=== PATIENT | female | born 1955 | race Caucasian/White ===

== ENCOUNTER 2016-04-08 14:53 | Inpatient (IN) | payer MEDICARE, BC ==
[2016-04-08] MEDS ORDERED: HYDROmorphone 1 MG/ML 1 ML SYRINGE IVP STA ×2 (15:36→17:50)
[2016-04-08] MEDS ORDERED: SODIUM CHLORIDE 0.9% 1,000 ML IV STA (15:36)
--- NOTE | 2016-04-08 15:41 | ED ---
Abdominal Pain HPI - General Chief Complaint: Abdominal Pain Stated Complaint: Left side Pain Time Seen by Provider: 04/08/16 15:13 Source: patient Mode of arrival: wheelchair Limitations: no limitations - History of Present Illness Initial Comments: 60-year-old female gradual onset of lower left abdominal pain. Had a hernia surgery 2 months ago had a colonoscopy couple months ago. Said previous diverticulitis she was seen at the walk-in clinic and was sent to ER they had obtained an x-ray. Her urine was clear the center was possible kidney stone. She has no nausea vomiting she's been having diarrhea for couple weeks her pain is been gradually increasing over the last 3 days became unbearable today. She has some frequency urine with some burning. Nausea but no vomiting. Patient has a rather extensive medical history - Related Data Home Medications Medication Instructions Recorded Confirmed Diazepam [Valium] 10 mg PO TID 05/24/15 04/08/16 Ibandronate Sodium [Boniva] 150 mg PO QMONTH 05/24/15 04/08/16 Ipratropium Nebulized [Atrovent 0.5 mg INHALATION RT-TID PRN 05/24/15 04/08/16 Nebulized] Levalbuterol Nebulized [Xopenex 1.25 mg INHALATION RT-TID PRN 05/24/15 04/08/16 Nebulized] Primidone [Mysoline] 50 mg PO BID 05/24/15 04/08/16 Promethaz-Cod 6.25-10 mg/5 ml 5 ml PO Q8H PRN 05/24/15 04/08/16 [Phenergan with Codeine] Rivaroxaban [Xarelto] 20 mg PO DAILY 05/24/15 04/08/16 Zolpidem Tartrate [Ambien] 10 mg PO HS PRN 05/24/15 04/08/16 Ipratropium/Albuterol Sulfate 1 puff INHALATION RT-QID PRN 12/02/15 04/08/16 [Combivent Respimat Inhaler] Pravastatin Sodium [Pravachol] 40 mg PO HS 12/02/15 04/08/16 Donepezil [Aricept] 10 mg PO HS 04/08/16 04/08/16 Escitalopram [Lexapro] 20 mg PO DAILY 04/08/16 04/08/16 Fluticasone/Salmeterol [Advair 1 puff INHALATION RT-BID 04/08/16 04/08/16 500-50 Diskus] Allergies Allergy/AdvReac Type Severity Reaction Status Date / Time cephalexin monohydrate Allergy Rash/Hives Verified 12/28/15 13:20 [From Keflex] clarithromycin [From Biaxin] Allergy Rash/Hives Verified 12/28/15 13:20 Quinolones Allergy Rash/Hives Verified 04/08/16 15:50 Review of Systems ROS Statement: Those systems with pertinent positive or pertinent negative responses have been documented in the HPI. ROS Other: All systems not noted in ROS Statement are negative. Constitutional: Denies: fever, chills Eyes: Denies: eye discharge Respiratory: Denies: cough Cardiovascular: Denies: chest pain Gastrointestinal: Reports: abdominal pain, diarrhea Genitourinary: Reports: dysuria, frequency. Denies: urgency Skin: Denies: rash Neurological: Denies: headache Psychiatric: Denies: anxiety, depression Hematological/Lymphatic: Denies: easy bleeding, easy bruising Past Medical History Past Medical History: Asthma, COPD, CVA/TIA, Deep Vein Thrombosis (DVT), GERD/ Reflux, Hyperlipidemia, Hypertension, Osteoarthritis (OA), Pneumonia, Pulmonary Embolus (PE) Additional Past Medical History / Comment(s): CVA LOST LT PERIPHERAL VISION AND WRITING IS A BIT DIFFICULT & FEW TIA'S, TREMORS SINCE.PE/ XUAN DVT (AFTER LAST 2 MAJOR SURG). HX BOWEL OBSTRUCTION. USED TO TAKE MEDS FOR BP , OSTEOPOROSIS. BACK PAIN. ,RADS,CHRONIC BRONCHITIS, SCOLIOSIS, BROKE RT WRIST D/T FALL 2009, SMALL HIATAL HERNIA,DIVERTICULAR DISEASE, UTI,GLAUCOMA History of Any Multi-Drug Resistant Organisms: MRSA Date of last positivie culture/infection: 2014 MDRO Source:: URINE Past Surgical History: Appendectomy, Back Surgery, Bladder Surgery, Bowel Resection, Breast Surgery, Cholecystectomy, Heart Catheterization, Hernia Repair , Hysterectomy, Orthopedic Surgery Additional Past Surgical History / Comment(s): 12-28-15 LAP INC HERNIA REPAIR, 2 PREVIOUS HERNIA SX 2004/2009,2 HOLES IN HEART REPAIRED, ATRIUM, SEPTUM - HAS "UMBRELLA" CLOSURE DEVICE. BREAST REDUCTION. CYSTOCELE, RECTOCELE REPAIR. RT FOOT. EXC CYST LT ARM,LT FOOT REPAIR CYSTOSCOPY,LT BREAST BX-NEG, BUNIONECTOMY, GANGLION CYST REMOVED BRONCOSCOPIES,EGD/COLONOSCOPY,XUAN CATARACTS Past Anesthesia/Blood Transfusion Reactions: No Reported Reaction Past Psychological History: Anxiety, Depression Additional Psychological History / Comment(s): PT STATED HAS SOME MILD DEPRESSION -SISTER HAS CANCER AND IS LIVING WITH HER. DENIES THOUGHTS OF WANTING TO HARM SELF, NO HOPELESSNESS Smoking Status: Never smoker Past Alcohol Use History: None Reported Past Drug Use History: None Reported - Past Family History Father Brother(s) Family Medical History: Cancer Additional Family Medical History / Comment(s): LUNG CANCER Sister(s) Family Medical History: Cancer Additional Family Medical History / Comment(s): # 1 SISTER-BONE CA,SISTER #2 BREAST CA, SISTER #3 LUNG,STOMACH,ESOPHAGUS Mother Family Medical History: Deep Vein Thrombosis (DVT) Additional Family Medical History / Comment(s): diverticulitis General Exam Limitations: no limitations General appearance: alert Head exam: Present: atraumatic Eye exam: Present: PERRL, EOMI ENT exam: Present: normal oropharynx, mucous membranes moist, TM's normal bilaterally Respiratory exam: Present: normal lung sounds bilaterally Cardiovascular Exam: Present: regular rate, tachycardia, normal heart sounds GI/Abdominal exam: Present: soft, tenderness (Left lower quadrant tenderness with guarding) Neurological exam: Present: alert, CN II-XII intact Psychiatric exam: Present: normal affect, normal mood Skin exam: Present: warm, dry Course Vital Signs 04/08/16 04/08/16 04/08/16 15:03 16:39 17:50 Temperature 99.3 F 98.1 F 97.7 F Pulse Rate 102 H 94 77 Respiratory 20 18 18 Rate Blood Pressure 159/112 135/89 145/84 O2 Sat by Pulse 99 98 99 Oximetry Medical Decision Making - Medical Decision Making Spoke to Dr. Montiel patient will be admitted to her surgeon Dr. Fonseca with consult to Dr. Francois appears to have an incarcerated inguinal hernia with omental no bowel obstruction - Lab Data Result diagrams: 04/08/16 16:00 04/08/16 16:00 Lab Results 04/08/16 04/08/16 04/08/16 Range/Units 16:00 16:00 16:00 WBC 7.6 (3.8-10.6) k/uL RBC 4.62 (3.80-5.40) m/uL Hgb 12.2 (11.4-16.0) gm/dL Hct 38.6 (34.0-46.0) % MCV 83.4 (80.0-100.0) fL MCH 26.4 (25.0-35.0) pg MCHC 31.6 (31.0-37.0) g/dL RDW 14.6 (11.5-15.5) % Plt Count 337 (150-450) k/uL Neutrophils % 63 % Lymphocytes % 26 % Monocytes % 6 % Eosinophils % 3 % Basophils % 0 % Neutrophils # 4.8 (1.3-7.7) k/uL Lymphocytes # 2.0 (1.0-4.8) k/uL Monocytes # 0.5 (0-1.0) k/uL Eosinophils # 0.2 (0-0.7) k/uL Basophils # 0.0 (0-0.2) k/uL Sodium 142 (137-145) mmol/L Potassium 5.1 (3.5-5.1) mmol/L Chloride 108 H (98-107) mmol/L Carbon Dioxide 21 L (22-30) mmol/L Anion Gap 13 mmol/L BUN 16 (7-17) mg/dL Creatinine 0.70 (0.52-1.04) mg/dL Est GFR (MDRD) Af Amer >60 (>60 ml/min/1.73 sqM) Est GFR (MDRD) Non-Af >60 (>60 ml/min/1.73 sqM) Glucose 97 (74-99) mg/dL Calcium 9.9 (8.4-10.2) mg/dL Total Bilirubin 0.7 (0.2-1.3) mg/dL AST 42 H (14-36) U/L ALT 32 (9-52) U/L Alkaline Phosphatase 71 (38-126) U/L Total Protein 7.8 (6.3-8.2) g/dL Albumin 4.6 (3.5-5.0) g/dL Amylase 88 (30-110) U/L Lipase 270 (23-300) U/L Urine Color Light Yellow Urine Appearance Clear (Clear) Urine pH 5.5 (5.0-8.0) Ur Specific Ayden 1.009 (1.001-1.035) Urine Protein Negative (Negative) Urine Glucose (UA) Negative (Negative) Urine Ketones Negative (Negative) Urine Blood Negative (Negative) Urine Nitrate Negative (Negative) Urine Bilirubin Negative (Negative) Urine Urobilinogen <2.0 (<2.0) mg/dL Ur Leukocyte Esterase Small H (Negative) Urine WBC 5 (0-5) /hpf Ur Squamous Epith Cells 1 (0-4) /hpf Urine Mucus Rare H (None) /hpf - Radiology Data Radiology results: report reviewed CT shows large inguinal hernia increased in size compared to old computed tomography scan no evidence of renal stone or obstruction. Mild subsegmental atelectasis at the lung base without change. Lower abdominal ventral hernia. Disposition Clinical Impression: Hernia of anterior abdominal wall, Inguinal hernia with incarceration Disposition: HOME SELF-CARE Condition: Good Time of Disposition: 19:16
[2016-04-08 16:11] LABS: Basophils % (A) 0 %; CH 26.9; CHCM 32.4; Eosinophils # (A) 0.2 k/uL (0-0.7); Eosinophils % (A) 3 %; HCT 38.6 % (34.0-46.0); HDW 2.64; HGB 12.2 gm/dL (11.4-16.0); Luc # (Auto) 0.12; Luc % (Auto) 2; Lymphocytes % (A) 26 %; MCH 26.4 pg (25.0-35.0); MCHC 31.6 g/dL (31.0-37.0); MCV 83.4 fL (80.0-100.0); Mean Platelet Volume 7.8; Monocytes # (A) 0.5 k/uL (0-1.0); Monocytes % (A) 6 %; Neutrophils # (A) 4.8 k/uL (1.3-7.7); Neutrophils % (A) 63 %; RBC 4.62 m/uL (3.80-5.40); RDW 14.6 % (11.5-15.5); WBC 7.6 k/uL (3.8-10.6); WBC (Perox) 8.14
[2016-04-08 16:16] LABS: Appearance,Urine Clear (Clear); Bilirubin,Urine Negative (Negative); Glucose,Urine (UA) Negative (Negative); Ketones,Urine Negative (Negative); Leukocyte Esterase,Urine Small (Negative); Mucus,Urine Rare /hpf; Nitrite,Urine Negative (Negative); PH, Urine 5.5 (5.0-8.0); Particle Count 1507; Protein,Urine Negative (Negative); Specific Gravity,Urine 1.009 (1.001-1.035); Squamous Epithelial Cell,Urine 1 /hpf (0-4); UA Billing (MACRO vs. MICRO) MICRO; Urobilinogen,Urine <2.0 mg/dL (<2.0); WBC,Urine 5 /hpf (0-5)
[2016-04-08 16:23] LABS: ALT 32 U/L (9-52); AST 42 U/L (14-36); Alkaline Phosphatase 71 U/L (38-126); Amylase 88 U/L (30-110); Anion Gap 13 mmol/L; Blood Urea Nitrogen 16 mg/dL (7-17); Calcium 9.9 mg/dL (8.4-10.2); Carbon Dioxide 21 mmol/L (22-30); Chloride 108 mmol/L (98-107); Glucose 97 mg/dL (74-99); Non-African American GFR(MDRD) >60 (>60 ml/min/1.73 sqM); Potassium 5.1 mmol/L (3.5-5.1); Sodium 142 mmol/L (137-145); Total Bilirubin 0.7 mg/dL (0.2-1.3); Total Protein 7.8 g/dL (6.3-8.2)
--- NOTE | 2016-04-08 17:19 | CT ---
EXAMINATION TYPE: CT abdomen pelvis wo con DATE OF EXAM: 04/08/2016 5:01 PM COMPARISON: 11/22/2015 HISTORY: Left Lower Quadrant pain CT DLP: 312.1 mGycm Automated exposure control for dose reduction was used. TECHNIQUE: Helical acquisition of images was performed from the lung bases through the pelvis. FINDINGS: There is minimal subsegmental atelectasis at the lung bases. There is no pleural effusion. There are clips from cholecystectomy. Bile ducts are not dilated. There is a small hiatal hernia. Shraddha er shows no focal defect. There is slight elevated right diaphragm. Spleen and pancreas appear normal . There is no adrenal mass. There is a 2 cm cortical cyst on the posterior right kidney. There is no re troperitoneal adenopathy. There is no hydronephrosis. Ureters are not dilated. There is a lower abdominal ventral hernia that contains small bowel. There is no evidence of a bowel obstruction. Bladder distends smoothly. There is surgical clips apparently from sigmoid colon surgery . Appendix is not seen. There is no sign of appendicitis. There is posterior fusion surgery in the lo wer lumbar spine. There is a left inguinal hernia that contains omental fat. This measures 3.5 cm. IMPRESSION: LOWER ABDOMINAL VENTRAL HERNIA. LEFT INGUINAL HERNIA IS INCREASED IN SIZE COMPARED TO OLD CT SCAN. NO EVIDENCE OF RENAL STONE OR OBST RUCTION. MILD SUBSEGMENTAL ATELECTASIS AT THE LUNG BASES WITHOUT CHANGE.
[2016-04-08] MEDS ORDERED: NALOXONE 0.4 MG/ML 1 ML VIAL IV PRN (19:16)
[2016-04-08] MEDS ORDERED: ONDANSETRON 4 MG/2 ML VIAL IVP PRN (19:20)
[2016-04-08] MEDS ORDERED: DEXTROSE 5%-0.45% NACL 1,000 ML IV ONE (19:20)
[2016-04-08] MEDS ORDERED: ZOLPIDEM 10 MG TAB PO PRN (19:22)
[2016-04-08] MEDS ORDERED: LEVALBUTEROL NEB (CONC) 1.25 MG/0.5 ML AMP INHALATION PRN (19:22)
[2016-04-08] MEDS ORDERED: IPRATROPIUM 0.5 MG/2.5 ML NEBU INHALATION PRN (19:22)
[2016-04-08] MEDS ORDERED: IPRATROPIUM-ALBUTEROL 3 ML NEB INHALATION PRN (19:30)
[2016-04-08] MEDS: SYMBICORT 160-4.5 MCG INHALER INHALATION SCH (20:13)
[2016-04-08] MEDS: HYDROmorphone 1 MG/ML 1 ML SYRINGE IV PRN (21:39)
[2016-04-08] MEDS: PRIMIDONE 50 MG TAB PO SCH (21:40)
[2016-04-08] MEDS: DONEPEZIL 10 MG TAB PO SCH (21:40)
[2016-04-08] MEDS: DIAZEPAM 5 MG TAB PO SCH (22:54)
[2016-04-08] MEDS: DEXTROSE 5%-0.45% NACL 1,000 ML IV SCH (22:55)
[2016-04-09] MEDS: HYDROmorphone 1 MG/ML 1 ML SYRINGE IV PRN ×5 (00:45→16:06)
[2016-04-09 06:54] LABS: Basophils % (A) 0 %; CH 26.1; CHCM 30.1; Eosinophils # (A) 0.2 k/uL (0-0.7); Eosinophils % (A) 4 %; HCT 34.4 % (34.0-46.0); HDW 2.53; HGB 10.4 gm/dL (11.4-16.0); Hypochromasia Marked; Luc # (Auto) 0.07; Luc % (Auto) 1; Lymphocytes # (A) 1.4 k/uL (1.0-4.8); Lymphocytes % (A) 27 %; MCH 26.4 pg (25.0-35.0); MCHC 30.3 g/dL (31.0-37.0); Mean Platelet Volume 7.6; Monocytes # (A) 0.3 k/uL (0-1.0); Monocytes % (A) 7 %; Neutrophils # (A) 3.1 k/uL (1.3-7.7); Neutrophils % (A) 62 %; RBC 3.95 m/uL (3.80-5.40); RDW 14.6 % (11.5-15.5); WBC 5.1 k/uL (3.8-10.6); WBC (Perox) 4.97
[2016-04-09 07:09] LABS: Anion Gap 7 mmol/L; Blood Urea Nitrogen 11 mg/dL (7-17); Calcium 8.3 mg/dL (8.4-10.2); Carbon Dioxide 23 mmol/L (22-30); Chloride 109 mmol/L (98-107); Glucose 100 mg/dL (74-99); Non-African American GFR(MDRD) >60 (>60 ml/min/1.73 sqM); Potassium 4.1 mmol/L (3.5-5.1); Sodium 139 mmol/L (137-145)
[2016-04-09] MEDS: SYMBICORT 160-4.5 MCG INHALER INHALATION SCH ×2 (08:20→19:41)
[2016-04-09] MEDS: ESCITALOPRAM 20 MG TAB PO SCH (08:49)
[2016-04-09] MEDS: PRIMIDONE 50 MG TAB PO SCH ×2 (08:49→20:13)
[2016-04-09] MEDS: DIAZEPAM 5 MG TAB PO SCH ×3 (08:49→21:10)
[2016-04-09 09:24] VITALS: BMI 26.3
[2016-04-09] MEDS ORDERED: FLUCONAZOLE 150 MG TAB PO STA (11:21)
[2016-04-09] MEDS: NYSTATIN 100,000UNIT/GM CREAM 30 GM TUBE TOPICAL SCH ×2 (12:00→20:13)
--- NOTE | 2016-04-09 12:12 | XR ---
EXAMINATION TYPE: XR chest 2V DATE OF EXAM: 04/09/2016 11:49 AM COMPARISON: Chest x-ray 13 March 2016, CT 08 April 2016 HISTORY: Surgical clearance, preop abdominal hernia surgery TECHNIQUE: Frontal and lateral views of the chest are obtained. FINDINGS: Some minimal strand-like densities are present at the lung bases similar to prior exam. No pneumonia, pneumothorax, or pleural effusion. Cardiac mediastinal silhouette, pulmonary vascularity and trev are stable. Surgical clips are present in the right upper quadrant. IMPRESSION: No acute cardiopulmonary process. There may be some basilar atelectasis or scarring.
--- NOTE | 2016-04-09 14:29 | P.CONS ---
History of Present Illness - Reason for Consult Consult date: 04/09/16 Medical management Requesting physician: Vincenzo Carmichael - Chief Complaint Abdominal pain - History of Present Illness This is a 60-year-old female with a known past medical history of COPD, CVA, hypertension, hyperlipidemia, pulmonary embolus and diverticulitis. Patient had hernia surgery about 2 months ago as well as a colonoscopy. Colonoscopy was poor to good. Patient reports having increasing abdominal pain yesterday mostly on the left side. She did initially go into walk-in clinic for x-rays in the center to the emergency room. Patient denies any nausea vomiting. Denies any change in her bowel movements. She was having stabbing pain in the lower abdomen mostly on the left. Computed tomography scan of the abdomen and pelvis completed showing a lower abdominal ventral hernia and a left inguinal hernia increased in size compared to old CAT scan. No evidence of renal stones or obstruction. Mild subsegmental atelectasis at the lung base without change. Patient was admitted to surgical service. We have been consulted for medical management. Patient denies any fever or sweats. Does admit to occasional chills. Denies any nausea or vomiting. Denies a bowel movement changes. Patient does admit to having some burning with urination. And also a yeast infection. Xarelto was placed on hold in the emergency room for possible surgery. She is on the Xarelto for her history of PE. Review of Systems Please refer to HPI otherwise unremarkable Past Medical History Past Medical History: Asthma, COPD, CVA/TIA, Deep Vein Thrombosis (DVT), GERD/ Reflux, Hyperlipidemia, Hypertension, Osteoarthritis (OA), Pneumonia, Pulmonary Embolus (PE) Additional Past Medical History / Comment(s): CVA LOST LT PERIPHERAL VISION AND WRITING IS A BIT DIFFICULT & FEW TIA'S, TREMORS SINCE.PE/ XUAN DVT (AFTER LAST 2 MAJOR SURG). HX BOWEL OBSTRUCTION. USED TO TAKE MEDS FOR BP , OSTEOPOROSIS. BACK PAIN. ,RADS,CHRONIC BRONCHITIS, SCOLIOSIS, BROKE RT WRIST D/T FALL 2009, SMALL HIATAL HERNIA,DIVERTICULAR DISEASE, UTI,GLAUCOMA History of Any Multi-Drug Resistant Organisms: MRSA Year Discovered:: 07/12/2008 MDRO Source:: URINE Past Surgical History: Appendectomy, Back Surgery, Bladder Surgery, Bowel Resection, Breast Surgery, Cholecystectomy, Heart Catheterization, Hernia Repair , Hysterectomy, Orthopedic Surgery Additional Past Surgical History / Comment(s): 12-28-15 LAP INC HERNIA REPAIR, 2 PREVIOUS HERNIA SX 2004/2009,2 HOLES IN HEART REPAIRED, ATRIUM, SEPTUM - HAS "UMBRELLA" CLOSURE DEVICE. BREAST REDUCTION. CYSTOCELE, RECTOCELE REPAIR. RT FOOT. EXC CYST LT ARM,LT FOOT REPAIR CYSTOSCOPY,LT BREAST BX-NEG, BUNIONECTOMY, GANGLION CYST REMOVED BRONCOSCOPIES,EGD/COLONOSCOPY,XUAN CATARACTS Past Anesthesia/Blood Transfusion Reactions: No Reported Reaction Past Psychological History: Anxiety, Depression Additional Psychological History / Comment(s): PT STATED HAS SOME MILD DEPRESSION -SISTER HAS CANCER AND IS LIVING WITH HER. DENIES THOUGHTS OF WANTING TO HARM SELF, NO HOPELESSNESS Smoking Status: Never smoker Past Alcohol Use History: None Reported Past Drug Use History: None Reported - Past Family History Father Brother(s) Family Medical History: Cancer Additional Family Medical History / Comment(s): LUNG CANCER Sister(s) Family Medical History: Cancer Additional Family Medical History / Comment(s): # 1 SISTER-BONE CA,SISTER #2 BREAST CA, SISTER #3 LUNG,STOMACH,ESOPHAGUS Mother Family Medical History: Deep Vein Thrombosis (DVT) Additional Family Medical History / Comment(s): diverticulitis Medications and Allergies Home Medications Medication Instructions Recorded Confirmed Type Diazepam [Valium] 10 mg PO TID 05/24/15 04/08/16 History Ibandronate Sodium [Boniva] 150 mg PO QMONTH 05/24/15 04/08/16 History Ipratropium Nebulized [Atrovent 0.5 mg INHALATION RT-TID PRN 05/24/15 04/08/16 History Nebulized] Levalbuterol Nebulized [Xopenex 1.25 mg INHALATION RT-TID PRN 05/24/15 04/08/16 History Nebulized] Primidone [Mysoline] 50 mg PO BID 05/24/15 04/08/16 History Promethaz-Cod 6.25-10 mg/5 ml 5 ml PO Q8H PRN 05/24/15 04/08/16 History [Phenergan with Codeine] Rivaroxaban [Xarelto] 20 mg PO DAILY 05/24/15 04/08/16 History Zolpidem Tartrate [Ambien] 10 mg PO HS PRN 05/24/15 04/08/16 History Ipratropium/Albuterol Sulfate 1 puff INHALATION RT-QID PRN 12/02/15 04/08/16 History [Combivent Respimat Inhaler] Pravastatin Sodium [Pravachol] 40 mg PO HS 12/02/15 04/08/16 History Donepezil [Aricept] 10 mg PO HS 04/08/16 04/08/16 History Escitalopram [Lexapro] 20 mg PO DAILY 04/08/16 04/08/16 History Fluticasone/Salmeterol [Advair 1 puff INHALATION RT-BID 04/08/16 04/08/16 History 500-50 Diskus] Allergies Allergy/AdvReac Type Severity Reaction Status Date / Time cephalexin monohydrate Allergy Rash/Hives Verified 12/28/15 13:20 [From Keflex] clarithromycin [From Biaxin] Allergy Rash/Hives Verified 12/28/15 13:20 Quinolones Allergy Rash/Hives Verified 04/08/16 15:50 Physical Exam Vitals: Vital Signs Temp Pulse Pulse Resp BP BP Pulse Ox 04/09/16 07:00 98.7 F 98 16 115/69 96 04/09/16 02:00 97.4 F L 78 16 108/69 95 04/08/16 21:13 97.8 F 93 16 114/87 04/08/16 20:36 98.2 F 90 18 129/78 98 04/08/16 19:50 90 18 132/64 95 Intake and Output 04/08/16 04/09/16 04/09/16 22:59 06:59 14:59 Intake Total 450 675 Balance 450 675 Intake: Intake, IV Titration 150 675 Amount Dextrose 5%-0.45% NaCl 1, 150 675 000 ml @ 75 mls/hr IV . [id number] Rx#:[id number] Oral 300 Other: Voiding Method Toilet # Voids 3 2 Weight 57.153 kg Patient Weight 04/10/16 06:59 Weight 57.153 kg Head normocephalic Neck supple Lungs clear to auscultation bilaterally no wheezing or crackles Heart regular rate and rhythm S1-S2, no rub or gallop Abdomen left lower quadrant and inguinal area tenderness. Some swelling noted in the left inguinal area and around the umbilical area Extremities no edema Neuro alert and orientated to 3 Results CBC & Chem 7: 04/09/16 06:34 04/09/16 06:34 Labs: Abnormal Lab Results - Last 24 Hours (Table) 04/09/16 04/09/16 Range/Units 06:34 06:34 Hgb 10.4 L (11.4-16.0) gm/dL MCHC 30.3 L (31.0-37.0) g/dL Chloride 109 H (98-107) mmol/L Glucose 100 H (74-99) mg/dL Calcium 8.3 L (8.4-10.2) mg/dL Assessment and Plan Plan: 1. Left inguinal hernia increase in size that contains omental fat. Also a lower abdominal ventral hernia noted on computed tomography scan. Patient admitted to surgical service. We'll await further surgical recommendations. We 'll check chest x-ray and EKG for surgical clearance. Patient has intermediate to moderate risk for surgery. She's had a known history of CVA and TIA. And does get short of breath with walking a flight of stairs which is her baseline. Continue IV Dilaudid as needed for pain control 2. Urinalysis small leukocyte esterase with negative nitrites. WBCs are only 5. We'll repeat urinalysis and check urine culture. Hold off on antibiotics at this point until we have evaluated the repeat urinalysis and urine culture. 3. History of pulmonary embolism on Xarelto at home. Xarelto was placed on hold yesterday. At this time we'll place her on Lovenox 60 mg subcu every 12 hours for anticoagulation for PE 4. History of COPD with no evidence of exacerbation. Continue nebulizer treatments 5. Recent hernia surgery about 2 months ago 6. Hyperlipidemia continue Pravachol 7. Dementia continue Aricept 8. Vaginal yeast infection we'll give Diflucan 150mg po x 1 and nystatin cream for candidiasis in the labial folds 9. Atelectasis start incentive spirometer Prophylaxis Protonix and DVT prophylaxis Lovenox Thank you for this consultation. We will continue to follow along with you. Time with Patient: Greater than 30 (Greater than 50% of the total time spent in counseling and coordination of careGreater than 50% of the total time spent in counseling and coordination of care. I performed an examination of the patient and discussed their management with the physician [facility]. I have reviewed the Physician [facility]'s notes and agree with the documented findings and plan of care)
--- NOTE | 2016-04-09 15:56 | P.GSHP ---
History of Present Illness H&P Date: 04/09/16 Chief Complaint: Left lower quadrant abdominal pain Patient is a 60-year-old female with medical history significant for bowel obstruction, diverticulosis, diverticulitis, and recent urinary tract infection. Surgical history significant for laparoscopic incisional hernia repair on 12/28/2015, 2 previous sinus surgeries in 2004 and 2009, cystocele, rectocele, appendectomy, cholecystectomy, and hernia repair 2 in 2004 and 2009. Patient states that over the last couple days she had been experiencing progressive left lower quadrant abdominal pain radiating into her back associated with chills and sweats without fevers, nausea, or vomiting. Patient states she went to urgent care who directed her to the emergency department for possible kidney stone infection. CT of the abdomen and pelvis with evidence of small hiatal hernia; lower abdominal ventral hernia containing small bowel; no evidence of bowel obstruction; no signs of appendicitis; left inguinal hernia containing omental fat measuring 3.5 cm increased in size compared to old computed tomography scan. No evidence of leukocytosis on admission. No evidence of fevers on admission. Upon examination, patient is complaining of left lower quadrant abdominal pain currently rated ER at 10 associated with intermittent chills and sweats. Patient denies nausea, vomiting, shortness of breath, chest pain, diarrhea, or constipation. Afebrile. No evidence of leukocytosis. Past Medical History Past Medical History: Asthma, COPD, CVA/TIA, Deep Vein Thrombosis (DVT), GERD/ Reflux, Hyperlipidemia, Hypertension, Osteoarthritis (OA), Pneumonia, Pulmonary Embolus (PE) Additional Past Medical History / Comment(s): CVA LOST LT PERIPHERAL VISION AND WRITING IS A BIT DIFFICULT & FEW TIA'S, TREMORS SINCE.PE/ XUAN DVT (AFTER LAST 2 MAJOR SURG). HX BOWEL OBSTRUCTION. USED TO TAKE MEDS FOR BP , OSTEOPOROSIS. BACK PAIN. ,RADS,CHRONIC BRONCHITIS, SCOLIOSIS, BROKE RT WRIST D/T FALL 2009, SMALL HIATAL HERNIA,DIVERTICULAR DISEASE, UTI,GLAUCOMA History of Any Multi-Drug Resistant Organisms: MRSA Date of last positivie culture/infection: 07/12/2008 MDRO Source:: URINE Past Surgical History: Appendectomy, Back Surgery, Bladder Surgery, Bowel Resection, Breast Surgery, Cholecystectomy, Heart Catheterization, Hernia Repair , Hysterectomy, Orthopedic Surgery Additional Past Surgical History / Comment(s): 10-5-16 LAP INC HERNIA REPAIR, 2 PREVIOUS HERNIA SX 2004/2009,2 HOLES IN HEART REPAIRED, ATRIUM, SEPTUM - HAS "UMBRELLA" CLOSURE DEVICE. BREAST REDUCTION. CYSTOCELE, RECTOCELE REPAIR. RT FOOT. EXC CYST LT ARM,LT FOOT REPAIR CYSTOSCOPY,LT BREAST BX-NEG, BUNIONECTOMY, GANGLION CYST REMOVED BRONCOSCOPIES,EGD/COLONOSCOPY,XUAN CATARACTS Past Anesthesia/Blood Transfusion Reactions: No Reported Reaction Past Psychological History: Anxiety, Depression Additional Psychological History / Comment(s): PT STATED HAS SOME MILD DEPRESSION -SISTER HAS CANCER AND IS LIVING WITH HER. DENIES THOUGHTS OF WANTING TO HARM SELF, NO HOPELESSNESS Smoking Status: Never smoker Past Alcohol Use History: None Reported Past Drug Use History: None Reported - Past Family History Father Brother(s) Family Medical History: Cancer Additional Family Medical History / Comment(s): LUNG CANCER Sister(s) Family Medical History: Cancer Additional Family Medical History / Comment(s): # 1 SISTER-BONE CA,SISTER #2 BREAST CA, SISTER #3 LUNG,STOMACH,ESOPHAGUS Mother Family Medical History: Deep Vein Thrombosis (DVT) Additional Family Medical History / Comment(s): diverticulitis Medications and Allergies Home Medications Medication Instructions Recorded Confirmed Type Diazepam [Valium] 10 mg PO TID 05/24/15 04/08/16 History Ibandronate Sodium [Boniva] 150 mg PO QMONTH 05/24/15 04/08/16 History Ipratropium Nebulized [Atrovent 0.5 mg INHALATION RT-TID PRN 05/24/15 04/08/16 History Nebulized] Levalbuterol Nebulized [Xopenex 1.25 mg INHALATION RT-TID PRN 05/24/15 04/08/16 History Nebulized] Primidone [Mysoline] 50 mg PO BID 05/24/15 04/08/16 History Promethaz-Cod 6.25-10 mg/5 ml 5 ml PO Q8H PRN 05/24/15 04/08/16 History [Phenergan with Codeine] Rivaroxaban [Xarelto] 20 mg PO DAILY 05/24/15 04/08/16 History Zolpidem Tartrate [Ambien] 10 mg PO HS PRN 05/24/15 04/08/16 History Ipratropium/Albuterol Sulfate 1 puff INHALATION RT-QID PRN 12/02/15 04/08/16 History [Combivent Respimat Inhaler] Pravastatin Sodium [Pravachol] 40 mg PO HS 12/02/15 04/08/16 History Donepezil [Aricept] 10 mg PO HS 04/08/16 04/08/16 History Escitalopram [Lexapro] 20 mg PO DAILY 04/08/16 04/08/16 History Fluticasone/Salmeterol [Advair 1 puff INHALATION RT-BID 04/08/16 04/08/16 History 500-50 Diskus] Allergies Allergy/AdvReac Type Severity Reaction Status Date / Time cephalexin monohydrate Allergy Rash/Hives Verified 12/28/15 13:20 [From Keflex] clarithromycin [From Biaxin] Allergy Rash/Hives Verified 12/28/15 13:20 Quinolones Allergy Rash/Hives Verified 04/08/16 15:50 Surgical - Exam Vital Signs Temp Pulse Resp BP Pulse Ox 99.3 F 102 H 20 159/112 99 04/08/16 15:03 04/08/16 15:03 04/08/16 15:03 04/08/16 15:03 04/08/16 15:03 GENERAL: Pt awake and alert, well-appearing, well-nourished, and in no acute distress. HEAD: Atraumatic, normocephalic. EYES: Pupils equal and round. Sclera anicteric, conjunctiva are normal. ENT: Moist mucous membranes. LUNGS: Breath sounds clear to auscultation bilaterally. No wheezes, rales, or rhonchi. HEART: Heart S1, S2, no S3 or S4. Regular rate and rhythm. No murmurs, rubs or gallops. ABDOMEN: Soft, left lower quadrant tenderness, mildly distended, hypoactive bowel sounds. Voluntary guarding. EXTREMITIES: 2+ peripheral pulses. No edema. NEUROLOGICAL: Pt oriented x 3. Results - Labs 04/09/16 06:34 04/09/16 06:34 Abnormal Lab Results - Last 24 Hours (Table) 04/09/16 04/09/16 Range/Units 06:34 06:34 Hgb 10.4 L (11.4-16.0) gm/dL MCHC 30.3 L (31.0-37.0) g/dL Chloride 109 H (98-107) mmol/L Glucose 100 H (74-99) mg/dL Calcium 8.3 L (8.4-10.2) mg/dL Diabetes panel 04/09/16 Range/Units 06:34 Sodium 139 (137-145) mmol/L Potassium 4.1 (3.5-5.1) mmol/L Chloride 109 H (98-107) mmol/L Carbon Dioxide 23 (22-30) mmol/L BUN 11 (7-17) mg/dL Creatinine 0.59 (0.52-1.04) mg/dL Glucose 100 H (74-99) mg/dL Calcium 8.3 L (8.4-10.2) mg/dL Calcium panel 04/09/16 Range/Units 06:34 Calcium 8.3 L (8.4-10.2) mg/dL Pituitary panel 04/09/16 Range/Units 06:34 Sodium 139 (137-145) mmol/L Potassium 4.1 (3.5-5.1) mmol/L Chloride 109 H (98-107) mmol/L Carbon Dioxide 23 (22-30) mmol/L BUN 11 (7-17) mg/dL Creatinine 0.59 (0.52-1.04) mg/dL Glucose 100 H (74-99) mg/dL Calcium 8.3 L (8.4-10.2) mg/dL Adrenal panel 04/09/16 Range/Units 06:34 Sodium 139 (137-145) mmol/L Potassium 4.1 (3.5-5.1) mmol/L Chloride 109 H (98-107) mmol/L Carbon Dioxide 23 (22-30) mmol/L BUN 11 (7-17) mg/dL Creatinine 0.59 (0.52-1.04) mg/dL Glucose 100 H (74-99) mg/dL Calcium 8.3 L (8.4-10.2) mg/dL - Imaging CT scan - abdomen: report reviewed CT scan - pelvis: report reviewed Assessment and Plan Plan: Impression: 1. Large inguinal hernia increased in size compared to old computed tomography scan with omental fat. 2. Lower abdominal ventral hernia. 3. History of pulmonary embolism and DVT on Xaralto. Last dose 04/08/2016. 4. History of GERD. 5. History of bowel obstruction with resection. 6. History of recent incarcerated incisional hernia repair. 7. History of appendectomy. 8. History of cholecystectomy. 9. History of hysterectomy. 10. History of diverticulosis with diverticulitis. Plan: Continue to monitor patient. Advance diet to full liquid. Continue supportive treatment and pain management. Repeat CBC and BMP in a.m. Continue to follow with primary service. The above impression and plan have been discussed and directed by Dr. Carmichael. Monie KOWALSKI acting as scribe for Dr. Carmichael.
[2016-04-09] MEDS: HYDROmorphone 1 MG/ML 1 ML SYRINGE IVP PRN ×3 (18:17→22:43)
[2016-04-09] MEDS: DEXTROSE 5%-0.45% NACL 1,000 ML IV SCH (19:36)
[2016-04-09] MEDS: DONEPEZIL 10 MG TAB PO SCH (20:13)
[2016-04-09] MEDS: ENOXAPARIN 60 MG/0.6 ML SYRINGE SQ SCH (20:13)
[2016-04-10] MEDS: HYDROmorphone 1 MG/ML 1 ML SYRINGE IVP PRN ×5 (02:23→20:08)
[2016-04-10] MEDS: DIAZEPAM 5 MG TAB PO SCH ×3 (07:08→21:34)
[2016-04-10] MEDS: ENOXAPARIN 60 MG/0.6 ML SYRINGE SQ SCH ×2 (07:08→20:08)
[2016-04-10] MEDS: PANTOPRAZOLE 40 MG TABLET PO SCH (07:08)
[2016-04-10] MEDS: ESCITALOPRAM 20 MG TAB PO SCH (07:09)
[2016-04-10] MEDS: PRIMIDONE 50 MG TAB PO SCH ×2 (07:09→20:09)
[2016-04-10 07:38] LABS: Basophils % (A) 0 %; CH 26.4; CHCM 31.2; Eosinophils # (A) 0.3 k/uL (0-0.7); Eosinophils % (A) 8 %; HCT 35.6 % (34.0-46.0); HGB 11.1 gm/dL (11.4-16.0); Hypochromasia Slight; Luc # (Auto) 0.08; Luc % (Auto) 2; Lymphocytes # (A) 1.8 k/uL (1.0-4.8); Lymphocytes % (A) 44 %; MCH 26.5 pg (25.0-35.0); MCHC 31.2 g/dL (31.0-37.0); MCV 84.9 fL (80.0-100.0); Mean Platelet Volume 6.9; Monocytes # (A) 0.3 k/uL (0-1.0); Monocytes % (A) 6 %; Neutrophils # (A) 1.6 k/uL (1.3-7.7); Neutrophils % (A) 40 %; RBC 4.19 m/uL (3.80-5.40); RDW 14.3 % (11.5-15.5); WBC 4.1 k/uL (3.8-10.6); WBC (Perox) 4.28
[2016-04-10] MEDS: SYMBICORT 160-4.5 MCG INHALER INHALATION SCH ×2 (07:38→19:32)
[2016-04-10 07:50] LABS: ALT 211 U/L (9-52); AST 190 U/L (14-36); Alkaline Phosphatase 87 U/L (38-126); Anion Gap 8 mmol/L; Blood Urea Nitrogen 4 mg/dL (7-17); Calcium 9.3 mg/dL (8.4-10.2); Carbon Dioxide 27 mmol/L (22-30); Chloride 104 mmol/L (98-107); Glucose 99 mg/dL (74-99); Non-African American GFR(MDRD) >60 (>60 ml/min/1.73 sqM); Potassium 5.1 mmol/L (3.5-5.1); Sodium 139 mmol/L (137-145); Total Bilirubin 0.5 mg/dL (0.2-1.3); Total Protein 6.2 g/dL (6.3-8.2)
[2016-04-10] MEDS: NYSTATIN 100,000UNIT/GM CREAM 30 GM TUBE TOPICAL SCH ×2 (09:47→20:08)
[2016-04-10] MEDS ORDERED: IV FLUID CONTINUATION 1,000 ML IV ONE (11:46)
--- NOTE | 2016-04-10 12:06 | P.PN ---
Progress Note - Text The patient still has complaints of pain in her left groin. Patient will undergo repair of incarcerated left inguinal hernia today.
[2016-04-10] MEDS ORDERED: MIDAZOLAM 2 MG/2 ML VIAL IVP ONE (12:20)
[2016-04-10] MEDS ORDERED: PROPOFOL 10 MG/ML 20 ML VIAL IV ONE (12:28)
[2016-04-10] MEDS ORDERED: MIDAZOLAM 2 MG/2 ML VIAL ONE (12:28)
[2016-04-10] MEDS ORDERED: fentaNYL (PF) 50 MCG/ML 2 ML AMP ONE (12:28)
[2016-04-10] MEDS ORDERED: SUCCINYLCHOLINE CHLORIDE 100 MG/5 ML SYR IV ONE (12:28)
[2016-04-10] MEDS ORDERED: LIDOCAINE 1% INJ 10MG/ML (20 ML MDV) ONE (12:28)
[2016-04-10] MEDS ORDERED: SODIUM CHLORIDE 0.9% 50 ML with CLINDAMYCIN 600 MG IV ONE ×2 (12:39)
[2016-04-10] MEDS ORDERED: LACTATED RINGERS 1,000 ML IV ONE ×2 (12:44→13:08)
[2016-04-10] MEDS ORDERED: BUPIVACAINE (PF) 0.25% 30 ML VIAL SQ ONE ×2 (12:50→13:06)
[2016-04-10] MEDS ORDERED: NALOXONE 0.4 MG/ML 1 ML VIAL IV PRN (13:08)
--- NOTE | 2016-04-10 13:08 | P.OP ---
Date of Procedure: 04/10/16 Preoperative Diagnosis: Incarcerated left inguinal hernia Postoperative Diagnosis: Incarcerated left femoral hernia Procedure(s) Performed: Repair of incarcerated inguinal hernia with mesh Anesthesia: HENRIETTA Surgeon: Vincenzo Carmichael Estimated Blood Loss (ml): 5 Pathology: none sent Condition: stable Disposition: PACU Description of Procedure: The patient's placed on the freeing table in the supine position. She received general anesthesia. Her abdomen was prepped and draped usual sterile fashion. Patient a previous inguinal hernia scar. This was incised. Using blunt and sharp dissection the hernia sac was found. The hernia sac was dissected free from some subcu tissues. Hernia sac was then inverted back into the inguinal canal. Next the fascia external oblique was opened. The hernia sac was reinserted into the inguinal canal. A piece of Prolene mesh was cut to appropriate size. And then rolled into a plug. This was then placed into the inguinal canal. The mesh was secured to the inguinal ligament and the transversalis fascia. The fascia external oblique was then sewn to the shelving edge of the inguinal ligament. The mesh was completely covered by the fascia external oblique. The subcu tissues were closed with 2-0 Vicryl area the skin was closed running 3-0 Monocryl suture. Dermabond was applied. Patient was sent to recovery in stable condition.
[2016-04-10 13:30] VITALS: RESP 16
[2016-04-10] MEDS ORDERED: HYDROmorphone 1 MG/ML 1 ML SYRINGE IVP ONE (13:59)
--- NOTE | 2016-04-10 17:23 | P.PN ---
Subjective Principal diagnosis: Incarcerated left femoral hernia Patient is a 60-year-old female admitted to [facility] due to severe abdominal pain computed tomography scan revealed evidence of left inguinal hernia she was seen by Dr. Fuentes she underwent repair of incarcerated inguinal hernia with mesh this morning. Postoperatively patient is doing well she is alert and oriented she denies any chest pain or shortness of breath she has mild pain in the abdomen no nausea or vomiting no urinary symptoms Objective - Vital Signs Vital signs: Vital Signs Temp 97.6 F 04/10/16 13:24 Pulse 76 04/10/16 14:16 Resp 16 04/10/16 14:16 BP 110/65 04/10/16 14:16 Pulse Ox 100 04/10/16 14:16 Intake & Output 04/09/16 04/10/16 04/10/16 18:59 06:59 18:59 Intake Total 960 974 Output Total 5 Balance 960 969 Weight 57.153 kg Intake: IV 854 Intake, IV Titration 600 120 Amount Dextrose 5%-0.45% NaCl 1, 600 000 ml @ 75 mls/hr IV . [id number] ONE Rx#:[id number] Lactated Ringers 1,000 ml 120 @ 100 mls/hr IV .Q10H ONE Rx#:[id number] Oral 360 Output: Estimated Blood Loss 5 Other: Voiding Method Toilet Toilet # Voids 2 1 - Exam HEENT head normocephalic and nontraumatic Neck is supple no JVD no goiter no lymphadenopathy chest is clear to auscultation no wheezing Cardiac exam reveals regular heart sounds no gallops no murmurs Abdomen is soft nontender no organomegaly Extremity exam reveals no edema no cyanosis or clubbing - Labs CBC & Chem 7: 04/10/16 07:17 04/10/16 07:17 Labs: Abnormal Lab Results - Last 24 Hours (Table) 04/10/16 04/10/16 Range/Units 07:17 07:17 Hgb 11.1 L (11.4-16.0) gm/dL BUN 4 L (7-17) mg/dL AST 190 H (14-36) U/L ALT 211 H (9-52) U/L Total Protein 6.2 L (6.3-8.2) g/dL Microbiology - Last 24 Hours (Table) 04/09/16 08:57 Urine Culture - Preliminary Urine,Clean Catch Assessment and Plan Plan: #1 left inguinal hernia with surgical repair was use of mesh this a.m. patient is stable postoperatively #2 history of pulmonary embolism patient was maintained on Xarelto at home which is on hold at this time #3 history of COPD without any evidence of exacerbation at this time #4 vaginal yeast infection maintained on Diflucan Patient is doing well Will follow in a.m. possible discharge home tomorrow
[2016-04-10] MEDS: DEXTROSE 5%-0.45% NACL 1,000 ML IV SCH (20:05)
[2016-04-10] MEDS: DONEPEZIL 10 MG TAB PO SCH (20:09)
[2016-04-10] MEDS: traMADol 50 MG TAB PO PRN (23:49)
[2016-04-11] MEDS: HYDROmorphone 1 MG/ML 1 ML SYRINGE IVP PRN (03:37)
[2016-04-11] MEDS: traMADol 50 MG TAB PO PRN ×2 (05:34→13:12)
[2016-04-11 07:27] LABS: Basophils % (A) 0 %; CH 26.3; CHCM 30.7; Eosinophils # (A) 0.2 k/uL (0-0.7); Eosinophils % (A) 3 %; HCT 36.9 % (34.0-46.0); HDW 2.49; HGB 11.4 gm/dL (11.4-16.0); Hypochromasia Slight; Luc # (Auto) 0.14; Luc % (Auto) 2; Lymphocytes # (A) 1.8 k/uL (1.0-4.8); Lymphocytes % (A) 21 %; MCH 26.5 pg (25.0-35.0); MCHC 30.8 g/dL (31.0-37.0); MCV 85.9 fL (80.0-100.0); Mean Platelet Volume 6.7; Monocytes # (A) 0.6 k/uL (0-1.0); Monocytes % (A) 7 %; Neutrophils # (A) 5.8 k/uL (1.3-7.7); Neutrophils % (A) 67 %; RDW 14.2 % (11.5-15.5); WBC 8.7 k/uL (3.8-10.6); WBC (Perox) 9.46
[2016-04-11 07:53] LABS: ALT 156 U/L (9-52); AST 85 U/L (14-36); Alkaline Phosphatase 87 U/L (38-126); Anion Gap 10 mmol/L; Blood Urea Nitrogen 7 mg/dL (7-17); Calcium 9.2 mg/dL (8.4-10.2); Carbon Dioxide 24 mmol/L (22-30); Chloride 100 mmol/L (98-107); Glucose 103 mg/dL (74-99); Non-African American GFR(MDRD) >60 (>60 ml/min/1.73 sqM); Potassium 4.5 mmol/L (3.5-5.1); Sodium 134 mmol/L (137-145); Total Bilirubin 0.6 mg/dL (0.2-1.3); Total Protein 6.2 g/dL (6.3-8.2)
[2016-04-11 08:11] VITALS: BP 124/78; PULSE 109; TEMP 97.5
[2016-04-11] MEDS: PRIMIDONE 50 MG TAB PO SCH (08:47)
[2016-04-11] MEDS: PANTOPRAZOLE 40 MG TABLET PO SCH (08:47)
[2016-04-11] MEDS: ESCITALOPRAM 20 MG TAB PO SCH (08:47)
[2016-04-11] MEDS: ENOXAPARIN 60 MG/0.6 ML SYRINGE SQ SCH (08:47)
[2016-04-11] MEDS: DIAZEPAM 5 MG TAB PO SCH (08:47)
[2016-04-11] MEDS: NYSTATIN 100,000UNIT/GM CREAM 30 GM TUBE TOPICAL SCH (08:48)
[2016-04-11] MEDS: SYMBICORT 160-4.5 MCG INHALER INHALATION SCH (11:24)
--- NOTE | 2016-04-11 13:19 | P.DS ---
Providers Date of admission: 04/08/16 19:47 Expected date of discharge: 04/11/16 Attending physician: Vincenzo Carmichael Primary care physician: Nighat Priscila [facility] Course: Patient is a 60-year-old female who presented to [facility] was a chief complaint of abdominal pain computed tomography scan of the abdomen and pelvis was positive for left inguinal hernia patient was seen by Dr. Hamilton and underwent surgery she did well postoperatively without any reported complications. Patient was unable to tolerate diet well she was discharged home on 04/11/2016 Patient has a known history of pulmonary embolism she is maintained on Xarelto this was held on admission and patient was covered with Lovenox. She was cleared by surgeon to resume Xarelto at the time of discharge She will be followed in our office in one week for further evaluation and treatment Patient Condition at Discharge: Good Plan - Discharge Summary New Discharge Prescriptions: Hydrocodone/Acetaminophen [[place] 7.5-325] 1 tab PO Q6HR PRN #100 tab PRN Reason: Pain traMADol HCl [Ultram] 50 mg PO Q6H PRN #28 tab PRN Reason: Pain Discharge Medication List Diazepam [Valium] 10 mg PO TID 05/24/15 [History] Ibandronate Sodium [Boniva] 150 mg PO QMONTH 05/24/15 [History] Ipratropium Nebulized [Atrovent Nebulized] 0.5 mg INHALATION RT-TID PRN [History] Levalbuterol Nebulized [Xopenex Nebulized] 1.25 mg INHALATION RT-TID PRN [History] Primidone [Mysoline] 50 mg PO BID 05/24/15 [History] Promethaz-Cod 6.25-10 mg/5 ml [Phenergan with Codeine] 5 ml PO Q8H PRN 05/24/15 [History] Rivaroxaban [Xarelto] 20 mg PO DAILY 05/24/15 [History] Zolpidem Tartrate [Ambien] 10 mg PO HS PRN 05/24/15 [History] Ipratropium/Albuterol Sulfate [Combivent Respimat Inhaler] 1 puff INHALATION RT- QID PRN 12/02/15 [History] Pravastatin Sodium [Pravachol] 40 mg PO HS 12/02/15 [History] Donepezil [Aricept] 10 mg PO HS 04/08/16 [History] Escitalopram [Lexapro] 20 mg PO DAILY 04/08/16 [History] Fluticasone/Salmeterol [Advair 500-50 Diskus] 1 puff INHALATION RT-BID 04/08/16 [History] Hydrocodone/Acetaminophen [[place] 7.5-325] 1 tab PO Q6HR PRN #100 tab 04/11/16 [ Rx] traMADol HCl [Ultram] 50 mg PO Q6H PRN #28 tab 04/11/16 [Rx] Follow up Appointment(s)/Referral(s): Nighat Francois MD [Primary Care Provider] - 04/18/16 1:45 pm Vincenzo Carmichael MD [STAFF PHYSICIAN] - 04/19/16 2:10 pm Patient Instructions/Handouts: Open Herniorrhaphy (DC) Activity/Diet/Wound Care/Special Instructions: No heavy lifting, pushing, or pulling items greater than 10 pounds. Regular diet Shower daily, no soaking in bath tubs, pools, or hot tubs. No driving while taking pain medication. Notify surgeon with any signs or symptoms of infection, increased pain, or not tolerating diet. Discharge Disposition: HOME SELF-CARE
== END 2016-04-11 14:42 | disposition home or self-care (01) | DRG 351 ==
LOC: EC 14:53 → 3SUR 19:47
PROVIDERS: ADMIT Surgery; ATTEND Surgery
PROC: 0YU80JZ Supplement Left Femoral Region with Synthetic Substitute, Open Approach (ICD-10-PCS; principal; 2016-04-10 07:30)
DX: K41.30 Unilateral femoral hernia, with obstruction, without gangrene, not specified as recurrent (principal); J98.11 Atelectasis; I10 Essential (primary) hypertension; M41.9 Scoliosis, unspecified; F32.9 Major depressive disorder, single episode, unspecified; B37.3 Candidiasis of vulva and vagina; J44.9 Chronic obstructive pulmonary disease, unspecified; J45.909 Unspecified asthma, uncomplicated; E78.5 Hyperlipidemia, unspecified; F41.9 Anxiety disorder, unspecified; H40.9 Unspecified glaucoma; K21.9 Gastro-esophageal reflux disease without esophagitis; K43.9 Ventral hernia without obstruction or gangrene; K44.9 Diaphragmatic hernia without obstruction or gangrene; M19.90 Unspecified osteoarthritis, unspecified site; M81.0 Age-related osteoporosis without current pathological fracture; N20.0 Calculus of kidney; K57.90 Diverticulosis of intestine, part unspecified, without perforation or abscess without bleeding; M54.9 Dorsalgia, unspecified; I69.998 Other sequelae following unspecified cerebrovascular disease; H53.8 Other visual disturbances; Z79.01 Long term (current) use of anticoagulants; Z79.899 Other long term (current) drug therapy; Z88.1 Allergy status to other antibiotic agents; Z86.14 Personal history of Methicillin resistant Staphylococcus aureus infection
CPT/HCPCS: 36415; 71020; 74176; 80048; 80053; 81001; 82150; 83690; 85025; 87077; 87086; 87186; 93005; 94640; 96361; 96374; 96376; 99285

== ENCOUNTER 2017-05-20 20:22 | Emergency (ER) | payer BC, MEDICARE ==
[2017-05-20] MEDS ORDERED: SODIUM CHLORIDE 0.9% 1,000 ML IV STA (20:58)
[2017-05-20] MEDS ORDERED: ALBUTEROL NEBULIZED 2.5 MG/3 ML INHALATION STA (20:58)
[2017-05-20] MEDS ORDERED: methylPREDNISolone SOD SUCCI 125 MG/2 ML VIAL IV STA (20:58)
[2017-05-20] MEDS ORDERED: IPRATROPIUM 0.5 MG/2.5 ML NEBU INHALATION STA (20:58)
[2017-05-20] MEDS ORDERED: LEVOFLOXACIN 500 MG TAB PO STA (21:00)
[2017-05-20] MEDS ORDERED: diphenhydrAMINE 50 MG/ML 1 ML VIAL IVP STA (21:15)
[2017-05-20 21:16] LABS: Basophils % (A) 0 %; Eosinophils # (A) 0.1 k/uL (0-0.7); Eosinophils % (A) 1 %; HCT 42.7 % (34.0-46.0); HGB 13.4 gm/dL (11.4-16.0); Lymphocytes # (A) 2.2 k/uL (1.0-4.8); Lymphocytes % (A) 21 %; MCH 26.9 pg (25.0-35.0); MCHC 31.4 g/dL (31.0-37.0); MCV 85.8 fL (80.0-100.0); Mean Platelet Volume 7.3; Monocytes # (A) 0.7 k/uL (0-1.0); Monocytes % (A) 7 %; Neutrophils # (A) 7.4 k/uL (1.3-7.7); Neutrophils % (A) 70 %; Platelet Count 294 k/uL (150-450); RBC 4.98 m/uL (3.80-5.40); RDW 13.6 % (11.5-15.5); WBC 10.6 k/uL (3.8-10.6)
[2017-05-20] MEDS ORDERED: MORPHINE SULFATE 4 MG/ML SYRINGE IVP STA (21:16)
--- NOTE | 2017-05-20 21:26 | XR ---
EXAMINATION TYPE: XR chest 2V DATE OF EXAM: 05/20/2017 COMPARISON: 04/09/2016 HISTORY: Difficulty breathing TECHNIQUE: Frontal and lateral views of the chest are obtained. FINDINGS: Heart and mediastinum are normal. Lungs are clear. There is no sign of pleural effusion. B elke thorax is intact. IMPRESSION: Normal chest. No change.
[2017-05-20 21:30] LABS: ALT 33 U/L (9-52); AST 30 U/L (14-36); Albumin 4.5 g/dL (3.5-5.0); Alkaline Phosphatase 77 U/L (38-126); Anion Gap 13 mmol/L; Blood Urea Nitrogen 17 mg/dL (7-17); Calcium 9.8 mg/dL (8.4-10.2); Carbon Dioxide 23 mmol/L (22-30); Chloride 109 mmol/L (98-107); Glucose 109 mg/dL (74-99); Potassium 3.9 mmol/L (3.5-5.1); Sodium 145 mmol/L (137-145); Total Bilirubin 0.2 mg/dL (0.2-1.3); Total Protein 7.4 g/dL (6.3-8.2)
[2017-05-20 21:32] LABS: INR 1.1 (<1.2); Partial Thromboplastin Time 25.9 sec (22.0-30.0)
[2017-05-20 21:56] LABS: Creatine Kinase 44 U/L (30-135)
[2017-05-20 22:08] LABS: Creatine Kinase MB 0.3 ng/mL (0.0-2.4); Troponin I <0.012 ng/mL (0.000-0.034)
--- NOTE | 2017-05-20 22:37 | ED ---
General Adult HPI - General Chief complaint: Upper Respiratory Infection Stated complaint: SOB Time Seen by Provider: 05/20/17 20:51 Source: patient, family Mode of arrival: ambulatory Limitations: no limitations - History of Present Illness Initial comments: 61 years old female complaining about shortness of breath she has a history of COPD and asthma she is having hard time breathing she is also complaining about the back pain and the chest pain this is ongoing for 3-4 days now she denies any fall or any trauma and a she has a history of PE and DVT in the past and she stated she has been "daily taking Xarelto Denies any headache no neck stiffness no fever no chills no signs of any meningitis has chest pain has shortness of breath no abdominal pain no frequency urgency dysuria no symptoms of TIA or CVA - Related Data Home Medications Medication Instructions Recorded Confirmed Diazepam [Valium] 10 mg PO TID 05/24/15 05/20/17 Ibandronate Sodium [Boniva] 150 mg PO QMONTH 05/24/15 05/20/17 Ipratropium Nebulized [Atrovent 0.5 mg INHALATION RT-TID PRN 05/24/15 05/20/17 Nebulized] Promethaz-Cod 6.25-10 mg/5 ml 10 ml PO Q8H PRN 05/24/15 05/20/17 [Phenergan with Codeine] Rivaroxaban [Xarelto] 20 mg PO DAILY 05/24/15 05/20/17 Zolpidem Tartrate [Ambien] 10 mg PO HS PRN 05/24/15 05/20/17 Ipratropium/Albuterol Sulfate 1 puff INHALATION RT-QID PRN 12/02/15 05/20/17 [Combivent Respimat Inhaler] Fluticasone/Salmeterol [Advair 1 puff INHALATION RT-BID 04/08/16 05/20/17 500-50 Diskus] Cholecalciferol [Vitamin D3] 5,000 unit PO Q7D 05/20/17 05/20/17 Escitalopram [Lexapro] 10 mg PO DAILY 05/20/17 05/20/17 Montelukast [Singulair] 10 mg PO HS 05/20/17 05/20/17 Pantoprazole Sodium [Protonix] 40 mg PO DAILY 05/20/17 05/20/17 Previous Rx's Medication Instructions Recorded Sulfamethox-Tmp 800-160Mg [Bactrim 1 tab PO Q12HR #20 tab 05/20/17 DS 800-160 mg] predniSONE 50 mg PO DAILY #5 tab 05/20/17 Allergies Allergy/AdvReac Type Severity Reaction Status Date / Time cephalexin monohydrate Allergy Rash/Hives Verified 05/20/17 21:37 [From Keflex] clarithromycin [From Biaxin] Allergy Rash/Hives Verified 05/20/17 21:37 Quinolones Allergy Rash/Hives Verified 05/20/17 21:37 Review of Systems ROS Statement: Those systems with pertinent positive or pertinent negative responses have been documented in the HPI. ROS Other: All systems not noted in ROS Statement are negative. Past Medical History Past Medical History: Asthma, COPD, CVA/TIA, Deep Vein Thrombosis (DVT), GERD/ Reflux, Hyperlipidemia, Hypertension, Osteoarthritis (OA), Pneumonia, Pulmonary Embolus (PE) Additional Past Medical History / Comment(s): CVA LOST LT PERIPHERAL VISION AND WRITING IS A BIT DIFFICULT & FEW TIA'S, TREMORS SINCE.PE/ XUAN DVT (AFTER LAST 2 MAJOR SURG). HX BOWEL OBSTRUCTION. USED TO TAKE MEDS FOR BP , OSTEOPOROSIS. BACK PAIN. ,RADS,CHRONIC BRONCHITIS, SCOLIOSIS, BROKE RT WRIST D/T FALL 2009, SMALL HIATAL HERNIA,DIVERTICULAR DISEASE, UTI,GLAUCOMA History of Any Multi-Drug Resistant Organisms: MRSA, Other MDRO Date of last positivie culture/infection: 07/12/08-MRSA MDRO Source:: URINE-MRSA Past Surgical History: Appendectomy, Back Surgery, Bladder Surgery, Bowel Resection, Breast Surgery, Cholecystectomy, Heart Catheterization, Hernia Repair , Hysterectomy, Orthopedic Surgery Additional Past Surgical History / Comment(s): 12-28-15 [facility] [employer] HERNIA REPAIR, 2 PREVIOUS HERNIA SX 2004/2009,2 HOLES IN HEART REPAIRED, [facility], SEPTUM - HAS "UMBRELLA" CLOSURE DEVICE. BREAST REDUCTION. CYSTOCELE, RECTOCELE REPAIR. RT FOOT. EXC CYST LT ARM,LT FOOT REPAIR CYSTOSCOPY,LT BREAST BX-NEG, BUNIONECTOMY, GANGLION CYST REMOVED BRONCOSCOPIES,EGD/COLONOSCOPY,XUAN CATARACTS Past Anesthesia/Blood Transfusion Reactions: No Reported Reaction Past Psychological History: Anxiety, Depression Smoking Status: Never smoker Past Alcohol Use History: None Reported Past Drug Use History: None Reported - Past Family History Father Brother(s) Family Medical History: Cancer Additional Family Medical History / Comment(s): LUNG CANCER Sister(s) Family Medical History: Cancer Additional Family Medical History / Comment(s): # 1 SISTER-BONE CA,SISTER #2 BREAST CA, SISTER #3 LUNG,STOMACH,ESOPHAGUS Mother Family Medical History: Deep Vein Thrombosis (DVT) Additional Family Medical History / Comment(s): diverticulitis General Exam - General Exam Comments Initial Comments: General: The patient is awake and alert, in no distress, and does not appear acutely ill. Skin: Skin is warm and dry and no rashes or lesions are noted. Eye: Pupils are equal, round and reactive to light, extra-ocular movements are intact; there is normal conjunctiva bilaterally. Ears, nose, mouth and throat: There are moist mucous membranes and no oral lesions. Neck: The neck is supple, there is no tenderness or JVD. Cardiovascular: There is a regular rate and rhythm. No murmur, rub or gallop is appreciated. Respiratory: To auscultation bilateral, no wheezing no rhonchi no distress respiratory rush noticed Gastrointestinal: Soft, non-distended, non-tender abdomen without masses or organomegaly noted. There is no rebound or guarding present. Bowel sounds are unremarkable. Back: There is no tenderness to palpation in the midline. There is no obvious deformity. Musculoskeletal: Normal ROM, no tenderness, There is no pedal edema. There is no calf tenderness or swelling. No cords were appreciated. Neurological: CN II-XII intact, Cranial nerves III through XII are intact. There are no obvious motor or sensory deficits. Coordination appears grossly intact. Speech is normal. Psychiatric: Cooperative, appropriate mood & affect, normal judgment. Limitations: no limitations Course Vital Signs 05/20/17 05/20/17 05/20/17 20:26 21:02 21:33 Temperature 98.7 F Pulse Rate 121 H 101 H 96 Respiratory 20 22 Rate Blood Pressure 141/81 130/81 O2 Sat by Pulse 97 96 Oximetry I discussed with the Dr. Francois explained them the troponin and chest x-ray and white count are unremarkable this seems like QT acute exacerbation of COPD poor poor some steroids and Bactrim, she likes Bactrim she said Bactrim has been effective for in the past and she prefers Bactrim and she will follow with the Dr. Francois for the next one or 2 days or if unfortunately symptoms get worse she 'll come back EKG Findings - EKG Comments: EKG Findings:: KG is a sinus tachycardia ventricular rate is 106 GA interval is 138 QRS duration is 74 QT/QTc is 314/417 and review of this EKG does not reveal any ST elevation or ST depression him and this EKG has required quite a bit of artifact interfering with the accurate interpretation Medical Decision Making - Lab Data Result diagrams: 05/20/17 21:00 05/20/17 21:00 Lab Results 05/20/17 05/20/17 05/20/17 Range/Units 21:00 21:00 21:00 WBC 10.6 (3.8-10.6) k/uL RBC 4.98 (3.80-5.40) m/uL Hgb 13.4 (11.4-16.0) gm/dL Hct 42.7 (34.0-46.0) % MCV 85.8 (80.0-100.0) fL MCH 26.9 (25.0-35.0) pg MCHC 31.4 (31.0-37.0) g/dL RDW 13.6 (11.5-15.5) % Plt Count 294 (150-450) k/uL Neutrophils % 70 % Lymphocytes % 21 % Monocytes % 7 % Eosinophils % 1 % Basophils % 0 % Neutrophils # 7.4 (1.3-7.7) k/uL Lymphocytes # 2.2 (1.0-4.8) k/uL Monocytes # 0.7 (0-1.0) k/uL Eosinophils # 0.1 (0-0.7) k/uL Basophils # 0.0 (0-0.2) k/uL PT (9.0-12.0) sec INR (<1.2) APTT (22.0-30.0) sec Sodium 145 (137-145) mmol/L Potassium 3.9 (3.5-5.1) mmol/L Chloride 109 H (98-107) mmol/L Carbon Dioxide 23 (22-30) mmol/L Anion Gap 13 mmol/L BUN 17 (7-17) mg/dL Creatinine 0.70 (0.52-1.04) mg/dL Est GFR (MDRD) Af Amer >60 (>60 ml/min/1.73 sqM) Est GFR (MDRD) Non-Af >60 (>60 ml/min/1.73 sqM) Glucose 109 H (74-99) mg/dL Calcium 9.8 (8.4-10.2) mg/dL Total Bilirubin 0.2 (0.2-1.3) mg/dL AST 30 (14-36) U/L ALT 33 (9-52) U/L Alkaline Phosphatase 77 (38-126) U/L Total Creatine Kinase 44 (30-135) U/L CK-MB (CK-2) 0.3 (0.0-2.4) ng/mL CK-MB (CK-2) Rel Index 0.7 Troponin I <0.012 (0.000-0.034) ng/mL Total Protein 7.4 (6.3-8.2) g/dL Albumin 4.5 (3.5-5.0) g/dL 05/20/17 Range/Units 21:00 WBC (3.8-10.6) k/uL RBC (3.80-5.40) m/uL Hgb (11.4-16.0) gm/dL Hct (34.0-46.0) % MCV (80.0-100.0) fL MCH (25.0-35.0) pg MCHC (31.0-37.0) g/dL RDW (11.5-15.5) % Plt Count (150-450) k/uL Neutrophils % % Lymphocytes % % Monocytes % % Eosinophils % % Basophils % % Neutrophils # (1.3-7.7) k/uL Lymphocytes # (1.0-4.8) k/uL Monocytes # (0-1.0) k/uL Eosinophils # (0-0.7) k/uL Basophils # (0-0.2) k/uL PT 11.0 (9.0-12.0) sec INR 1.1 (<1.2) APTT 25.9 (22.0-30.0) sec Sodium (137-145) mmol/L Potassium (3.5-5.1) mmol/L Chloride (98-107) mmol/L Carbon Dioxide (22-30) mmol/L Anion Gap mmol/L BUN (7-17) mg/dL Creatinine (0.52-1.04) mg/dL Est GFR (MDRD) Af Amer (>60 ml/min/1.73 sqM) Est GFR (MDRD) Non-Af (>60 ml/min/1.73 sqM) Glucose (74-99) mg/dL Calcium (8.4-10.2) mg/dL Total Bilirubin (0.2-1.3) mg/dL AST (14-36) U/L ALT (9-52) U/L Alkaline Phosphatase (38-126) U/L Total Creatine Kinase (30-135) U/L CK-MB (CK-2) (0.0-2.4) ng/mL CK-MB (CK-2) Rel Index Troponin I (0.000-0.034) ng/mL Total Protein (6.3-8.2) g/dL Albumin (3.5-5.0) g/dL Disposition Clinical Impression: Acute exacerbation of COPD with asthma, Chest pain Disposition: HOME SELF-CARE Condition: Good Prescriptions: predniSONE 50 mg PO DAILY #5 tab Sulfamethox-Tmp 800-160Mg [Bactrim DS 800-160 mg] 1 tab PO Q12HR #20 tab Referrals: Nighat Francois MD [Primary Care Provider] - 1-2 days
[2017-05-20 22:55] VITALS: RESP 18
[2017-05-20 23:36] VITALS: BP 109/67; PULSE 96; TEMP 100.2
== END 2017-05-20 23:47 | disposition home or self-care (01) ==
LOC: EC 20:22
DX: J44.1 Chronic obstructive pulmonary disease with (acute) exacerbation (principal); E78.5 Hyperlipidemia, unspecified; K21.9 Gastro-esophageal reflux disease without esophagitis; M19.90 Unspecified osteoarthritis, unspecified site; F32.9 Major depressive disorder, single episode, unspecified; F41.9 Anxiety disorder, unspecified; I10 Essential (primary) hypertension; Z86.14 Personal history of Methicillin resistant Staphylococcus aureus infection; Z86.73 Personal history of transient ischemic attack (TIA), and cerebral infarction without residual deficits; Z86.711 Personal history of pulmonary embolism; Z86.718 Personal history of other venous thrombosis and embolism; Z95.5 Presence of coronary angioplasty implant and graft; Z88.1 Allergy status to other antibiotic agents; Z88.8 Allergy status to other drugs, medicaments and biological substances; Z79.01 Long term (current) use of anticoagulants; Z79.51 Long term (current) use of inhaled steroids; Z79.899 Other long term (current) drug therapy
CPT/HCPCS: 99284; 96374; 96375 ×2; 96361 ×3; 36415; 94644; 93005; 80053; 82550; 82553; 84484; 85025; 85610; 85730; 87502; 71046; J2270; J1200; J2930

== ENCOUNTER 2017-11-21 14:31 | Inpatient (IN) | payer MEDICARE ==
[2017-11-21] MEDS ORDERED: ALPRAZolam 0.25 MG TAB PO PRN (15:47)
[2017-11-21] MEDS ORDERED: MELATONIN 5 MG TABLET PO PRN (15:47)
--- NOTE | 2017-11-21 16:02 | P.HPIM ---
History of Present Illness H&P Date: 11/21/17 Chief Complaint: Abdominal pain This is a 62-year-old female with a known history of PE, COPD, CVA, hypertension , hyperlipidemia, diverticulitis and inguinal hernias requiring repair. Patient is also history of bowel resection. Patient is a direct admit from Dr. Francois's office in regards to a possible ventral hernia. Patient reports right- sided abdominal pain and protrusion of the abdomen for about a week to 3 weeks. The pain has continued to worsen and therefore she presented to the office for evaluation. She's been admitted to the hospital for a surgical consult and possible repair of hernia. She denies any nausea or vomiting. Denies any bowel movement changes. Does report some urinary symptoms about a week ago now resolved. She reports that her urine was dark with a pink tinge. Denies any chest pain or shortness of breath. She does use 2 L of oxygen at home at night on a daily basis. Does not to having intermittent cough. We'll check EKG chest x-ray and urinalysis for preoperative clearance. Patient denies any fever chills or sweats. Review of Systems Please refer to HPI otherwise unremarkable Past Medical History Past Medical History: Asthma, Chest Pain / Angina, COPD, CVA/TIA, Deep Vein Thrombosis (DVT), GERD/Reflux, Hyperlipidemia, Hypertension, Osteoarthritis (OA) , Pneumonia, Pulmonary Embolus (PE) Additional Past Medical History / Comment(s): CVA LOST LT PERIPHERAL VISION AND WRITING IS A BIT DIFFICULT & FEW TIA'S, TREMORS SINCE.PE/ XUAN DVT (AFTER LAST 2 MAJOR SURG). HX BOWEL OBSTRUCTION. USED TO TAKE MEDS FOR BP , OSTEOPOROSIS. BACK PAIN. ,RADS,CHRONIC BRONCHITIS, SCOLIOSIS, BROKE RT WRIST D/T FALL 2009, SMALL HIATAL HERNIA,DIVERTICULAR DISEASE, UTI,GLAUCOMA History of Any Multi-Drug Resistant Organisms: MRSA, Other MDRO Date of last positivie culture/infection: 07/12/08-MRSA MDRO Source:: URINE-MRSA Past Surgical History: Appendectomy, Back Surgery, Bladder Surgery, Bowel Resection, Breast Surgery, Cholecystectomy, Heart Catheterization, Hernia Repair , Hysterectomy, Orthopedic Surgery, Tubal Ligation Additional Past Surgical History / Comment(s): 12-28-15 [facility] [employer] HERNIA REPAIR, 2 PREVIOUS HERNIA SX ,2 HOLES IN HEART REPAIRED, [facility], SEPTUM - HAS "UMBRELLA" CLOSURE DEVICE. BREAST REDUCTION. cystoscopy CYSTOCELE, RECTOCELE REPAIR. RT FOOT. EXC CYST LT ARM,LT FOOT REPAIR CYSTOSCOPY,LT BREAST BX-NEG, BUNIONECTOMY,GANGLION CYST REMOVED BRONCOSCOPIES,EGD/COLONOSCOPY,XUAN CATARACTS, hammer toe-pins removed. neuroma-bone removed/pins removed. lt toe , rt wrist nerve sx Past Anesthesia/Blood Transfusion Reactions: No Reported Reaction Past Psychological History: Anxiety, Depression Additional Psychological History / Comment(s): pt lives with spouse , son and his . no home care services. has home 02 2 ltiers n/c at hs. Smoking Status: Never smoker Past Alcohol Use History: None Reported Past Drug Use History: None Reported - Past Family History Father Brother(s) Family Medical History: Cancer Additional Family Medical History / Comment(s): LUNG CANCER Sister(s) Family Medical History: Cancer Additional Family Medical History / Comment(s): # 1 SISTER-BONE CA,SISTER #2 BREAST CA, SISTER #3 LUNG,STOMACH,ESOPHAGUS Mother Family Medical History: Deep Vein Thrombosis (DVT) Additional Family Medical History / Comment(s): diverticulitis Medications and Allergies Home Medications Medication Instructions Recorded Confirmed Type Diazepam [Valium] 10 mg PO TID 05/24/15 11/21/17 History Ibandronate Sodium [Boniva] 150 mg PO QMONTH 05/24/15 11/21/17 History Ipratropium Nebulized [Atrovent 0.5 mg INHALATION RT-TID PRN 05/24/15 11/21/17 History Nebulized] Promethaz-Cod 6.25-10 mg/5 ml 10 ml PO Q8H PRN 05/24/15 11/21/17 History [Phenergan with Codeine] Rivaroxaban [Xarelto] 20 mg PO DAILY 05/24/15 11/21/17 History Fluticasone/Salmeterol [Advair 1 puff INHALATION RT-BID 04/08/16 11/21/17 History 500-50 Diskus] Cholecalciferol [Vitamin D3] 5,000 unit PO MO 05/20/17 11/21/17 History Escitalopram [Lexapro] 10 mg PO DAILY 05/20/17 11/21/17 History Montelukast [Singulair] 10 mg PO HS 05/20/17 11/21/17 History Pantoprazole Sodium [Protonix] 40 mg PO DAILY 05/20/17 11/21/17 History ALPRAZolam [Xanax] 0.25 mg PO TID PRN 11/21/17 11/21/17 History Melatonin 10 mg PO HS PRN 11/21/17 11/21/17 History Pravastatin Sodium [Pravachol] 40 mg PO HS 11/21/17 11/21/17 History Allergies Allergy/AdvReac Type Severity Reaction Status Date / Time cephalexin monohydrate Allergy Rash/Hives Verified 11/21/17 15:30 [From Keflex] clarithromycin [From Biaxin] Allergy Rash/Hives Verified 11/21/17 15:30 Quinolones Allergy Rash/Hives Verified 11/21/17 15:30 Physical Exam Head normocephalic Neck supple Lungs faint wheeze right upper lobe otherwise all the lung iraheta are clear. No crackles Heart regular rate and rhythm S1-S2, no rub or gallop Abdomen is soft right sided abdominal tenderness and protrusion of the right abdomen likely a ventral hernia. positive bowel sounds no hepatosplenomegaly Extremities no edema Neuro alert and orientated to 3 Assessment and Plan Assessment: 1. Abdominal pain with possible ventral hernia: Surgical consult placed. Patient is currently nothing by mouth. Continue with IV fluids normal saline at 75 mL an hour. Order computed tomography scan of the abdomen and pelvis with oral and IV contrast. He'll be discharged and will add Dilaudid 0.5 mg 1 every 4 hours as needed for pain 2. History of PE on Xarelto at home 3. COPD. No evidence of exacerbation. resume inhalers nebulizer treatment 4. History of CVA 5. Essential hypertension 6. Hyperlipidemia 7. Prior history of abdominal surgeries for bowel resection and hernia repairs 8. History of holes in her heart at the [facility] septum underwent umbrella closure device GI prophylaxis Protonix and DVT prophylaxis will hold off on anticoagulation for possible surgical intervention. Also check chest x-ray, urinalysis will with culture and EKG for preoperative clearance. Hold Xarelto for possible surgical intervention Time with Patient: Greater than 30 (Greater than 60% of the total time spent in counseling and coordination of care.I performed an examination of the patient and discussed their management with the physician Numerical Control Router Operator. I have reviewed the Physician Numerical Control Router Operator's notes and agree with the documented findings and plan of care)
[2017-11-21 16:31] VITALS: RESP 16
[2017-11-21] MEDS: IOPAMIDOL-300 CONTRAST 30 ML VIAL (ORAL USE) PO PRN ×2 (16:35→17:36)
--- NOTE | 2017-11-21 16:54 | P.GSCN ---
History of Present Illness Consult date: 11/21/17 Reason for Consult: Incisional hernia History of present illness: Patient is very familiar with Dr. Carmichael. Recently was complaining of a bulge in the right periumbilical location. This has been there for the last 3 weeks or so. Pain is increasing. Denies nausea or vomiting. No change in bowel habits. CAT scan abdomen is pending. Patient has had multiple hernias including inguinal and incisional in the past. Review of Systems The patient denies any acute changes in vision or hearing, no dysphagia or odynophagia, no chest pain or shortness of breath, no dysuria or hematuria, no headache, no runny nose, no rectal bleeding or melena, no unexplained weight loss Past Medical History Past Medical History: Asthma, Chest Pain / Angina, COPD, CVA/TIA, Deep Vein Thrombosis (DVT), GERD/Reflux, Hyperlipidemia, Hypertension, Osteoarthritis (OA) , Pneumonia, Pulmonary Embolus (PE) Additional Past Medical History / Comment(s): CVA LOST LT PERIPHERAL VISION AND WRITING IS A BIT DIFFICULT & FEW TIA'S, TREMORS SINCE.PE/ XUAN DVT (AFTER LAST 2 MAJOR SURG). HX BOWEL OBSTRUCTION. USED TO TAKE MEDS FOR BP , OSTEOPOROSIS. BACK PAIN. ,RADS,CHRONIC BRONCHITIS, SCOLIOSIS, BROKE RT WRIST D/T FALL 2009, SMALL HIATAL HERNIA,DIVERTICULAR DISEASE, UTI,GLAUCOMA History of Any Multi-Drug Resistant Organisms: MRSA, Other MDRO Year Discovered:: 07/12/08-MRSA MDRO Source:: URINE-MRSA Past Surgical History: Appendectomy, Back Surgery, Bladder Surgery, Bowel Resection, Breast Surgery, Cholecystectomy, Heart Catheterization, Hernia Repair , Hysterectomy, Orthopedic Surgery, Tubal Ligation Additional Past Surgical History / Comment(s): 12-28-15 [employer] HERNIA REPAIR, 2 PREVIOUS HERNIA SX 2004/2009,2 HOLES IN HEART REPAIRED, [facility], SEPTUM - HAS "UMBRELLA" CLOSURE DEVICE. BREAST REDUCTION. cystoscopy CYSTOCELE, RECTOCELE REPAIR. RT FOOT. EXC CYST LT ARM,LT FOOT REPAIR CYSTOSCOPY,LT BREAST BX-NEG, BUNIONECTOMY,GANGLION CYST REMOVED BRONCOSCOPIES,EGD/COLONOSCOPY,XUAN CATARACTS, hammer toe-pins removed. neuroma-bone removed/pins removed. lt toe , rt wrist nerve sx Past Anesthesia/Blood Transfusion Reactions: No Reported Reaction Past Psychological History: Anxiety, Depression Additional Psychological History / Comment(s): pt lives with spouse , son and his . no home care services. has home 02 2 ltiers n/c at hs. Smoking Status: Never smoker Past Alcohol Use History: None Reported Past Drug Use History: None Reported - Past Family History Father Brother(s) Family Medical History: Cancer Additional Family Medical History / Comment(s): LUNG CANCER Sister(s) Family Medical History: Cancer Additional Family Medical History / Comment(s): # 1 SISTER-BONE CA,SISTER #2 BREAST CA, SISTER #3 LUNG,STOMACH,ESOPHAGUS Mother Family Medical History: Deep Vein Thrombosis (DVT) Additional Family Medical History / Comment(s): diverticulitis Medications and Allergies Home Medications Medication Instructions Recorded Confirmed Type Diazepam [Valium] 10 mg PO TID 05/24/15 11/21/17 History Ibandronate Sodium [Boniva] 150 mg PO QMONTH 05/24/15 11/21/17 History Ipratropium Nebulized [Atrovent 0.5 mg INHALATION RT-TID PRN 05/24/15 11/21/17 History Nebulized] Promethaz-Cod 6.25-10 mg/5 ml 10 ml PO Q8H PRN 05/24/15 11/21/17 History [Phenergan with Codeine] Rivaroxaban [Xarelto] 20 mg PO DAILY 05/24/15 11/21/17 History Fluticasone/Salmeterol [Advair 1 puff INHALATION RT-BID 04/08/16 11/21/17 History 500-50 Diskus] Cholecalciferol [Vitamin D3] 5,000 unit PO MO 05/20/17 11/21/17 History Escitalopram [Lexapro] 10 mg PO DAILY 05/20/17 11/21/17 History Montelukast [Singulair] 10 mg PO HS 05/20/17 11/21/17 History Pantoprazole Sodium [Protonix] 40 mg PO DAILY 05/20/17 11/21/17 History ALPRAZolam [Xanax] 0.25 mg PO TID PRN 11/21/17 11/21/17 History Melatonin 10 mg PO HS PRN 11/21/17 11/21/17 History Pravastatin Sodium [Pravachol] 40 mg PO HS 11/21/17 11/21/17 History Allergies Allergy/AdvReac Type Severity Reaction Status Date / Time cephalexin monohydrate Allergy Rash/Hives Verified 11/21/17 15:30 [From Keflex] clarithromycin [From Biaxin] Allergy Rash/Hives Verified 11/21/17 15:30 Quinolones Allergy Rash/Hives Verified 11/21/17 15:30 Surgical - Exam Vital Signs Temp Pulse Resp BP Pulse Ox 97.8 F 95 16 117/77 94 L 11/21/17 15:30 11/21/17 15:30 11/21/17 15:30 11/21/17 15:30 11/21/17 15:30 Physical exam: General: Well-developed, well-nourished HEENT: Normocephalic, sclerae nonicteric Abdomen: Reducible incisional hernia to the right of the umbilicus, mildly tender, nondistended Extremities: No edema Neuro: Alert and oriented Assessment and Plan (1) Hernia of anterior abdominal wall Narrative/Plan: Will check CAT scan and pelvis. If no bowel obstruction seen would consider outpatient repair. Patient already has an appointment to see Dr. Carmichael on Saturday. We'll follow with you. Current Visit: No Status: Acute Code(s): K43.9 - VENTRAL HERNIA WITHOUT OBSTRUCTION OR GANGRENE SNOMED Code(s): 323959710
[2017-11-21] MEDS: DIAZEPAM 5 MG TAB PO SCH ×2 (16:58→20:01)
[2017-11-21 17:17] LABS: Basophils % (A) 0 %; Eosinophils # (A) 0.1 k/uL (0-0.7); Eosinophils % (A) 1 %; HCT 41.2 % (34.0-46.0); HGB 12.6 gm/dL (11.4-16.0); Lymphocytes # (A) 1.7 k/uL (1.0-4.8); Lymphocytes % (A) 20 %; MCH 26.4 pg (25.0-35.0); MCHC 30.7 g/dL (31.0-37.0); MCV 86.1 fL (80.0-100.0); Mean Platelet Volume 6.8; Monocytes # (A) 0.5 k/uL (0-1.0); Monocytes % (A) 5 %; Neutrophils # (A) 6.1 k/uL (1.3-7.7); Neutrophils % (A) 71 %; Platelet Count 269 k/uL (150-450); RBC 4.79 m/uL (3.80-5.40); RDW 13.6 % (11.5-15.5); WBC 8.5 k/uL (3.8-10.6)
[2017-11-21 17:26] LABS: ALT 31 U/L (9-52); AST 42 U/L (14-36); Albumin 4.1 g/dL (3.5-5.0); Alkaline Phosphatase 58 U/L (38-126); Anion Gap 9 mmol/L; Blood Urea Nitrogen 22 mg/dL (7-17); Calcium 9.8 mg/dL (8.4-10.2); Carbon Dioxide 21 mmol/L (22-30); Chloride 111 mmol/L (98-107); Glucose 85 mg/dL (74-99); Sodium 141 mmol/L (137-145); Total Bilirubin 0.7 mg/dL (0.2-1.3); Total Protein 6.9 g/dL (6.3-8.2)
[2017-11-21 17:45] LABS: Potassium 5.5 mmol/L (3.5-5.1)
--- NOTE | 2017-11-21 18:32 | XR ---
EXAMINATION TYPE: XR chest 2V DATE OF EXAM: 11/21/2017 COMPARISON: 05/20/2017 HISTORY: Difficulty breathing TECHNIQUE: Frontal and lateral views of the chest are obtained. FINDINGS: There is no heart failure nor confluent pneumonic infiltrate. Costophrenic angles are alysha r. Bony thorax is intact. IMPRESSION: No active cardiopulmonary disease. Normal heart. No change.
[2017-11-21] MEDS: HYDROmorphone 1 MG/ML 1 ML SYRINGE IVP PRN ×2 (18:51→23:06)
--- NOTE | 2017-11-21 18:51 | CT ---
EXAMINATION TYPE: CT abdomen pelvis w con DATE OF EXAM: 11/21/2017 COMPARISON: 04/08/2016 HISTORY: Abdominal distention CT DLP: 570.6 mGycm Automated exposure control for dose reduction was used. TECHNIQUE: Helical acquisition of images was performed from the lung bases through the pelvis. CONTRAST: Performed with Oral Contrast and with IV Contrast, patient injected with 100 mL of Isovue 300. FINDINGS: There is mild subsegmental atelectasis at the left lung base. Liver shows no focal defect. There is n o pleural effusion. Spleen appears normal. There are clips from cholecystectomy. There is no evidence of pancreatic mass. There is no adrenal mass. There are multiple right renal cortical cysts that measure up to 2 cm. Ther e is a 4 mm calculus in the right renal pelvis. There is no hydronephrosis. Ureters are not dilated. There is ventral hernia that contains loops of small bowel. There is no evidence of bowel obstruction . There is a lower abdominal anterior wall ventral hernia that contains additional loops of small bow el. There is sigmoid diverticulosis without diverticulitis. There is no intestinal wall thickening. T here are no dilated loops. Appendix appears normal. Bladder distends smoothly. I see no pelvic mass. There is posterior fusion surgery in the lower lumbar spine. I see no bony destructive process. IMPRESSION: ANTERIOR ABDOMINAL WALL LOWER VENTRAL HERNIA IS WITHOUT EVIDENCE OF A BOWEL OBSTRUCTION. MILD SUBSEGMENTAL ATELECTASIS AT THE LEFT LUNG BASE COMPARED TO OLD EXAM. THE UPPER RIGHT SIDE VENTRA L HERNIA IS INCARCERATED AND APPEARS NEW COMPARED TO OLD CT SCAN.
[2017-11-21] MEDS: SYMBICORT 160-4.5 MCG INHALER INHALATION SCH (19:45)
[2017-11-21] MEDS: PRAVASTATIN SODIUM 40 MG TAB PO SCH (20:01)
[2017-11-21] MEDS: MONTELUKAST 10 MG TAB PO SCH (20:01)
[2017-11-21] MEDS: SODIUM CHLORIDE 0.9% 1,000 ML IV SCH (20:01)
[2017-11-21 23:21] LABS: Appearance,Urine Clear (Clear); Bilirubin,Urine Negative (Negative); Blood,Urine Moderate (Negative); Color,Urine Light Yellow; Glucose,Urine (UA) Negative (Negative); Ketones,Urine 1+ (Negative); Leukocyte Esterase,Urine Small (Negative); Nitrite,Urine Negative (Negative); Protein,Urine Negative (Negative); RBC,Urine 27 /hpf (0-5); Specific Gravity,Urine 1.037 (1.001-1.035); Squamous Epithelial Cell,Urine <1 /hpf (0-4); Urobilinogen,Urine <2.0 mg/dL (<2.0); WBC,Urine 8 /hpf (0-5)
[2017-11-22] MEDS: HYDROmorphone 1 MG/ML 1 ML SYRINGE IVP PRN ×3 (04:22→18:40)
[2017-11-22] MEDS: SODIUM CHLORIDE 0.9% 1,000 ML IV SCH ×2 (05:47→20:08)
[2017-11-22] MEDS: IPRATROPIUM 0.5 MG/2.5 ML NEBU INHALATION PRN ×2 (07:37→20:30)
[2017-11-22] MEDS: SYMBICORT 160-4.5 MCG INHALER INHALATION SCH ×2 (07:38→20:30)
[2017-11-22 07:47] LABS: Basophils % (A) 0 %; Eosinophils # (A) 0.3 k/uL (0-0.7); Eosinophils % (A) 4 %; HCT 39.5 % (34.0-46.0); HGB 12.3 gm/dL (11.4-16.0); Lymphocytes # (A) 2.3 k/uL (1.0-4.8); Lymphocytes % (A) 32 %; MCH 26.2 pg (25.0-35.0); MCHC 31.1 g/dL (31.0-37.0); MCV 84.3 fL (80.0-100.0); Mean Platelet Volume 7.3; Monocytes # (A) 0.5 k/uL (0-1.0); Monocytes % (A) 7 %; Neutrophils # (A) 3.9 k/uL (1.3-7.7); Neutrophils % (A) 55 %; Platelet Count 258 k/uL (150-450); RBC 4.68 m/uL (3.80-5.40); RDW 13.6 % (11.5-15.5); WBC 7.1 k/uL (3.8-10.6)
[2017-11-22 07:51] LABS: ALT 31 U/L (9-52); AST 27 U/L (14-36); Albumin 3.6 g/dL (3.5-5.0); Alkaline Phosphatase 60 U/L (38-126); Anion Gap 5 mmol/L; Blood Urea Nitrogen 14 mg/dL (7-17); Calcium 8.8 mg/dL (8.4-10.2); Carbon Dioxide 26 mmol/L (22-30); Chloride 110 mmol/L (98-107); Glucose 77 mg/dL (74-99); Potassium 4.7 mmol/L (3.5-5.1); Sodium 141 mmol/L (137-145); Total Bilirubin 0.5 mg/dL (0.2-1.3)
[2017-11-22] MEDS: PANTOPRAZOLE 40 MG TABLET PO SCH (10:32)
[2017-11-22] MEDS: DIAZEPAM 5 MG TAB PO SCH ×3 (10:32→21:22)
--- NOTE | 2017-11-22 10:36 | P.PN ---
<Jolie Garcia - Last Filed: 11/22/17 10:14> Subjective Progress Note Date: 11/22/17 62-year-old seen this morning on rounds patient is stating that she is having increased pain in the right periUmbilical area "concern the area is getting larger" patient states that she wants to have the surgery done this admission does not want to be discharged taking IV pain medication for pain control CT abdomen / pelvis report reviewed anterior wall lower ventral hernia is without evidence of a bowel obstruction Objective - Vital Signs Vital signs: Vital Signs Temp 98.2 F 11/22/17 07:50 Pulse 69 11/22/17 07:50 Resp 16 11/22/17 07:50 BP 129/80 11/22/17 07:50 Pulse Ox 94 L 11/22/17 07:50 Intake & Output 11/21/17 11/22/17 11/22/17 18:59 06:59 18:59 Intake Total 1200 Balance 1200 Weight 56.245 kg Intake: Intake, IV Titration 1200 Amount Sodium Chloride 0.9% 1, 1200 000 ml @ 75 mls/hr IV . [id number] [facility] Rx#:[id number] Other: # Voids 3 1 - Exam GENERAL APPEARANCE: The patient is alert, oriented x 3 in no acute distress. Sitting up in bed talkative continues to report having pain with the bulge in the right periumbilical area patient states pain is increasing VITAL SIGNS: HEENT: Head is normocephalic and atraumatic. Pupils are equal and reactive. The nares are patent. Oropharynx is clear without lesions. NECK: Supple without lymphadenopathy. Traches midline. HEART: S1, S2. Regular rate and rhythm. LUNGS: No crackles or wheezes are heard. ABDOMEN: Soft, mild tenderness right of the umbilicus not distended with good bowel sounds. No peritoneal signs. No palpable organomegaly or masses. Reports no nausea no vomiting states no stool urinating no difficulty EXTREMITIES: Normal skin color and turgor. No cyanosis, rash, ulceration, clubbing or edema. Radial pedal pulses are 2/4 bilaterally. NEUROLOGICAL: No focal deficits. Strength and sensation are grossly intact. - Labs CBC & Chem 7: 11/22/17 06:58 11/22/17 06:58 Labs: Abnormal Lab Results - Last 24 Hours (Table) 0811/21/17 11/21/17 Range/Units 16:50 17:12 23:05 MCHC 30.7 L (31.0-37.0) g/dL Potassium 5.5 H (3.5-5.1) mmol/L Chloride 111 H (98-107) mmol/L Carbon Dioxide 21 L (22-30) mmol/L BUN 22 H (7-17) mg/dL AST 42 H (14-36) U/L Total Protein (6.3-8.2) g/dL Ur Specific [place] 1.037 H (1.001-1.035) Urine Ketones 1+ H (Negative) Urine Blood Moderate H (Negative) Ur Leukocyte Esterase Small H (Negative) Urine RBC 27 H (0-5) /hpf Urine WBC 8 H (0-5) /hpf 11/22/17 Range/Units 06:58 MCHC (31.0-37.0) g/dL Potassium (3.5-5.1) mmol/L Chloride 110 H (98-107) mmol/L Carbon Dioxide (22-30) mmol/L BUN (7-17) mg/dL AST (14-36) U/L Total Protein 6.0 L (6.3-8.2) g/dL Ur Specific [place] (1.001-1.035) Urine Ketones (Negative) Urine Blood (Negative) Ur Leukocyte Esterase (Negative) Urine RBC (0-5) /hpf Urine WBC (0-5) /hpf Microbiology - Last 24 Hours (Table) 11/21/17 23:05 Urine Culture - Preliminary Urine,Clean Catch Assessment and Plan Assessment: Impression Present on admission right side abdominal pain with protrusion of the abdominal wall pain likely due to ventral hernia History of a pulmonary emboli on Xarelto on hold History of multiple hernias including incisional inguinal on the past History of diverticular disease CAT scan abdomen and pelvis report reviewed anterior abdominal wall lower ventral hernia without evidence of bowel obstruction Plan Pain control Start clear liquid diet monitor the response IV fluid for hydration DVT and GI prophylaxis Further surgical recommendations pending Will follow with you Patient could be considered for outpatient repair there is no evidence of a bowel obstruction on the CAT scan patient has an appointment with Dr. mayer this Saturday The above impression and plan of care have been discussed and directed by signing physician. Jolie Garcia nurse practitioner acting as scribe for signing physician. <Huey Chavez - Last Filed: 11/22/17 17:18> Objective - Vital Signs Vital signs: Vital Signs Temp 98.0 F 11/22/17 15:00 Pulse 70 11/22/17 15:00 Resp 16 11/22/17 15:00 BP 130/82 11/22/17 15:00 Pulse Ox 95 11/22/17 15:00 Intake & Output 11/21/17 11/22/17 11/22/17 18:59 06:59 18:59 Intake Total 1200 Balance 1200 Weight 56.245 kg Intake: Intake, IV Titration 1200 Amount Sodium Chloride 0.9% 1, 1200 000 ml @ 75 mls/hr IV . [id number] [facility] Rx#:[id number] Other: # Voids 3 2 - Labs CBC & Chem 7: 11/22/17 06:58 11/22/17 06:58 Labs: Abnormal Lab Results - Last 24 Hours (Table) 11/21/17 11/21/17 11/21/17 Range/Units 16:50 17:12 23:05 MCHC 30.7 L (31.0-37.0) g/dL Potassium 5.5 H (3.5-5.1) mmol/L Chloride 111 H (98-107) mmol/L Carbon Dioxide 21 L (22-30) mmol/L BUN 22 H (7-17) mg/dL AST 42 H (14-36) U/L Total Protein (6.3-8.2) g/dL Ur Specific [place] 1.037 H (1.001-1.035) Urine Ketones 1+ H (Negative) Urine Blood Moderate H (Negative) Ur Leukocyte Esterase Small H (Negative) Urine RBC 27 H (0-5) /hpf Urine WBC 8 H (0-5) /hpf 11/22/17 Range/Units 06:58 MCHC (31.0-37.0) g/dL Potassium (3.5-5.1) mmol/L Chloride 110 H (98-107) mmol/L Carbon Dioxide (22-30) mmol/L BUN (7-17) mg/dL AST (14-36) U/L Total Protein 6.0 L (6.3-8.2) g/dL Ur Specific [place] (1.001-1.035) Urine Ketones (Negative) Urine Blood (Negative) Ur Leukocyte Esterase (Negative) Urine RBC (0-5) /hpf Urine WBC (0-5) /hpf Microbiology - Last 24 Hours (Table) 11/21/17 23:05 Urine Culture - Preliminary Urine,Clean Catch Assessment and Plan Assessment: As above. Patient states her pain is improved. CAT scan was reviewed and shows a wide mouth recurrent incisional hernia containing bowel loops. On examination there is mild tenderness however this remains completely reducible. Will resume diet. Reevaluate tomorrow for possible discharge with outpatient repair. Would like to see the patient's pain resolved prior to discharge. (1) Hernia of anterior abdominal wall Current Visit: No Status: Acute Code(s): K43.9 - VENTRAL HERNIA WITHOUT OBSTRUCTION OR GANGRENE SNOMED Code(s): 777031188
--- NOTE | 2017-11-22 14:01 | P.PN ---
Subjective Progress Note Date: 11/22/17 This is a 62-year-old female with a known history of PE, COPD, CVA, hypertension , hyperlipidemia, diverticulitis and inguinal hernias requiring repair. Patient is also history of bowel resection. Patient is a direct admit from Dr. Francois's office in regards to a possible ventral hernia. Patient reports right- sided abdominal pain and protrusion of the abdomen for about a week to 3 weeks. The pain has continued to worsen and therefore she presented to the office for evaluation. She's been admitted to the hospital for a surgical consult and possible repair of hernia. She denies any nausea or vomiting. Denies any bowel movement changes. Does report some urinary symptoms about a week ago now resolved. She reports that her urine was dark with a pink tinge. Denies any chest pain or shortness of breath. She does use 2 L of oxygen at home at night on a daily basis. Does not to having intermittent cough. We'll check EKG chest x-ray and urinalysis for preoperative clearance. Patient denies any fever chills or sweats. 11/22/2017 patient still reporting abdominal pain on the right side of the abdomen was hernias located. Also complaining of some burning with urination. She'll be placed on antibiotic for possible UTI. Computed tomography scan of the abdomen and pelvis report shows anterior abdominal wall lower ventral hernia is without evidence of a bowel obstruction. Upper right side ventral hernia is incarcerated and appears new compared to old CT scan. Surgical service is following. Patient reports having bowel movements yesterday. Denies any chest pain or shortness of breath. Objective - Vital Signs Vital signs: Vital Signs Temp 98.2 F 11/22/17 07:50 Pulse 69 11/22/17 07:50 Resp 16 11/22/17 07:50 BP 129/80 11/22/17 07:50 Pulse Ox 94 L 11/22/17 07:50 Intake & Output 11/21/17 11/22/17 11/22/17 18:59 06:59 18:59 Intake Total 1200 Balance 1200 Weight 56.245 kg Intake: Intake, IV Titration 1200 Amount Sodium Chloride 0.9% 1, 1200 000 ml @ 75 mls/hr IV . [id number] [facility] Rx#:[id number] Other: # Voids 3 1 - Exam Head normocephalic Neck supple Lungs clear to auscultation bilaterally no wheezing or crackles Heart regular rate and rhythm S1-S2, no rub or gallop Abdomen tender on right side protrusion of ventral hernia on the right side of abdomen. Positive bowel sounds. Extremities no edema Neuro alert and orientated to 3 - Labs CBC & Chem 7: 11/22/17 06:58 11/22/17 06:58 Labs: Abnormal Lab Results - Last 24 Hours (Table) 11/21/17 11/21/17 11/21/17 Range/Units 16:50 17:12 23:05 MCHC 30.7 L (31.0-37.0) g/dL Potassium 5.5 H (3.5-5.1) mmol/L Chloride 111 H (98-107) mmol/L Carbon Dioxide 21 L (22-30) mmol/L BUN 22 H (7-17) mg/dL AST 42 H (14-36) U/L Total Protein (6.3-8.2) g/dL Ur Specific [place] 1.037 H (1.001-1.035) Urine Ketones 1+ H (Negative) Urine Blood Moderate H (Negative) Ur Leukocyte Esterase Small H (Negative) Urine RBC 27 H (0-5) /hpf Urine WBC 8 H (0-5) /hpf 11/22/17 Range/Units 06:58 MCHC (31.0-37.0) g/dL Potassium (3.5-5.1) mmol/L Chloride 110 H (98-107) mmol/L Carbon Dioxide (22-30) mmol/L BUN (7-17) mg/dL AST (14-36) U/L Total Protein 6.0 L (6.3-8.2) g/dL Ur Specific [place] (1.001-1.035) Urine Ketones (Negative) Urine Blood (Negative) Ur Leukocyte Esterase (Negative) Urine RBC (0-5) /hpf Urine WBC (0-5) /hpf Microbiology - Last 24 Hours (Table) 11/21/17 23:05 Urine Culture - Preliminary Urine,Clean Catch Assessment and Plan Assessment: 1. Abdominal pain with ventral hernia: Surgery is following. Awaiting their fragmentations about possible surgical intervention. Patient is currently nothing by mouth. Continue with IV fluids normal saline at 75 mL an hour. Order computed tomography scan of the abdomen and pelvis with oral and IV contrast. add Dilaudid 0.5 mg 1 every 4 hours as needed for pain 2. History of PE on Xarelto at home 3. COPD. No evidence of exacerbation. resume inhalers nebulizer treatment 4. History of CVA 5. Essential hypertension 6. Hyperlipidemia 7. Prior history of abdominal surgeries for bowel resection and hernia repairs 8. 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 UTI: Start clindamycin. Await urine culture. Patient has ALLERGY to Keflex and quinolones GI prophylaxis Protonix and DVT prophylaxis will hold off on anticoagulation for possible surgical intervention. Also check chest x-ray, urinalysis will with culture and EKG for preoperative clearance. Hold Xarelto for possible surgical intervention
[2017-11-22] MEDS: ESCITALOPRAM 10 MG TAB PO SCH (16:24)
[2017-11-22] MEDS: CLINDAMYCIN 300 MG in DEXTROSE 5% IN WATER 50 ML IVPB SCH ×4 (17:25→23:06)
[2017-11-22] MEDS: PRAVASTATIN SODIUM 40 MG TAB PO SCH (20:07)
[2017-11-22] MEDS: MONTELUKAST 10 MG TAB PO SCH (20:07)
[2017-11-22] MEDS: HYDROcodone/APAP 5-325MG 1 EACH TAB PO PRN (23:07)
[2017-11-23] MEDS: HYDROcodone/APAP 5-325MG 1 EACH TAB PO PRN ×2 (02:16→10:09)
[2017-11-23 07:40] LABS: Basophils % (A) 0 %; Eosinophils # (A) 0.3 k/uL (0-0.7); Eosinophils % (A) 4 %; HGB 11.2 gm/dL (11.4-16.0); Lymphocytes # (A) 2.1 k/uL (1.0-4.8); Lymphocytes % (A) 35 %; MCHC 31.1 g/dL (31.0-37.0); MCV 83.8 fL (80.0-100.0); Mean Platelet Volume 7.3; Monocytes # (A) 0.4 k/uL (0-1.0); Monocytes % (A) 6 %; Neutrophils # (A) 3.1 k/uL (1.3-7.7); Neutrophils % (A) 52 %; Platelet Count 248 k/uL (150-450); RDW 13.7 % (11.5-15.5); WBC 5.9 k/uL (3.8-10.6)
[2017-11-23 08:02] LABS: ALT 29 U/L (9-52); AST 24 U/L (14-36); Albumin 3.1 g/dL (3.5-5.0); Alkaline Phosphatase 50 U/L (38-126); Anion Gap 8 mmol/L; Blood Urea Nitrogen 18 mg/dL (7-17); Calcium 8.3 mg/dL (8.4-10.2); Carbon Dioxide 20 mmol/L (22-30); Chloride 113 mmol/L (98-107); Glucose 79 mg/dL (74-99); Potassium 4.6 mmol/L (3.5-5.1); Sodium 141 mmol/L (137-145); Total Bilirubin 0.3 mg/dL (0.2-1.3); Total Protein 5.5 g/dL (6.3-8.2)
[2017-11-23] MEDS: SYMBICORT 160-4.5 MCG INHALER INHALATION SCH (08:22)
[2017-11-23 08:54] VITALS: BP 110/72; PULSE 76; TEMP 98.8
[2017-11-23] MEDS: ESCITALOPRAM 10 MG TAB PO SCH (10:06)
[2017-11-23] MEDS: DIAZEPAM 5 MG TAB PO SCH (10:06)
[2017-11-23] MEDS: CLINDAMYCIN 300 MG in DEXTROSE 5% IN WATER 50 ML IVPB SCH ×2 (10:06)
[2017-11-23] MEDS: PANTOPRAZOLE 40 MG TABLET PO SCH (10:06)
--- NOTE | 2017-11-23 12:54 | P.PN ---
Subjective Progress Note Date: 11/23/17 Patient is a 62-year-old female admitted with history of recurrent incisional hernias including of the left lower abdomen. No reports of active abdominal pain at this time. She is tolerating diet. Objective - Vital Signs Vital signs: Vital Signs Temp 98.8 F 11/23/17 08:35 Pulse 76 11/23/17 08:35 Resp 16 11/23/17 08:35 BP 110/72 11/23/17 08:35 Pulse Ox 95 11/23/17 08:35 Intake & Output 11/22/17 11/23/17 11/23/17 18:59 06:59 18:59 Intake Total 1800 Balance 1800 Intake: Intake, IV Titration 1400 Amount Sodium Chloride 0.9% 1, 1400 000 ml @ 75 mls/hr IV . [id number] [facility] Rx#:[id number] Other 400 Other: # Voids 2 3 - Exam GENERAL: Well developed and in no acute distress. Pleasant. HEENT: No sclera icterus. Extraocular movements grossly intact. Moist buccal mucosa. Head is atraumatic, normocephalic. Hears conversational speech. No nasal drainage. NECK: Supple without lymphadenopathy. CHEST: Non-labored respirations and equal bilateral excursions. CARDIOVASCULAR: Regular rate and rhythm. Palpable 2+ radial pulses. ABDOMEN: Soft, nontender. Nondistended. Incisional hernia along the left lower quadrant over 5 cm. MUSCULOSKELETAL: No clubbing, cyanosis or edema. NEUROLOGIC: No focal or lateralizing signs. Cranial nerves II-12 grossly intact PSYCH: Appropriate affect. Alert and oriented to person, place and time. SKIN: Good skin turgor. Well perfused. - Labs CBC & Chem 7: 11/23/17 06:30 11/23/17 06:30 Labs: Abnormal Lab Results - Last 24 Hours (Table) 11/23/17 11/23/17 Range/Units 06:30 06:30 Hgb 11.2 L (11.4-16.0) gm/dL Chloride 113 H (98-107) mmol/L Carbon Dioxide 20 L (22-30) mmol/L BUN 18 H (7-17) mg/dL Calcium 8.3 L (8.4-10.2) mg/dL Total Protein 5.5 L (6.3-8.2) g/dL Albumin 3.1 L (3.5-5.0) g/dL Microbiology - Last 24 Hours (Table) 11/21/17 23:05 Urine Culture - Preliminary Urine,Clean Catch Gram Neg Bacilli - Imaging and Cardiology CT scan - abdomen: report reviewed, image reviewed CT scan - pelvis: report reviewed (Images reviewed demonstrating no signs of small bowel obstruction.), image reviewed Assessment and Plan (1) Hernia of anterior abdominal wall Current Visit: No Status: Acute Code(s): K43.9 - VENTRAL HERNIA WITHOUT OBSTRUCTION OR GANGRENE SNOMED Code(s): 801949218 Plan: 1. Recommend abdominal binder. 2. No acute surgical intervention at this time. 3. Patient is scheduled to follow up with her surgeon on Saturday, 11/26 4. Patient is cleared for discharge from a surgical standpoint
[2017-11-23] MEDS ORDERED: SULFAMETHOX-TMP 800-160MG 1 EACH TAB PO SCH (13:00)
--- NOTE | 2017-11-23 13:34 | P.DS ---
Providers Date of admission: 11/21/17 14:41 Expected date of discharge: 11/23/17 Attending physician: Nighat Francois Consults: 11/21/17 15:46 Consult Physician Routine Consulting Provider: Vincenzo Carmichael Consult Reason/Comments: ventral hernia Do you want consulting provider notified?: Yes Placement Type Exists?: Yes Primary care physician: Nighat Francois [facility] Course: Discharge Diagnosis 1. Abdominal pain with ventral hernia: Surgery is following. Awaiting their fragmentations about possible surgical intervention. Patient is currently nothing by mouth. Continue with IV fluids normal saline at 75 mL an hour. Order computed tomography scan of the abdomen and pelvis with oral and IV contrast. add Dilaudid 0.5 mg 1 every 4 hours as needed for pain. CT of abdomen completed showing anterior abdominal wall lower ventral hernia is without evidence of bowel obstruction. Mild subsegmental atelectasis at the left lung base compared to old exam. The right upper side ventral hernia is incarcerated and appears new compared to old computed tomography scan. Patient has been cleared for discharge from surgical standpoint. Patient to follow-up with surgeon on Sunday 11/26. Patient will be discharged home on [place] 7.5 for 3 days 2. History of PE on Xarelto at home 3. COPD. No evidence of exacerbation. resume inhalers nebulizer treatment 4. History of CVA 5. Essential hypertension 6. Hyperlipidemia 7. Prior history of abdominal surgeries for bowel resection and hernia repairs 8. 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 UTI: Start clindamycin. Await urine culture. Patient has ALLERGY to Keflex and quinolones. Urine culture showing gram-negative bacilli. Patient will be discharged home on Bactrim twice a day for 7 days. Hospital course This is a 62-year-old female with a known history of PE, COPD, CVA, hypertension , hyperlipidemia, diverticulitis and inguinal hernias requiring repair. Patient is also history of bowel resection. Patient is a direct admit from Dr. Francois's office in regards to a possible ventral hernia. Patient reports right- sided abdominal pain and protrusion of the abdomen for about a week to 3 weeks. The pain has continued to worsen and therefore she presented to the office for evaluation. She's been admitted to the hospital for a surgical consult and possible repair of hernia. She denies any nausea or vomiting. Denies any bowel movement changes. Does report some urinary symptoms about a week ago now resolved. She reports that her urine was dark with a pink tinge. Denies any chest pain or shortness of breath. She does use 2 L of oxygen at home at night on a daily basis. Does not to having intermittent cough. We'll check EKG chest x-ray and urinalysis for preoperative clearance. Patient denies any fever chills or sweats. 11/22/2017 patient still reporting abdominal pain on the right side of the abdomen was hernias located. Also complaining of some burning with urination. She'll be placed on antibiotic for possible UTI. Computed tomography scan of the abdomen and pelvis report shows anterior abdominal wall lower ventral hernia is without evidence of a bowel obstruction. Upper right side ventral hernia is incarcerated and appears new compared to old CT scan. Surgical service is following. Patient reports having bowel movements yesterday. Denies any chest pain or shortness of breath. On 11/23/2017 patient states she is ready to be discharged home and will follow- up with Dr. Carmichael in office on Saturday for further surgical workup. Dr. Araya per surgical surfaces has cleared patient for discharge. Patient will be discharged home on Turner for pain and Bactrim for her UTI urinary tract infection. Patient will continue her Xarelto due to history of pulmonary embolism upon discharge. Patient to follow-up closely with primary care provider and surgical services. I performed an examination of the patient and discussed their management with the Nurse Practitioner. I have reviewed the Nurse Practitioner's notes and agree with the documented findings and plan of care Patient Condition at Discharge: Stable Plan - Discharge Summary Discharge Rx Participant: Yes New Discharge Prescriptions: New HYDROcodone/APAP 7.5-325MG [[place] 7.5-325] 1 tab PO Q6HR PRN 3 Days #12 tab PRN Reason: Pain Sulfamethox-Tmp 800-160Mg [Bactrim DS 800-160 mg] 1 each PO Q12HR 7 Days #14 tab Continue Promethaz-Cod 6.25-10 mg/5 ml [Phenergan with Codeine] 10 ml PO Q8H PRN PRN Reason: Cough Rivaroxaban [Xarelto] 20 mg PO DAILY Diazepam [Valium] 10 mg PO TID Ipratropium Nebulized [Atrovent Nebulized] 0.5 mg INHALATION RT-TID PRN PRN Reason: ASTHMA SX Ibandronate Sodium [Boniva] 150 mg PO QMONTH Fluticasone/Salmeterol [Advair 500-50 Diskus] 1 puff INHALATION RT-BID Cholecalciferol [Vitamin D3] 5,000 unit PO MO Montelukast [Singulair] 10 mg PO HS Escitalopram [Lexapro] 10 mg PO DAILY Pantoprazole Sodium [Protonix] 40 mg PO DAILY ALPRAZolam [Xanax] 0.25 mg PO TID PRN PRN Reason: Anxiety Pravastatin Sodium [Pravachol] 40 mg PO HS Melatonin 10 mg PO HS PRN PRN Reason: Insomnia Discharge Medication List Diazepam [Valium] 10 mg PO TID 05/24/15 [History] Ibandronate Sodium [Boniva] 150 mg PO QMONTH 05/24/15 [History] Ipratropium Nebulized [Atrovent Nebulized] 0.5 mg INHALATION RT-TID PRN [History] Promethaz-Cod 6.25-10 mg/5 ml [Phenergan with Codeine] 10 ml PO Q8H PRN [History] Rivaroxaban [Xarelto] 20 mg PO DAILY 05/24/15 [History] Fluticasone/Salmeterol [Advair 500-50 Diskus] 1 puff INHALATION RT-BID 04/08/16 [History] Cholecalciferol [Vitamin D3] 5,000 unit PO MO 05/20/17 [History] Escitalopram [Lexapro] 10 mg PO DAILY 05/20/17 [History] Montelukast [Singulair] 10 mg PO HS 05/20/17 [History] Pantoprazole Sodium [Protonix] 40 mg PO DAILY 05/20/17 [History] ALPRAZolam [Xanax] 0.25 mg PO TID PRN 11/21/17 [History] Melatonin 10 mg PO HS PRN 11/21/17 [History] Pravastatin Sodium [Pravachol] 40 mg PO HS 11/21/17 [History] HYDROcodone/APAP 7.5-325MG [[place] 7.5-325] 1 tab PO Q6HR PRN 3 Days #12 tab 04/11 [Rx] Sulfamethox-Tmp 800-160Mg [Bactrim DS 800-160 mg] 1 each PO Q12HR 7 Days #14 tab 11/23/17 [Rx] Follow up Appointment(s)/Referral(s): Vincenzo Carmichael MD [STAFF PHYSICIAN] - 3 Days Nighat Francois MD [Primary Care Provider] - 1 Week Activity/Diet/Wound Care/Special Instructions: Diet regular Activity as tolerated Discharge Disposition: HOME SELF-CARE
[2017-11-25] MEDS ORDERED: CHOLECALCIFEROL 1,000 UNIT TAB PO SCH (09:00)
== END 2017-11-23 15:20 | disposition home or self-care (01) | DRG 394 ==
LOC: 3SUR 14:41
PROVIDERS: ADMIT Internal Medicine; ATTEND Internal Medicine
DX: K43.0 Incisional hernia with obstruction, without gangrene (principal); J98.11 Atelectasis; N39.0 Urinary tract infection, site not specified; M41.9 Scoliosis, unspecified; E78.5 Hyperlipidemia, unspecified; I69.998 Other sequelae following unspecified cerebrovascular disease; H53.9 Unspecified visual disturbance; F32.9 Major depressive disorder, single episode, unspecified; F41.9 Anxiety disorder, unspecified; H40.9 Unspecified glaucoma; I10 Essential (primary) hypertension; J44.9 Chronic obstructive pulmonary disease, unspecified; K21.9 Gastro-esophageal reflux disease without esophagitis; M81.0 Age-related osteoporosis without current pathological fracture; R25.1 Tremor, unspecified; K57.90 Diverticulosis of intestine, part unspecified, without perforation or abscess without bleeding; M19.90 Unspecified osteoarthritis, unspecified site; K44.9 Diaphragmatic hernia without obstruction or gangrene; Z79.01 Long term (current) use of anticoagulants; Z79.899 Other long term (current) drug therapy; Z86.14 Personal history of Methicillin resistant Staphylococcus aureus infection; Z90.710 Acquired absence of both cervix and uterus; Z90.49 Acquired absence of other specified parts of digestive tract; Z88.1 Allergy status to other antibiotic agents; Z86.711 Personal history of pulmonary embolism; Z86.718 Personal history of other venous thrombosis and embolism; Z87.01 Personal history of pneumonia (recurrent); Z87.440 Personal history of urinary (tract) infections; Z98.42 Cataract extraction status, left eye; Z98.41 Cataract extraction status, right eye; Z96.1 Presence of intraocular lens; Z80.1 Family history of malignant neoplasm of trachea, bronchus and lung; Z80.3 Family history of malignant neoplasm of breast; Z80.8 Family history of malignant neoplasm of other organs or systems; Z80.0 Family history of malignant neoplasm of digestive organs; Z82.49 Family history of ischemic heart disease and other diseases of the circulatory system
CPT/HCPCS: 71046; 74177; 80053; 81001; 85025; 87077; 87086; 87186; 94640

== ENCOUNTER 2017-12-11 06:40 | Inpatient (IN) | payer MEDICARE ==
[2017-12-06 09:07] VITALS: BMI 26.4
[~2017-12-11 06:40] MED LIST: HEPARIN SODIUM,PORCINE 5,000 UNIT/ML 1 ML VIAL SQ ONE; ceFAZolin IN SWFI 2 GM/20 ML SYRINGE IVP ONE
[2017-12-11] MEDS ORDERED: SCOPOLAMINE 1.5MG/72HR PATCH TRANSDERM ONE (06:45)
[2017-12-11] MEDS ORDERED: MIDAZOLAM 2 MG/2 ML VIAL IV PRN (06:45)
[2017-12-11] MEDS ORDERED: DEXAMETHASONE SOD PHOSPHATE 10 MG/ML 1 ML VIAL IV ONE (06:45)
[2017-12-11] MEDS ORDERED: LIDOCAINE 1% 20 ML VIAL (10MG/ML) FOR IV START INTRADERMA PRN (06:45)
[2017-12-11] MEDS ORDERED: ONDANSETRON 4 MG/2 ML VIAL IVP ONE (06:45)
[2017-12-11] MEDS ORDERED: LACTATED RINGERS 1,000 ML IV SCH (06:45)
[2017-12-11] MEDS ORDERED: LACTATED RINGERS 1,000 ML IV ONE ×3 (07:35→10:26)
--- NOTE | 2017-12-11 08:21 | P.HPBAR ---
Bariatric H&P - History & Physicial H&P Date: 12/11/17 History & Physicial: Visit/CC: Patient initial contact: Initial weight: Initial weight in pounds: Height: 4 ft 9.5 in Initial BMI: Last weight: Current weight: 56.245 kg Current weight in pounds: Current BMI: 26.4 [place] body weight (based on NIH guidelines): Excess body weight loss: The patient is a 62 year-old F who presents for Bariatric Assessment. Patient presents today for laparoscopic robotic system repair of incisional hernia. Patient's had 2 previous incisional hernias. She has pain in the lower abdomen. Past Medical History Past Medical History: Asthma, Chest Pain / Angina, COPD, CVA/TIA, Deep Vein Thrombosis (DVT), GERD/Reflux, Hyperlipidemia, Hypertension, Osteoarthritis (OA) , Pneumonia, Pulmonary Embolus (PE) Additional Past Medical History / Comment(s): CVA LOST LT PERIPHERAL VISION AND WRITING IS A BIT DIFFICULT & FEW TIA'S, TREMORS SINCE.PE/ XUAN DVT (AFTER LAST 2 MAJOR SURG). HX BOWEL OBSTRUCTION. USED TO TAKE MEDS FOR BP , OSTEOPOROSIS. BACK PAIN. 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 BREAST REDUCTION. cystoscopy CYSTOCELE, RECTOCELE REPAIR. RT FOOT. EXC CYST LT ARM,LT FOOT REPAIR CYSTOSCOPY,LT BREAST BX-NEG, BUNIONECTOMY,GANGLION CYST REMOVED BRONCOSCOPIES,EGD/COLONOSCOPY,XUAN CATARACTS, hammer toe-pins removed. neuroma-bone removed/pins removed. lt toe , rt wrist nerve sx Past Anesthesia/Blood Transfusion Reactions: No Reported Reaction Smoking Status: Never smoker - Past Family History Father Brother(s) Family Medical History: Cancer Additional Family Medical History / Comment(s): LUNG CANCER Sister(s) Family Medical History: Cancer Additional Family Medical History / Comment(s): # 1 SISTER-BONE CA,SISTER #2 BREAST CA, SISTER #3 LUNG,STOMACH,ESOPHAGUS Mother Family Medical History: Deep Vein Thrombosis (DVT) Additional Family Medical History / Comment(s): diverticulitis Surgical - Exam Vital Signs Temp Pulse Resp BP Pulse Ox 97.8 F 76 18 148/78 99 12/11/17 07:14 12/11/17 07:14 12/11/17 07:14 12/11/17 07:14 12/11/17 07:14 - General well developed, no distress - Eyes PERRL - ENT normal pinna - Neck no masses - Respiratory normal expansion - Cardiovascular Rhythm: regular - Abdomen Abdomen: soft, non tender, no guarding, no rigid, no rebound Hernia: incisional (5 cm recurrent incisional hernia located in the right lower quadrant) Bariatric Assessment & Plan Plan: Right lower quadrant incisional hernia. We'll perform laparoscopic robotic assistance repair. Bariatric Checklist Checklist: Plan: Checklist: EGD: 1. Hiatal hernia: 2. H. Pylori: HgbA1c: Vitamin D: Smoking: Never smoker Primary care physician referral: Psychiatry clearance: Cardiology clearance: Sleep study: Diet journal: VTE risk score: VTE risk level: Rehab needs at discharge:
[2017-12-11] MEDS ORDERED: fentaNYL (PF) 50 MCG/ML 2 ML AMP ONE (08:27)
[2017-12-11] MEDS ORDERED: LIDOCAINE 1% INJ 10MG/ML (20 ML MDV) ONE (08:27)
[2017-12-11] MEDS ORDERED: GLYCOPYRROLATE 0.2 MG/ML 2 ML VIAL ONE (08:27)
[2017-12-11] MEDS ORDERED: KETOROLAC 30 MG/ML 1 ML VIAL ONE (08:27)
[2017-12-11] MEDS ORDERED: MIDAZOLAM 2 MG/2 ML VIAL ONE (08:27)
[2017-12-11] MEDS ORDERED: SUCCINYLCHOLINE CHLORIDE 100 MG/5 ML SYR IV ONE (08:27)
[2017-12-11] MEDS ORDERED: PROPOFOL 10 MG/ML 20 ML VIAL IV ONE (08:27)
[2017-12-11] MEDS ORDERED: ROCURONIUM BROMIDE 10 MG/ML 10 ML VIAL IV ONE (08:27)
[2017-12-11] MEDS ORDERED: NEOSTIGMINE 1 MG/ML 10 ML VIAL ONE (08:27)
[2017-12-11] MEDS ORDERED: HYDROmorphone (PF) 1 MG/ML ONE (08:27)
[2017-12-11] MEDS ORDERED: BUPIVACAIN-EPI 0.25%-1:200,000 30 ML VIAL SQ ONE ×2 (09:03)
[2017-12-11] MEDS ORDERED: HYDROcodone/APAP 5-325MG 1 EACH TAB PO PRN (10:26)
[2017-12-11] MEDS ORDERED: METOCLOPRAMIDE 5 MG/ML 2 ML VIAL IVP PRN (10:26)
[2017-12-11] MEDS ORDERED: NALOXONE 0.4 MG/ML 1 ML VIAL IV PRN (10:26)
[2017-12-11] MEDS ORDERED: ONDANSETRON 4 MG/2 ML VIAL IVP PRN (10:26)
[2017-12-11] MEDS: HYDROmorphone 0.5 MG/0.5 ML SYRINGE IVP PRN ×4 (10:45→11:07)
[2017-12-11] MEDS: HYDROmorphone 1 MG/ML 1 ML SYRINGE IVP PRN ×4 (12:09→22:32)
[2017-12-11] MEDS: KETOROLAC 30 MG/ML 1 ML VIAL IVP SCH ×3 (12:52→22:31)
--- NOTE | 2017-12-11 14:38 | P.OP ---
Date of Procedure: 12/11/17 Preoperative Diagnosis: Recurrent incisional hernia incarcerated Postoperative Diagnosis: Recurrent incarcerated incisional hernia Procedure(s) Performed: Laparoscopic robotic repair of incarcerated incisional hernia. Laparoscopic Lyse adhesions Anesthesia: HENRIETTA Surgeon: Vincenzo Carmichael Estimated Blood Loss (ml): 5 Pathology: none sent Condition: stable Disposition: PACU Description of Procedure: TThe patient was placed on the operating table in the supine position. He received general anesthesia. His abdomen was prepped and draped usual fashion. Using a 5 mm optical trocar under direct visualization the peritoneal cavity was entered in the left upper quadrant. The abdomen was then insufflated. The laparoscope was placed back into the perineal cavity. Next a 8 mm robotic trocar was placed in the left lower quadrant and a 12 mm robotic trocar was placed in the left lateral position. The original 5 mm trocar was exchanged for a 8 mm robotic trocar. The patient's placed in the left side up position. And the patient was docked to the robot. The incisional hernia was visualized. Using hook cautery the peritoneum over the incisional hernia was excised. The adhesions between small bowel hernia sac were lysed using sharp dissection and hook cautery. At this point the areas examined the hernia was quite large. It extended towards the pubic area. It was decided to perform an open repair the hernia. The trochars withdrawn. The skin was incised in the low midline position. Using 0 Ethibond suture the fascia to approximate. And then a Prolene mesh was placed over top the repair and secured with a SecureStrand tacker. Subcutaneous fat was closed with 0 Vicryl suture. A SONNY drain is placed and brought through separate stab incision for closing the subcutaneous fat layer. Skin was closed saritha. Patient top she will was sent to recovery in stable condition.
[2017-12-11] MEDS ORDERED: IPRATROPIUM 0.5 MG/2.5 ML NEBU INHALATION PRN (14:47)
[2017-12-11] MEDS ORDERED: MELATONIN 5 MG TABLET PO PRN (14:47)
[2017-12-11] MEDS ORDERED: IPRATROPIUM-ALBUTEROL 3 ML NEB INHALATION PRN (14:47)
--- NOTE | 2017-12-11 14:58 | P.CONS ---
History of Present Illness - Reason for Consult Consult date: 12/11/17 Medical management Requesting physician: Vincenzo Carmichael - History of Present Illness This is a 62-year-old female who presented to the hospital for an elective endoscopic robotic repair of incarcerated incisional hernia and Laparscopic lysis of adhesions. She has known past medical history of recurrent incarcerated incisional hernias. Additional medical history includes DVT, PE when she takes xarelto. Patient states she has been off xarelto for 5 days prior to surgery per surgical recommendation. Additional medical history includes asthma, chest pain, COPD, CVA, DVT, GERD, hyperlipidemia, hypertension , osteoporosis, pneumonia and previous hernia repair. At this time patient is resting comfortably in bed. Patient currently on a clear liquid diet. She denies chest pain or shortness of breath. Patient denies any nausea vomiting or diarrhea. Patient denies any urinary burning or frequency. Review of Systems Please refer to HPI otherwise unremarkable Past Medical History Past Medical History: Asthma, Chest Pain / Angina, COPD, CVA/TIA, Deep Vein Thrombosis (DVT), GERD/Reflux, Hyperlipidemia, Hypertension, Osteoarthritis (OA) , Pneumonia, Pulmonary Embolus (PE) Additional Past Medical History / Comment(s): CVA LOST LT PERIPHERAL VISION AND WRITING IS A BIT DIFFICULT & FEW TIA'S, TREMORS SINCE.PE/ XUAN DVT (AFTER LAST 2 MAJOR SURG). HX BOWEL OBSTRUCTION. USED TO TAKE MEDS FOR BP , OSTEOPOROSIS. BACK PAIN. 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 BREAST REDUCTION. cystoscopy CYSTOCELE, RECTOCELE REPAIR. RT FOOT. EXC CYST LT ARM,LT FOOT REPAIR CYSTOSCOPY,LT BREAST BX-NEG, BUNIONECTOMY,GANGLION CYST REMOVED BRONCOSCOPIES,EGD/COLONOSCOPY,XUAN CATARACTS, hammer toe-pins removed. neuroma-bone removed/pins removed. lt toe , rt wrist nerve sx Past Anesthesia/Blood Transfusion Reactions: No Reported Reaction Past Psychological History: Anxiety, Depression Additional Psychological History / Comment(s): pt lives with spouse , son and his . no home care services. has home 02 2 ltiers n/c at hs. Smoking Status: Never smoker Past Alcohol Use History: None Reported Past Drug Use History: None Reported - Past Family History Father Brother(s) Family Medical History: Cancer Additional Family Medical History / Comment(s): LUNG CANCER Sister(s) Family Medical History: Cancer Additional Family Medical History / Comment(s): # 1 SISTER-BONE CA,SISTER #2 BREAST CA, SISTER #3 LUNG,STOMACH,ESOPHAGUS Mother Family Medical History: Deep Vein Thrombosis (DVT) Additional Family Medical History / Comment(s): diverticulitis Medications and Allergies Home Medications Medication Instructions Recorded Confirmed Type Diazepam [Valium] 10 mg PO TID 05/24/15 12/11/17 History Ibandronate Sodium [Boniva] 150 mg PO QMONTH 05/24/15 12/11/17 History Ipratropium Nebulized [Atrovent 0.5 mg INHALATION RT-TID PRN 05/24/15 12/11/17 History Nebulized] Promethaz-Cod 6.25-10 mg/5 ml 10 ml PO Q8H PRN 05/24/15 12/11/17 History [Phenergan with Codeine] Rivaroxaban [Xarelto] 20 mg PO DAILY 05/24/15 12/11/17 History Fluticasone/Salmeterol [Advair 1 puff INHALATION RT-BID 04/08/16 12/11/17 History 500-50 Diskus] Escitalopram [Lexapro] 10 mg PO DAILY 05/20/17 12/11/17 History Montelukast [Singulair] 10 mg PO HS 05/20/17 12/11/17 History Pantoprazole Sodium [Protonix] 40 mg PO DAILY 05/20/17 12/11/17 History ALPRAZolam [Xanax] 0.25 mg PO TID PRN 11/21/17 12/11/17 History Melatonin 10 mg PO HS PRN 11/21/17 12/11/17 History Pravastatin Sodium [Pravachol] 40 mg PO HS 11/21/17 12/11/17 History Ipratropium/Albuterol Sulfate 1 - 2 puff INHALATION RT-QID PRN 12/06/17 History [Combivent Respimat Inhaler] Ergocalciferol (Vitamin D2) 50,000 unit PO MO 12/11/17 12/11/17 History [Drisdol] Allergies Allergy/AdvReac Type Severity Reaction Status Date / Time cephalexin monohydrate Allergy Rash/Hives Verified 12/11/17 14:30 [From Keflex] clarithromycin [From Biaxin] Allergy Rash/Hives Verified 12/11/17 14:30 levofloxacin [From Levaquin] Allergy Rash/Hives Verified 12/11/17 14:30 Quinolones Allergy Rash/Hives Verified 12/11/17 14:30 Physical Exam Vitals: Vital Signs Temp Pulse Pulse Resp BP Pulse Ox 12/11/17 12:53 101 H 101/60 96 12/11/17 12:25 85 16 90/57 95 12/11/17 12:10 87 16 94/64 95 12/11/17 11:55 88 16 104/63 98 12/11/17 11:40 98.6 F 80 16 118/58 97 12/11/17 11:03 84 16 135/71 96 12/11/17 10:45 84 16 127/84 96 12/11/17 10:30 85 16 138/76 98 12/11/17 10:25 97.4 F L 86 16 139/78 96 12/11/17 08:06 71 18 116/76 100 12/11/17 07:14 97.8 F 76 18 148/78 99 Intake and Output 12/10/17 12/11/17 12/11/17 22:59 06:59 14:59 Intake Total 2250 Output Total 55 Balance 2195 Intake: IV 2250 Output: Drainage 30 Left Upper Abdomen 30 Estimated Blood Loss 25 Head normocephalic Neck supple Lungs clear to auscultation bilaterally no wheezing or crackles Heart regular rate and rhythm S1-S2, no rub or gallop Abdomen soft nontender. Dressings clean dry and intact Extremities no edema Neuro alert and orientated to 3 Assessment and Plan Assessment: 1. Status post laparoscopic robotic repair of incarcerated incisional hernia and laparoscopic lysis of adhesions. Patient is currently on clear liquid diet. Pain meds per surgical team. 2. History of PE patient managed on Xarelto. Xarelto has been on hold for 5 days prior to surgery 3. COPD. No evidence of exacerbation at this time home inhalers and nebulizer treatments resumed 4. History of CVA 5. Essential hypertension 6. Hyperlipidemia 7. Prior history of abdominal surgeries for bowel resection and hernia repair 8. History of UTI 9. Anxiety and depression 10. 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 GI prophylaxis Protonix Thank you for this consultation we will continue to follow patient closely throughout stay. Time with Patient: Greater than 30 (Greater than 60% of the total time spent in counseling and coordination of care. I performed an examination of the patient and discussed their management with the Nurse Practitioner. I have reviewed the Nurse Practitioner's notes and agree with the documented findings and plan of care)
[2017-12-11] MEDS ORDERED: NON-FORMULARY DRUG (Ibandronate Sodium [Boniva] 150 MG) PO SCH (15:00)
[2017-12-11] MEDS: DIAZEPAM 5 MG TAB PO SCH ×2 (15:43→21:07)
[2017-12-11] MEDS: IPRATROPIUM-ALBUTEROL 3 ML NEB INHALATION PRN (16:02)
[2017-12-11] MEDS: SYMBICORT 160-4.5 MCG INHALER INHALATION SCH (20:26)
[2017-12-11] MEDS: PRAVASTATIN SODIUM 40 MG TAB PO SCH (21:07)
[2017-12-11] MEDS: MONTELUKAST 10 MG TAB PO SCH (21:07)
[2017-12-12] MEDS: HYDROmorphone 1 MG/ML 1 ML SYRINGE IVP PRN ×3 (02:16→09:43)
[2017-12-12] MEDS: KETOROLAC 30 MG/ML 1 ML VIAL IVP SCH ×4 (05:13→23:00)
[2017-12-12] MEDS: PANTOPRAZOLE 40 MG TABLET PO SCH (06:24)
[2017-12-12 07:07] LABS: Basophils % (A) 0 %; Eosinophils # (A) 0.1 k/uL (0-0.7); Eosinophils % (A) 0 %; HCT 31.6 % (34.0-46.0); Hypochromasia Slight; Lymphocytes # (A) 1.6 k/uL (1.0-4.8); Lymphocytes % (A) 11 %; MCV 84.4 fL (80.0-100.0); Mean Platelet Volume 7.3; Monocytes % (A) 7 %; Neutrophils % (A) 81 %; Platelet Count 206 k/uL (150-450); RBC 3.75 m/uL (3.80-5.40); RDW 13.6 % (11.5-15.5); WBC 14.8 k/uL (3.8-10.6)
[2017-12-12 07:18] LABS: HGB 10.1 gm/dL (11.4-16.0)
[2017-12-12 07:44] LABS: ALT 27 U/L (9-52); AST 35 U/L (14-36); Alkaline Phosphatase 46 U/L (38-126); Anion Gap 7 mmol/L; Blood Urea Nitrogen 12 mg/dL (7-17); Calcium 8.5 mg/dL (8.4-10.2); Carbon Dioxide 27 mmol/L (22-30); Chloride 107 mmol/L (98-107); Glucose 91 mg/dL (74-99); Potassium 4.6 mmol/L (3.5-5.1); Sodium 141 mmol/L (137-145); Total Bilirubin 0.4 mg/dL (0.2-1.3); Total Protein 5.3 g/dL (6.3-8.2)
[2017-12-12] MEDS: SYMBICORT 160-4.5 MCG INHALER INHALATION SCH ×2 (07:59→20:57)
[2017-12-12] MEDS: IPRATROPIUM-ALBUTEROL 3 ML NEB INHALATION PRN (07:59)
[2017-12-12] MEDS: ENOXAPARIN 40 MG/0.4 ML SYRINGE SQ SCH (09:41)
[2017-12-12] MEDS: ESCITALOPRAM 10 MG TAB PO SCH (09:41)
[2017-12-12] MEDS: DIAZEPAM 5 MG TAB PO SCH ×2 (09:41→18:16)
--- NOTE | 2017-12-12 11:07 | P.PN ---
Subjective Progress Note Date: 12/12/17 62-year-old female up ambulatory on the unit. states that she is urinating no difficulty passing gas no stool no nausea no vomiting tolerating diet abdominal binder in place with the SONNY drain. Patient states pain medication effective for pain control Patient is postop December 11 open repair incarcerated incisional hernia Objective - Vital Signs Vital signs: Vital Signs Temp 98.3 F 12/12/17 08:40 Pulse 92 12/12/17 08:40 Resp 16 12/12/17 08:40 BP 96/61 12/12/17 08:40 Pulse Ox 93 L 12/12/17 08:40 Intake & Output 12/11/17 12/12/17 12/12/17 18:59 06:59 18:59 Intake Total 2310 400 Output Total 85 380 33 Balance 2225 20 -33 Intake: IV 2250 Oral 60 400 Output: Drainage 60 80 33 Left Upper Abdomen 60 80 33 Urine 300 Estimated Blood Loss 25 Other: # Voids 1 - Exam GENERAL APPEARANCE: 62-year-old female up ambulatory on the unit appears in no acute distress VITAL SIGNS: Reviewed HEENT: Head is normocephalic and atraumatic. Pupils are equal and reactive. The nares are patent. Oropharynx is clear without lesions. NECK: Supple without lymphadenopathy. Traches midline. HEART: S1, S2. Regular rate and rhythm. Denying chest pain LUNGS: No crackles or wheezes are heard. Adequate air movement on room air ABDOMEN: Soft, surgical tenderness appropriate abdominal binder in place SONNY drain in place bloody drainage surgical dressing dry few hypoactive bowel tones reports no nausea vomiting tolerating diet no stool EXTREMITIES: Normal skin color and turgor. No cyanosis, rash, ulceration, clubbing or edema. Radial pedal pulses are 2/4 bilaterally. NEUROLOGICAL: No focal deficits. Strength and sensation are grossly intact. - Labs CBC & Chem 7: 12/12/17 06:45 12/12/17 06:45 Labs: Abnormal Lab Results - Last 24 Hours (Table) 12/12/17 12/12/17 Range/Units 06:45 06:45 WBC 14.8 H (3.8-10.6) k/uL RBC 3.75 L (3.80-5.40) m/uL Hgb 10.1 L D (11.4-16.0) gm/dL Hct 31.6 L (34.0-46.0) % Neutrophils # 12.0 H (1.3-7.7) k/uL Total Protein 5.3 L (6.3-8.2) g/dL Albumin 3.0 L (3.5-5.0) g/dL Assessment and Plan Assessment: Impression History of a pulmonary emboli on Xarelto currently on hold 5 days prior to surgery Prior history of abdominal surgeries for bowel resection and hernia repair Postop December 11 open repair of incarcerated incisional hernia History of prior CVA COPD was no evidence of an exacerbation Essential hypertension Anxiety depressive disorder Plan Continue postop surgical care Advance diet to full liquid if tolerated Increase activity Pain control DVT and GI prophylaxis Home meds as appropriate The above impression and plan of care have been discussed and directed by signing physician. Jolie Garcia nurse practitioner acting as scribe for signing physician.
--- NOTE | 2017-12-12 11:30 | P.PN ---
Subjective Progress Note Date: 12/12/17 This is a 62-year-old female who presented to the hospital for an elective endoscopic robotic repair of incarcerated incisional hernia and Laparscopic lysis of adhesions. She has known past medical history of recurrent incarcerated incisional hernias. Additional medical history includes DVT, PE when she takes xarelto. Patient states she has been off xarelto for 5 days prior to surgery per surgical recommendation. Additional medical history includes asthma, chest pain, COPD, CVA, DVT, GERD, hyperlipidemia, hypertension , osteoporosis, pneumonia and previous hernia repair. At this time patient is resting comfortably in bed. Patient currently on a clear liquid diet. She denies chest pain or shortness of breath. Patient denies any nausea vomiting or diarrhea. Patient denies any urinary burning or frequency. On 12/12/2017 patient is alert and oriented 3. Patient is still experiencing some abdominal pain. Patient has been tolerating clear liquid diet. Diet will be advanced today per surgical team. Patient denies chest pain or shortness of breath. Patient denies any urinary burning or frequency. White blood cell elevated at 14.8 Objective - Vital Signs Vital signs: Vital Signs Temp 98.3 F 12/12/17 08:40 Pulse 92 12/12/17 08:40 Resp 16 12/12/17 08:40 BP 96/61 12/12/17 08:40 Pulse Ox 93 L 12/12/17 08:40 Intake & Output 12/11/17 12/12/17 12/12/17 18:59 06:59 18:59 Intake Total 2310 400 Output Total 85 380 33 Balance 2225 20 -33 Intake: IV 2250 Oral 60 400 Output: Drainage 60 80 33 Left Upper Abdomen 60 80 33 Urine 300 Estimated Blood Loss 25 Other: # Voids 1 - Exam Head normocephalic Neck supple Lungs clear to auscultation bilaterally no wheezing or crackles Heart regular rate and rhythm S1-S2, no rub or gallop Abdomen soft nontender. Dressings clean dry and intact Extremities no edema Neuro alert and orientated to 3 - Labs CBC & Chem 7: 12/12/17 06:45 12/12/17 06:45 Labs: Abnormal Lab Results - Last 24 Hours (Table) 12/12/17 12/12/17 Range/Units 06:45 06:45 WBC 14.8 H (3.8-10.6) k/uL RBC 3.75 L (3.80-5.40) m/uL Hgb 10.1 L D (11.4-16.0) gm/dL Hct 31.6 L (34.0-46.0) % Neutrophils # 12.0 H (1.3-7.7) k/uL Total Protein 5.3 L (6.3-8.2) g/dL Albumin 3.0 L (3.5-5.0) g/dL Assessment and Plan Assessment: 1. Status post laparoscopic robotic repair of incarcerated incisional hernia and laparoscopic lysis of adhesions. Patient is currently on clear liquid diet. Pain meds per surgical team. 2. History of PE patient managed on Xarelto. Xarelto has been on hold for 5 days prior to surgery. Discussed with Jolie Garcia [employer] SUPERVISOR per surgical services would like to hold xarleto one more day. Resume tomorrow 12/13 3. COPD. No evidence of exacerbation at this time home inhalers and nebulizer treatments resumed 4. History of CVA 5. Essential hypertension 6. Hyperlipidemia 7. Prior history of abdominal surgeries for bowel resection and hernia repair 8. History of UTI 9. Anxiety and depression 10. 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 Leukocytosis. WBC 14.8. Urinary analysis has been ordered 12. Expected acute Blood loss anemia secondary to surgery. Ferrous sulfate has been ordered. Hemoglobin 10.1 DVT prophylaxis SCDs, patient's home Xarelto currently on hold due to surgery. GI prophylaxis Protonix Thank you for this consultation we will continue to follow patient closely throughout stay. Anticipate discharge in the next 24-48 hours
[2017-12-12] MEDS: HYDROcodone/APAP 5-325MG 1 EACH TAB PO PRN ×2 (12:03→23:01)
[2017-12-12 12:29] LABS: Appearance,Urine Clear (Clear); Bilirubin,Urine Negative (Negative); Blood,Urine Negative (Negative); Color,Urine Light Yellow; Glucose,Urine (UA) Negative (Negative); Ketones,Urine Negative (Negative); Leukocyte Esterase,Urine Negative (Negative); Nitrite,Urine Negative (Negative); PH, Urine 5.5 (5.0-8.0); Protein,Urine Negative (Negative); Specific Gravity,Urine 1.003 (1.001-1.035); Urobilinogen,Urine <2.0 mg/dL (<2.0)
[2017-12-12] MEDS: FERROUS SULFATE 325 MG TAB PO SCH (21:08)
[2017-12-12] MEDS: PRAVASTATIN SODIUM 40 MG TAB PO SCH (21:08)
[2017-12-12] MEDS: MONTELUKAST 10 MG TAB PO SCH (21:08)
[2017-12-13] MEDS: KETOROLAC 30 MG/ML 1 ML VIAL IVP SCH (05:06)
[2017-12-13] MEDS: PANTOPRAZOLE 40 MG TABLET PO SCH (07:12)
[2017-12-13] MEDS: DIAZEPAM 5 MG TAB PO SCH ×2 (07:12→07:44)
[2017-12-13 07:25] LABS: Basophils % (A) 0 %; Eosinophils # (A) 0.4 k/uL (0-0.7); Eosinophils % (A) 3 %; Hypochromasia Slight; Lymphocytes # (A) 2.2 k/uL (1.0-4.8); Lymphocytes % (A) 18 %; MCH 27.5 pg (25.0-35.0); MCHC 32.2 g/dL (31.0-37.0); MCV 85.3 fL (80.0-100.0); Mean Platelet Volume 7.3; Monocytes # (A) 0.7 k/uL (0-1.0); Monocytes % (A) 5 %; Neutrophils # (A) 8.7 k/uL (1.3-7.7); Neutrophils % (A) 72 %; Platelet Count 197 k/uL (150-450); RBC 3.64 m/uL (3.80-5.40); RDW 13.9 % (11.5-15.5)
[2017-12-13 07:29] LABS: Albumin 2.7 g/dL (3.5-5.0); Calcium 8.4 mg/dL (8.4-10.2); Potassium 4.2 mmol/L (3.5-5.1); Total Bilirubin 0.3 mg/dL (0.2-1.3); Total Protein 4.9 g/dL (6.3-8.2)
[2017-12-13] MEDS: ENOXAPARIN 40 MG/0.4 ML SYRINGE SQ SCH (07:44)
[2017-12-13] MEDS: FERROUS SULFATE 325 MG TAB PO SCH (07:44)
[2017-12-13] MEDS: ESCITALOPRAM 10 MG TAB PO SCH (07:44)
[2017-12-13] MEDS: SYMBICORT 160-4.5 MCG INHALER INHALATION SCH (08:03)
[2017-12-13 08:49] VITALS: BP 97/62; PULSE 97; RESP 20; TEMP 98.7
[2017-12-13] MEDS: HYDROcodone/APAP 5-325MG 1 EACH TAB PO PRN (09:33)
--- NOTE | 2017-12-13 11:28 | P.DS ---
Providers Date of admission: 12/11/17 13:38 Expected date of discharge: 12/13/17 Attending physician: Vincenzo Carmichael Consults: 12/11/17 10:26 Consult Physician Routine Consulting Provider: Nighat Francois Consult Reason/Comments: med manage Do you want consulting provider notified?: Yes Primary care physician: Nighat Priscila [facility] Course: 62-year-old female who has had 2 prior incisional hernias developed lower abdominal pain presented electively undergo laparoscopic robotic repair of incisional hernia. On December 11 did undergo an open repair of incarcerated incisional hernia. A decision by the surgeon was to do an open hernia was quite large On the day of discharge patient was up ambulatory on the unit SONNY drain in place serous drainage. Surgical incision dressings dry afebrile patient was felt to be appropriate to be discharged home afebrile white count 12 hemoglobin 10 electrolytes within normal limits Impression History of a pulmonary emboli on Xarelto currently on hold 5 days prior to surgery Prior history of abdominal surgeries for bowel resection and hernia repair Postop December 11 open repair of incarcerated incisional hernia History of prior CVA COPD was no evidence of an exacerbation Essential hypertension Anxiety depressive disorder The above impression and plan of care have been discussed and directed by signing physician. Jolie Garcia nurse practitioner acting as scribe for signing physician. Plan - Discharge Summary New Discharge Prescriptions: New HYDROcodone/APAP 5-325MG [Sanford 5-325] 1 each PO Q4H PRN #18 tab PRN Reason: Moderate To Severe Pain Continue Promethaz-Cod 6.25-10 mg/5 ml [Phenergan with Codeine] 10 ml PO Q8H PRN PRN Reason: Cough Rivaroxaban [Xarelto] 20 mg PO DAILY Diazepam [Valium] 10 mg PO TID Ipratropium Nebulized [Atrovent Nebulized] 0.5 mg INHALATION RT-TID PRN PRN Reason: ASTHMA SX Ibandronate Sodium [Boniva] 150 mg PO QMONTH Fluticasone/Salmeterol [Advair 500-50 Diskus] 1 puff INHALATION RT-BID Montelukast [Singulair] 10 mg PO HS Escitalopram [Lexapro] 10 mg PO DAILY Pantoprazole Sodium [Protonix] 40 mg PO DAILY ALPRAZolam [Xanax] 0.25 mg PO TID PRN PRN Reason: Anxiety Pravastatin Sodium [Pravachol] 40 mg PO HS Melatonin 10 mg PO HS PRN PRN Reason: Insomnia Ipratropium/Albuterol Sulfate [Combivent Respimat Inhaler] 1 - 2 puff INHALATION RT-QID PRN PRN Reason: Dyspnea Ergocalciferol (Vitamin D2) [Drisdol] 50,000 unit PO MO Discharge Medication List Diazepam [Valium] 10 mg PO TID 05/24/15 [History] Ibandronate Sodium [Boniva] 150 mg PO QMONTH 05/24/15 [History] Ipratropium Nebulized [Atrovent Nebulized] 0.5 mg INHALATION RT-TID PRN [History] Promethaz-Cod 6.25-10 mg/5 ml [Phenergan with Codeine] 10 ml PO Q8H PRN [History] Rivaroxaban [Xarelto] 20 mg PO DAILY 05/24/15 [History] Fluticasone/Salmeterol [Advair 500-50 Diskus] 1 puff INHALATION RT-BID 04/08/16 [History] Escitalopram [Lexapro] 10 mg PO DAILY 05/20/17 [History] Montelukast [Singulair] 10 mg PO HS 05/20/17 [History] Pantoprazole Sodium [Protonix] 40 mg PO DAILY 05/20/17 [History] ALPRAZolam [Xanax] 0.25 mg PO TID PRN 11/21/17 [History] Melatonin 10 mg PO HS PRN 11/21/17 [History] Pravastatin Sodium [Pravachol] 40 mg PO HS 11/21/17 [History] Ipratropium/Albuterol Sulfate [Combivent Respimat Inhaler] 1 - 2 puff INHALATION RT-QID PRN 12/06/17 [History] Ergocalciferol (Vitamin D2) [Drisdol] 50,000 unit PO MO 12/11/17 [History] HYDROcodone/APAP 5-325MG [Sanford 5-325] 1 each PO Q4H PRN #18 tab 12/13/17 [Rx] Follow up Appointment(s)/Referral(s): Nighat Francois MD [Primary Care Provider] - 12/20/17 10:45 am Vincenzo Carmichael MD [STAFF PHYSICIAN] - 12/19/17 3:10 pm Patient Instructions/Handouts: Pain Management (DC), Eran-Smart Drain Care ( GEN), Safe Use of Opioids (GEN), Ventral Hernia Repair (GEN) Activity/Diet/Wound Care/Special Instructions: Soft diet as tolerated. Drink plenty of fluids. No lifting or stooping over. No driving, no swimming, no pools or hot tubs, no tub baths. Call Dr Carmichael if you develop a fever or chills, increase in pain, vomiting, increase output from your SONNY drain. Call Dr Carmichael if you have any questions or concerns. Empty your SONNY drain three times a day and record on the sheet provided and bring with you to your return visit with Dr Carmichael. Discharge Disposition: HOME SELF-CARE
--- NOTE | 2017-12-13 12:18 | P.PN ---
Subjective Progress Note Date: 12/13/17 This is a 62-year-old female who presented to the hospital for an elective endoscopic robotic repair of incarcerated incisional hernia and Laparscopic lysis of adhesions. She has known past medical history of recurrent incarcerated incisional hernias. Additional medical history includes DVT, PE when she takes xarelto. Patient states she has been off xarelto for 5 days prior to surgery per surgical recommendation. Additional medical history includes asthma, chest pain, COPD, CVA, DVT, GERD, hyperlipidemia, hypertension , osteoporosis, pneumonia and previous hernia repair. At this time patient is resting comfortably in bed. Patient currently on a clear liquid diet. She denies chest pain or shortness of breath. Patient denies any nausea vomiting or diarrhea. Patient denies any urinary burning or frequency. On 12/12/2017 patient is alert and oriented 3. Patient is still experiencing some abdominal pain. Patient has been tolerating clear liquid diet. Diet will be advanced today per surgical team. Patient denies chest pain or shortness of breath. Patient denies any urinary burning or frequency. White blood cell elevated at 14.8 On 12/13/2017 patient is alert and oriented 3. Patient is eager to go home. Patient has been tolerating diet. Patient has been cleared for discharge from surgical standpoint. Patient denies abdominal pain nausea or vomiting at this point. Patient denies diarrhea. Denies any urinary burning or frequency white blood cell improving. UA negative. Patient to resume Xarelto Objective - Vital Signs Vital signs: Vital Signs Temp 98.7 F 12/13/17 08:30 Pulse 97 12/13/17 08:30 Resp 20 12/13/17 08:30 BP 97/62 12/13/17 08:30 Pulse Ox 92 L 12/13/17 08:30 Intake & Output 12/12/17 12/13/17 12/13/17 18:59 06:59 18:59 Output Total 123 60 50 Balance -123 -60 -50 Output: Drainage 123 60 50 Left Upper Abdomen 123 60 50 Other: Voiding Method Toilet # Voids 2 1 - Exam Head normocephalic Neck supple Lungs clear to auscultation bilaterally no wheezing or crackles Heart regular rate and rhythm S1-S2, no rub or gallop Abdomen soft nontender. Dressings clean dry and intact Extremities no edema Neuro alert and orientated to 3 - Labs CBC & Chem 7: 12/13/17 06:44 12/13/17 06:44 Labs: Abnormal Lab Results - Last 24 Hours (Table) 12/13/17 12/13/17 Range/Units 06:44 06:44 WBC 12.0 H (3.8-10.6) k/uL RBC 3.64 L (3.80-5.40) m/uL Hgb 10.0 L (11.4-16.0) gm/dL Hct 31.0 L (34.0-46.0) % Neutrophils # 8.7 H (1.3-7.7) k/uL Chloride 110 H (98-107) mmol/L BUN 19 H (7-17) mg/dL Total Protein 4.9 L (6.3-8.2) g/dL Albumin 2.7 L (3.5-5.0) g/dL Assessment and Plan Assessment: 1. Status post laparoscopic robotic repair of incarcerated incisional hernia and laparoscopic lysis of adhesions. Pain meds per surgical team. Patient tolerating regular diet. 2. History of PE patient managed on Xarelto. Xarelto has been on hold for 5 days prior to surgery. Discussed with Jolie Garcia [employer] DI[employer] COOK per surgical services would like to hold xarleto one more day. Resume tomorrow 12/13 3. COPD. No evidence of exacerbation at this time home inhalers and nebulizer treatments resumed 4. History of CVA 5. Essential hypertension 6. Hyperlipidemia 7. Prior history of abdominal surgeries for bowel resection and hernia repair 8. History of UTI 9. Anxiety and depression 10. 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 Leukocytosis. WBC 14.8. Urinary analysis has been ordered. UA negative. White blood cell improving to 12.0 12. Expected acute Blood loss anemia secondary to surgery. Ferrous sulfate has been ordered. Hemoglobin 10.1. Patient remains afebrile Thank you for this consultation we will continue to follow patient closely throughout stay. patient to follow-up closely with PCP. Patient will be discharged home today I performed an examination of the patient and discussed their management with the Nurse Practitioner. I have reviewed the Nurse Practitioner's notes and agree with the documented findings and plan of care
[2017-12-16] MEDS ORDERED: ERGOCALCIFEROL 50,000 UNIT CAP PO SCH (09:00)
== END 2017-12-13 13:34 | disposition home or self-care (01) | DRG 354 ==
LOC: OR 06:40 → 6PED 10:48 → OR 13:37 → 6PED 13:38
PROVIDERS: ADMIT Surgery; ATTEND Surgery
PROC: 8E0W0CZ Robotic Assisted Procedure of Trunk Region, Open Approach (ICD-10-PCS; principal; 2017-12-11 08:30)
PROC: 0WQF0ZZ Repair Abdominal Wall, Open Approach (ICD-10-PCS; principal; 2017-12-11 08:30)
DX: K43.0 Incisional hernia with obstruction, without gangrene (principal); D62 Acute posthemorrhagic anemia; D72.829 Elevated white blood cell count, unspecified; E78.5 Hyperlipidemia, unspecified; F32.9 Major depressive disorder, single episode, unspecified; F41.9 Anxiety disorder, unspecified; H40.9 Unspecified glaucoma; I10 Essential (primary) hypertension; J44.9 Chronic obstructive pulmonary disease, unspecified; K21.9 Gastro-esophageal reflux disease without esophagitis; M41.9 Scoliosis, unspecified; M81.0 Age-related osteoporosis without current pathological fracture; Z79.01 Long term (current) use of anticoagulants; Z79.899 Other long term (current) drug therapy; Z80.1 Family history of malignant neoplasm of trachea, bronchus and lung; Z80.3 Family history of malignant neoplasm of breast; Z80.8 Family history of malignant neoplasm of other organs or systems; Z86.711 Personal history of pulmonary embolism; Z86.73 Personal history of transient ischemic attack (TIA), and cerebral infarction without residual deficits; Z87.440 Personal history of urinary (tract) infections; Z90.710 Acquired absence of both cervix and uterus; Z86.14 Personal history of Methicillin resistant Staphylococcus aureus infection; Z90.49 Acquired absence of other specified parts of digestive tract; Z98.51 Tubal ligation status
CPT/HCPCS: 80053; 81003; 85025; 86850; 86900; 86901; 94640

== ENCOUNTER 2019-01-09 14:24 | Inpatient (IN) | payer MEDICARE ==
[2019-01-09] MEDS ORDERED: HYDROcodone/APAP 5-325MG 1 EACH TAB PO STA (15:12)
--- NOTE | 2019-01-09 15:24 | ED ---
General Adult HPI - General Chief complaint: Upper Respiratory Infection Stated complaint: Diff Breathing Time Seen by Provider: 01/09/19 14:41 Source: patient Mode of arrival: ambulatory Limitations: no limitations - History of Present Illness Initial comments: Patient is a 63-year-old female with history of asthma is presenting to the emergency department with a chief complaint of a cough. Patient reports the cough started about 3-4 days ago and is increasing severity. Patient reports cough is nonproductive she also has chest discomfort whenever she is coughing otherwise he disappears at rest. Patient denies any chest pain with exertion. Patient does report dyspnea states that her baseline and her normal oxygen saturation is 93 at home. Patient does use 2L oxygen at home. Patient does use a nebulizer daily and Singulair at night. Patient does have an albuterol inhaler when necessary. Patient also reports that she developed bilateral inguinal pain. Patient reports she had internal hernia surgery about a year ago and states that she had a small hernia on the left side has not been repaired. Patient also reports her urine has been a different color. Patient does report. Bilateral rhinorrhea and a sore throat ever since the cough started. Patient denies any nausea or vomiting or diarrhea. She denies any fevers or chills. Patient denies any abdominal pain. Patient does report back pain but states that her chronic condition for her. Patient is not a smoker. - Related Data Home Medications Medication Instructions Recorded Confirmed Diazepam [Valium] 10 mg PO TID 05/24/15 01/09/19 Ibandronate Sodium [Boniva] 150 mg PO QMONTH 05/24/15 01/09/19 Ipratropium Nebulized [Atrovent 0.5 mg INHALATION RT-TID PRN 05/24/15 01/09/19 Nebulized 0.2 MG/ML] Promethaz-Cod 6.25-10 mg/5 ml 10 ml PO Q8H PRN 05/24/15 01/09/19 [Phenergan with Codeine] Rivaroxaban [Xarelto] 20 mg PO DAILY 05/24/15 01/09/19 Fluticasone/Salmeterol [Advair 1 puff INHALATION RT-DAILY 04/08/16 01/09/19 500-50 Diskus] Escitalopram [Lexapro] 10 mg PO DAILY 05/20/17 01/09/19 Montelukast [Singulair] 10 mg PO HS 05/20/17 01/09/19 Pantoprazole Sodium [Protonix] 40 mg PO DAILY 05/20/17 01/09/19 ALPRAZolam [Xanax] 0.25 mg PO TID PRN 11/21/17 01/09/19 Melatonin 10 mg PO HS PRN 11/21/17 01/09/19 Pravastatin Sodium [Pravachol] 40 mg PO HS 11/21/17 01/09/19 Ergocalciferol (Vitamin D2) 50,000 unit PO MO 12/11/17 01/09/19 [Drisdol] Allergies Allergy/AdvReac Type Severity Reaction Status Date / Time cephalexin monohydrate Allergy Rash/Hives Verified 01/09/19 18:41 [From Keflex] clarithromycin [From Biaxin] Allergy Rash/Hives Verified 01/09/19 18:41 levofloxacin [From Levaquin] Allergy Rash/Hives Verified 01/09/19 18:41 Quinolones Allergy Rash/Hives Verified 01/09/19 18:41 Review of Systems ROS Statement: Those systems with pertinent positive or pertinent negative responses have been documented in the HPI. ROS Other: All systems not noted in ROS Statement are negative. Past Medical History Past Medical History: Asthma, Chest Pain / Angina, COPD, CVA/TIA, Deep Vein Thrombosis (DVT), GERD/Reflux, Hyperlipidemia, Hypertension, Osteoarthritis (OA), Pneumonia, Pulmonary Embolus (PE) Additional Past Medical History / Comment(s): CVA LOST LT PERIPHERAL VISION AND WRITING IS A BIT DIFFICULT & FEW TIA'S, TREMORS SINCE.PE/ XUAN DVT (AFTER LAST 2 MAJOR SURG). HX BOWEL OBSTRUCTION. USED TO TAKE MEDS FOR BP , OSTEOPOROSIS. BACK PAIN. ,RADS,CHRONIC BRONCHITIS, SCOLIOSIS, BROKE RT WRIST D/T FALL 2009, SMALL HIATAL HERNIA,DIVERTICULAR DISEASE, UTI,GLAUCOMA History of Any Multi-Drug Resistant Organisms: MRSA, Other MDRO Date of last positivie culture/infection: 07/12/08-MRSA MDRO Source:: URINE-MRSA Past Surgical History: Appendectomy, Back Surgery, Bladder Surgery, Bowel Resection, Breast Surgery, Cholecystectomy, Heart Catheterization, Hernia Repair, Hysterectomy, Orthopedic Surgery, Tubal Ligation Additional Past Surgical History / Comment(s): 12-28-15 LAP INC HERNIA REPAIR, 2 PREVIOUS HERNIA SX 2004/2009,2 HOLES IN HEART REPAIRED, ATRIUM, SEPTUM - HAS "UM BRELLA" CLOSURE DEVICE. BREAST REDUCTION. cystoscopy CYSTOCELE, RECTOCELE REPAIR. RT FOOT. EXC CYST LT ARM,LT FOOT REPAIR CYSTOSCOPY,LT BREAST BX-NEG, BUNIONECTOMY,GANGLION CYST REMOVED BRONCOSCOPIES,EGD/COLONOSCOPY,XUAN CATARACTS,hammer toe-pins removed. neuroma-bone removed/pins removed. lt toe , rt wrist nerve sx Past Anesthesia/Blood Transfusion Reactions: No Reported Reaction Past Psychological History: Anxiety, Depression Smoking Status: Never smoker Past Alcohol Use History: None Reported Past Drug Use History: None Reported - Past Family History Father Brother(s) Family Medical History: Cancer Additional Family Medical History / Comment(s): LUNG CANCER Sister(s) Family Medical History: Cancer Additional Family Medical History / Comment(s): # 1 SISTER-BONE CA,SISTER #2 BREAST CA, SISTER #3 LUNG,STOMACH,ESOPHAGUS Mother Family Medical History: Deep Vein Thrombosis (DVT) Additional Family Medical History / Comment(s): diverticulitis General Exam Limitations: no limitations General appearance: alert, in no apparent distress Head exam: Present: atraumatic, normocephalic, normal inspection Eye exam: Present: normal appearance, PERRL, EOMI Pupils: Present: normal accommodation ENT exam: Present: normal exam, normal oropharynx, mucous membranes moist, TM's normal bilaterally, normal external ear exam Neck exam: Present: normal inspection, full ROM. Absent: tenderness, lymphadenopathy Respiratory exam: Present: normal lung sounds bilaterally Cardiovascular Exam: Present: regular rate, normal rhythm, normal heart sounds GI/Abdominal exam: Present: soft, tenderness (Left lower quadrant and right lower quadrant tenderness.), normal bowel sounds. Absent: mass Extremities exam: Present: normal inspection, full ROM Back exam: Present: normal inspection, full ROM, CVA tenderness (L) Neurological exam: Present: alert, oriented X3 Psychiatric exam: Present: normal affect, normal mood Skin exam: Present: warm, intact, normal color Course Vital Signs 01/09/19 01/09/19 01/09/19 14:31 16:33 16:41 Temperature 99.2 F Pulse Rate 107 H 82 89 Respiratory 18 Rate Blood Pressure 113/65 O2 Sat by Pulse 95 Oximetry 01/09/19 01/09/19 17:19 17:20 Temperature 98.0 F Pulse Rate 94 Respiratory 18 Rate Blood Pressure 105/67 O2 Sat by Pulse 95 Oximetry EKG Findings - EKG Comments: EKG Findings:: No ST elevations, normal sinus rhythm. Ventricular rate 92, WV interval 144, QRS duration 72, QT/QTC 350/432 Medical Decision Making - Medical Decision Making Patient is a 63-year-old female with history of heart attacks presenting to the emergency department with a chief complaint of cough. Patient reports she developed a cough about 4 days ago and is gradually increasing severity. Patient reports the cough is nonproductive and causes chest discomfort after coughing fits. Patient appears to have chest pain that is reproducible palpation. Patient reports the chest pain is substernal and does not radiate anywhere. Patient also reports shortness of breath and dyspnea on exertion. Patient also developed bilateral suprapubic pain with UTI type symptoms. CBC, CMP are unremarkable. UA is indicative of possible pyelonephritis considering p atient has left CVA tenderness. UA does show elevated white blood cells and red blood cells, nitrates and leukocyte esterase. CT of the abdomen was obtained to rule out a possible septic kidney stone. Chest x-ray is unremarkable. EKG shows ST changes however this compares very similar most recent EKG. Initial troponins are negative. Patient given fluids and analgesia. Patient given a breathing treatment and reports mild improvement in symptoms. Patient normally has an oxygen saturation of 93 and uses oxygen at home. Patient will be admitted for further medical management. Serial troponins were also be obtained. Case discussed with Dr. Mike. Admitting physician is Dr. Francois. Cardiology consulted. - Lab Data Result diagrams: 01/09/19 15:30 01/09/19 15:30 Lab Results 01/09/19 01/09/19 01/09/19 Range/Units 15:30 15:30 15:30 WBC 7.8 (3.8-10.6) k/uL RBC 5.00 (3.80-5.40) m/uL Hgb 13.4 (11.4-16.0) gm/dL Hct 43.1 (34.0-46.0) % MCV 86.1 (80.0-100.0) fL MCH 26.7 (25.0-35.0) pg MCHC 31.0 (31.0-37.0) g/dL RDW 13.9 (11.5-15.5) % Plt Count 284 (150-450) k/uL Neutrophils % 57 % Lymphocytes % 30 % Monocytes % 6 % Eosinophils % 4 % Basophils % 1 % Neutrophils # 4.5 (1.3-7.7) k/uL Lymphocytes # 2.4 (1.0-4.8) k/uL Monocytes # 0.4 (0-1.0) k/uL Eosinophils # 0.3 (0-0.7) k/uL Basophils # 0.1 (0-0.2) k/uL PT (9.0-12.0) sec INR (<1.2) APTT (22.0-30.0) sec D-Dimer (<0.60) mg/L FEU Sodium 142 (137-145) mmol/L Potassium 4.2 (3.5-5.1) mmol/L Chloride 107 (98-107) mmol/L Carbon Dioxide 27 (22-30) mmol/L Anion Gap 8 mmol/L BUN 16 (7-17) mg/dL Creatinine 1.00 (0.52-1.04) mg/dL Est GFR (CKD-EPI)AfAm 70 (>60 ml/min/1.73 sqM) Est GFR (CKD-EPI)NonAf 61 (>60 ml/min/1.73 sqM) Glucose 93 (74-99) mg/dL Calcium 9.7 (8.4-10.2) mg/dL Magnesium (1.6-2.3) mg/dL Total Bilirubin 0.3 (0.2-1.3) mg/dL AST 34 (14-36) U/L ALT 30 (9-52) U/L Alkaline Phosphatase 73 (38-126) U/L Troponin I (0.000-0.034) ng/mL Total Protein 7.8 (6.3-8.2) g/dL Albumin 4.6 (3.5-5.0) g/dL Urine Color Yellow Urine Appearance Cloudy H (Clear) Urine pH 5.5 (5.0-8.0) Ur Specific Reading 1.015 (1.001-1.035) Urine Protein 1+ H (Negative) Urine Glucose (UA) Negative (Negative) Urine Ketones Negative (Negative) Urine Blood Large H (Negative) Urine Nitrite Positive H (Negative) Urine Bilirubin Negative (Negative) Urine Urobilinogen <2.0 (<2.0) mg/dL Ur Leukocyte Esterase Large H (Negative) Urine RBC >182 H (0-5) /hpf Urine WBC 180 H (0-5) /hpf Urine WBC Clumps Moderate H (None) /hpf Ur Squamous Epith Cells 7 H (0-4) /hpf Amorphous Sediment Moderate H (None) /hpf Urine Bacteria Many H (None) /hpf Hyaline Casts 38 H (0-2) /lpf Urine Mucus Moderate H (None) /hpf 01/09/19 01/09/19 01/09/19 Range/Units 15:30 15:30 15:30 WBC (3.8-10.6) k/uL RBC (3.80-5.40) m/uL Hgb (11.4-16.0) gm/dL Hct (34.0-46.0) % MCV (80.0-100.0) fL MCH (25.0-35.0) pg MCHC (31.0-37.0) g/dL RDW (11.5-15.5) % Plt Count (150-450) k/uL Neutrophils % % Lymphocytes % % Monocytes % % Eosinophils % % Basophils % % Neutrophils # (1.3-7.7) k/uL Lymphocytes # (1.0-4.8) k/uL Monocytes # (0-1.0) k/uL Eosinophils # (0-0.7) k/uL Basophils # (0-0.2) k/uL PT 11.7 (9.0-12.0) sec INR 1.1 (<1.2) APTT 28.6 (22.0-30.0) sec D-Dimer 0.26 (<0.60) mg/L FEU Sodium (137-145) mmol/L Potassium (3.5-5.1) mmol/L Chloride (98-107) mmol/L Carbon Dioxide (22-30) mmol/L Anion Gap mmol/L BUN (7-17) mg/dL Creatinine (0.52-1.04) mg/dL Est GFR (CKD-EPI)AfAm (>60 ml/min/1.73 sqM) Est GFR (CKD-EPI)NonAf (>60 ml/min/1.73 sqM) Glucose (74-99) mg/dL Calcium (8.4-10.2) mg/dL Magnesium 1.9 (1.6-2.3) mg/dL Total Bilirubin (0.2-1.3) mg/dL AST (14-36) U/L ALT (9-52) U/L Alkaline Phosphatase (38-126) U/L Troponin I (0.000-0.034) ng/mL Total Protein (6.3-8.2) g/dL Albumin (3.5-5.0) g/dL Urine Color Urine Appearance (Clear) Urine pH (5.0-8.0) Ur Specific Reading (1.001-1.035) Urine Protein (Negative) Urine Glucose (UA) (Negative) Urine Ketones (Negative) Urine Blood (Negative) Urine Nitrite (Negative) Urine Bilirubin (Negative) Urine Urobilinogen (<2.0) mg/dL Ur Leukocyte Esterase (Negative) Urine RBC (0-5) /hpf Urine WBC (0-5) /hpf Urine WBC Clumps (None) /hpf Ur Squamous Epith Cells (0-4) /hpf Amorphous Sediment (None) /hpf Urine Bacteria (None) /hpf Hyaline Casts (0-2) /lpf Urine Mucus (None) /hpf 01/09/19 Range/Units 15:30 WBC (3.8-10.6) k/uL RBC (3.80-5.40) m/uL Hgb (11.4-16.0) gm/dL Hct (34.0-46.0) % MCV (80.0-100.0) fL MCH (25.0-35.0) pg MCHC (31.0-37.0) g/dL RDW (11.5-15.5) % Plt Count (150-450) k/uL Neutrophils % % Lymphocytes % % Monocytes % % Eosinophils % % Basophils % % Neutrophils # (1.3-7.7) k/uL Lymphocytes # (1.0-4.8) k/uL Monocytes # (0-1.0) k/uL Eosinophils # (0-0.7) k/uL Basophils # (0-0.2) k/uL PT (9.0-12.0) sec INR (<1.2) APTT (22.0-30.0) sec D-Dimer (<0.60) mg/L FEU Sodium (137-145) mmol/L Potassium (3.5-5.1) mmol/L Chloride (98-107) mmol/L Carbon Dioxide (22-30) mmol/L Anion Gap mmol/L BUN (7-17) mg/dL Creatinine (0.52-1.04) mg/dL Est GFR (CKD-EPI)AfAm (>60 ml/min/1.73 sqM) Est GFR (CKD-EPI)NonAf (>60 ml/min/1.73 sqM) Glucose (74-99) mg/dL Calcium (8.4-10.2) mg/dL Magnesium (1.6-2.3) mg/dL Total Bilirubin (0.2-1.3) mg/dL AST (14-36) U/L ALT (9-52) U/L Alkaline Phosphatase (38-126) U/L Troponin I <0.012 (0.000-0.034) ng/mL Total Protein (6.3-8.2) g/dL Albumin (3.5-5.0) g/dL Urine Color Urine Appearance (Clear) Urine pH (5.0-8.0) Ur Specific Reading (1.001-1.035) Urine Protein (Negative) Urine Glucose (UA) (Negative) Urine Ketones (Negative) Urine Blood (Negative) Urine Nitrite (Negative) Urine Bilirubin (Negative) Urine Urobilinogen (<2.0) mg/dL Ur Leukocyte Esterase (Negative) Urine RBC (0-5) /hpf Urine WBC (0-5) /hpf Urine WBC Clumps (None) /hpf Ur Squamous Epith Cells (0-4) /hpf Amorphous Sediment (None) /hpf Urine Bacteria (None) /hpf Hyaline Casts (0-2) /lpf Urine Mucus (None) /hpf Disposition Clinical Impression: Pyelonephritis, Cough Disposition: ADMITTED IP TO THIS HOSP Condition: Stable Instructions (If sedation given, give patient instructions): Upper Respiratory Infection (ED) Additional Instructions: Patient admitted Is patient prescribed a controlled substance at d/c from ED?: No Referrals: Nighat Francois MD [Primary Care Provider] - 1-2 days Time of Disposition: 20:40
--- NOTE | 2019-01-09 15:30 | XR ---
EXAMINATION TYPE: XR chest 2V DATE OF EXAM: 01/09/2019 COMPARISON: Chest x-ray November 21, 2017. HISTORY: Chest discomfort and dry cough. TECHNIQUE: Frontal and lateral views of the chest are obtained. FINDINGS: There is chronic parenchymal changes without suspicious focal air space opacity, pleural e ffusion, or pneumothorax seen. The cardiac silhouette size is upper limits of normal. Distal convex scoliosis centered in lower thoracic spine is seen. Cardiac metallic closure device thought present. Cholecystectomy clips are noted. IMPRESSION: No suspicious acute pulmonary process.
[2019-01-09 15:50] LABS: Basophils # (A) 0.1 k/uL (0-0.2); Basophils % (A) 1 %; Eosinophils # (A) 0.3 k/uL (0-0.7); Eosinophils % (A) 4 %; HCT 43.1 % (34.0-46.0); HGB 13.4 gm/dL (11.4-16.0); Lymphocytes # (A) 2.4 k/uL (1.0-4.8); Lymphocytes % (A) 30 %; MCH 26.7 pg (25.0-35.0); MCV 86.1 fL (80.0-100.0); Mean Platelet Volume 6.8; Monocytes # (A) 0.4 k/uL (0-1.0); Monocytes % (A) 6 %; Neutrophils # (A) 4.5 k/uL (1.3-7.7); Neutrophils % (A) 57 %; Platelet Count 284 k/uL (150-450); RDW 13.9 % (11.5-15.5); WBC 7.8 k/uL (3.8-10.6)
[2019-01-09 15:53] LABS: Albumin 4.6 g/dL (3.5-5.0); Calcium 9.7 mg/dL (8.4-10.2); Potassium 4.2 mmol/L (3.5-5.1); Total Bilirubin 0.3 mg/dL (0.2-1.3); Total Protein 7.8 g/dL (6.3-8.2)
[2019-01-09 16:06] LABS: Amorphous Sediment,Urine Moderate /hpf; Appearance,Urine Cloudy (Clear); Bacteria,Urine Many /hpf; Bilirubin,Urine Negative (Negative); Blood,Urine Large (Negative); Color,Urine Yellow; Glucose,Urine (UA) Negative (Negative); Hyaline Casts,Urine 38 /lpf (0-2); Ketones,Urine Negative (Negative); Leukocyte Esterase,Urine Large (Negative); Mucus,Urine Moderate /hpf; Nitrite,Urine Positive (Negative); PH, Urine 5.5 (5.0-8.0); Protein,Urine 1+ (Negative); RBC,Urine >182 /hpf (0-5); Specific Gravity,Urine 1.015 (1.001-1.035); Squamous Epithelial Cell,Urine 7 /hpf (0-4); Urobilinogen,Urine <2.0 mg/dL (<2.0)
[2019-01-09] MEDS ORDERED: IPRATROPIUM-ALBUTEROL 3 ML NEB INHALATION STA (16:28)
[2019-01-09] MEDS ORDERED: MORPHINE SULFATE 2 MG/ML SYRINGE IVP STA (16:51)
[2019-01-09 17:07] LABS: INR 1.1 (<1.2); Partial Thromboplastin Time 28.6 sec (22.0-30.0); Prothrombin Time 11.7 sec (9.0-12.0)
[2019-01-09] MEDS ORDERED: ASPIRIN 325 MG TAB PO STA (17:31)
--- NOTE | 2019-01-09 19:22 | CT ---
EXAMINATION TYPE: CT abdomen pelvis wo con DATE OF EXAM: 01/09/2019 COMPARISON: 11/21/2017 HISTORY: Flank pain CT DLP: mGycm Automated exposure control for dose reduction was used. TECHNIQUE: Helical acquisition of images was performed from the lung bases through the pelvis. FINDINGS: There is some patchy atelectasis at the lung bases. Heart size is normal. There is no pericardial eff usion. There is small hiatal hernia. Liver spleen appear intact. There is no evidence of pancreatic mass. There are clips from cholecystec abby. Bile ducts are not dilated. There is small hiatal hernia. There is no adrenal mass. There are right-sided renal calculi that measure up to 1 cm. There are righ t renal cortical cysts that measure up to 2.5 cm. There is some fullness of the right renal pelvis. T he right ureter is not dilated. There are numerous phleboliths in the pelvis. Bladder distends smooth ly. I see no definite ureteral calculus. There is no retroperitoneal adenopathy. There is no evidence of a pelvic mass. There is no inguinal hernia. There is no free fluid in the pel vis. There is no sign of a bowel obstruction. Appendix is not seen. There is no sign of thickened keven endix. There is extensive metal artifact from posterior fusion surgery in the lumbar spine from L4 to S1. There is multilevel laminectomy. There is no lumbar compression fracture. I see no bony destruct gwen process. There are numerous sigmoid diverticula. There is no evidence of diverticulitis. There is no sign of c olitis. IMPRESSION: THERE IS COLONIC DIVERTICULOSIS WITHOUT DIVERTICULITIS. APPENDIX NOT SEEN. NO SIGN OF APPENDICITIS. THERE IS RIGHT-SIDED HYDRONEPHROSIS SLIGHTLY INCREASED COMPARED TO OLD CT SCAN. NO DEFINITE URETERAL CALCULUS SEEN. THIS COULD RELATE TO RECENTLY PASSED STONE OR NONOPAQUE STONE. THERE ARE 2 RIGHT SIDE RENAL CALCULI INCREASED COMPARED TO OLD CT SCAN. THERE IS INCREASED ATELECTASIS AT THE LUNG BASES COMPARED TO OLD EXAM.
[2019-01-09] MEDS ORDERED: NALOXONE 0.4 MG/ML 1 ML VIAL IV PRN (20:00)
[2019-01-09] MEDS ORDERED: ONDANSETRON 4 MG/2 ML VIAL IVP PRN (20:00)
[2019-01-09] MEDS ORDERED: MORPHINE SULFATE 4 MG/ML SYRINGE IV PRN (20:00)
[2019-01-09 21:36] VITALS: BMI 25.2
[2019-01-09] MEDS: SODIUM CHLORIDE 0.9% 1,000 ML IV SCH (22:03)
[2019-01-09] MEDS: PIPERACILLIN-TAZOBACTAM 3.375 GM in SODIUM CHLORIDE 0.9% 100 ML IVPB SCH (22:07)
[2019-01-09] MEDS: HYDROmorphone 0.5 MG/0.5 ML SYRINGE IVP PRN (22:16)
[2019-01-09] MEDS: ALPRAZolam 0.25 MG TAB PO PRN (22:16)
[2019-01-10] MEDS: PIPERACILLIN-TAZOBACTAM 3.375 GM in SODIUM CHLORIDE 0.9% 100 ML IVPB SCH ×3 (05:08→19:55)
[2019-01-10] MEDS: HYDROmorphone 0.5 MG/0.5 ML SYRINGE IVP PRN ×2 (10:36→20:01)
[2019-01-10] MEDS ORDERED: MELATONIN 5 MG TABLET PO PRN (11:55)
--- NOTE | 2019-01-10 12:10 | P.HPIM ---
History of Present Illness H&P Date: 01/10/19 Rhianna Chilel is a 63-year-old female well known to my practice who presented to [facility] emergency room with multiple complaints, she was complaining of cough and shortness of breath for several days, subsequently she developed pain in the lower part of her chest that she thought was related to coughing, patient also was complaining of low back pain and started having episodes of hematuria, she was evaluated in the emergency room, she had an abnormal EKG that revealed ST and T-wave changes in the anterior and inferior leads, she also had evidence of urinary tract infection and evidence of hematuria was large blood in the urine. Computed tomography scan of the abdomen and pelvis revealed evidence of right sided hydronephrosis and to right-sided renal calculi. She was admitted to medical floor, she was started on IV antibiotics, serial EKG and cardiac enzymes were ordered, cardiology and urology consultations were initiated. Past Medical History Past Medical History: Asthma, Chest Pain / Angina, COPD, CVA/TIA, Deep Vein Thrombosis (DVT), GERD/Reflux, Hyperlipidemia, Hypertension, Osteoarthritis (OA), Pneumonia, Pulmonary Embolus (PE) Additional Past Medical History / Comment(s): CVA LOST LT PERIPHERAL VISION AND WRITING IS A BIT DIFFICULT & FEW TIA'S, TREMORS SINCE.PE/ XUAN DVT (AFTER LAST 2 MAJOR SURG). HX BOWEL OBSTRUCTION. USED TO TAKE MEDS FOR BP , OSTEOPOROSIS. BACK PAIN. ,RADS,CHRONIC BRONCHITIS, SCOLIOSIS, BROKE RT WRIST D/T FALL 2009, SMALL HIATAL HERNIA,DIVERTICULAR DISEASE, UTI,GLAUCOMA History of Any Multi-Drug Resistant Organisms: MRSA, Other MDRO Date of last positivie culture/infection: 07/12/08-MRSA MDRO Source:: URINE-MRSA Past Surgical History: Appendectomy, Back Surgery, Bladder Surgery, Bowel Resection, Breast Surgery, Cholecystectomy, Heart Catheterization, Hernia Repair, Hysterectomy, Orthopedic Surgery, Tubal Ligation Additional Past Surgical History / Comment(s): 12-28-15 LAP INC HERNIA REPAIR, 2 PREVIOUS HERNIA SX 2004/2009,2 HOLES IN HEART REPAIRED, ATRIUM, SEPTUM - HAS "UMBRELLA" CLOSURE DEVICE. BREAST REDUCTION. cystoscopy CYSTOCELE, RECTOCELE REPAIR. RT FOOT. EXC CYST LT ARM,LT FOOT REPAIR CYSTOSCOPY,LT BREAST BX-NEG, BUNIONECTOMY,GANGLION CYST REMOVED BRONCOSCOPIES,EGD/COLONOSCOPY,XUAN CATARACTS,hammer toe-pins removed. neuroma-bone removed/pins removed. lt toe , rt wrist nerve sx Past Anesthesia/Blood Transfusion Reactions: No Reported Reaction Past Psychological History: Anxiety, Depression Additional Psychological History / Comment(s): pt lives with spouse , son and his . no home care services. has home 02 2 ltiers n/c at hs. Smoking Status: Never smoker Past Alcohol Use History: None Reported Past Drug Use History: None Reported - Past Family History Father Brother(s) Family Medical History: Cancer Additional Family Medical History / Comment(s): LUNG CANCER Sister(s) Family Medical History: Cancer Additional Family Medical History / Comment(s): # 1 SISTER-BONE CA,SISTER #2 BREAST CA, SISTER #3 LUNG,STOMACH,ESOPHAGUS Mother Family Medical History: Deep Vein Thrombosis (DVT) Additional Family Medical History / Comment(s): diverticulitis Medications and Allergies Home Medications Medication Instructions Recorded Confirmed Type Diazepam [Valium] 10 mg PO TID 05/24/15 01/09/19 History Ibandronate Sodium [Boniva] 150 mg PO QMONTH 05/24/15 01/09/19 History Ipratropium Nebulized [Atrovent 0.5 mg INHALATION RT-TID PRN 05/24/15 01/09/19 History Nebulized 0.2 MG/ML] Promethaz-Cod 6.25-10 mg/5 ml 10 ml PO Q8H PRN 05/24/15 01/09/19 History [Phenergan with Codeine] Rivaroxaban [Xarelto] 20 mg PO DAILY 05/24/15 01/09/19 History Fluticasone/Salmeterol [Advair 1 puff INHALATION RT-DAILY 04/08/16 01/09/19 History 500-50 Diskus] Escitalopram [Lexapro] 10 mg PO DAILY 05/20/17 01/09/19 History Montelukast [Singulair] 10 mg PO HS 05/20/17 01/09/19 History Pantoprazole Sodium [Protonix] 40 mg PO DAILY 05/20/17 01/09/19 History ALPRAZolam [Xanax] 0.25 mg PO TID PRN 11/21/17 01/09/19 History Melatonin 10 mg PO HS PRN 11/21/17 01/09/19 History Pravastatin Sodium [Pravachol] 40 mg PO HS 11/21/17 01/09/19 History Ergocalciferol (Vitamin D2) 50,000 unit PO MO 12/11/17 01/09/19 History [Drisdol] Allergies Allergy/AdvReac Type Severity Reaction Status Date / Time cephalexin monohydrate Allergy Rash/Hives Verified 01/09/19 18:41 [From Keflex] clarithromycin [From Biaxin] Allergy Rash/Hives Verified 01/09/19 18:41 levofloxacin [From Levaquin] Allergy Rash/Hives Verified 01/09/19 18:41 Quinolones Allergy Rash/Hives Verified 01/09/19 18:41 Physical Exam Vitals: Vital Signs Temp Pulse Pulse Pulse Resp BP BP 01/10/19 08:00 97.8 F 63 18 99/66 01/10/19 04:00 70 15 01/10/19 03:39 97.9 F 70 15 91/58 01/10/19 00:00 69 15 01/09/19 23:21 97.9 F 69 15 113/60 01/09/19 21:30 69 01/09/19 21:09 98.0 F 89 18 117/72 01/09/19 17:20 98.0 F 01/09/19 17:19 94 18 105/67 01/09/19 16:41 89 01/09/19 16:33 82 01/09/19 14:31 99.2 F 107 H 18 113/65 Pulse Ox 01/10/19 08:00 92 L 01/10/19 04:00 01/10/19 03:39 97 01/10/19 00:00 01/09/19 23:21 98 01/09/19 21:30 01/09/19 21:09 95 01/09/19 17:20 01/09/19 17:19 95 01/09/19 16:41 01/09/19 16:33 01/09/19 14:31 95 Intake and Output 01/09/19 01/10/19 01/10/19 22:59 06:59 14:59 Intake Total 0 Balance 0 Intake: Oral 0 Other: # Voids 1 In general patient is alert and oriented 3 in no apparent distress HEENT head normocephalic and atraumatic Neck is supple no JVD no goiter no lymphadenopathy Chest exam reveals a scattered crackles bilaterally no wheezing Cardiac exam reveals regular heart sounds no gallops no murmurs Abdomen is soft nontender no organomegaly with normal bowel sounds Extremity exam reveals no edema no cyanosis or clubbing Neurological examination reveals no gross focal deficits Results CBC & Chem 7: 01/09/19 15:30 01/09/19 15:30 Labs: Abnormal Lab Results - Last 24 Hours (Table) 01/09/19 Range/Units 15:30 Urine Appearance Cloudy H (Clear) Urine Protein 1+ H (Negative) Urine Blood Large H (Negative) Urine Nitrite Positive H (Negative) Ur Leukocyte Esterase Large H (Negative) Urine RBC >182 H (0-5) /hpf Urine WBC 180 H (0-5) /hpf Urine WBC Clumps Moderate H (None) /hpf Ur Squamous Epith Cells 7 H (0-4) /hpf Amorphous Sediment Moderate H (None) /hpf Urine Bacteria Many H (None) /hpf Hyaline Casts 38 H (0-2) /lpf Urine Mucus Moderate H (None) /hpf Microbiology - Last 24 Hours (Table) 01/09/19 15:30 Urine Culture - Preliminary Urine,Voided Thrombosis Risk Factor Assmnt - Choose All That Apply Any of the Below Risk Factors Present?: No Other Risk Factors: Yes Each Risk Factor Represents 2 Points: Age 61-74 years Thrombosis Risk Factor Assessment Total Risk Factor Score: 2 Thrombosis Risk Factor Assessment Level: Low Risk Assessment and Plan Plan: #1 episodes of chest pain with abnormal EKG #2 urinary tract infection #3 hematuria #4 right sided hydronephrosis with evidence of 2 right sided renal calculi #5 history of pulmonary embolism maintained on Xarelto #6 underlying history of COPD, with mild exacerbation #7 acute bronchitis was severe cough #8 underlying history of hypertension #9 underlying history of hyperlipidemia #10 previous history of CVA #11 previous history of atrial septal defect underwent placement of umbrella closure device. #12 underlying history of depression maintained on Lexapro #13 underlying history of anxiety disorder maintained on Xanax #14 underlying history of chronic back pain maintained on [place] when necessary At this time plan to continue with IV antibiotic, patient currently on Zosyn Awaiting cardiology and urology input Will add DuoNeb updraft and consult pulmonary For GI prophylaxis patient is on Protonix For DVT prophylaxis patient is on Xarelto Will follow closely
[2019-01-10] MEDS ORDERED: IPRATROPIUM-ALBUTEROL 3 ML NEB INHALATION PRN (12:13)
--- NOTE | 2019-01-10 13:11 | P.CRDCN ---
History of Present Illness Consult date: 01/10/19 Consult reason: chest pain History of present illness: the patient is a 63-year-old female with past medical history of asthma on home oxygen, hyperlipidemia, hypertension, CVA, and pulmonary emboli, who follows with Dr. Govea in the office. She presented to the emergency room with progressive shortness of breath and chest discomfort. She states she's been sick for the last week, however over the last 40 she developed a midsternal dis comfort in her chest when she coughs. She also reports low back pain and discolored urine. EKG on arrival showed sinus mechanism with ST depression and inverted T waves in V3 through V6, which was not notable on previous EKGs. Cardiac enzymes were negative 3. her UA was positivein computed tomography scan of the abdomen and pelvis revealed right-sided hydronephrosis and right-sided renal calculi. PAST MEDICAL HISTORY: asthma, hyperlipidemia, hypertension, CVA, pulmonary embolism, DVT, GERD, osteoarthritis REVIEW OF SYSTEMS: No fever or chills. Positive for cough or expectoration. No diaphoresis. Patient denies headache, dizziness, blurred vision, double vision. Patient denies any stomach discomfort. No nausea, vomiting. No hematochezia. No hematemesis. Denies any black stools or blood in his stools. Positive for dysuria or hematuria. No muscle weakness or numbness. positive for low back pain. Positive for shortness of breath and chest discomfort with coughing. No exertional chest pressure. No palpitations. PHYSICAL EXAMINATION: This is a 63-year-old female in no apparent distress at the time of my examination. HEENT: Head is atraumatic, normocephalic. Pupils are equal, round. Sclerae anicteric. Conjunctivae are clear. Mucous membranes of the mouth are moist. Neck is supple. There is no jugular venous distention. No carotid bruit is heard. CHEST EXAMINATION: bilateral inspiratory wheezes. No chest wall tenderness is noted on palpation. sternal discomfort with deep breathing. HEART EXAMINATION: Heart regular rate and rhythm. S1, S2 heard. No murmurs, gallops or rub. ABDOMEN: Soft, nontender. Bowel sounds are heard. No organomegaly noted. EXTREMITIES: 2+ peripheral pulses with no evidence of peripheral edema and no calf tenderness noted. NEUROLOGIC EXAMINATION: Patient is awake, alert and oriented x3. LABORATORY DATA: WBC 7.8 hemoglobin 13.4, hematocrit 43.1, platelet 284, sodium 142, potassium 4.2, BUN 16, creatinine 1.0, troponins negative 3, magnesium 1.9, urine positive for blood, nitrites, RBCs, and WVCs FINAL ASSESSMENT AND PLAN: #1 upper respiratory infection, likely tracheobronchitis #2 respiratory chest discomfort, likely costochondritis or pleurisy #3 polynephritis #4 hypertension, well controlled #5 dyslipidemia #6 shortness of breath, history of asthma, current upper respiratory infection PLAN: We will order a 2-D echocardiogram and Dopplerto assess heart structure and function. Consider outpatient stress testing. No changes to current medication regimen at this time. Past Medical History Past Medical History: Asthma, Chest Pain / Angina, COPD, CVA/TIA, Deep Vein Thrombosis (DVT), GERD/Reflux, Hyperlipidemia, Hypertension, Osteoarthritis (OA), Pneumonia, Pulmonary Embolus (PE) Additional Past Medical History / Comment(s): CVA LOST LT PERIPHERAL VISION AND WRITING IS A BIT DIFFICULT & FEW TIA'S, TREMORS SINCE.PE/ XUAN DVT (AFTER LAST 2 MAJOR SURG). HX BOWEL OBSTRUCTION. USED TO TAKE MEDS FOR BP , OSTEOPOROSIS. BACK PAIN. ,RADS,CHRONIC BRONCHITIS, SCOLIOSIS, BROKE RT WRIST D/T FALL 2009, SMALL HIATAL HERNIA,DIVERTICULAR DISEASE, UTI,GLAUCOMA History of Any Multi-Drug Resistant Organisms: MRSA, Other MDRO Date of last positivie culture/infection: 07/12/08-MRSA MDRO Source:: URINE-MRSA Past Surgical History: Appendectomy, Back Surgery, Bladder Surgery, Bowel Resection, Breast Surgery, Cholecystectomy, Heart Catheterization, Hernia Repair, Hysterectomy, Orthopedic Surgery, Tubal Ligation Additional Past Surgical History / Comment(s): 12-28-15 LAP INC HERNIA REPAIR, 2 PREVIOUS HERNIA SX 2004/2009,2 HOLES IN HEART REPAIRED, ATRIUM, SEPTUM - HAS "UMBRELLA" CLOSURE DEVICE. BREAST REDUCTION. cystoscopy CYSTOCELE, RECTOCELE REPAIR. RT FOOT. EXC CYST LT ARM,LT FOOT REPAIR CYSTOSCOPY,LT BREAST BX-NEG, BUNIONECTOMY,GANGLION CYST REMOVED BRONCOSCOPIES,EGD/COLONOSCOPY,XUAN CATARACTS,h ammer toe-pins removed. neuroma-bone removed/pins removed. lt toe , rt wrist nerve sx Past Anesthesia/Blood Transfusion Reactions: No Reported Reaction Past Psychological History: Anxiety, Depression Additional Psychological History / Comment(s): pt lives with spouse , son and his . no home care services. has home 02 2 ltiers n/c at hs. Smoking Status: Never smoker Past Alcohol Use History: None Reported Past Drug Use History: None Reported - Past Family History Father Brother(s) Family Medical History: Cancer Additional Family Medical History / Comment(s): LUNG CANCER Sister(s) Family Medical History: Cancer Additional Family Medical History / Comment(s): # 1 SISTER-BONE CA,SISTER #2 BREAST CA, SISTER #3 LUNG,STOMACH,ESOPHAGUS Mother Family Medical History: Deep Vein Thrombosis (DVT) Additional Family Medical History / Comment(s): diverticulitis Medications and Allergies Home Medications Medication Instructions Recorded Confirmed Type Diazepam [Valium] 10 mg PO TID 05/24/15 01/09/19 History Ibandronate Sodium [Boniva] 150 mg PO QMONTH 05/24/15 01/09/19 History Ipratropium Nebulized [Atrovent 0.5 mg INHALATION RT-TID PRN 05/24/15 01/09/19 History Nebulized 0.2 MG/ML] Promethaz-Cod 6.25-10 mg/5 ml 10 ml PO Q8H PRN 05/24/15 01/09/19 History [Phenergan with Codeine] Rivaroxaban [Xarelto] 20 mg PO DAILY 05/24/15 01/09/19 History Fluticasone/Salmeterol [Advair 1 puff INHALATION RT-DAILY 04/08/16 01/09/19 History 500-50 Diskus] Escitalopram [Lexapro] 10 mg PO DAILY 05/20/17 01/09/19 History Montelukast [Singulair] 10 mg PO HS 05/20/17 01/09/19 History Pantoprazole Sodium [Protonix] 40 mg PO DAILY 05/20/17 01/09/19 History ALPRAZolam [Xanax] 0.25 mg PO TID PRN 11/21/17 01/09/19 History Melatonin 10 mg PO HS PRN 11/21/17 01/09/19 History Pravastatin Sodium [Pravachol] 40 mg PO HS 11/21/17 01/09/19 History Ergocalciferol (Vitamin D2) 50,000 unit PO MO 12/11/17 01/09/19 History [Drisdol] Allergies Allergy/AdvReac Type Severity Reaction Status Date / Time cephalexin monohydrate Allergy Rash/Hives Verified 01/09/19 18:41 [From Keflex] clarithromycin [From Biaxin] Allergy Rash/Hives Verified 01/09/19 18:41 levofloxacin [From Levaquin] Allergy Rash/Hives Verified 01/09/19 18:41 Quinolones Allergy Rash/Hives Verified 01/09/19 18:41 Physical Exam Vitals: Vital Signs Temp Pulse Pulse Pulse Resp BP BP 01/10/19 12:00 98.2 F 73 18 99/64 01/10/19 08:00 97.8 F 63 18 99/66 01/10/19 04:00 70 15 01/10/19 03:39 97.9 F 70 15 91/58 01/10/19 00:00 69 15 01/09/19 23:21 97.9 F 69 15 113/60 01/09/19 21:30 69 01/09/19 21:09 98.0 F 89 18 117/72 01/09/19 17:20 98.0 F 01/09/19 17:19 94 18 105/67 01/09/19 16:41 89 01/09/19 16:33 82 01/09/19 14:31 99.2 F 107 H 18 113/65 Pulse Ox 01/10/19 12:00 94 L 01/10/19 08:00 92 L 01/10/19 04:00 01/10/19 03:39 97 01/10/19 00:00 01/09/19 23:21 98 01/09/19 21:30 01/09/19 21:09 95 01/09/19 17:20 01/09/19 17:19 95 01/09/19 16:41 01/09/19 16:33 01/09/19 14:31 95 Intake and Output 01/09/19 01/10/19 01/10/19 22:59 06:59 14:59 Intake Total 0 Balance 0 Intake: Oral 0 Other: # Voids 1 Results 01/09/19 15:30 01/09/19 15:30 Cardiac Enzymes 01/09/19 01/09/19 01/09/19 Range/Units 15:30 15:30 22:01 AST 34 (14-36) U/L Troponin I <0.012 <0.012 (0.000-0.034) ng/mL 01/10/19 Range/Units 03:00 AST (14-36) U/L Troponin I <0.012 (0.000-0.034) ng/mL Coagulation 01/09/19 Range/Units 15:30 PT 11.7 (9.0-12.0) sec APTT 28.6 (22.0-30.0) sec CBC 01/09/19 Range/Units 15:30 WBC 7.8 (3.8-10.6) k/uL RBC 5.00 (3.80-5.40) m/uL Hgb 13.4 (11.4-16.0) gm/dL Hct 43.1 (34.0-46.0) % Plt Count 284 (150-450) k/uL Comprehensive Metabolic Panel 01/09/19 Range/Units 15:30 Sodium 142 (137-145) mmol/L Potassium 4.2 (3.5-5.1) mmol/L Chloride 107 (98-107) mmol/L Carbon Dioxide 27 (22-30) mmol/L BUN 16 (7-17) mg/dL Creatinine 1.00 (0.52-1.04) mg/dL Glucose 93 (74-99) mg/dL Calcium 9.7 (8.4-10.2) mg/dL AST 34 (14-36) U/L ALT 30 (9-52) U/L Alkaline Phosphatase 73 (38-126) U/L Total Protein 7.8 (6.3-8.2) g/dL Albumin 4.6 (3.5-5.0) g/dL Current Medications Generic Name Dose Route Start Last Admin Trade Name Freq PRN Reason Stop Dose Admin Hydrocodone Bitart/Acetaminophen 1 each 01/09/19 20:00 Olga 5-325 PO Q4HR PRN Moderate Pain Albuterol/Ipratropium 3 ml 01/10/19 12:13 Duoneb 0.5 Mg-3 Mg/3 Ml Soln INHALATION RT-QID PRN Shortness Of Breath Or Wheezing Alprazolam 0.25 mg 01/09/19 20:00 01/09/19 22:16 Xanax PO 0.25 mg Q6HR PRN Administration Anxiety Ergocalciferol 50,000 unit 01/12/19 09:00 Vitamin D2 PO MO [facility] Escitalopram Oxalate 10 mg 01/11/19 09:00 Lexapro PO DAILY JAGRUTI Hydromorphone HCl 0.5 mg 01/09/19 20:00 01/10/19 10:36 Dilaudid IVP 0.5 mg Q3HR PRN Administration Moderate Pain Sodium Chloride 1,000 mls @ 75 mls/hr 01/09/19 20:00 01/09/19 22:03 Saline 0.9% IV 75 mls/hr .[id number] JAGRUTI Administration Piperacillin Sod/Tazobactam 100 mls @ 25 mls/hr 01/09/19 21:00 01/10/19 05:08 Sod 3.375 gm/ Sodium Chloride IVPB 25 mls/hr Q8H JAGRUTI Administration Melatonin 10 mg 01/10/19 11:55 Melatonin PO HS PRN Insomnia Montelukast Sodium 10 mg 01/10/19 21:00 Singulair PO HS [facility] Morphine Sulfate 4 mg 01/09/19 20:00 Morphine Sulfate (Inj) IV Q4HR PRN Severe Pain Naloxone HCl 0.2 mg 01/09/19 20:00 Narcan IV Q2M PRN Opioid Reversal Ondansetron HCl 4 mg 01/09/19 20:00 Zofran IVP Q8HR PRN Nausea And Vomiting Pantoprazole Sodium 40 mg 01/11/19 07:30 Protonix PO AC-BRKFST [facility] Pravastatin Sodium 40 mg 01/10/19 21:00 Pravachol PO HS [facility] Rivaroxaban 20 mg 01/10/19 12:00 Xarelto PO DAILY [facility] Intake and Output 01/09/19 01/10/19 01/10/19 22:59 06:59 14:59 Intake Total 0 Balance 0 Intake: Oral 0 Other: # Voids 1 01/09/19 15:30 01/09/19 15:30
[2019-01-10] MEDS: RIVAROXABAN 20 MG TAB PO SCH (13:23)
[2019-01-10] MEDS: SODIUM CHLORIDE 0.9% 1,000 ML IV SCH ×2 (17:36→20:08)
[2019-01-10] MEDS: MONTELUKAST 10 MG TAB PO SCH (19:56)
[2019-01-10] MEDS: PRAVASTATIN SODIUM 40 MG TAB PO SCH (19:56)
[2019-01-10] MEDS: ALPRAZolam 0.25 MG TAB PO PRN (20:01)
[2019-01-11] MEDS: HYDROmorphone 0.5 MG/0.5 ML SYRINGE IVP PRN ×5 (01:03→21:57)
[2019-01-11] MEDS: PIPERACILLIN-TAZOBACTAM 3.375 GM in SODIUM CHLORIDE 0.9% 100 ML IVPB SCH ×3 (05:28→21:55)
[2019-01-11] MEDS: PANTOPRAZOLE 40 MG TABLET PO SCH (07:53)
[2019-01-11] MEDS: RIVAROXABAN 20 MG TAB PO SCH (07:53)
[2019-01-11] MEDS: ESCITALOPRAM 10 MG TAB PO SCH (07:53)
--- NOTE | 2019-01-11 07:55 | P.GSCN ---
History of Present Illness Consult date: 01/11/19 History of present illness: This is a pleasant 63-year-old female who came into the hospital because of cough and shortness of breath. She was admitted for further evaluation by cardiology. She was found to have hematuria. A computed tomography scan of the abdomen was obtained identifying 2 right renal stones. One that was 1 cm in diameter. There is some very mild hydronephrosis on the right side. She does admit to some right-sided flank pain over the last week a. She has chronic left-sided back pain. She had a stone many years ago. She was not aware of t his present stone. She is feeling reasonably well at this point in time. Review of Systems - Constitutional Reports chronic pain - Cardiovascular Reports as per HPI - Respiratory Reports as per HPI - Genitourinary Genitourinary: Reports as per HPI Past Medical History Past Medical History: Asthma, Chest Pain / Angina, COPD, CVA/TIA, Deep Vein Thrombosis (DVT), GERD/Reflux, Hyperlipidemia, Hypertension, Osteoarthritis (OA), Pneumonia, Pulmonary Embolus (PE) Additional Past Medical History / Comment(s): CVA LOST LT PERIPHERAL VISION AND WRITING IS A BIT DIFFICULT & FEW TIA'S, TREMORS SINCE.PE/ XUAN DVT (AFTER LAST 2 MAJOR SURG). HX BOWEL OBSTRUCTION. USED TO TAKE MEDS FOR BP , OSTEOPOROSIS. BACK PAIN. ,RADS,CHRONIC BRONCHITIS, SCOLIOSIS, BROKE RT WRIST D/T FALL 2009, SMALL HIATAL HERNIA,DIVERTICULAR DISEASE, UTI,GLAUCOMA History of Any Multi-Drug Resistant Organisms: MRSA, Other MDRO Year Discovered:: 07/12/08-MRSA MDRO Source:: URINE-MRSA Past Surgical History: Appendectomy, Back Surgery, Bladder Surgery, Bowel Resection, Breast Surgery, Cholecystectomy, Heart Catheterization, Hernia Repair, Hysterectomy, Orthopedic Surgery, Tubal Ligation Additional Past Surgical History / Comment(s): 12-28-15 [employer] HERNIA REPAIR, 2 PREVIOUS HERNIA SX ,2 HOLES IN HEART REPAIRED, ATRIUM, SEPTUM - HAS "UMBRELLA" CLOSURE DEVICE. BREAST REDUCTION. cystoscopy CYSTOCELE, RECTOCELE REPAIR. RT FOOT. EXC CYST LT ARM,LT FOOT REPAIR CYSTOSCOPY,LT BREAST BX-NEG, BUNIONECTOMY,GANGLION CYST REMOVED BRONCOSCOPIES,EGD/COLONOSCOPY,XUAN CATARACTS,hammer toe-pins removed. neuroma-bone removed/pins removed. lt toe , rt wrist nerve sx Past Anesthesia/Blood Transfusion Reactions: No Reported Reaction Past Psychological History: Anxiety, Depression Additional Psychological History / Comment(s): pt lives with spouse , son and his . no home care services. has home 02 2 ltiers n/c at hs. Smoking Status: Never smoker Past Alcohol Use History: None Reported Past Drug Use History: None Reported - Past Family History Father Brother(s) Family Medical History: Cancer Additional Family Medical History / Comment(s): LUNG CANCER Sister(s) Family Medical History: Cancer Additional Family Medical History / Comment(s): # 1 SISTER-BONE CA,SISTER #2 BREAST CA, SISTER #3 LUNG,STOMACH,ESOPHAGUS Mother Family Medical History: Deep Vein Thrombosis (DVT) Additional Family Medical History / Comment(s): diverticulitis Medications and Allergies Home Medications Medication Instructions Recorded Confirmed Type Diazepam [Valium] 10 mg PO TID 05/24/15 01/09/19 History Ibandronate Sodium [Boniva] 150 mg PO QMONTH 05/24/15 01/09/19 History Ipratropium Nebulized [Atrovent 0.5 mg INHALATION RT-TID PRN 05/24/15 01/09/19 History Nebulized 0.2 MG/ML] Promethaz-Cod 6.25-10 mg/5 ml 10 ml PO Q8H PRN 05/24/15 01/09/19 History [Phenergan with Codeine] Rivaroxaban [Xarelto] 20 mg PO DAILY 05/24/15 01/09/19 History Fluticasone/Salmeterol [Advair 1 puff INHALATION RT-DAILY 04/08/16 01/09/19 History 500-50 Diskus] Escitalopram [Lexapro] 10 mg PO DAILY 05/20/17 01/09/19 History Montelukast [Singulair] 10 mg PO HS 05/20/17 01/09/19 History Pantoprazole Sodium [Protonix] 40 mg PO DAILY 05/20/17 01/09/19 History ALPRAZolam [Xanax] 0.25 mg PO TID PRN 11/21/17 01/09/19 History Melatonin 10 mg PO HS PRN 11/21/17 01/09/19 History Pravastatin Sodium [Pravachol] 40 mg PO HS 11/21/17 01/09/19 History Ergocalciferol (Vitamin D2) 50,000 unit PO MO 12/11/17 01/09/19 History [Drisdol] Allergies Allergy/AdvReac Type Severity Reaction Status Date / Time cephalexin monohydrate Allergy Rash/Hives Verified 01/09/19 18:41 [From Keflex] clarithromycin [From Biaxin] Allergy Rash/Hives Verified 01/09/19 18:41 levofloxacin [From Levaquin] Allergy Rash/Hives Verified 01/09/19 18:41 Quinolones Allergy Rash/Hives Verified 01/09/19 18:41 Surgical - Exam Vital Signs Temp Pulse Resp BP Pulse Ox 99.2 F 107 H 18 113/65 95 01/09/19 14:31 01/09/19 14:31 01/09/19 14:31 01/09/19 14:31 01/09/19 14:31 - General well developed, well nourished, no distress - Eyes PERRL - ENT no hearing loss - Neck no masses - Respiratory normal expansion, normal respiratory effort - Cardiovascular Rhythm: regular - Abdomen Abdomen: soft, tender - Integumentary no rash, no growths - Neurologic normal coordination, normal sensation - Musculoskeletal normal posture - Psychiatric oriented to time, oriented to person, oriented to place, speech is normal, memory intact Results - Labs 01/09/19 15:30 01/09/19 15:30 Microbiology - Last 24 Hours (Table) 01/09/19 15:30 Urine Culture - Preliminary Urine,Voided Gram Neg Bacilli 01/09/19 21:10 Blood Culture - Preliminary Blood No Growth after 24 hours - Imaging CT scan - abdomen: report reviewed, image reviewed CT scan - pelvis: report reviewed, image reviewed Assessment and Plan Assessment: Impression: Symptomatic right renal calculi. Right renal cyst, benign multiple cardiac and pulmonary issues. History of pulmonary emboli. Recommendations: The 1 cm renal pelvic stone should probably be taken care of. Best treatment would be shockwave lithotripsy. When she is on xarelto she would not be able to have this shockwave tomorrow. She should be set up to see me as an outpatient and we'll make arrangements for the shockwave lithotripsy at a later time. Hydronephrosis seen is minimal and probably distant normal appearance of her kidney and ureter. She also has a gram-negative dannie growing in the urine and that should be treated before we do the shockwave.
--- NOTE | 2019-01-11 09:00 | ECHOF ---
Referral Reason:abn ecg, cp MEASUREMENTS -------- HEIGHT: 147.3 cm WEIGHT: 54.4 kg BP: 91/58 IVSd: 1.1 cm (0.6 - 1.1) LVIDd: 3.2 cm (3.9 - 5.3) LVPWd: 1.1 cm (0.6 - 1.1) IVSs: 1.3 cm LVIDs: 2.2 cm LVPWs: 1.4 cm LA Diam: 2.8 cm (2.7 - 3.8) RVIDd: 3.0 cm (< 3.3) LAESV Index (A-L): 18.22 ml/m Ao Diam: 2.8 cm (2.0 - 3.7) AV Cusp: 1.7 cm (1.5 - 2.6) EPSS: 0.6 cm MV E Jose: 0.46 m/s MV DecT: 375 ms MV A Jose: 0.63 m/s MV E/A Ratio: 0.74 RAP: 5.00 mmHg RVSP: 21.84 mmHg MV EF SLOPE: 42.08 mm/s (70 - 150) MV EXCURSION: 13.54 mm (> 18.000) TAPSE: 13.02 mm FINDINGS -------- Sinus rhythm. This was a technically good study. The left ventricular size is normal. There is borderline concentric left ventricular hypertrophy. Overall left ventricular systolic function is normal with, an EF between 60 - 65 %. The diastolic filling pattern is normal for the age of the patient 6.64. The right ventricle is normal in size. Normal LA size by volume 22+/-6 ml/m2. The right atrium is normal in size. There is an interatrial closure device in place without evidence of shunt. The aortic valve is trileaflet and appears structurally normal. The mitral valve is normal. Mild tricuspid regurgitation present. Right ventricular systolic pressure is normal at < 35 mmHg. There is no pulmonic regurgitation present. The aortic root size is normal. Normal inferior vena cava with normal inspiratory collapse consistent with estimated right atrial pre ssure of 5 mmHg. There is no pericardial effusion. CONCLUSIONS -------- 1. Sinus rhythm. 2. This was a technically good study. 3. The left ventricular size is normal. 4. There is borderline concentric left ventricular hypertrophy. 5. Overall left ventricular systolic function is normal with, an EF between 60 - 65 %. 6. The diastolic filling pattern is normal for the age of the patient 6.64 7. The right ventricle is normal in size. 8. Normal LA size by volume 22+/-6 ml/m2. 9. The right atrium is normal in size. 10. There is an interatrial closure device in place without evidence of shunt. 11. The aortic valve is trileaflet and appears structurally normal. 12. The mitral valve is normal. 13. Mild tricuspid regurgitation present. 14. Right ventricular systolic pressure is normal at < 35 mmHg. 15. There is no pulmonic regurgitation present. 16. The aortic root size is normal. 17. Normal inferior vena cava with normal inspiratory collapse consistent with estimated right atrial pressure of 5 mmHg. 18. There is no pericardial effusion. CLINICAL DATA MANAGEMENT DIRECTOR: Fatoumata Anders RDCS
[2019-01-11 09:32] LABS: Basophils % (A) 1 %; Eosinophils # (A) 0.3 k/uL (0-0.7); Eosinophils % (A) 7 %; HCT 36.9 % (34.0-46.0); HGB 11.8 gm/dL (11.4-16.0); Lymphocytes # (A) 1.8 k/uL (1.0-4.8); Lymphocytes % (A) 38 %; MCV 87.5 fL (80.0-100.0); Mean Platelet Volume 6.3; Monocytes # (A) 0.3 k/uL (0-1.0); Monocytes % (A) 6 %; Neutrophils # (A) 2.2 k/uL (1.3-7.7); Neutrophils % (A) 47 %; Platelet Count 221 k/uL (150-450); RBC 4.22 m/uL (3.80-5.40); RDW 13.3 % (11.5-15.5); WBC 4.8 k/uL (3.8-10.6)
[2019-01-11 09:36] LABS: Albumin 3.6 g/dL (3.5-5.0); Calcium 8.8 mg/dL (8.4-10.2); Total Bilirubin 0.6 mg/dL (0.2-1.3); Total Protein 6.3 g/dL (6.3-8.2)
[2019-01-11 09:45] LABS: Potassium 4.8 mmol/L (3.5-5.1)
--- NOTE | 2019-01-11 11:59 | P.PN ---
Subjective Progress Note Date: 01/11/19 Rhianna Chilel is a 63-year-old female well known to my practice who presented to [facility] emergency room with multiple complaints, she was complaining of cough and shortness of breath for several days, subsequently she developed pain in the lower part of her chest that she thought was related to coughing, patient also was complaining of low back pain and started having episodes of hematuria, she was evaluated in the emergency room, she had an abnormal EKG that revealed ST and T-wave changes in the anterior and inferior leads, she also had evidence of urinary tract infection and evidence of hematuria was large blood in the urine. Computed tomography scan of the abdomen and pelvis revealed evidence of right sided hydronephrosis and to right-sided renal calculi. She was admitted to medical floor, she was started on IV antibiotics, serial EKG and cardiac enzymes were ordered, cardiology and urology consultations were initiated. On 01/11/2018 patient subarachnoid 3. Patient is still having cough shortness of breath. Pulmonary services have been consulted. Patient denies chest pain. Patient denies nausea vomiting or diarrhea. Patient denies any urinary burning or frequency. Patient was eval by urology services no plans for inpatient intervention at this time. Objective - Vital Signs Vital signs: Vital Signs Temp 97.9 F 01/11/19 04:30 Pulse 81 01/11/19 04:30 Resp 20 01/11/19 04:30 BP 93/63 01/11/19 04:30 Pulse Ox 94 L 01/11/19 04:30 Intake & Output 01/10/19 01/11/19 01/11/19 18:59 06:59 18:59 Intake Total 440 Balance 440 Intake: Oral 440 Other: # Voids 1 2 1 # Bowel Movements 1 - Exam In general patient is alert and oriented 3 in no apparent distress HEENT head normocephalic and atraumatic Neck is supple no JVD no goiter no lymphadenopathy Chest exam reveals a scattered crackles bilaterally no wheezing Cardiac exam reveals regular heart sounds no gallops no murmurs Abdomen is soft nontender no organomegaly with normal bowel sounds Extremity exam reveals no edema no cyanosis or clubbing Neurological examination reveals no gross focal deficits - Labs CBC & Chem 7: 01/11/19 08:48 01/11/19 08:48 Labs: Abnormal Lab Results - Last 24 Hours (Table) 01/11/19 Range/Units 08:48 Glucose 135 H (74-99) mg/dL AST 74 H (14-36) U/L ALT 69 H (9-52) U/L Microbiology - Last 24 Hours (Table) 01/09/19 15:30 Urine Culture - Preliminary Urine,Voided Gram Neg Bacilli 01/09/19 21:10 Blood Culture - Preliminary Blood No Growth after 24 hours Assessment and Plan Assessment: #1 episodes of chest pain with abnormal EKG. per cardiology chest discomfort likely pleuritic in nature 2-D echo has been ordered consider outpatient stress test #2 urinary tract infection. Patient remains on Zosyn. Urine culture pending #3 hematuria #4 right sided hydronephrosis with evidence of 2 right sided renal calculi. Per urology services no plans for surgical intervention. Patient will need outpatient intervention once infection is cleared and Xarelto hed. #5 history of pulmonary embolism maintained on Xarelto #6 underlying history of COPD, with mild exacerbation. Pulmonary service is consulted #7 acute bronchitis was severe cough #8 underlying history of hypertension #9 underlying history of hyperlipidemia #10 previous history of CVA #11 previous history of atrial septal defect underwent placement of umbrella closure device. #12 underlying history of depression maintained on Lexapro #13 underlying history of anxiety disorder maintained on Xanax #14 underlying history of chronic back pain maintained on [place] when necessary For DVT prophylaxis patient is on Xarelto I performed an examination of the patient and discussed their management with the Nurse Practitioner. I have reviewed the Nurse Practitioner's notes and agree with the documented findings and plan of care
[2019-01-11] MEDS: SODIUM CHLORIDE 0.9% 1,000 ML IV SCH (13:50)
--- NOTE | 2019-01-11 14:18 | P.CNPUL ---
History of Present Illness Consult date: 01/11/19 Reason for consult: dyspnea History of present illness: 63-year-old female patient with known history of severe persistent bronchial asthma will contact my office on Saturday stating that she was having some increased cough and congestion and wheezing and shortness of breath. Subsequently, she developed pain across her chest wall because of her recurrent cough and. Following that she started complaining of low back pain and she started having episodes of hematuria and she end up coming into the emergency department. Her UA was abnormal and there was blood/microscopic and further investigation with a CAT scan of the abdomen and pelvis showed a right-sided hydronephrosis with a right-sided renal calculus. She was admitted to the floor and a pulmonary consultation was requested in addition to a urology consultation. The CAT scan of the abdomen identified to her renal stones on the right. One of them was 1 cm in size. She had a very mild hydronephrosis on the right. She has chronic left-sided back pain. In terms of the stone, the patient will have a shock wave lithotripsy on outpatient basis by Dr. Jez Faust. In terms of her breathing, the chest x-ray is not showing any acute abnormalities. Blood work and electrodes are all within normal limits. Patient has been maintained on Advair 500/50 Diskus in addition to Singulair an outpatient basis and she has albuterol/ipratropium nebulized treatments around the clock and promethazine with codeine for cough suppression. She has had previous hospitalization for asthma exacerbation. She is also on long-term and coagulation for Xarelto Review of Systems Constitutional: Denies chills, Denies fever Eyes: denies as per HPI, denies blurred vision, denies bulging eye, denies decreased vision, denies diplopia, denies discharge, denies dry eye, denies irritation, denies itching, denies pain, denies photophobia, denies loss of peripheral vision, denies loss of vision, denies tunnel vision/blind spots Ears: deny: decreased hearing, ear discharge, earache, tinnitus Ears, nose, mouth and throat: Denies headache, Denies sore throat Breasts: absent: as per HPI, change in shape, gynecomastia, masses, nipple discharge, pain, skin changes, swelling Cardiovascular: Reports decreased exercise tolerance, Reports dyspnea on exertion, Reports shortness of breath Respiratory: Reports cough, Reports cough with sputum, Reports dyspnea, Reports wheezing Gastrointestinal: Denies abdominal pain, Denies diarrhea, Denies nausea, Denies vomiting Genitourinary: Reports flank pain, Reports hematuria, Reports kidney stones Menstruation: Reports as per HPI Musculoskeletal: Reports as per HPI, Reports low back pain Musculoskeletal: absent: ankle pain, ankle stiffness, ankle swelling Integumentary: Denies pruritus, Denies rash Neurological: Reports as per HPI Psychiatric: Reports as per HPI Endocrine: Reports as per HPI Hematologic/Lymphatic: Reports as per HPI Past Medical History Past Medical History: Asthma, Chest Pain / Angina, CVA/TIA, Deep Vein Thrombosis (DVT), GERD/Reflux, Hyperlipidemia, Hypertension, Osteoarthritis (OA), Pneumonia, Pulmonary Embolus (PE) Additional Past Medical History / Comment(s): CVA LOST LT PERIPHERAL VISION AND WRITING IS A BIT DIFFICULT & FEW TIA'S, TREMORS SINCE.PE/ XUAN DVT (AFTER LAST 2 MAJOR SURG). HX BOWEL OBSTRUCTION. USED TO TAKE MEDS FOR BP , OSTEOPOROSIS. BACK PAIN. ,RADS,CHRONIC BRONCHITIS, SCOLIOSIS, BROKE RT WRIST D/T FALL 2009, SMALL HIATAL HERNIA,DIVERTICULAR DISEASE, UTI,GLAUCOMA History of Any Multi-Drug Resistant Organisms: MRSA, Other MDRO Date of last positivie culture/infection: 07/12/08-MRSA MDRO Source:: URINE-MRSA Past Surgical History: Appendectomy, Back Surgery, Bladder Surgery, Bowel Resection, Breast Surgery, Cholecystectomy, Heart Catheterization, Hernia Repair, Hysterectomy, Orthopedic Surgery, Tubal Ligation Additional Past Surgical History / Comment(s): 10-- LAP INC HERNIA REPAIR, 2 PREVIOUS HERNIA SX ,2 HOLES IN HEART REPAIRED, ATRIUM, SEPTUM - HAS "UMBRELLA" CLOSURE DEVICE. BREAST REDUCTION. cystoscopy CYSTOCELE, RECTOCELE REPAIR. RT FOOT. EXC CYST LT ARM,LT FOOT REPAIR CYSTOSCOPY,LT BREAST BX-NEG, BUNIONECTOMY,GANGLION CYST REMOVED BRONCOSCOPIES,EGD/COLONOSCOPY,XUAN CATARACTS,hammer toe-pins removed. neuroma-bone removed/pins removed. lt toe , rt wrist nerve sx Past Anesthesia/Blood Transfusion Reactions: No Reported Reaction Past Psychological History: Anxiety, Depression Additional Psychological History / Comment(s): pt lives with spouse , son and his . no home care services. has home 02 2 ltiers n/c at hs. Smoking Status: Never smoker Past Alcohol Use History: None Reported Past Drug Use History: None Reported - Past Family History Father Brother(s) Family Medical History: Cancer Additional Family Medical History / Comment(s): LUNG CANCER Sister(s) Family Medical History: Cancer Additional Family Medical History / Comment(s): # 1 SISTER-BONE CA,SISTER #2 BREAST CA, SISTER #3 LUNG,STOMACH,ESOPHAGUS Mother Family Medical History: Deep Vein Thrombosis (DVT) Additional Family Medical History / Comment(s): diverticulitis Medications and Allergies Home Medications Medication Instructions Recorded Confirmed Type Diazepam [Valium] 10 mg PO TID 05/24/15 01/09/19 History Ibandronate Sodium [Boniva] 150 mg PO QMONTH 05/24/15 01/09/19 History Ipratropium Nebulized [Atrovent 0.5 mg INHALATION RT-TID PRN 05/24/15 01/09/19 History Nebulized 0.2 MG/ML] Promethaz-Cod 6.25-10 mg/5 ml 10 ml PO Q8H PRN 05/24/15 01/09/19 History [Phenergan with Codeine] Rivaroxaban [Xarelto] 20 mg PO DAILY 05/24/15 01/09/19 History Fluticasone/Salmeterol [Advair 1 puff INHALATION RT-DAILY 04/08/16 01/09/19 History 500-50 Diskus] Escitalopram [Lexapro] 10 mg PO DAILY 05/20/17 01/09/19 History Montelukast [Singulair] 10 mg PO HS 05/20/17 01/09/19 History Pantoprazole Sodium [Protonix] 40 mg PO DAILY 05/20/17 01/09/19 History ALPRAZolam [Xanax] 0.25 mg PO TID PRN 11/21/17 01/09/19 History Melatonin 10 mg PO HS PRN 11/21/17 01/09/19 History Pravastatin Sodium [Pravachol] 40 mg PO HS 11/21/17 01/09/19 History Ergocalciferol (Vitamin D2) 50,000 unit PO MO 12/11/17 01/09/19 History [Drisdol] Allergies Allergy/AdvReac Type Severity Reaction Status Date / Time cephalexin monohydrate Allergy Rash/Hives Verified 01/09/19 18:41 [From Keflex] clarithromycin [From Biaxin] Allergy Rash/Hives Verified 01/09/19 18:41 levofloxacin [From Levaquin] Allergy Rash/Hives Verified 01/09/19 18:41 Quinolones Allergy Rash/Hives Verified 01/09/19 18:41 Physical Exam Vitals: Vital Signs Temp Pulse Resp BP Pulse Ox 01/11/19 12:24 98.6 F 78 16 97/63 94 L 01/11/19 04:30 97.9 F 81 20 93/63 94 L 01/11/19 00:00 20 01/10/19 21:30 98.3 F 71 20 100/63 92 L 01/10/19 20:00 16 01/10/19 17:40 98.1 F 82 16 102/68 91 L 01/10/19 16:00 98.0 F 68 16 97/64 95 Intake and Output 01/10/19 01/11/19 01/11/19 22:59 06:59 14:59 Intake Total 200 240 Balance 200 240 Intake: Oral 200 240 Other: # Voids 1 2 2 # Bowel Movements 1 The patient appeared well nourished and normally developed. Vital signs as documented. Head exam is unremarkable. No scleral icterus or corneal arcus noted. Neck is without jugular venous distension, thyromegaly, or carotid bruits. Carotid upstrokes are brisk bilaterally. Lungs diminished breath sounds along with scattered expiratory wheezes and prolonged phase bilaterally. She is also having coughing spells patient when she takes deep breaths and she talks. Cardiac exam reveals the PMI to be normally sized and situated. Rhythm is regular. First and second heart sounds normal. No murmurs, rubs or gallops. Abdominal exam reveals normal bowel sounds, no masses, no organomegaly and no aortic enlargement. Extremities are nonedematous and both femoral and pedal pulses are normal.Examination of the skin revealed no evidence of significant rashes, suspicious appearing nevi or other concerning lesions. Neurologically the patient is awake and alert and there is no focal neurological deficits. Results - Laboratory Findings CBC and BMP: 01/11/19 08:48 01/11/19 08:48 PT/INR, D-dimer PT 11.7 sec (9.0-12.0) 01/09/19 15:30 INR 1.1 (<1.2) 01/09/19 15:30 D-Dimer 0.26 mg/L FEU (<0.60) 01/09/19 15:30 Abnormal lab findings: Abnormal Labs 01/09/19 01/11/19 15:30 08:48 Glucose 135 H AST 74 H ALT 69 H Urine Appearance Cloudy H Urine Protein 1+ H Urine Blood Large H Urine Nitrite Positive H Ur Leukocyte Esterase Large H Urine RBC >182 H Urine WBC 180 H Urine WBC Clumps Moderate H Ur Squamous Epith Cells 7 H Amorphous Sediment Moderate H Urine Bacteria Many H Hyaline Casts 38 H Urine Mucus Moderate H - Diagnostic Findings Chest x-ray: image reviewed Assessment and Plan Plan: 1 acute exacerbation of chronic bronchial asthma with acute bronchitis with second and shortness of breath and cough and chest tightness and wheeze. Chest x-ray free of any acute pneumonia 2 nephrolithiasis with hematuria and right mild hydronephrosis 3 history of CVA with loss and peripheral vision 4 history of DVT on long-term anticoagulation with Xarelto. The patient bilateral after surgeries 5 History of bowel obstruction 6 hypertension 7 chronic back pain 8 also process 9 scoliosis 10 diverticular disease 11 glucoma 12 hiatal hernia Plan I agree on the current treatment plan. Will add Medrol 40 mg every 6 hours to improve the patient's acute asthmatic exacerbation. Continue bronchodilators. Continue antibiotics. Monitor blood work. Urology consultation is appreciated. We'll continue to follow.
--- NOTE | 2019-01-11 14:37 | P.PN ---
Subjective Progress Note Date: 01/11/19 the patient is a 63-year-old female with past medical history of asthma on home oxygen, hyperlipidemia, hypertension, CVA, and pulmonary emboli, who follows with Dr. Govea in the office. She presented to the emergency room with progressive shortness of breath and chest discomfort. She states she's been sick for the last week, however over the last 40 she developed a midsternal discomfort in her chest when she coughs. She also reports low back pain and discolored urine. EKG on arrival showed sinus mechanism with ST depression and inverted T waves in V3 through V6, which was not notable on previous EKGs. Cardiac enzymes were negative 3. her UA was positivein computed tomography scan of the abdomen and pelvis revealed right-sided hydronephrosis and right-sided renal calculi. 01/10/19 Patient states she has chest discomfort with coughing. She denies any exertional chest discomfort, dyspnea, palpitations, dizziness, vertigo. She does have lower extremity back pain. WBC 7.8 hemoglobin 13.4, hematocrit 43.1, platelet 284, sodium 142, potassium 4.2, BUN 16, creatinine 1.0, troponins negative 3, magnesium 1.9, urine positive for blood, nitrites, RBCs, and WBCs. Vital signs stable. Echocardiogram and Doppler to be performed. 01/11/19 Patient continues to have back and chest discomfort with coughing. She does state she is starting to improve. Echocardiogram revealed LV function at 60-65% with PFO closure device and without significant valvular abnormalities. Laboratory data this morning shows WBC of 4.8, hemoglobin 11.8, hematocrit 36.9, platelet 221, sodium 139, potassium 4.8, BUN 16, creatinine 0.98, AST 74, ALT 69. Blood pressures stable in the high 90s to low 100s systolic. 94% SpO2 on room air heart rates in the 70s to 80s. Objective - Vital Signs Vital signs: Vital Signs Temp 98.6 F 01/11/19 12:24 Pulse 78 01/11/19 12:24 Resp 16 01/11/19 12:24 BP 97/63 01/11/19 12:24 Pulse Ox 94 L 01/11/19 12:24 Intake & Output 01/10/19 01/11/19 01/11/19 18:59 06:59 18:59 Intake Total 440 Balance 440 Intake: Oral 440 Other: # Voids 1 2 2 # Bowel Movements 1 - Exam GENERAL: Well-appearing, well-nourished and in no acute distress. NECK: Supple without JVD or thyromegaly. LUNGS: Breath sounds clear to auscultation bilaterally. Respiration equal and unlabored. No wheezes, rales or rhonchi. HEART: Regular rate and rhythm without murmurs, rubs or gallops. S1 and S2 heard. EXTREMITIES: Normal range of motion, no edema. No clubbing or cyanosis. Peripheral pulses intact and strong. - Labs CBC & Chem 7: 01/11/19 08:48 01/11/19 08:48 Labs: Abnormal Lab Results - Last 24 Hours (Table) 01/11/19 Range/Units 08:48 Glucose 135 H (74-99) mg/dL AST 74 H (14-36) U/L ALT 69 H (9-52) U/L Microbiology - Last 24 Hours (Table) 01/09/19 15:30 Urine Culture - Preliminary Urine,Voided Gram Neg Bacilli 01/09/19 21:10 Blood Culture - Preliminary Blood No Growth after 24 hours Assessment and Plan Assessment: #1 upper respiratory infection, likely tracheobronchitis #2 respiratory chest discomfort, likely costochondritis or pleurisy #3 polynephritis #4 hypertension, well controlled #5 dyslipidemia #6 shortness of breath, history of asthma, current upper respiratory infection Plan: No further cardiac workup recommended. Recommend outpatient stress testing in the future.
[2019-01-11] MEDS: methylPREDNISolone SOD SUCCI 125 MG/2 ML VIAL IV SCH ×2 (14:47→18:14)
[2019-01-11] MEDS: guaiFENesin SYRUP 100MG/5ML 200 MG/10 ML CUP PO PRN ×2 (16:10→21:56)
[2019-01-11] MEDS: IPRATROPIUM-ALBUTEROL 3 ML NEB INHALATION SCH ×2 (16:20→20:16)
[2019-01-11] MEDS: BUDESONIDE 0.5 MG/2 ML NEBU INHALATION SCH (20:16)
[2019-01-11] MEDS: MONTELUKAST 10 MG TAB PO SCH (21:56)
[2019-01-11] MEDS: PRAVASTATIN SODIUM 40 MG TAB PO SCH (21:56)
[2019-01-11] MEDS: ALPRAZolam 0.25 MG TAB PO PRN (22:02)
[2019-01-12] MEDS: methylPREDNISolone SOD SUCCI 125 MG/2 ML VIAL IV SCH ×4 (00:03→17:54)
[2019-01-12] MEDS: SODIUM CHLORIDE 0.9% 1,000 ML IV SCH (00:05)
[2019-01-12] MEDS: HYDROmorphone 0.5 MG/0.5 ML SYRINGE IVP PRN ×2 (02:05→10:12)
[2019-01-12] MEDS: guaiFENesin SYRUP 100MG/5ML 200 MG/10 ML CUP PO PRN ×3 (05:31→20:38)
[2019-01-12] MEDS: HYDROcodone/APAP 5-325MG 1 EACH TAB PO PRN ×2 (05:32→08:52)
[2019-01-12] MEDS: PIPERACILLIN-TAZOBACTAM 3.375 GM in SODIUM CHLORIDE 0.9% 100 ML IVPB SCH ×3 (05:32→20:34)
[2019-01-12] MEDS: BUDESONIDE 0.5 MG/2 ML NEBU INHALATION SCH ×2 (08:14→20:21)
[2019-01-12] MEDS: IPRATROPIUM-ALBUTEROL 3 ML NEB INHALATION SCH ×4 (08:14→20:22)
[2019-01-12] MEDS: PANTOPRAZOLE 40 MG TABLET PO SCH (08:43)
[2019-01-12] MEDS: RIVAROXABAN 20 MG TAB PO SCH (08:44)
[2019-01-12] MEDS: ESCITALOPRAM 10 MG TAB PO SCH (08:44)
[2019-01-12] MEDS ORDERED: ERGOCALCIFEROL 50,000 UNIT CAP PO SCH (09:00)
[2019-01-12] MEDS: ALPRAZolam 0.25 MG TAB PO PRN (10:06)
--- NOTE | 2019-01-12 10:30 | P.PN ---
Subjective Progress Note Date: 01/12/19 Rhianna Chilel is a 63-year-old female well known to my practice who presented to [facility] emergency room with multiple complaints, she was complaining of cough and shortness of breath for several days, subsequently she developed pain in the lower part of her chest that she thought was related to coughing, patient also was complaining of low back pain and started having episodes of hematuria, she was evaluated in the emergency room, she had an abnormal EKG that revealed ST and T-wave changes in the anterior and inferior leads, she also had evidence of urinary tract infection and evidence of hematuria was large blood in the urine. Computed tomography scan of the abdomen and pelvis revealed evidence of right sided hydronephrosis and to right-sided renal calculi. She was admitted to medical floor, she was started on IV antibiotics, serial EKG and cardiac enzymes were ordered, cardiology and urology consultations were initiated. On 01/11/2018 patient alert and oriented 3. Patient is still having cough shortness of breath. Pulmonary services have been consulted. Patient denies chest pain. Patient denies nausea vomiting or diarrhea. Patient denies any urinary burning or frequency. Patient was eval by urology services no plans for inpatient intervention at this time. On 01/11/2019 patient is alert and oriented 3. Patient started on Solu-Medrol per pulmonary services. No further workup and patient per urology or cardiology services. Patient is still having some shortness of breath with cough. Patient denies chest pain. Patient denies nausea vomiting or diarrhea. Patient denies any urinary burning or frequency. Objective - Vital Signs Vital signs: Vital Signs Temp 98.1 F 01/12/19 05:07 Pulse 78 01/12/19 08:31 Resp 18 01/12/19 05:07 BP 92/56 01/12/19 05:07 Pulse Ox 91 L 01/12/19 05:07 Intake & Output 01/11/19 01/12/19 01/12/19 18:59 06:59 18:59 Other: # Voids 2 2 # Bowel Movements 1 - Exam In general patient is alert and oriented 3 in no apparent distress HEENT head normocephalic and atraumatic Neck is supple no JVD no goiter no lymphadenopathy Chest exam reveals a scattered crackles bilaterally no wheezing Cardiac exam reveals regular heart sounds no gallops no murmurs Abdomen is soft nontender no organomegaly with normal bowel sounds Extremity exam reveals no edema no cyanosis or clubbing Neurological examination reveals no gross focal deficits - Labs CBC & Chem 7: 01/11/19 08:48 01/11/19 08:48 Labs: Microbiology - Last 24 Hours (Table) 01/09/19 15:30 Urine Culture - Final Urine,Voided Escherichia coli 01/09/19 21:10 Blood Culture - Preliminary Blood No Growth after 48 hours Assessment and Plan Assessment: #1 episodes of chest pain with abnormal EKG. per cardiology chest discomfort likely pleuritic in nature 2-D echo has been ordered consider outpatient stress test. 2-D echo showing EF 60-65% #2 urinary tract infection. Patient remains on Zosyn. Urine culture showing E. coli. Patient is on Zosyn #3 hematuria #4 right sided hydronephrosis with evidence of 2 right sided renal calculi. Per urology services no plans for surgical intervention. Patient will need outpatient intervention once infection is cleared and Xarelto hed. #5 history of pulmonary embolism maintained on Xarelto #6 underlying history of COPD, with mild exacerbation. Pulmonary service is consulted. She was started on IV Solu-Medrol per pulmonary #7 acute bronchitis was severe cough #8 underlying history of hypertension #9 underlying history of hyperlipidemia #10 previous history of CVA #11 previous history of atrial septal defect underwent placement of umbrella closure device. #12 underlying history of depression maintained on Lexapro #13 underlying history of anxiety disorder maintained on Xanax #14 underlying history of chronic back pain maintained on Capulin when necessary For DVT prophylaxis patient is on Xarelto. GI prophylaxis Protonix I performed an examination of the patient and discussed their management with the Nurse Practitioner. I have reviewed the Nurse Practitioner's notes and agree with the documented findings and plan of care
[2019-01-12 11:28] LABS: Glucose,Whole Blood 206 mg/dL (75-99)
[2019-01-12 11:39] LABS: Albumin 3.7 g/dL (3.5-5.0); Calcium 9.2 mg/dL (8.4-10.2); Potassium 3.7 mmol/L (3.5-5.1); Total Bilirubin 0.2 mg/dL (0.2-1.3); Total Protein 6.4 g/dL (6.3-8.2)
[2019-01-12 12:03] LABS: Basophils % (A) 0 %; Eosinophils # (A) 0.1 k/uL (0-0.7); Eosinophils % (A) 0 %; HCT 35.3 % (34.0-46.0); HGB 11.3 gm/dL (11.4-16.0); Hypochromasia Slight; Lymphocytes % (A) 7 %; MCH 28.3 pg (25.0-35.0); MCHC 32.1 g/dL (31.0-37.0); MCV 88.1 fL (80.0-100.0); Mean Platelet Volume 6.5; Monocytes # (A) 0.3 k/uL (0-1.0); Monocytes % (A) 2 %; Neutrophils # (A) 13.1 k/uL (1.3-7.7); Neutrophils % (A) 91 %; Platelet Count 248 k/uL (150-450); RBC 4.01 m/uL (3.80-5.40); RDW 13.4 % (11.5-15.5); WBC 14.4 k/uL (3.8-10.6)
[2019-01-12] MEDS: INSULIN ASPART (NovoLOG) 100 UNIT/ML VIAL SQ SCH ×3 (12:59→20:35)
[2019-01-12 17:09] LABS: Glucose,Whole Blood 183 mg/dL (75-99)
--- NOTE | 2019-01-12 17:17 | P.PN ---
Subjective Progress Note Date: 01/12/19 Principal diagnosis: acute exacerbation of mild intermittent bronchial asthma 63-year-old female patient with known history of severe persistent bronchial asthma will contact my office on Saturday stating that she was having some increased cough and congestion and wheezing and shortness of breath. Subsequently, she developed pain across her chest wall because of her recurrent cough and. Following that she started complaining of low back pain and she started having episodes of hematuria and she end up coming into the emergency department. Her UA was abnormal and there was blood/microscopic and further investigation with a CAT scan of the abdomen and pelvis showed a right-sided hydronephrosis with a right-sided renal calculus. She was admitted to the floor and a pulmonary consultation was requested in addition to a urology consultation. The CAT scan of the abdomen identified to her renal stones on the right. One of them was 1 cm in size. She had a very mild hydronephrosis on the right. She has chronic left-sided back pain. In terms of the stone, the patient will have a shock wave lithotripsy on outpatient basis by Dr. Jez Faust. In terms of her breathing, the chest x-ray is not showing any acute abnormalities. Blood work and electrodes are all within normal limits. Patient has been maintained on Advair 500/50 Diskus in addition to Singulair an out patient basis and she has albuterol/ipratropium nebulized treatments around the clock and promethazine with codeine for cough suppression. She has had previous hospitalization for asthma exacerbation. She is also on long-term and coagulation for Xarelto Patient was reevaluated today on 01/12/2019, feeling a bit better, however she continues to have intermittent episodes of cough wheezing and shortness of breath. But overall she tells me that she is much improved compared to how she felt on admission.remains on multiple bronchodilators and steroids. She count is 14.4 hemoglobin is 11.3 and was are normal renal profile is normal. Troponin is less than 0.012.chest x-ray on admission showed no evidence of infiltrate.patient remains on bronchodilators including DuoNeb, methylprednisolone,and Pulmicort. Objective - Vital Signs Vital signs: Vital Signs Temp 98.1 F 01/12/19 14:16 Pulse 80 01/12/19 16:58 Resp 16 01/12/19 14:16 BP 96/57 01/12/19 14:16 Pulse Ox 92 L 01/12/19 14:16 Intake & Output 01/11/19 01/12/19 01/12/19 18:59 06:59 18:59 Intake Total 540 Balance 540 Intake: Oral 540 Other: # Voids 2 2 2 # Bowel Movements 1 - Exam Physical Exam: Revealed a 63-year-old female in no distress. Head: Atraumatic normocephalic. HEENT:[Neck is supple.] [No neck masses.] [No thyromegaly.] [No JVD.] Chest: symmetrical chest expansion, scattered rhonchi and wheezes bilaterally more so on forced expiratory maneuver. Cardiac Exam: [Normal S1 and S2, no S3 gallop, no murmur.] Abdomen: [Soft, nontender, no megaly, no rebound, no guarding, normal bowel sounds.] Extremities: [No clubbing, no edema, no cyanosis.] Neurological Exam: [No focal neurologic deficit.]alert oriented 3. Psychiatric: Normal mood affect and normal mental status examination. Skin: No rashes. Lymphatics: No lymphadenopathy. - Labs CBC & Chem 7: 01/12/19 10:56 01/12/19 10:56 Labs: Abnormal Lab Results - Last 24 Hours (Table) 01/12/19 01/12/19 01/12/19 Range/Units 10:56 10:56 11:26 WBC 14.4 H (3.8-10.6) k/uL Hgb 11.3 L (11.4-16.0) gm/dL Neutrophils # 13.1 H (1.3-7.7) k/uL Chloride 112 H (98-107) mmol/L Carbon Dioxide 18 L (22-30) mmol/L Glucose 192 H (74-99) mg/dL POC Glucose (mg/dL) 206 H (75-99) mg/dL AST 53 H (14-36) U/L ALT 62 H (9-52) U/L 01/12/19 Range/Units 17:08 WBC (3.8-10.6) k/uL Hgb (11.4-16.0) gm/dL Neutrophils # (1.3-7.7) k/uL Chloride (98-107) mmol/L Carbon Dioxide (22-30) mmol/L Glucose (74-99) mg/dL POC Glucose (mg/dL) 183 H (75-99) mg/dL AST (14-36) U/L ALT (9-52) U/L Microbiology - Last 24 Hours (Table) 01/09/19 15:30 Urine Culture - Final Urine,Voided Escherichia coli 01/09/19 21:10 Blood Culture - Preliminary Blood No Growth after 48 hours Assessment and Plan Assessment: impression: 1 acute exacerbation of mild intermittent asthma 2 acute periventricular tracheobronchitis 3 nephrolithiasis with hematuria and the right mild hydronephrosis 4 history of deep vein thrombosis, chronically on anticoagulation therapy/Xarelt o 5 multiple comorbidities including hypertension, chronic low back pain, scoliosis, diverticular disease, hiatal hernia, and history of bowel obstruction. Recommendation: Continue present course of treatment including bronchodilators/DuoNeb, antibiotics, Solu-Medrol which I plan to switch tomorrow to oral prednisone, patient was already seen by urology, plan to consider possibly discharge planning in the next 24-48 hours at the most. We'll continue to follow. All meds and labs were reviewed Time with Patient: Less than 30
[2019-01-12 20:24] LABS: Glucose,Whole Blood 227 mg/dL (75-99)
[2019-01-12] MEDS: MONTELUKAST 10 MG TAB PO SCH (20:34)
[2019-01-12] MEDS: PRAVASTATIN SODIUM 40 MG TAB PO SCH (20:34)
[2019-01-13] MEDS: methylPREDNISolone SOD SUCCI 125 MG/2 ML VIAL IV SCH ×3 (00:04→12:42)
[2019-01-13] MEDS: PIPERACILLIN-TAZOBACTAM 3.375 GM in SODIUM CHLORIDE 0.9% 100 ML IVPB SCH ×3 (05:45→21:55)
[2019-01-13] MEDS: guaiFENesin SYRUP 100MG/5ML 200 MG/10 ML CUP PO PRN (06:06)
[2019-01-13] MEDS: HYDROcodone/APAP 5-325MG 1 EACH TAB PO PRN ×2 (06:06→12:40)
[2019-01-13 07:19] LABS: Glucose,Whole Blood 151 mg/dL (75-99)
[2019-01-13] MEDS: INSULIN ASPART (NovoLOG) 100 UNIT/ML VIAL SQ SCH ×4 (07:53→21:55)
[2019-01-13] MEDS: PANTOPRAZOLE 40 MG TABLET PO SCH (07:53)
[2019-01-13] MEDS: ESCITALOPRAM 10 MG TAB PO SCH (07:53)
[2019-01-13] MEDS: RIVAROXABAN 20 MG TAB PO SCH (07:53)
[2019-01-13] MEDS: IPRATROPIUM-ALBUTEROL 3 ML NEB INHALATION SCH ×4 (08:26→21:31)
[2019-01-13] MEDS: BUDESONIDE 0.5 MG/2 ML NEBU INHALATION SCH ×2 (08:26→21:31)
[2019-01-13] MEDS ORDERED: guaiFENesin 600 MG TABLET.ER PO PRN (10:04)
--- NOTE | 2019-01-13 10:08 | P.PN ---
Subjective Progress Note Date: 01/13/19 Rhianna Chilel is a 63-year-old female well known to my practice who presented to [facility] emergency room with multiple complaints, she was complaining of cough and shortness of breath for several days, subsequently she developed pain in the lower part of her chest that she thought was related to coughing, patient also was complaining of low back pain and started having episodes of hematuria, she was evaluated in the emergency room, she had an abnormal EKG that revealed ST and T-wave changes in the anterior and inferior leads, she also had evidence of urinary tract infection and evidence of hematuria was large blood in the urine. Computed tomography scan of the abdomen and pelvis revealed evidence of right sided hydronephrosis and to right-sided renal calculi. She was admitted to medical floor, she was started on IV antibiotics, serial EKG and cardiac enzymes were ordered, cardiology and urology consultations were initiated. On 01/11/2018 patient alert and oriented 3. Patient is still having cough shortness of breath. Pulmonary services have been consulted. Patient denies chest pain. Patient denies nausea vomiting or diarrhea. Patient denies any urinary burning or frequency. Patient was eval by urology services no plans for inpatient intervention at this time. On 01/12/2019 patient is alert and oriented 3. Patient started on Solu-Medrol per pulmonary services. No further workup and patient per urology or cardiology services. Patient is still having some shortness of breath with cough. Patient denies chest pain. Patient denies nausea vomiting or diarrhea. Patient denies any urinary burning or frequency. On 01/13/2019 patient remains short of breath with cough. Patient delivered 903. Patient remains on IV Solu-Medrol and pulmonary services following. Mucinex added. Chest discomfort occurring with coughing. Patient was evaluated and cleared by cardiology services. Patient denies nausea vomiting or diarrhea. Patient denies any urinary burning or frequency. Objective - Vital Signs Vital signs: Vital Signs Temp 98.1 F 01/13/19 04:50 Pulse 80 01/13/19 08:41 Resp 16 01/13/19 08:00 BP 110/71 01/13/19 04:50 Pulse Ox 96 01/13/19 08:26 Intake & Output 01/12/19 01/13/19 01/13/19 18:59 06:59 18:59 Intake Total 540 Balance 540 Intake: Oral 540 Other: # Voids 2 1 - Exam In general patient is alert and oriented 3 in no apparent distress HEENT head normocephalic and atraumatic Neck is supple no JVD no goiter no lymphadenopathy Chest exam reveals a scattered crackles bilaterally no wheezing Cardiac exam reveals regular heart sounds no gallops no murmurs Abdomen is soft nontender no organomegaly with normal bowel sounds Extremity exam reveals no edema no cyanosis or clubbing Neurological examination reveals no gross focal deficits - Labs CBC & Chem 7: 01/12/19 10:56 01/12/19 10:56 Labs: Abnormal Lab Results - Last 24 Hours (Table) 01/12/19 01/12/19 01/12/19 Range/Units 10:56 10:56 11:26 WBC 14.4 H (3.8-10.6) k/uL Hgb 11.3 L (11.4-16.0) gm/dL Neutrophils # 13.1 H (1.3-7.7) k/uL Chloride 112 H (98-107) mmol/L Carbon Dioxide 18 L (22-30) mmol/L Glucose 192 H (74-99) mg/dL POC Glucose (mg/dL) 206 H (75-99) mg/dL AST 53 H (14-36) U/L ALT 62 H (9-52) U/L 01/12/19 01/12/19 01/13/19 Range/Units 17:08 20:19 07:17 WBC (3.8-10.6) k/uL Hgb (11.4-16.0) gm/dL Neutrophils # (1.3-7.7) k/uL Chloride (98-107) mmol/L Carbon Dioxide (22-30) mmol/L Glucose (74-99) mg/dL POC Glucose (mg/dL) 183 H 227 H 151 H (75-99) mg/dL AST (14-36) U/L ALT (9-52) U/L Microbiology - Last 24 Hours (Table) 01/09/19 21:10 Blood Culture - Preliminary Blood No Growth after 72 hours Assessment and Plan Assessment: #1 episodes of chest pain with abnormal EKG. per cardiology chest discomfort l ikely pleuritic in nature 2-D echo has been ordered consider outpatient stress test. 2-D echo showing EF 60-65%. Per cardiology no further inpatient workup recommend outpatient stress testing in the future #2 urinary tract infection. Patient remains on Zosyn. Urine culture showing E. coli. Patient is on Zosyn #3 hematuria #4 right sided hydronephrosis with evidence of 2 right sided renal calculi. Per urology services no plans for surgical intervention. Patient will need outpatient intervention once infection is cleared and Xarelto hed. #5 history of pulmonary embolism maintained on Xarelto #6 underlying history of COPD, with mild exacerbation. Pulmonary service is consulted. She was started on IV Solu-Medrol per pulmonary. #7 acute bronchitis was severe cough #8 underlying history of hypertension #9 underlying history of hyperlipidemia #10 previous history of CVA #11 previous history of atrial septal defect underwent placement of umbrella closure device. #12 underlying history of depression maintained on Lexapro #13 underlying history of anxiety disorder maintained on Xanax #14 underlying history of chronic back pain maintained on [place] when necessary For DVT prophylaxis patient is on Xarelto. GI prophylaxis Protonix I performed an examination of the patient and discussed their management with the Nurse Practitioner. I have reviewed the Nurse Practitioner's notes and agree with the documented findings and plan of care
[2019-01-13 10:24] LABS: Basophils % (A) 0 %; Eosinophils # (A) 0.1 k/uL (0-0.7); Eosinophils % (A) 0 %; HCT 34.4 % (34.0-46.0); Lymphocytes # (A) 1.1 k/uL (1.0-4.8); Lymphocytes % (A) 5 %; MCH 27.8 pg (25.0-35.0); MCHC 31.9 g/dL (31.0-37.0); Mean Platelet Volume 6.3; Monocytes # (A) 0.4 k/uL (0-1.0); Monocytes % (A) 2 %; Neutrophils # (A) 20.6 k/uL (1.3-7.7); Neutrophils % (A) 93 %; Platelet Count 265 k/uL (150-450); RBC 3.95 m/uL (3.80-5.40); RDW 13.8 % (11.5-15.5); WBC 22.2 k/uL (3.8-10.6)
[2019-01-13 10:31] LABS: Albumin 3.6 g/dL (3.5-5.0); Calcium 9.6 mg/dL (8.4-10.2); Total Bilirubin 0.3 mg/dL (0.2-1.3); Total Protein 6.2 g/dL (6.3-8.2)
--- NOTE | 2019-01-13 12:30 | P.PN ---
Subjective Progress Note Date: 01/13/19 Principal diagnosis: Acute exacerbation of mild intermittent bronchial asthma. 63-year-old female patient with known history of severe persistent bronchial asthma will contact my office on Saturday stating that she was having some increased cough and congestion and wheezing and shortness of breath. Subsequently, she developed pain across her chest wall because of her recurrent cough and. Following that she started complaining of low back pain and she started having episodes of hematuria and she end up coming into the emergency department. Her UA was abnormal and there was blood/microscopic and further investigation with a CAT scan of the abdomen and pelvis showed a right-sided hydronephrosis with a right-sided renal calculus. She was admitted to the floor and a pulmonary consultation was requested in addition to a urology consultation. The CAT scan of the abdomen identified to her renal stones on the right. One of them was 1 cm in size. She had a very mild hydronephrosis on the right. She has chronic left-sided back pain. In terms of the stone, the patient will have a shock wave lithotripsy on outpatient basis by Dr. Jez Faust. In terms of her breathing, the chest x-ray is not showing any acute abnormalities. Blood work and electrodes are all within normal limits. Patient has been maintained on Advair 500/50 Diskus in addition to Singulair an o utpatient basis and she has albuterol/ipratropium nebulized treatments around the clock and promethazine with codeine for cough suppression. She has had previous hospitalization for asthma exacerbation. She is also on long-term and coagulation for Xarelto Patient was reevaluated today on 01/12/2019, feeling a bit better, however she continues to have intermittent episodes of cough wheezing and shortness of breath. But overall she tells me that she is much improved compared to how she felt on admission.remains on multiple bronchodilators and steroids. She count is 14.4 hemoglobin is 11.3 and was are normal renal profile is normal. Troponin is less than 0.012.chest x-ray on admission showed no evidence of infiltrate.patient remains on bronchodilators including DuoNeb, methylprednisolone,and Pulmicort. The patient is seen today in follow-up on the regular medical floor. She is awake and alert in no acute distress. She continues with a dry nonproductive cough. No fever or chills. Maintain O2 saturations in the mid 90s on room air. Urine culture was positive for E. coli. Blood culture reveals no growth. White count 22. Hemoglobin 11.0. Creatinine 0.99. Bicarb 18. She is continued on DuoNeb inhalations, Pulmicort inhalations, IV Cymetra. Antibiotics in the form of Zosyn. Anticoagulated with Xarelto. Objective - Vital Signs Vital signs: Vital Signs Temp 98.1 F 01/13/19 04:50 Pulse 80 01/13/19 12:06 Resp 16 01/13/19 08:00 BP 110/71 01/13/19 04:50 Pulse Ox 96 01/13/19 08:26 Intake & Output 01/12/19 01/13/19 01/13/19 18:59 06:59 18:59 Intake Total 540 Balance 540 Intake: Oral 540 Other: # Voids 2 1 - Exam GENERAL EXAM: Alert, active, 63-year-old female patient, on room air, comfortable in no apparent distress. HEAD: Normocephalic. EYES: Normal reaction of pupils, equal size. NOSE: Clear with pink turbinates. THROAT: No erythema or exudates. NECK: No masses, no JVD. CHEST: No chest wall deformity. LUNGS: Equal air entry with no crackles, wheeze, rhonchi or dullness. CVS: S1 and S2 normal with no audible murmur, regular rhythm. ABDOMEN: No hepatosplenomegaly, normal bowel sounds, no guarding or rigidity. SPINE: No scoliosis or deformity SKIN: No rashes CENTRAL NERVOUS SYSTEM: No focal deficits, tone is normal in all 4 extremities. EXTREMITIES: There is no peripheral edema. No clubbing, no cyanosis. Peripheral pulses are intact. - Labs CBC & Chem 7: 01/13/19 09:51 01/13/19 09:51 Labs: Abnormal Lab Results - Last 24 Hours (Table) 01/12/19 01/12/19 01/13/19 Range/Units 17:08 20:19 07:17 WBC (3.8-10.6) k/uL Hgb (11.4-16.0) gm/dL Neutrophils # (1.3-7.7) k/uL Chloride (98-107) mmol/L Carbon Dioxide (22-30) mmol/L BUN (7-17) mg/dL Glucose (74-99) mg/dL POC Glucose (mg/dL) 183 H 227 H 151 H (75-99) mg/dL Total Protein (6.3-8.2) g/dL 01/13/19 01/13/19 Range/Units 09:51 09:51 WBC 22.2 H (3.8-10.6) k/uL Hgb 11.0 L (11.4-16.0) gm/dL Neutrophils # 20.6 H (1.3-7.7) k/uL Chloride 115 H (98-107) mmol/L Carbon Dioxide 18 L (22-30) mmol/L BUN 23 H (7-17) mg/dL Glucose 181 H (74-99) mg/dL POC Glucose (mg/dL) (75-99) mg/dL Total Protein 6.2 L (6.3-8.2) g/dL Microbiology - Last 24 Hours (Table) 01/09/19 21:10 Blood Culture - Preliminary Blood No Growth after 72 hours Assessment and Plan Assessment: Impression: 1 acute exacerbation of mild intermittent asthma 2 acute periventricular tracheobronchitis 3 nephrolithiasis with hematuria and the right mild hydronephrosis 4 history of deep vein thrombosis, chronically on anticoagulation therapy/Xarelto 5 multiple comorbidities including hypertension, chronic low back pain, scoliosis, diverticular disease, hiatal hernia, and history of bowel obstr uction. Plan: The patient was seen and evaluated by Dr. Graham. She is stable from the pulmonary standpoint. Transitioned to oral prednisone taper. Cleared for discharge once cleared medically. Follow up with Dr. Drummond in our office in 1-2 weeks' time. I, the cosigning physician, performed a history & physical examination of the patient. Lungs sounds are clear. Maintaining good O2 saturations in the 90s on room air. I discussed the assessment and plan of care with my nurse practitioner, Jamee De Souza. I attest to the above note as dictated by her.
[2019-01-13 13:04] LABS: Glucose,Whole Blood 146 mg/dL (75-99)
[2019-01-13 17:06] LABS: Glucose,Whole Blood 198 mg/dL (75-99)
[2019-01-13] MEDS: guaiFENesin-Coden 100-10MG/5ML 10 ML CUP PO PRN (17:48)
[2019-01-13 20:03] LABS: Glucose,Whole Blood 162 mg/dL (75-99)
[2019-01-13] MEDS: MONTELUKAST 10 MG TAB PO SCH (21:55)
[2019-01-13] MEDS: PRAVASTATIN SODIUM 40 MG TAB PO SCH (21:55)
[2019-01-14] MEDS: guaiFENesin-Coden 100-10MG/5ML 10 ML CUP PO PRN (02:15)
[2019-01-14] MEDS: PIPERACILLIN-TAZOBACTAM 3.375 GM in SODIUM CHLORIDE 0.9% 100 ML IVPB SCH (05:30)
[2019-01-14 06:28] VITALS: BP 127/78; RESP 20; TEMP 98
[2019-01-14 07:18] LABS: Glucose,Whole Blood 97 mg/dL (75-99)
[2019-01-14] MEDS: INSULIN ASPART (NovoLOG) 100 UNIT/ML VIAL SQ SCH ×2 (07:30→12:50)
[2019-01-14] MEDS: BUDESONIDE 0.5 MG/2 ML NEBU INHALATION SCH (07:41)
[2019-01-14] MEDS: IPRATROPIUM-ALBUTEROL 3 ML NEB INHALATION SCH ×2 (07:41→11:41)
[2019-01-14] MEDS: RIVAROXABAN 20 MG TAB PO SCH (08:09)
[2019-01-14] MEDS: ESCITALOPRAM 10 MG TAB PO SCH (08:09)
[2019-01-14] MEDS: PANTOPRAZOLE 40 MG TABLET PO SCH (08:09)
[2019-01-14] MEDS ORDERED: predniSONE 20 MG TAB PO SCH (09:00)
[2019-01-14 09:43] LABS: Basophils % (A) 0 %; Eosinophils % (A) 0 %; HGB 11.4 gm/dL (11.4-16.0); Lymphocytes # (A) 2.7 k/uL (1.0-4.8); Lymphocytes % (A) 18 %; MCH 28.1 pg (25.0-35.0); MCHC 32.5 g/dL (31.0-37.0); MCV 86.7 fL (80.0-100.0); Mean Platelet Volume 6.4; Monocytes # (A) 0.4 k/uL (0-1.0); Monocytes % (A) 3 %; Neutrophils # (A) 11.6 k/uL (1.3-7.7); Neutrophils % (A) 78 %; Platelet Count 259 k/uL (150-450); RBC 4.03 m/uL (3.80-5.40); RDW 14.2 % (11.5-15.5); WBC 14.9 k/uL (3.8-10.6)
[2019-01-14 10:01] LABS: Albumin 3.4 g/dL (3.5-5.0); Potassium 3.8 mmol/L (3.5-5.1); Total Bilirubin 0.4 mg/dL (0.2-1.3); Total Protein 5.9 g/dL (6.3-8.2)
--- NOTE | 2019-01-14 10:44 | P.PN ---
Subjective Progress Note Date: 01/14/19 Principal diagnosis: Acute exacerbation of mild intermittent bronchial asthma. 63-year-old female patient with known history of severe persistent bronchial asthma will contact my office on Saturday stating that she was having some increased cough and congestion and wheezing and shortness of breath. Subsequently, she developed pain across her chest wall because of her recurrent cough and. Following that she started complaining of low back pain and she started having episodes of hematuria and she end up coming into the emergency department. Her UA was abnormal and there was blood/microscopic and further investigation with a CAT scan of the abdomen and pelvis showed a right-sided hydronephrosis with a right-sided renal calculus. She was admitted to the floor and a pulmonary consultation was requested in addition to a urology consultation. The CAT scan of the abdomen identified to her renal stones on the right. One of them was 1 cm in size. She had a very mild hydronephrosis on the right. She has chronic left-sided back pain. In terms of the stone, the patient will have a shock wave lithotripsy on outpatient basis by Dr. Jez Faust. In terms of her breathing, the chest x-ray is not showing any acute abnormalities. Blood work and electrodes are all within normal limits. Patient has been maintained on Advair 500/50 Diskus in addition to Singulair an o utpatient basis and she has albuterol/ipratropium nebulized treatments around the clock and promethazine with codeine for cough suppression. She has had previous hospitalization for asthma exacerbation. She is also on long-term and coagulation for Xarelto Patient was reevaluated today on 01/12/2019, feeling a bit better, however she continues to have intermittent episodes of cough wheezing and shortness of breath. But overall she tells me that she is much improved compared to how she felt on admission.remains on multiple bronchodilators and steroids. She count is 14.4 hemoglobin is 11.3 and was are normal renal profile is normal. Troponin is less than 0.012.chest x-ray on admission showed no evidence of infiltrate.patient remains on bronchodilators including DuoNeb, methylprednisolone,and Pulmicort. The patient is seen today in follow-up on the regular medical floor. She is awake and alert in no acute distress. She continues with a dry nonproductive cough. No fever or chills. Maintain O2 saturations in the mid 90s on room air. Urine culture was positive for E. coli. Blood culture reveals no growth. White count 22. Hemoglobin 11.0. Creatinine 0.99. Bicarb 18. She is continued on DuoNeb inhalations, Pulmicort inhalations, IV Cymetra. Antibiotics in the form of Zosyn. Anticoagulated with Xarelto. The patient is seen today 01/14/2019 in follow-up on the regular medical floor. Currently resting comfortably in bed. Awake and alert in no acute distress. She is back to her baseline as far as her breathing is concerned. Maintaining O2 saturations in the mid 90s on room air. She's been afebrile. Hemodynamically stable. Blood culture shows no growth. Urine positive for E. coli. White count 14.5. Hemoglobin 11.4. Creatinine 0.98. She is currently on Zosyn. Remains on DuoNeb inhalations, Pulmicort inhalations, oral prednisone. Objective - Vital Signs Vital signs: Vital Signs Temp 98.0 F 01/14/19 05:25 Pulse 68 01/14/19 07:51 Resp 20 01/14/19 08:00 BP 127/78 01/14/19 05:25 Pulse Ox 94 L 01/14/19 07:41 Intake & Output 01/13/19 01/14/19 01/14/19 18:59 06:59 18:59 Intake Total 200 Output Total 1 Balance 199 Intake: Oral 200 Output: Urine 1 Other: # Voids 3 1 - Exam GENERAL EXAM: Alert, active, 63-year-old female patient, on room air, comfortable in no apparent distress. HEAD: Normocephalic. EYES: Normal reaction of pupils, equal size. NOSE: Clear with pink turbinates. THROAT: No erythema or exudates. NECK: No masses, no JVD. CHEST: No chest wall deformity. LUNGS: Equal air entry with no crackles, wheeze, rhonchi or dullness. CVS: S1 and S2 normal with no audible murmur, regular rhythm. ABDOMEN: No hepatosplenomegaly, normal bowel sounds, no guarding or rigidity. SPINE: No scoliosis or deformity SKIN: No rashes CENTRAL NERVOUS SYSTEM: No focal deficits, tone is normal in all 4 extremities. EXTREMITIES: There is no peripheral edema. No clubbing, no cyanosis. Peripheral pulses are intact. - Labs CBC & Chem 7: 01/14/19 08:55 01/14/19 08:55 Labs: Abnormal Lab Results - Last 24 Hours (Table) 01/13/19 01/13/19 01/13/19 Range/Units 13:01 16:58 20:00 WBC (3.8-10.6) k/uL Neutrophils # (1.3-7.7) k/uL Chloride (98-107) mmol/L Carbon Dioxide (22-30) mmol/L BUN (7-17) mg/dL Glucose (74-99) mg/dL POC Glucose (mg/dL) 146 H 198 H 162 H (75-99) mg/dL Total Protein (6.3-8.2) g/dL Albumin (3.5-5.0) g/dL 01/14/19 01/14/19 Range/Units 08:55 08:55 WBC 14.9 H (3.8-10.6) k/uL Neutrophils # 11.6 H (1.3-7.7) k/uL Chloride 114 H (98-107) mmol/L Carbon Dioxide 21 L (22-30) mmol/L BUN 23 H (7-17) mg/dL Glucose 130 H (74-99) mg/dL POC Glucose (mg/dL) (75-99) mg/dL Total Protein 5.9 L (6.3-8.2) g/dL Albumin 3.4 L (3.5-5.0) g/dL Microbiology - Last 24 Hours (Table) 01/09/19 21:10 Blood Culture - Preliminary Blood No Growth after 96 hours Assessment and Plan Assessment: Impression: 1 acute exacerbation of mild intermittent asthma 2 acute purulent tracheobronchitis 3 urinary tract infection secondary to E. coli 4 nephrolithiasis with hematuria and the right mild hydronephrosis 5 history of deep vein thrombosis, chronically on anticoagulation therapy/Xarelto 6 multiple comorbidities including hypertension, chronic low back pain, scoliosis, diverticular disease, hiatal hernia, and history of bowel obstruction. Plan: The patient was seen and evaluated by Dr. Graham. She is stable from the pulmonary standpoint. Cleared for discharge. Follow up with Dr. Drummond in our office in 1-2 weeks' time. I, the cosigning physician, performed a history & physical examination of the patient. Lungs sounds are clear. Maintaining good O2 saturations in the 90s on room air. I discussed the assessment and plan of care with my nurse practitioner, Jamee De Souza. I attest to the above note as dictated by her.
--- NOTE | 2019-01-14 12:06 | P.DS ---
Providers Date of admission: 01/10/19 12:26 Expected date of discharge: 01/14/19 Attending physician: Nighat Francois Consults: 01/09/19 20:00 Consult Physician Stat Consulting Provider: Cheryl Lae Consult Reason/Comments: Chest pain Do you want consulting provider notified?: Yes 01/10/19 11:58 Consult Physician Routine Consulting Provider: Jerson Vargas Consult Reason/Comments: hydronephrosis Do you want consulting provider notified?: Yes 01/10/19 12:11 Consult Physician Routine Consulting Provider: Clementine Drummond Consult Reason/Comments: copd Do you want consulting provider notified?: Yes Primary care physician: Nighat Francois [facility] Course: Discharge diagnosis #1 episodes of chest pain with abnormal EKG. per cardiology chest discomfort likely pleuritic in nature 2-D echo has been ordered consider outpatient stress test. 2-D echo showing EF 60-65%. Per cardiology no further inpatient workup recommend outpatient stress testing in the future #2 urinary tract infection. Patient remains on Zosyn. Urine culture showing E. coli. Patient is on Zosyn. Patient will be discharged on Augmentin for 1 week #3 hematuria #4 right sided hydronephrosis with evidence of 2 right sided renal calculi. Per urology services no plans for surgical intervention. Patient will need outpatient intervention once infection is cleared and Xarelto held. #5 history of pulmonary embolism maintained on Xarelto #6 underlying history of COPD, with mild exacerbation. Pulmonary service is consulted. She was started on IV Solu-Medrol per pulmonary. Patient has been cleared by pulmonary services for discharge. Patient will be discharged on prednisone taper and follow up with pulmonary services in 1 week #7 acute bronchitis was severe cough #8 underlying history of hypertension #9 underlying history of hyperlipidemia #10 previous history of CVA #11 previous history of atrial septal defect underwent placement of umbrella closure device. #12 underlying history of depression maintained on Lexapro #13 underlying history of anxiety disorder maintained on Xanax #14 underlying history of chronic back pain maintained on [place] when necessary Hospital course Rhianna Chilel is a 63-year-old female well known to my practice who presented to [facility] emergency room with multiple complaints, she was complaining of cough and shortness of breath for several days, subsequently she developed pain in the lower part of her chest that she thought was related to coughing, patient also was complaining of low back pain and started having episodes of hematuria, she was evaluated in the emergency room, she had an abnormal EKG that revealed ST and T-wave changes in the anterior and inferior le ads, she also had evidence of urinary tract infection and evidence of hematuria was large blood in the urine. Computed tomography scan of the abdomen and pelvis revealed evidence of right sided hydronephrosis and to right-sided renal calculi. She was admitted to medical floor, she was started on IV antibiotics, serial EKG and cardiac enzymes were ordered, cardiology and urology consultations were initiated. On 01/11/2018 patient alert and oriented 3. Patient is still having cough shortness of breath. Pulmonary services have been consulted. Patient denies chest pain. Patient denies nausea vomiting or diarrhea. Patient denies any urinary burning or frequency. Patient was eval by urology services no plans for inpatient intervention at this time. On 01/12/2019 patient is alert and oriented 3. Patient started on Solu-Medrol per pulmonary services. No further workup and patient per urology or cardiology services. Patient is still having some shortness of breath with cough. Patient denies chest pain. Patient denies nausea vomiting or diarrhea. Patient denies any urinary burning or frequency. On 01/13/2019 patient remains short of breath with cough. Patient delivered 903. Patient remains on IV Solu-Medrol and pulmonary services following. Mucinex added. Chest discomfort occurring with coughing. Patient was evaluated and cleared by cardiology services. Patient denies nausea vomiting or diarrhea. Patient denies any urinary burning or frequency. On 01/14/2019 patient is alert and oriented 3. Patient reports that she feels much improved. Patient has been cleared by pulmonary services for discharge. Patient denies chest pain or shortness of breath. Patient denies nausea vomiting or diarrhea. Patient denies any urinary burning or frequency. Patient to follow-up with nephrology services outpatient for further workup. Patient will be discharged on Augmentin for urinary tract infection with E. coli. Patient also be discharged on prednisone taper for acute asthma exacerbation. Patient follow-up PCP in consulting providers for further management I performed an examination of the patient and discussed their management with the Nurse Practitioner. I have reviewed the Nurse Practitioner's notes and agree with the documented findings and plan of care Patient Condition at Discharge: Stable Plan - Discharge Summary Discharge Rx Participant: No New Discharge Prescriptions: New predniSONE 10 mg PO DIRECTED 12 Days #30 tab Amoxicillin/Potassium Clav [Augmentin 500-125 Tablet] 1 tab PO Q12HR 7 Days #14 tab Continue Promethaz-Cod 6.25-10 mg/5 ml [Phenergan with Codeine] 10 ml PO Q8H PRN PRN Reason: Cough Rivaroxaban [Xarelto] 20 mg PO DAILY Diazepam [Valium] 10 mg PO TID Ipratropium Nebulized [Atrovent Nebulized 0.2 MG/ML] 0.5 mg INHALATION RT-TID PRN PRN Reason: ASTHMA SX Ibandronate Sodium [Boniva] 150 mg PO QMONTH Fluticasone/Salmeterol [Advair 500-50 Diskus] 1 puff INHALATION RT-DAILY Montelukast [Singulair] 10 mg PO HS Escitalopram [Lexapro] 10 mg PO DAILY Pantoprazole Sodium [Protonix] 40 mg PO DAILY ALPRAZolam [Xanax] 0.25 mg PO TID PRN PRN Reason: Anxiety Pravastatin Sodium [Pravachol] 40 mg PO HS Melatonin 10 mg PO HS PRN PRN Reason: Insomnia Ergocalciferol (Vitamin D2) [Drisdol] 50,000 unit PO MO Discharge Medication List Diazepam [Valium] 10 mg PO TID 05/24/15 [History] Ibandronate Sodium [Boniva] 150 mg PO QMONTH 05/24/15 [History] Ipratropium Nebulized [Atrovent Nebulized 0.2 MG/ML] 0.5 mg INHALATION RT-TID PRN 05/24/15 [History] Promethaz-Cod 6.25-10 mg/5 ml [Phenergan with Codeine] 10 ml PO Q8H PRN 05/24/15 [History] Rivaroxaban [Xarelto] 20 mg PO DAILY 05/24/15 [History] Fluticasone/Salmeterol [Advair 500-50 Diskus] 1 puff INHALATION RT-DAILY 04/08/16 [History] Escitalopram [Lexapro] 10 mg PO DAILY 05/20/17 [History] Montelukast [Singulair] 10 mg PO HS 05/20/17 [History] Pantoprazole Sodium [Protonix] 40 mg PO DAILY 05/20/17 [History] ALPRAZolam [Xanax] 0.25 mg PO TID PRN 11/21/17 [History] Melatonin 10 mg PO HS PRN 11/21/17 [History] Pravastatin Sodium [Pravachol] 40 mg PO HS 11/21/17 [History] Ergocalciferol (Vitamin D2) [Drisdol] 50,000 unit PO MO 12/11/17 [History] Amoxicillin/Potassium Clav [Augmentin 500-125 Tablet] 1 tab PO Q12HR 7 Days #14 tab 01/14/19 [Rx] predniSONE 10 mg PO DIRECTED 12 Days #30 tab 01/14/19 [Rx] Follow up Appointment(s)/Referral(s): Cristhian Bradford MD [STAFF PHYSICIAN] - 01/23/19 2:00 pm Nighat Francois MD [Primary Care Provider] - 01/23/19 11:30 am Jez Riojas MD [STAFF PHYSICIAN] - 01/26/19 8:20 am Clementine Drummond MD [STAFF PHYSICIAN] - 01/21/19 10:30 am (Patients previous appointment for this SaturdayJanuary 16 has been cancelled by the office) Patient Instructions/Handouts: Kidney Infection (DC) Activity/Diet/Wound Care/Special Instructions: Activity as tolerated Cardiac diet Discharge Disposition: HOME SELF-CARE
[2019-01-14 12:10] VITALS: PULSE 76
[2019-01-14 12:37] LABS: Glucose,Whole Blood 117 mg/dL (75-99)
== END 2019-01-14 13:50 | disposition home or self-care (01) | DRG 191 ==
LOC: EC 14:24 → 1SOBS 19:45 → OBSVTOIN 01-10 12:26 → INTOOBSV 01-10 12:31 → 4MS4W 01-10 18:26
PROVIDERS: ADMIT Internal Medicine; ATTEND Internal Medicine
DX: J44.0 Chronic obstructive pulmonary disease with (acute) lower respiratory infection (principal); N13.6 Pyonephrosis; Z16.24 Resistance to multiple antibiotics; J20.9 Acute bronchitis, unspecified; J44.1 Chronic obstructive pulmonary disease with (acute) exacerbation; B96.20 Unspecified Escherichia coli [E. coli] as the cause of diseases classified elsewhere; E78.5 Hyperlipidemia, unspecified; F32.9 Major depressive disorder, single episode, unspecified; F41.9 Anxiety disorder, unspecified; G89.29 Other chronic pain; H40.9 Unspecified glaucoma; I10 Essential (primary) hypertension; I25.2 Old myocardial infarction; K21.9 Gastro-esophageal reflux disease without esophagitis; K44.9 Diaphragmatic hernia without obstruction or gangrene; K57.90 Diverticulosis of intestine, part unspecified, without perforation or abscess without bleeding; M41.9 Scoliosis, unspecified; N28.1 Cyst of kidney, acquired; Z79.01 Long term (current) use of anticoagulants; Z79.899 Other long term (current) drug therapy; Z80.1 Family history of malignant neoplasm of trachea, bronchus and lung; Z80.3 Family history of malignant neoplasm of breast; Z86.711 Personal history of pulmonary embolism; Z86.718 Personal history of other venous thrombosis and embolism; Z86.73 Personal history of transient ischemic attack (TIA), and cerebral infarction without residual deficits; Z87.74 Personal history of (corrected) congenital malformations of heart and circulatory system; Z90.710 Acquired absence of both cervix and uterus; Z99.81 Dependence on supplemental oxygen; M81.0 Age-related osteoporosis without current pathological fracture; Z79.83 Long term (current) use of bisphosphonates; Z88.1 Allergy status to other antibiotic agents
CPT/HCPCS: 36415; 71046; 74176; 80053; 81001; 83735; 84484; 85025; 85379; 85610; 85730; 87040; 87077; 87086; 87186; 93005; 93306; 94640; 94760; 96374; 99285

== ENCOUNTER → 2019-02-02 | Outpatient (CLI) | payer MEDICARE ==
[2019-02-02 11:28] LABS: Basophils # (A) 0.1 k/uL (0-0.2); Basophils % (A) 1 %; Eosinophils # (A) 0.3 k/uL (0-0.7); Eosinophils % (A) 5 %; HCT 42.6 % (34.0-46.0); HGB 13.6 gm/dL (11.4-16.0); Lymphocytes # (A) 1.9 k/uL (1.0-4.8); Lymphocytes % (A) 30 %; MCHC 32.1 g/dL (31.0-37.0); MCV 87.5 fL (80.0-100.0); Mean Platelet Volume 6.8; Monocytes # (A) 0.4 k/uL (0-1.0); Monocytes % (A) 6 %; Neutrophils # (A) 3.6 k/uL (1.3-7.7); Neutrophils % (A) 57 %; Platelet Count 286 k/uL (150-450); RBC 4.87 m/uL (3.80-5.40); RDW 13.8 % (11.5-15.5); WBC 6.4 k/uL (3.8-10.6)
[2019-02-02 11:43] LABS: Appearance,Urine Clear (Clear); Bacteria,Urine Rare /hpf; Bilirubin,Urine Negative (Negative); Blood,Urine Negative (Negative); Color,Urine Yellow; Glucose,Urine (UA) Negative (Negative); Ketones,Urine Negative (Negative); Leukocyte Esterase,Urine Trace (Negative); Mucus,Urine Moderate /hpf; Nitrite,Urine Negative (Negative); PH, Urine 5.5 (5.0-8.0); Protein,Urine Trace (Negative); RBC,Urine 2 /hpf (0-5); Specific Gravity,Urine 1.021 (1.001-1.035); Squamous Epithelial Cell,Urine 1 /hpf (0-4); Urobilinogen,Urine <2.0 mg/dL (<2.0); WBC,Urine 3 /hpf (0-5)
== END | disposition home or self-care (01) ==
LOC: LABPAT 10:42
PROVIDERS: ATTEND Urology
DX: Z01.812 Encounter for preprocedural laboratory examination (principal); N20.0 Calculus of kidney; R35.0 Frequency of micturition
CPT/HCPCS: 80051; 81001; 82565; 84520; 85025; 87086

== ENCOUNTER 2019-02-09 06:16 | Day surgery (SDC) | payer MEDICARE ==
[2019-02-05 12:40] VITALS: BMI 25.7
--- NOTE | 2019-02-06 14:46 | P.GSHP ---
History of Present Illness H&P Date: 02/06/19 63 yo female with a 10 mm stone in the right renal pelvis with pain who comes for eswl Alternatives, risks and complications have been discussed. Past Medical History Past Medical History: Asthma, Chest Pain / Angina, CVA/TIA, Deep Vein Thrombosis (DVT), GERD/Reflux, Hyperlipidemia, Hypertension, Osteoarthritis (OA), Pneumonia, Pulmonary Embolus (PE) Additional Past Medical History / Comment(s): CVA LOST LT PERIPHERAL VISION AND WRITING IS A BIT DIFFICULT & FEW TIA'S, TREMORS SINCE.PE/ XUAN DVT (AFTER LAST 2 MAJOR SURG). HX BOWEL OBSTRUCTION. USED TO TAKE MEDS FOR BP , OSTEOPOROSIS. BACK PAIN. ,RADS,CHRONIC BRONCHITIS, SCOLIOSIS, BROKE RT WRIST D/T FALL 2009, SMALL HIATAL HERNIA,DIVERTICULAR DISEASE, UTI,GLAUCOMA, kidney stones History of Any Multi-Drug Resistant Organisms: MRSA, Other MDRO Date of last positivie culture/infection: 07/12/08-MRSA MDRO Source:: URINE-MRSA Past Surgical History: Appendectomy, Back Surgery, Bladder Surgery, Bowel Resection, Breast Surgery, Cholecystectomy, Heart Catheterization, Hernia Repair, Hysterectomy, Orthopedic Surgery, Tubal Ligation Additional Past Surgical History / Comment(s): 12-28-15 LAP INC HERNIA REPAIR, 2 PREVIOUS HERNIA SX ,2 HOLES IN HEART REPAIRED, ATRIUM, SEPTUM - HAS "UMBRELLA" CLOSURE DEVICE. BREAST REDUCTION. cystoscopy CYSTOCELE, RECTOCELE REPAIR. RT FOOT. EXC CYST LT ARM,LT FOOT REPAIR CYSTOSCOPY,LT BREAST BX-NEG, BUNIONECTOMY,GANGLION CYST REMOVED BRONCOSCOPIES,EGD/COLONOSCOPY,XUAN CATARACTS,hammer toe-pins removed. neuroma-bone removed/pins removed. lt toe , rt wrist nerve sx, Past Anesthesia/Blood Transfusion Reactions: No Reported Reaction Smoking Status: Never smoker - Past Family History Father Brother(s) Family Medical History: Cancer Additional Family Medical History / Comment(s): LUNG CANCER Sister(s) Family Medical History: Cancer Additional Family Medical History / Comment(s): # 1 SISTER-BONE CA,SISTER #2 BREAST CA, SISTER #3 LUNG,STOMACH,ESOPHAGUS Mother Family Medical History: Deep Vein Thrombosis (DVT) Additional Family Medical History / Comment(s): diverticulitis Medications and Allergies Home Medications Medication Instructions Recorded Confirmed Type Diazepam [Valium] 10 mg PO TID 05/24/15 02/05/19 History Ibandronate Sodium [Boniva] 150 mg PO QMONTH 05/24/15 02/05/19 History Ipratropium Nebulized [Atrovent 0.5 mg INHALATION RT-TID PRN 05/24/15 02/05/19 History Nebulized 0.2 MG/ML] Promethaz-Cod 6.25-10 mg/5 ml 10 ml PO Q8H PRN 05/24/15 02/05/19 History [Phenergan with Codeine] Rivaroxaban [Xarelto] 20 mg PO DAILY 05/24/15 02/05/19 History Fluticasone/Salmeterol [Advair 1 puff INHALATION RT-DAILY 04/08/16 02/05/19 History 500-50 Diskus] Escitalopram [Lexapro] 10 mg PO DAILY 05/20/17 02/05/19 History Montelukast [Singulair] 10 mg PO HS 05/20/17 02/05/19 History Pantoprazole Sodium [Protonix] 40 mg PO DAILY 05/20/17 02/05/19 History ALPRAZolam [Xanax] 0.25 mg PO TID PRN 11/21/17 02/05/19 History Melatonin 10 mg PO HS PRN 11/21/17 02/05/19 History Pravastatin Sodium [Pravachol] 40 mg PO HS 11/21/17 02/05/19 History Ergocalciferol (Vitamin D2) 50,000 unit PO MO 12/11/17 02/05/19 History [Drisdol] HYDROcodone/APAP 7.5-325MG [[place] 0.5 - 1 tab PO Q6HR PRN 02/05/19 02/05/19 History 7.5-325] Allergies Allergy/AdvReac Type Severity Reaction Status Date / Time cephalexin monohydrate Allergy Rash/Hives Verified 02/05/19 12:28 [From Keflex] clarithromycin [From Biaxin] Allergy Rash/Hives Verified 02/05/19 12:28 levofloxacin [From Levaquin] Allergy Rash/Hives Verified 02/05/19 12:28 Quinolones Allergy Rash/Hives Verified 02/05/19 12:28 Surgical - Exam - General well developed, well nourished, no distress - Eyes PERRL - ENT no hearing loss - Neck no masses, trachea midline - Respiratory normal expansion, normal respiratory effort - Cardiovascular Rhythm: regular - Abdomen Abdomen: soft, non tender - Integumentary no rash, no growths - Neurologic normal coordination, normal sensation - Musculoskeletal normal gait, normal posture - Psychiatric oriented to time, oriented to person, oriented to place, speech is normal, memory intact Assessment and Plan Assessment: Impression: Right renal calculous Plan: Eswl right
[~2019-02-09 06:16] MED LIST changes: +DEXAMETHASONE SOD PHOSPHATE 10 MG/ML 1 ML VIAL IV ONE; -HEPARIN SODIUM,PORCINE 5,000 UNIT/ML 1 ML VIAL SQ ONE; +LACTATED RINGERS 1,000 ML IV SCH; +LIDOCAINE 1% 20 ML VIAL (10MG/ML) FOR IV START INTRADERMA PRN; +MIDAZOLAM 2 MG/2 ML VIAL IV PRN; +ONDANSETRON 4 MG/2 ML VIAL IVP ONE; -ceFAZolin IN SWFI 2 GM/20 ML SYRINGE IVP ONE; +fentaNYL (PF) 50 MCG/ML 2 ML AMP IV PRN
--- NOTE | 2019-02-09 06:49 | XR ---
EXAMINATION TYPE: XR KUB DATE OF EXAM: 02/09/2019 COMPARISON: 12/09/2010 HISTORY: Kidney stones TECHNIQUE: 2 views FINDINGS: There is posterior fusion surgery in the lower lumbar spine. There are clips from cholecyst ectomy. There is no sign of intestinal obstruction or pneumoperitoneum. Fecal pattern is normal. Ther e is a 8 mm calcification in the right paraspinal region at the L2-3 level. There are phleboliths in the pelvis. Lung bases are clear of consolidation. IMPRESSION: Calcification in the right upper quadrant could BE a proximal ureteral calculus. Nonacute abdomen.
[2019-02-09 07:10] VITALS: TEMP 98.7
[2019-02-09] MEDS ORDERED: fentaNYL (PF) 50 MCG/ML 2 ML AMP ONE (07:40)
[2019-02-09] MEDS ORDERED: PROPOFOL 10 MG/ML 20 ML VIAL IV ONE (07:40)
[2019-02-09] MEDS ORDERED: MIDAZOLAM 2 MG/2 ML VIAL ONE (07:40)
--- NOTE | 2019-02-09 08:25 | P.OP ---
Date of Procedure: 02/09/19 Preoperative Diagnosis: Right renal calculus Postoperative Diagnosis: Right renal calculus Procedure(s) Performed: Extracorporal shock wave lithotripsy of right renal calculus Anesthesia: MAC Surgeon: Jerson Vargas Estimated Blood Loss (ml): 0 Pathology: none sent Condition: stable Disposition: PACU Indications for Procedure: The patient is a 63 year old with intermittent right flank pain from a 6x8 mm calculus located at the right UPJ. Treatment options and risks were reviewed with Dr Riojas and ESWL has been chosen. Description of Procedure: The patient was taken to the operating suite and placed in the supine position on the fluoroscopy table. Adequate intravenous sedation was given. The right renal calculus was localized using biplanar fluoroscopy. Lithotripsy was performed using the Dornier compact delta unit. The patient received 2000 shocks at level 4 and 500 at level 5. A 2 minute pause was taken after 200 shocks. There appeared to be fragmentation of the calculus. Anesthesia was reversed and the patient was taken to the recovery room awake and in satisfactory condition. She'll be seen back in 1 week at which time a KUB will be obtained. She has been given a prescription of Flomax to help facilitate passage of the fragments.
[2019-02-09 08:32] VITALS: RESP 16
[2019-02-09] MEDS ORDERED: HYDROcodone/APAP 7.5-325MG 1 EACH TAB PO ONE (08:50)
[2019-02-09 09:36] VITALS: BP 117/68; PULSE 85
== END 2019-02-09 09:44 | disposition home or self-care (01) ==
LOC: ORWHC2ENDO 06:16
PROVIDERS: ATTEND Urology
DX: N20.0 Calculus of kidney (principal); J45.909 Unspecified asthma, uncomplicated; I20.9 Angina pectoris, unspecified; I10 Essential (primary) hypertension; I69.398 Other sequelae of cerebral infarction; H53.8 Other visual disturbances; R25.1 Tremor, unspecified; K21.9 Gastro-esophageal reflux disease without esophagitis; E78.5 Hyperlipidemia, unspecified; M19.90 Unspecified osteoarthritis, unspecified site; Z87.01 Personal history of pneumonia (recurrent); Z86.711 Personal history of pulmonary embolism; Z86.718 Personal history of other venous thrombosis and embolism; M81.0 Age-related osteoporosis without current pathological fracture; J42 Unspecified chronic bronchitis; M41.9 Scoliosis, unspecified; Z87.442 Personal history of urinary calculi; H40.9 Unspecified glaucoma; Z86.14 Personal history of Methicillin resistant Staphylococcus aureus infection; Z87.440 Personal history of urinary (tract) infections; Z90.49 Acquired absence of other specified parts of digestive tract; Z90.710 Acquired absence of both cervix and uterus; Z98.51 Tubal ligation status; Z98.42 Cataract extraction status, left eye; Z98.41 Cataract extraction status, right eye; Z95.818 Presence of other cardiac implants and grafts; Z98.890 Other specified postprocedural states; Z80.1 Family history of malignant neoplasm of trachea, bronchus and lung; Z80.3 Family history of malignant neoplasm of breast; Z80.0 Family history of malignant neoplasm of digestive organs; Z80.8 Family history of malignant neoplasm of other organs or systems; Z84.89 Family history of other specified conditions; Z79.01 Long term (current) use of anticoagulants; Z79.891 Long term (current) use of opiate analgesic; Z79.51 Long term (current) use of inhaled steroids; Z79.899 Other long term (current) drug therapy; Z88.1 Allergy status to other antibiotic agents
CPT/HCPCS: 74018; 50590; J2250; J1100; J2405; J3010; J2704

== ENCOUNTER → 2019-02-16 | Outpatient (CLI) | payer MEDICARE ==
--- NOTE | 2019-02-16 14:33 | XR ---
KUB HISTORY: Kidney stone, post surgery Frontal KUB and 2 images correlated to prior KUB 02/09/2019, CT 01/09/2019 Postop changes are again noted in the lumbar spine and pelvis. The proximal right ureteral calculus s een on prior plain film is no longer seen. Surgical clips are present right upper quadrant. Multiple calcifications are again seen within the pelvis. No other significant interval change. IMPRESSION: Proximal right ureteral calculus no longer evident.
== END | disposition home or self-care (01) ==
LOC: RADXRMAIN 10:22
PROVIDERS: ATTEND Urology
DX: N20.0 Calculus of kidney (principal); Z98.890 Other specified postprocedural states
CPT/HCPCS: 74018

== ENCOUNTER 2019-05-28 12:03 | Inpatient (IN) | payer MEDICARE ==
[2019-05-28] MEDS ORDERED: IPRATROPIUM-ALBUTEROL 3 ML NEB INHALATION PRN (14:21)
--- NOTE | 2019-05-28 14:50 | P.HPIM ---
History of Present Illness H&P Date: 05/28/19 Chief Complaint: Acute exacerbation of asthma This is a 63-year-old female patient who presented as a direct admit from her PCP. Patient presented with complaints of shortness of breath and coughing over the past month with minimum improvement. Patient does have known past medical history of asthma, chest pain, CVA, DVT, GERD, hyperlipidemia, hypertension, osteoarthritis, pneumonia pulmonary embolism and anxiety and depression. At this time patient will be started on IV steroids and DuoNeb breathing treatments. Robitussin with codeine added. Pulmonary service. Chest x-ray will be ordered. Patient has multiple drug ALLERGIES await pulmonary and chest x-ray results for antibiotics. Medicine patient has diminished breath sounds with some expiratory wheezing. Patient reports mild pleuritic discomfort with coughing. Patient denies other chest pain. Patient denies nausea vomiting or diarrhea. Patient denies any urinary burning or frequency. Per patient patient was tested for influenza at PCP was negative. Review of Systems Please refer to HPI otherwise unremarkable Past Medical History Past Medical History: Asthma, Chest Pain / Angina, CVA/TIA, Deep Vein Thrombosis (DVT), GERD/Reflux, Hyperlipidemia, Hypertension, Osteoarthritis (OA), Pneumonia, Pulmonary Embolus (PE) Additional Past Medical History / Comment(s): CVA LOST LT PERIPHERAL VISION AND WRITING IS A BIT DIFFICULT & FEW TIA'S, TREMORS SINCE.PE/ XUAN DVT (AFTER LAST 2 MAJOR SURG). HX BOWEL OBSTRUCTION. USED TO TAKE MEDS FOR BP , OSTEOPOROSIS. BACK PAIN. ,RADS,CHRONIC BRONCHITIS, SCOLIOSIS, BROKE RT WRIST D/T FALL 2009, SMALL HIATAL HERNIA,DIVERTICULAR DISEASE, UTI,GLAUCOMA History of Any Multi-Drug Resistant Organisms: MRSA, Other MDRO Date of last positivie culture/infection: 07/12/08-MRSA MDRO Source:: URINE-MRSA Past Surgical History: Appendectomy, Back Surgery, Bladder Surgery, Bowel Resection, Breast Surgery, Cholecystectomy, Heart Catheterization, Hernia Repair, Hysterectomy, Orthopedic Surgery, Tubal Ligation Additional Past Surgical History / Comment(s): 12-27- LAP INC HERNIA REPAIR, 2 PREVIOUS HERNIA SX ,2 HOLES IN HEART REPAIRED, ATRIUM, SEPTUM - HAS "UMBRELLA" CLOSURE DEVICE. BREAST REDUCTION. cystoscopy CYSTOCELE, RECTOCELE REPAIR. RT FOOT. EXC CYST LT ARM,LT FOOT REPAIR CYSTOSCOPY,LT BREAST BX-NEG, BUNIONECTOMY,GANGLION CYST REMOVED BRONCOSCOPIES,EGD/COLONOSCOPY,XUAN CATARACTS,hammer toe-pins removed. neuroma-bone removed/pins removed. lt toe , rt wrist nerve sx Past Anesthesia/Blood Transfusion Reactions: No Reported Reaction Smoking Status: Never smoker - Past Family History Father Brother(s) Family Medical History: Cancer Additional Family Medical History / Comment(s): LUNG CANCER Sister(s) Family Medical History: Cancer Additional Family Medical History / Comment(s): # 1 SISTER-BONE CA,SISTER #2 BREAST CA, SISTER #3 LUNG,STOMACH,ESOPHAGUS Mother Family Medical History: Deep Vein Thrombosis (DVT) Additional Family Medical History / Comment(s): diverticulitis Medications and Allergies Home Medications Medication Instructions Recorded Confirmed Type Diazepam [Valium] 10 mg PO TID 05/24/15 02/05/19 History Ibandronate Sodium [Boniva] 150 mg PO QMONTH 05/24/15 02/05/19 History Ipratropium Nebulized [Atrovent 0.5 mg INHALATION RT-TID PRN 05/24/15 02/05/19 History Nebulized 0.2 MG/ML] Promethaz-Cod 6.25-10 mg/5 ml 10 ml PO Q8H PRN 05/24/15 02/09/19 History [Phenergan with Codeine] Rivaroxaban [Xarelto] 20 mg PO DAILY 05/24/15 02/05/19 History Fluticasone/Salmeterol [Advair 1 puff INHALATION RT-DAILY 04/08/16 02/05/19 History 500-50 Diskus] Escitalopram [Lexapro] 10 mg PO DAILY 05/20/17 02/09/19 History Montelukast [Singulair] 10 mg PO HS 05/20/17 02/09/19 History Pantoprazole Sodium [Protonix] 40 mg PO DAILY 05/20/17 02/09/19 History ALPRAZolam [Xanax] 0.25 mg PO TID PRN 11/21/17 02/05/19 History Melatonin 10 mg PO HS PRN 11/21/17 02/05/19 History Pravastatin Sodium [Pravachol] 40 mg PO HS 08/30/18 11/14/19 History Ergocalciferol (Vitamin D2) 50,000 unit PO MO 12/11/17 02/09/19 History [Drisdol] HYDROcodone/APAP 7.5-325MG [[place] 0.5 - 1 tab PO Q6HR PRN 02/05/19 02/09/19 History 7.5-325] Tamsulosin [Flomax] 0.4 mg PO DAILY #10 cap 02/09/19 Rx Allergies Allergy/AdvReac Type Severity Reaction Status Date / Time cephalexin monohydrate Allergy Rash/Hives Verified 02/09/19 07:10 [From Keflex] clarithromycin [From Biaxin] Allergy Rash/Hives Verified 02/09/19 07:10 levofloxacin [From Levaquin] Allergy Rash/Hives Verified 02/09/19 07:10 Quinolones Allergy Rash/Hives Verified 02/09/19 07:10 Physical Exam Vitals: Vital Signs Temp Pulse Resp BP Pulse Ox 05/28/19 14:23 98 F 101 H 17 111/76 94 L Head normocephalic Neck supple Lungs diminished bilaterally with expiratory wheezing Heart regular rate and rhythm S1-S2, no rub or gallop Abdomen is soft nontender nondistended positive bowel sounds no hepatosplenomegaly Extremities no edema Neuro alert and orientated to 3 Assessment and Plan Assessment: 1. Dyspnea with cough secondary to acute exacerbation of asthma and bronchitis. Patient will be started Solu-Medrol and DuoNeb breathing treatments pulmonary services will be consulted Nani with codeine negative. Sputum culture ordered chest x-ray ordered 2. History of asthma 3. History of CVA 4. History of PE and DVT 5. History of hyperlipidemia 6. History of essential hypertension 7. History of CVA 8. History of chronic back pain. Patient maintained on [place] 9. History of atrial septal defect and replacement of breath with closure procedure Time with Patient: Greater than 30 (Greater than 60% of the total time spent in counseling and coordination of care. I performed an examination of the patient and discussed their management with the Nurse Practitioner. I have reviewed the Nurse Practitioner's notes and agree with the documented findings and plan of care)
[2019-05-28] MEDS: guaiFENesin-Coden 100-10MG/5ML 10 ML CUP PO PRN ×2 (14:57→21:33)
[2019-05-28 15:15] LABS: Basophils % (A) 0 %; Eosinophils # (A) 0.3 k/uL (0-0.7); Eosinophils % (A) 4 %; HCT 46.7 % (34.0-46.0); HGB 14.7 gm/dL (11.4-16.0); Lymphocytes % (A) 22 %; MCH 26.7 pg (25.0-35.0); MCHC 31.5 g/dL (31.0-37.0); MCV 84.6 fL (80.0-100.0); Mean Platelet Volume 7.6; Monocytes # (A) 0.6 k/uL (0-1.0); Monocytes % (A) 6 %; Neutrophils # (A) 6.1 k/uL (1.3-7.7); Neutrophils % (A) 66 %; Platelet Count 310 k/uL (150-450); RBC 5.52 m/uL (3.80-5.40); RDW 13.5 % (11.5-15.5); WBC 9.3 k/uL (3.8-10.6)
[2019-05-28] MEDS: methylPREDNISolone SOD SUCCI 125 MG/2 ML VIAL IV SCH (15:24)
[2019-05-28] MEDS: MORPHINE SULFATE 2 MG/ML SYRINGE IVP PRN ×2 (15:25→21:37)
[2019-05-28 15:32] LABS: Calcium 10.3 mg/dL (8.4-10.2); Potassium 4.4 mmol/L (3.5-5.1); Total Bilirubin 0.4 mg/dL (0.2-1.3); Total Protein 8.1 g/dL (6.3-8.2)
[2019-05-28] MEDS ORDERED: ZOLPIDEM 10 MG TAB PO PRN (15:52)
[2019-05-28] MEDS ORDERED: PROMETHAZ COD PO PRN (15:52)
[2019-05-28] MEDS ORDERED: ALPRAZolam 0.5 MG TAB PO PRN (15:52)
--- NOTE | 2019-05-28 15:57 | P.CNPUL ---
History of Present Illness Consult date: 05/28/19 Reason for consult: dyspnea, asthma History of present illness: 63-year-old female patient was seen today at Dr. Francois office for shortness of breath and cough. She had a influenza screen came back negative. The patient is very well-known to me. She has asthma. She has had also previous history of CVA, DVT, hypertension and hyperlipidemia and previous history of pulmonary embolism that she also suffers from chronic anxiety/depression. She was sent over from doctor's office in a direct admit. Her white cell count is at 9.3 with a hemoglobin 14.7. Chest x-ray still pending for now. Start IV Solu- Medrol 60 mg every 8 hours in addition to DuoNeb updrafts [id number] Note that the patient has a component of moderate persistent bronchial asthma and she has been maintained on an Advair discus. She also uses albuterol updrafts on an as-needed basis. She is a nonsmoker. Review of Systems Constitutional: Denies chills, Denies fever Eyes: denies as per HPI, denies blurred vision, denies bulging eye, denies decreased vision, denies diplopia, denies discharge, denies dry eye, denies irritation, denies itching, denies pain, denies photophobia, denies loss of peripheral vision, denies loss of vision, denies tunnel vision/blind spots Ears: deny: decreased hearing, ear discharge, earache, tinnitus Ears, nose, mouth and throat: Denies headache, Denies sore throat Breasts: absent: as per HPI, change in shape, gynecomastia, masses, nipple discharge, pain, skin changes, swelling Cardiovascular: Reports decreased exercise tolerance, Reports dyspnea on exertion, Reports shortness of breath Respiratory: Reports cough, Reports cough with sputum, Reports dyspnea, Reports wheezing, reports chest wall pain especially with coughing. Gastrointestinal: Denies abdominal pain, Denies diarrhea, Denies nausea, Denies vomiting Genitourinary: Reports flank pain, Reports hematuria, Reports kidney stones Menstruation: Reports as per HPI Musculoskeletal: Reports as per HPI, Reports low back pain Musculoskeletal: absent: ankle pain, ankle stiffness, ankle swelling Integumentary: Denies pruritus, Denies rash Neurological: Reports as per HPI Psychiatric: Reports as per HPI Endocrine: Reports as per HPI Hematologic/Lymphatic: Reports as per HPI Past Medical History Past Medical History: Asthma, Chest Pain / Angina, CVA/TIA, Deep Vein Thrombosis (DVT), GERD/Reflux, Hyperlipidemia, Hypertension, Osteoarthritis (OA), Pneumo cici, Pulmonary Embolus (PE) Additional Past Medical History / Comment(s): CVA LOST LT PERIPHERAL VISION AND WRITING IS A BIT DIFFICULT & FEW TIA'S, TREMORS SINCE.PE/ XUAN DVT (AFTER LAST 2 MAJOR SURG). HX BOWEL OBSTRUCTION. USED TO TAKE MEDS FOR BP , OSTEOPOROSIS. BACK PAIN. ,RADS,CHRONIC BRONCHITIS, SCOLIOSIS, BROKE RT WRIST D/T FALL 2009, SMALL HIATAL HERNIA,DIVERTICULAR DISEASE, UTI,GLAUCOMA History of Any Multi-Drug Resistant Organisms: MRSA, Other MDRO Date of last positivie culture/infection: 07/12/08-MRSA MDRO Source:: URINE-MRSA Past Surgical History: Appendectomy, Back Surgery, Bladder Surgery, Bowel Resection, Breast Surgery, Cholecystectomy, Heart Catheterization, Hernia Repair, Hysterectomy, Orthopedic Surgery, Tubal Ligation Additional Past Surgical History / Comment(s): 12-28-15 [employer] HERNIA REPAIR, 2 PREVIOUS HERNIA SX 2004/2009,2 HOLES IN HEART REPAIRED, ATRIUM, SEPTUM - HAS "UMBRELLA" CLOSURE DEVICE. BREAST REDUCTION. cystoscopy CYSTOCELE, RECTOCELE REPAIR. RT FOOT. EXC CYST LT ARM,LT FOOT REPAIR CYSTOSCOPY,LT BREAST BX-NEG, BUNIONECTOMY,GANGLION CYST REMOVED BRONCOSCOPIES,EGD/COLONOSCOPY,XUAN CATARACTS,hammer toe-pins removed. neuroma-bone removed/pins removed. lt toe , rt wrist nerve sx Past Anesthesia/Blood Transfusion Reactions: No Reported Reaction Smoking Status: Never smoker - Past Family History Father Brother(s) Family Medical History: Cancer Additional Family Medical History / Comment(s): LUNG CANCER Sister(s) Family Medical History: Cancer Additional Family Medical History / Comment(s): # 1 SISTER-BONE CA,SISTER #2 BREAST CA, SISTER #3 LUNG,STOMACH,ESOPHAGUS Mother Family Medical History: Deep Vein Thrombosis (DVT) Additional Family Medical History / Comment(s): diverticulitis Father Family Medical History: Cancer Additional Family Medical History / Comment(s): Father of lung cancer. Medications and Allergies Home Medications Medication Instructions Recorded Confirmed Type Diazepam [Valium] 10 mg PO TID 05/24/15 05/28/19 History Ibandronate Sodium [Boniva] 150 mg PO QMONTH 05/24/15 05/28/19 History Promethaz-Cod 6.25-10 mg/5 ml 10 ml PO Q8H PRN 05/24/15 05/28/19 History [Phenergan with Codeine] Rivaroxaban [Xarelto] 20 mg PO DAILY 05/24/15 05/28/19 History Fluticasone/Salmeterol [Advair 1 puff INHALATION RT-BID 04/08/16 05/28/19 History 500-50 Diskus] Escitalopram [Lexapro] 10 mg PO DAILY 05/20/17 05/28/19 History Montelukast [Singulair] 10 mg PO HS 05/20/17 05/28/19 History Pantoprazole Sodium [Protonix] 40 mg PO DAILY 05/20/17 05/28/19 History Pravastatin Sodium [Pravachol] 40 mg PO HS 11/21/17 05/28/19 History Ergocalciferol (Vitamin D2) 50,000 unit PO MO 12/11/17 05/28/19 History [Drisdol] HYDROcodone/APAP 7.5-325MG [[place] 0.5 - 1 tab PO TID PRN 02/05/19 05/28/19 History 7.5-325] ALPRAZolam [Xanax] 0.5 mg PO TID PRN 05/28/19 05/28/19 History Albuterol Nebulized [Ventolin 2.5 mg INHALATION RT-QID PRN 05/28/19 05/28/19 History Nebulized] Cyclobenzaprine [Flexeril] 10 mg PO HS 05/28/19 05/28/19 History EPINEPHrine (Auto Inject) [Epipen] 0.3 mg IM ONCE PRN 05/28/19 05/28/19 History Ipratropium-Albuterol Nebulize 3 ml INHALATION RT-QID PRN 05/28/19 05/28/19 History [Duoneb 0.5 mg-3 mg/3 ml Soln] Levalbuterol Nebulized [Xopenex 1.25 mg INHALATION RT-QID PRN 05/28/19 05/28/19 History Nebulized] Zolpidem [Ambien] 10 mg PO HS PRN 05/28/19 05/28/19 History Allergies Allergy/AdvReac Type Severity Reaction Status Date / Time cephalexin monohydrate Allergy Rash/Hives Verified 05/28/19 14:58 [From Keflex] clarithromycin [From Biaxin] Allergy Rash/Hives Verified 05/28/19 14:58 levofloxacin [From Levaquin] Allergy Rash/Hives Verified 05/28/19 14:58 Quinolones Allergy Rash/Hives Verified 05/28/19 14:58 Physical Exam Vitals: Vital Signs Temp Pulse Resp BP Pulse Ox 05/28/19 14:23 98 F 101 H 17 111/76 94 L Intake and Output 05/28/19 05/28/19 05/28/19 06:59 14:59 22:59 Other: Weight 58.967 kg The patient appeared well nourished and normally developed. Vital signs as documented. Head exam is unremarkable. No scleral icterus or corneal arcus noted. Neck is without jugular venous distension, thyromegaly, or carotid bruits. Carotid upstrokes are brisk bilaterally. Lungs diminished breath sounds along with scattered expiratory wheezes and prolonged phase bilaterally. She is also having coughing spells patient when she takes deep breaths and she talks. Cardiac exam reveals the PMI to be normally sized and situated. Rhythm is regular. First and second heart sounds normal. No murmurs, rubs or gallops. Abdominal exam reveals normal bowel sounds, no masses, no organomegaly and no aortic enlargement. Extremities are nonedematous and both femoral and pedal pulses are normal.Examination of the skin revealed no evidence of significant rashes, suspicious appearing nevi or other concerning lesions. Neurologically the patient is awake and alert and there is no focal neurological deficits. Results - Laboratory Findings CBC and BMP: 05/28/19 14:54 05/28/19 14:54 Abnormal lab findings: Abnormal Labs 05/28/19 05/28/19 14:54 14:54 RBC 5.52 H Hct 46.7 H Glucose 107 H Calcium 10.3 H AST 57 H ALT 43 H Assessment and Plan Plan: 1 acute exacerbation of chronic bronchial asthma with acute bronchitis with second and shortness of breath and cough and chest tightness and wheeze. Influenza screen is been done on outpatient basis and was negative. Chest x-ray still pending for now. No fever. No chills. Chest wall pain secondary to cough and. 2 history of nephrolithiasis with secondary hydronephrosis on the right, recovered 3 history of CVA with loss and peripheral vision 4 history of DVT on long-term anticoagulation with Xarelto. 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 Continue IV Solu-Medrol. Chest x-ray to be obtained today. Resume outpatient medications. May need empiric antibiotic coverage, and I'm going to start this patient on Bactrim DS one tablet twice a day. We'll continue to follow.
[2019-05-28] MEDS: DIAZEPAM 5 MG TAB PO SCH ×2 (17:34→23:06)
[2019-05-28] MEDS: SULFAMETHOX-TMP 800-160MG 1 EACH TAB PO SCH (17:34)
[2019-05-28] MEDS: CYCLOBENZAPRINE 10 MG TAB PO SCH (20:00)
[2019-05-28] MEDS: MONTELUKAST 10 MG TAB PO SCH (20:00)
[2019-05-28] MEDS: IPRATROPIUM-ALBUTEROL 3 ML NEB INHALATION SCH ×2 (20:52→20:53)
--- NOTE | 2019-05-28 22:20 | XR ---
EXAMINATION: XR chest 2V DATE AND TIME: 05/28/2019 6:40 PM CLINICAL INDICATION: PHH; Acute bronchitis asthma exacerbation TECHNIQUE: Departmental protocol COMPARISON: 01/09/2019 FINDINGS: Elevated right hemidiaphragm redemonstrated. The lungs are clear. The pleural spaces are negative. The cardiac silhouette is mildly enlarged. The remainder of the mediastinal silhouette is unremarkabl e. The skeletal structures and soft tissues are negative for acute findings. IMPRESSION: No definite acute radiographic process.
[2019-05-29] MEDS: methylPREDNISolone SOD SUCCI 125 MG/2 ML VIAL IV SCH ×4 (00:21→23:01)
[2019-05-29] MEDS: DIAZEPAM 5 MG TAB PO SCH ×3 (08:20→21:13)
[2019-05-29] MEDS: SULFAMETHOX-TMP 800-160MG 1 EACH TAB PO SCH (08:20)
[2019-05-29] MEDS: PANTOPRAZOLE 40 MG TABLET PO SCH (08:20)
[2019-05-29] MEDS: RIVAROXABAN 20 MG TAB PO SCH (08:20)
[2019-05-29] MEDS: ESCITALOPRAM 10 MG TAB PO SCH (08:20)
[2019-05-29] MEDS: guaiFENesin-Coden 100-10MG/5ML 10 ML CUP PO PRN ×3 (08:20→22:57)
[2019-05-29] MEDS: MORPHINE SULFATE 2 MG/ML SYRINGE IVP PRN ×3 (08:25→22:57)
[2019-05-29] MEDS: IPRATROPIUM-ALBUTEROL 3 ML NEB INHALATION SCH ×4 (08:42→20:07)
[2019-05-29 09:10] LABS: Basophils % (A) 0 %; Eosinophils # (A) 0.1 k/uL (0-0.7); Eosinophils % (A) 0 %; HCT 40.3 % (34.0-46.0); HGB 12.9 gm/dL (11.4-16.0); Lymphocytes # (A) 1.6 k/uL (1.0-4.8); Lymphocytes % (A) 12 %; MCH 26.8 pg (25.0-35.0); MCV 83.9 fL (80.0-100.0); Monocytes # (A) 0.4 k/uL (0-1.0); Monocytes % (A) 3 %; Neutrophils # (A) 11.3 k/uL (1.3-7.7); Neutrophils % (A) 85 %; Platelet Count 277 k/uL (150-450); RBC 4.81 m/uL (3.80-5.40); RDW 13.5 % (11.5-15.5); WBC 13.3 k/uL (3.8-10.6)
[2019-05-29 09:26] LABS: Albumin 4.5 g/dL (3.5-5.0); Calcium 10.2 mg/dL (8.4-10.2); Potassium 4.5 mmol/L (3.5-5.1); Total Bilirubin 0.2 mg/dL (0.2-1.3); Total Protein 7.4 g/dL (6.3-8.2)
--- NOTE | 2019-05-29 10:45 | P.PN ---
Subjective Progress Note Date: 05/29/19 This is a 63-year-old female patient who presented as a direct admit from her PCP. Patient presented with complaints of shortness of breath and coughing over the past month with minimum improvement. Patient does have known past medical history of asthma, chest pain, CVA, DVT, GERD, hyperlipidemia, hypertension, osteoarthritis, pneumonia pulmonary embolism and anxiety and depression. At this time patient will be started on IV steroids and DuoNeb breathing treatments. Robitussin with codeine added. Pulmonary service. Chest x-ray will be ordered. Patient has multiple drug ALLERGIES await pulmonary and chest x-ray results for antibiotics. Medicine patient has diminished breath sounds with some expiratory wheezing. Patient reports mild pleuritic discomfort with coughing. Patient denies other chest pain. Patient denies nausea vomiting or diarrhea. Patient denies any urinary burning or frequency. Per patient patient was tested for influenza at PCP was negative. On 05/29/2019 patient is alert and oriented 3. Patient reports some improvement with cough and shortness of breath. Patient was evaluated by pulmonary services she was started on Bactrim and maintained on IV steroids. Chest x-ray was reviewed. Patient still having increased cough. Patient denies chest pain. Patient denies nausea vomiting or diarrhea. Patient denies any urinary burning or frequency Objective - Vital Signs Vital signs: Vital Signs Temp 98.0 F 05/29/19 04:50 Pulse 92 05/29/19 08:50 Resp 17 05/29/19 04:50 BP 104/65 05/29/19 04:50 Pulse Ox 94 L 05/29/19 04:50 Intake & Output 05/28/19 05/29/19 05/29/19 18:59 06:59 18:59 Weight 58.967 kg Other: Voiding Method Toilet # Voids 1 1 - Exam Head normocephalic Neck supple Lungs diminished bilaterally with expiratory wheezing Heart regular rate and rhythm S1-S2, no rub or gallop Abdomen is soft nontender nondistended positive bowel sounds no hepatosplenomegaly Extremities no edema Neuro alert and orientated to 3 - Labs CBC & Chem 7: 05/29/19 08:29 05/29/19 08:29 Labs: Abnormal Lab Results - Last 24 Hours (Table) 05/28/19 05/28/19 05/29/19 Range/Units 14:54 14:54 08:29 WBC 13.3 H (3.8-10.6) k/uL RBC 5.52 H (3.80-5.40) m/uL Hct 46.7 H (34.0-46.0) % Neutrophils # 11.3 H (1.3-7.7) k/uL Carbon Dioxide (22-30) mmol/L BUN (7-17) mg/dL Glucose 107 H (74-99) mg/dL Calcium 10.3 H (8.4-10.2) mg/dL AST 57 H (14-36) U/L ALT 43 H (4-34) U/L /09/11 Range/Units 08:29 WBC (3.8-10.6) k/uL RBC (3.80-5.40) m/uL Hct (34.0-46.0) % Neutrophils # (1.3-7.7) k/uL Carbon Dioxide 20 L (22-30) mmol/L BUN 18 H (7-17) mg/dL Glucose 150 H (74-99) mg/dL Calcium (8.4-10.2) mg/dL AST 40 H (14-36) U/L ALT (4-34) U/L Assessment and Plan Assessment: 1. Dyspnea and cough secondary to Acute exacerbation of chronic bronchial asthma with acute bronchitis. Patient will be started Solu-Medrol and DuoNeb breathing treatments pulmonary services will be consulted [place] with codeine negative. Sputum culture ordered. Pulmonary services are following. Patient started on Bactrim. Chest x-ray completed showing no definitive acute radiographic process 2. History of asthma 3. History of CVA 4. History of PE and DVT. Patient maintained on Xarelto 5. History of hyperlipidemia 6. History of essential hypertension 7. History of CVA 8. History of chronic back pain. Patient maintained on [place] 9. History of atrial septal defect and replacement of breath with closure procedure 10. Elevated liver enzymes statin currently on hold. DVT prophylaxis Xarelto. GI prophylaxis Protonix I performed an examination of the patient and discussed their management with the Nurse Practitioner. I have reviewed the Nurse Practitioner's notes and agree with the documented findings and plan of care
--- NOTE | 2019-05-29 12:33 | P.PN ---
Subjective Progress Note Date: 05/29/19 On today's evaluation of 05/29/2019 and seeing Rhianna for a follow-up. I'm still impressed that the patient is having persistent coughing spells. This is by talking and this is also triggered by taking a deep breath and movement. Chest x-ray was free of any acute pulmonary infiltration or pneumonia. No fever or chills. Influenza screen came back negative. She remains on bronchodilators. She remains on IV Solu-Medrol. He is also receiving empiric antibiotic coverage for now. Blood work is all within normal limits. Objective - Vital Signs Vital signs: Vital Signs Temp 98.0 F 05/29/19 04:50 Pulse 92 05/29/19 08:50 Resp 17 05/29/19 04:50 BP 104/65 05/29/19 04:50 Pulse Ox 94 L 05/29/19 04:50 Intake & Output 05/28/19 05/29/19 05/29/19 18:59 06:59 18:59 Weight 58.967 kg Other: Voiding Method Toilet # Voids 1 1 1 - Exam The patient appeared well nourished and normally developed. Vital signs as documented. Head exam is unremarkable. No scleral icterus or corneal arcus noted. Neck is without jugular venous distension, thyromegaly, or carotid bruits. Carotid upstrokes are brisk bilaterally. Lungs diminished breath sounds along with scattered expiratory wheezes and prolonged phase bilaterally. She is also having coughing spells patient when she takes deep breaths and she talks. Cardiac exam reveals the PMI to be normally sized and situated. Rhythm is regular. First and second heart sounds normal. No murmurs, rubs or gallops. Abdominal exam reveals normal bowel sounds, no masses, no organomegaly and no aortic enlargement. Extremities are nonedematous and both femoral and pedal pulses are normal.Examination of the skin revealed no evidence of significant rashes, suspicious appearing nevi or other concerning lesions. Neurologically the patient is awake and alert and there is no focal neurological deficits. - Labs CBC & Chem 7: 05/29/19 08:29 05/29/19 08:29 Labs: Abnormal Lab Results - Last 24 Hours (Table) 05/28/19 05/28/19 05/29/19 Range/Units 14:54 14:54 08:29 WBC 13.3 H (3.8-10.6) k/uL RBC 5.52 H (3.80-5.40) m/uL Hct 46.7 H (34.0-46.0) % Neutrophils # 11.3 H (1.3-7.7) k/uL Carbon Dioxide (22-30) mmol/L BUN (7-17) mg/dL Glucose 107 H (74-99) mg/dL Calcium 10.3 H (8.4-10.2) mg/dL AST 57 H (14-36) U/L ALT 43 H (4-34) U/L /09/11 Range/Units 08:29 WBC (3.8-10.6) k/uL RBC (3.80-5.40) m/uL Hct (34.0-46.0) % Neutrophils # (1.3-7.7) k/uL Carbon Dioxide 20 L (22-30) mmol/L BUN 18 H (7-17) mg/dL Glucose 150 H (74-99) mg/dL Calcium (8.4-10.2) mg/dL AST 40 H (14-36) U/L ALT (4-34) U/L Assessment and Plan Plan: 1 acute exacerbation of chronic bronchial asthma with acute bronchitis with second and shortness of breath and cough and chest tightness and wheeze. I nfluenza screen is been done on outpatient basis and was negative. Chest x-ray still pending for now. No fever. No chills. Chest wall pain secondary to cough and. 2 history of nephrolithiasis with secondary hydronephrosis on the right, recovered 3 history of CVA with loss and peripheral vision 4 history of DVT on long-term anticoagulation with Xarelto. 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 Continue IV Solu-Medrol. Chest x-ray to be obtained today. Resume outpatient medications. May need empiric antibiotic coverage, and I'm going to start this patient on Bactrim DS one tablet twice a day. X-ray showed no evidence of any pneumonias. Limited improvement since yesterday. Influenza screen wasn't and came back negative.
[2019-05-29] MEDS: CYCLOBENZAPRINE 10 MG TAB PO SCH (21:13)
[2019-05-29] MEDS: MONTELUKAST 10 MG TAB PO SCH (21:14)
[2019-05-30 07:24] LABS: Basophils % (A) 0 %; Eosinophils # (A) 0.1 k/uL (0-0.7); Eosinophils % (A) 1 %; HCT 38.3 % (34.0-46.0); HGB 12.2 gm/dL (11.4-16.0); Lymphocytes # (A) 1.6 k/uL (1.0-4.8); Lymphocytes % (A) 6 %; MCH 27.1 pg (25.0-35.0); MCV 84.7 fL (80.0-100.0); Mean Platelet Volume 8.3; Monocytes # (A) 0.7 k/uL (0-1.0); Monocytes % (A) 3 %; Neutrophils % (A) 90 %; Platelet Count 284 k/uL (150-450); RBC 4.52 m/uL (3.80-5.40); RDW 13.6 % (11.5-15.5); WBC 24.5 k/uL (3.8-10.6)
[2019-05-30] MEDS: PANTOPRAZOLE 40 MG TABLET PO SCH (07:26)
[2019-05-30] MEDS: methylPREDNISolone SOD SUCCI 125 MG/2 ML VIAL IV SCH ×3 (07:26→23:36)
[2019-05-30] MEDS: DIAZEPAM 5 MG TAB PO SCH ×3 (07:27→21:39)
[2019-05-30] MEDS: ESCITALOPRAM 10 MG TAB PO SCH (07:28)
[2019-05-30] MEDS: SULFAMETHOX-TMP 800-160MG 1 EACH TAB PO SCH (07:28)
[2019-05-30] MEDS: RIVAROXABAN 20 MG TAB PO SCH (07:28)
[2019-05-30] MEDS: guaiFENesin-Coden 100-10MG/5ML 10 ML CUP PO PRN ×2 (07:40→23:36)
[2019-05-30] MEDS: MORPHINE SULFATE 2 MG/ML SYRINGE IVP PRN ×2 (07:40→18:08)
[2019-05-30 07:50] LABS: Albumin 4.3 g/dL (3.5-5.0); Potassium 5.3 mmol/L (3.5-5.1); Total Bilirubin 0.1 mg/dL (0.2-1.3)
[2019-05-30] MEDS: IPRATROPIUM-ALBUTEROL 3 ML NEB INHALATION SCH ×4 (07:57→21:00)
--- NOTE | 2019-05-30 11:21 | P.PN ---
Subjective Progress Note Date: 05/30/19 Principal diagnosis: Acute exacerbation of chronic obstructive pulmonary disease The patient is seen today 05/30/2019 in follow-up on the regular medical floor. She is awake and alert in no acute distress. Maintaining good O2 saturations in the 90s on 2 L/m per nasal cannula. She continues with a dry nonproductive cough. Some chest wall discomfort from coughing. Chest x-ray revealed no acute process. Afebrile. Remains on DuoNeb inhalations, IV Solu-Medrol, Singulair, Bactrim. Still somewhat bronchospastic and wheezy. Dyspneic with exertion. Objective - Vital Signs Vital signs: Vital Signs Temp 97.9 F 05/30/19 05:00 Pulse 82 05/30/19 11:12 Resp 17 05/30/19 05:00 BP 121/65 05/30/19 05:00 Pulse Ox 94 L 05/30/19 07:57 Intake & Output 05/29/19 05/30/19 05/30/19 18:59 06:59 18:59 Intake Total 690 Balance 690 Intake: Oral 690 Other: Voiding Method Toilet Toilet # Voids 1 1 - Exam GENERAL EXAM: Alert, pleasant 63-year-old female patient, on 2 L nasal cannula, comfortable in no apparent distress. HEAD: Normocephalic. EYES: Normal reaction of pupils, equal size. NOSE: Clear with pink turbinates. THROAT: No erythema or exudates. NECK: No masses, no JVD. CHEST: No chest wall deformity. LUNGS: Equal air entry with bilateral end expiratory wheeze. CVS: S1 and S2 normal with no audible murmur, regular rhythm. ABDOMEN: No hepatosplenomegaly, normal bowel sounds, no guarding or rigidity. SPINE: No scoliosis or deformity SKIN: No rashes CENTRAL NERVOUS SYSTEM: No focal deficits, tone is normal in all 4 extremities. EXTREMITIES: There is no peripheral edema. No clubbing, no cyanosis. Peripheral pulses are intact. - Labs CBC & Chem 7: 05/30/19 06:40 05/30/19 06:40 Labs: Abnormal Lab Results - Last 24 Hours (Table) 05/30/19 05/30/19 Range/Units 06:40 06:40 WBC 24.5 H (3.8-10.6) k/uL Neutrophils # 22.0 H (1.3-7.7) k/uL Potassium 5.3 H (3.5-5.1) mmol/L BUN 22 H (7-17) mg/dL Glucose 144 H (74-99) mg/dL Total Bilirubin 0.1 L (0.2-1.3) mg/dL Assessment and Plan Assessment: 1 acute exacerbation of chronic bronchial asthma with acute bronchitis with second and shortness of breath and cough and chest tightness and wheeze. Influenza screen is been done on outpatient basis and was negative. Chest x-ray reveals no acute pulmonary process. No fever. No chills. Chest wall pain secondary to cough. 2 history of nephrolithiasis with secondary hydronephrosis on the right, recovered 3 history of CVA with loss and peripheral vision 4 history of DVT on long-term anticoagulation with Xarelto. 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 Drummond. She has been slow to progress. Still somewhat bronchospastic and wheezy. Not quite back to her baseline. We'll continue with current treatment plan. Add Pulmicort and Pe rforomist. Increase her activity as tolerated. We'll continue to follow. I, the cosigning physician, performed a history & physical examination of the patient. Lungs sounds with bilateral end expiratory wheeze. Maintaining good O2 saturations in the 90s on 2 L/m per nasal cannula. I discussed the assessment and plan of care with my nurse practitioner, Jamee De Souza. I attest to the above note as dictated by her.
--- NOTE | 2019-05-30 15:10 | P.PN ---
Subjective Progress Note Date: 05/30/19 This is a 63-year-old female patient who presented as a direct admit from her PCP. Patient presented with complaints of shortness of breath and coughing over the past month with minimum improvement. Patient does have known past medical history of asthma, chest pain, CVA, DVT, GERD, hyperlipidemia, hypertension, osteoarthritis, pneumonia pulmonary embolism and anxiety and depression. At this time patient will be started on IV steroids and DuoNeb breathing treatments. Robitussin with codeine added. Pulmonary service. Chest x-ray will be ordered. Patient has multiple drug ALLERGIES await pulmonary and chest x-ray results for antibiotics. Medicine patient has diminished breath sounds with some expiratory wheezing. Patient reports mild pleuritic discomfort with coughing. Patient denies other chest pain. Patient denies nausea vomiting or diarrhea. Patient denies any urinary burning or frequency. Per patient patient was tested for influenza at PCP was negative. On 05/29/2019 patient is alert and oriented 3. Patient reports some improvement with cough and shortness of breath. Patient was evaluated by pulmonary services she was started on Bactrim and maintained on IV steroids. Chest x-ray was reviewed. Patient still having increased cough. Patient denies chest pain. Patient denies nausea vomiting or diarrhea. Patient denies any urinary burning or frequency On 05/30/2019 patient was seen and examined on the medical floor she is alert and oriented 3 in no apparent distress she is still complaining of severe Cough and shortness of breath with activity she is also complaining of rib pain while coughing otherwise she denies any complaints there is no fever or chills no headache or dizziness no chest pain no nausea or vomiting no abdominal pain no diarrhea no burning with urination no frequency or urgency and no hematuria Objective - Vital Signs Vital signs: Vital Signs Temp 98.7 F 05/30/19 11:55 Pulse 96 05/30/19 11:55 Resp 16 05/30/19 11:55 BP 112/68 05/30/19 11:55 Pulse Ox 92 L 05/30/19 11:55 Intake & Output 05/29/19 05/30/19 05/30/19 18:59 06:59 18:59 Intake Total 690 Balance 690 Intake: Oral 690 Other: Voiding Method Toilet Toilet # Voids 1 1 - Exam In general patient is alert and oriented 3 in no apparent distress Head normocephalic and atraumatic Neck supple no JVD no goiter no lymphadenopathy Lungs diminished bilaterally with expiratory wheezing Heart regular rate and rhythm S1-S2, no rub or gallop Abdomen is soft nontender nondistended positive bowel sounds no hepatosplenomeg fariba Extremities no edema no cyanosis or clubbing Neuro no gross focal neurological deficit - Labs CBC & Chem 7: 05/30/19 06:40 05/30/19 06:40 Labs: Abnormal Lab Results - Last 24 Hours (Table) 05/30/19 05/30/19 Range/Units 06:40 06:40 WBC 24.5 H (3.8-10.6) k/uL Neutrophils # 22.0 H (1.3-7.7) k/uL Potassium 5.3 H (3.5-5.1) mmol/L BUN 22 H (7-17) mg/dL Glucose 144 H (74-99) mg/dL Total Bilirubin 0.1 L (0.2-1.3) mg/dL Assessment and Plan Plan: 1. Dyspnea and cough secondary to Acute exacerbation of chronic bronchial asthma with acute bronchitis. Patient will be started Solu-Medrol and DuoNeb breathing treatments pulmonary services will be consulted Nani with codeine negative. Sputum culture ordered. Pulmonary services are following. Patient started on Bactrim. Chest x-ray completed showing no definitive acute radiographic process 2. History of asthma 3. History of CVA 4. History of PE and DVT. Patient maintained on Xarelto 5. History of hyperlipidemia 6. History of essential hypertension 7. History of CVA 8. History of chronic back pain. Patient maintained on [place] 9. History of atrial septal defect and replacement of breath with closure procedure 10. Elevated liver enzymes statin currently on hold. DVT prophylaxis Xarelto. GI prophylaxis Protonix Medication and labs were reviewed Add cough medicine with codeine continue same medication otherwise will follow in a.m.
[2019-05-30] MEDS: BUDESONIDE 1 MG/2 ML NEBU INHALATION SCH (21:00)
[2019-05-30] MEDS: FORMOTEROL FUMARATE 20 MCG/2 ML NEBU INHALATION SCH (21:00)
[2019-05-30] MEDS: MONTELUKAST 10 MG TAB PO SCH (21:39)
[2019-05-30] MEDS: CYCLOBENZAPRINE 10 MG TAB PO SCH (21:39)
[2019-05-31] MEDS: HYDROcodone/APAP 7.5-325MG 1 EACH TAB PO PRN (03:48)
[2019-05-31] MEDS: MORPHINE SULFATE 2 MG/ML SYRINGE IVP PRN ×2 (07:33→20:06)
[2019-05-31] MEDS: guaiFENesin-Coden 100-10MG/5ML 10 ML CUP PO PRN (07:34)
[2019-05-31] MEDS: SULFAMETHOX-TMP 800-160MG 1 EACH TAB PO SCH (07:36)
[2019-05-31] MEDS: PANTOPRAZOLE 40 MG TABLET PO SCH (07:36)
[2019-05-31] MEDS: methylPREDNISolone SOD SUCCI 125 MG/2 ML VIAL IV SCH ×3 (07:37→23:09)
[2019-05-31] MEDS: RIVAROXABAN 20 MG TAB PO SCH (07:37)
[2019-05-31] MEDS: ESCITALOPRAM 10 MG TAB PO SCH (07:37)
[2019-05-31] MEDS: DIAZEPAM 5 MG TAB PO SCH ×3 (07:40→23:08)
[2019-05-31] MEDS: BUDESONIDE 1 MG/2 ML NEBU INHALATION SCH ×2 (07:47→19:13)
[2019-05-31] MEDS: FORMOTEROL FUMARATE 20 MCG/2 ML NEBU INHALATION SCH ×2 (07:47→19:13)
[2019-05-31] MEDS: IPRATROPIUM-ALBUTEROL 3 ML NEB INHALATION SCH ×4 (07:47→19:13)
[2019-05-31 08:05] LABS: Basophils % (A) 0 %; Eosinophils # (A) 0.1 k/uL (0-0.7); Eosinophils % (A) 1 %; HGB 12.4 gm/dL (11.4-16.0); Lymphocytes # (A) 1.4 k/uL (1.0-4.8); Lymphocytes % (A) 7 %; MCH 27.3 pg (25.0-35.0); MCHC 31.7 g/dL (31.0-37.0); Monocytes # (A) 0.6 k/uL (0-1.0); Monocytes % (A) 3 %; Neutrophils # (A) 18.9 k/uL (1.3-7.7); Neutrophils % (A) 89 %; Platelet Count 265 k/uL (150-450); RBC 4.54 m/uL (3.80-5.40); WBC 21.2 k/uL (3.8-10.6)
[2019-05-31 08:16] LABS: Calcium 9.5 mg/dL (8.4-10.2); Total Bilirubin 0.1 mg/dL (0.2-1.3); Total Protein 6.7 g/dL (6.3-8.2)
--- NOTE | 2019-05-31 09:49 | P.PN ---
Subjective Progress Note Date: 05/31/19 This is a 63-year-old female patient who presented as a direct admit from her PCP. Patient presented with complaints of shortness of breath and coughing over the past month with minimum improvement. Patient does have known past medical history of asthma, chest pain, CVA, DVT, GERD, hyperlipidemia, hypertension, osteoarthritis, pneumonia pulmonary embolism and anxiety and depression. At this time patient will be started on IV steroids and DuoNeb breathing treatments. Robitussin with codeine added. Pulmonary service. Chest x-ray will be ordered. Patient has multiple drug ALLERGIES await pulmonary and chest x-ray results for antibiotics. Medicine patient has diminished breath sounds with some expiratory wheezing. Patient reports mild pleuritic discomfort with coughing. Patient denies other chest pain. Patient denies nausea vomiting or diarrhea. Patient denies any urinary burning or frequency. Per patient patient was tested for influenza at PCP was negative. On 05/29/2019 patient is alert and oriented 3. Patient reports some improvement with cough and shortness of breath. Patient was evaluated by pulmonary services she was started on Bactrim and maintained on IV steroids. Chest x-ray was reviewed. Patient still having increased cough. Patient denies chest pain. Patient denies nausea vomiting or diarrhea. Patient denies any urinary burning or frequency On 05/30/2019 patient was seen and examined on the medical floor she is alert and oriented 3 in no apparent distress she is still complaining of severe Cough and shortness of breath with activity she is also complaining of rib pain while coughing otherwise she denies any complaints there is no fever or chills no headache or dizziness no chest pain no nausea or vomiting no abdominal pain no diarrhea no burning with urination no frequency or urgency and no hematuria On 05/31/2019 patient was seen and examined on the medical floor she is alert and oriented in no apparent distress she is still complaining of cough and shortness of breath with any activity otherwise she denies any complaints there is no fever or chills no headache or dizziness no chest pain no nausea or vomiting no abdominal pain no diarrhea and no urinary symptoms Objective - Vital Signs Vital signs: Vital Signs Temp 98.2 F 05/31/19 05:00 Pulse 88 05/31/19 08:15 Resp 17 05/31/19 05:00 BP 104/63 05/31/19 05:00 Pulse Ox 96 05/31/19 07:50 Intake & Output 05/30/19 05/31/19 05/31/19 17:59 06:59 18:59 Intake Total Balance Intake: Oral Other: Voiding Method # Voids - Exam In general patient is alert and oriented 3 in no apparent distress Head normocephalic and atraumatic Neck supple no JVD no goiter no lymphadenopathy Lungs diminished bilaterally with expiratory wheezing Heart regular rate and rhythm S1-S2, no rub or gallop Abdomen is soft nontender nondistended positive bowel sounds no hepatosplenomegaly Extremities no edema no cyanosis or clubbing Neuro no gross focal neurological deficit - Labs CBC & Chem 7: 05/31/19 07:30 05/31/19 07:30 Labs: Abnormal Lab Results - Last 24 Hours (Table) 05/30/19 05/31/19 05/31/19 Range/Units 06:40 07:30 07:30 WBC 21.2 H (3.8-10.6) k/uL Neutrophils # 18.9 H (1.3-7.7) k/uL Potassium 5.3 H (3.5-5.1) mmol/L Chloride 110 H (98-107) mmol/L Carbon Dioxide 18 L (22-30) mmol/L BUN 22 H 23 H (7-17) mg/dL Glucose 144 H 149 H (74-99) mg/dL Total Bilirubin 0.1 L 0.1 L (0.2-1.3) mg/dL Assessment and Plan Plan: 1. Dyspnea and cough secondary to Acute exacerbation of chronic bronchial asthma with acute bronchitis. Patient will be started Solu-Medrol and DuoNeb breathing treatments pulmonary services will be consulted Nani with tia restrepo negative. Sputum culture ordered. Pulmonary services are following. Patient started on Bactrim. Chest x-ray completed showing no definitive acute radiographic process 2. History of asthma 3. History of CVA 4. History of PE and DVT. Patient maintained on Xarelto 5. History of hyperlipidemia 6. History of essential hypertension 7. History of CVA 8. History of chronic back pain. Patient maintained on [place] 9. History of atrial septal defect and replacement of breath with closure procedure 10. Elevated liver enzymes statin currently on hold. DVT prophylaxis Xarelto. GI prophylaxis Protonix Medication and labs were reviewed Add cough medicine with codeine continue same medication otherwise will follow in a.m.
--- NOTE | 2019-05-31 14:06 | P.PN ---
Subjective Progress Note Date: 05/31/19 On today's evaluation of 05/31/2019 the patient is feeling better and her breathing is slowly improving. The cough has subsided significantly. She still having coughing spells however these are less frequent compared to yesterday and today before. No chills no fever. No significant sputum production. No significant chest soreness or pain. No altered mentation. No hemoptysis. No pleurisy. She remains on the same combination of bronchodilators and steroids for now. Objective - Vital Signs Vital signs: Vital Signs Temp 98.6 F 05/31/19 11:52 Pulse 87 05/31/19 11:52 Resp 20 05/31/19 11:52 BP 143/89 05/31/19 11:52 Pulse Ox 97 05/31/19 11:52 Intake & Output 05/30/19 05/31/19 05/31/19 17:59 06:59 18:59 Intake Total Balance Intake: Oral Other: Voiding Method Toilet # Voids - Exam The patient appeared well nourished and normally developed. Vital signs as documented. Head exam is unremarkable. No scleral icterus or corneal arcus noted. Neck is without jugular venous distension, thyromegaly, or carotid bruits. Carotid upstrokes are brisk bilaterally. Lungs diminished breath sounds along with scattered expiratory wheezes and prolonged phase bilaterally. She is also having coughing spells patient when she takes deep breaths and she talks. Cardiac exam reveals the PMI to be normally sized and situated. Rhythm is r egular. First and second heart sounds normal. No murmurs, rubs or gallops. Abdominal exam reveals normal bowel sounds, no masses, no organomegaly and no aortic enlargement. Extremities are nonedematous and both femoral and pedal pulses are normal.Examination of the skin revealed no evidence of significant rashes, suspicious appearing nevi or other concerning lesions. Neurologically the patient is awake and alert and there is no focal neurological deficits. - Labs CBC & Chem 7: 05/31/19 07:30 05/31/19 07:30 Labs: Abnormal Lab Results - Last 24 Hours (Table) 05/31/19 05/31/19 Range/Units 07:30 07:30 WBC 21.2 H (3.8-10.6) k/uL Neutrophils # 18.9 H (1.3-7.7) k/uL Chloride 110 H (98-107) mmol/L Carbon Dioxide 18 L (22-30) mmol/L BUN 23 H (7-17) mg/dL Glucose 149 H (74-99) mg/dL Total Bilirubin 0.1 L (0.2-1.3) mg/dL Assessment and Plan Plan: 1 acute exacerbation of chronic bronchial asthma with acute bronchitis with second and shortness of breath and cough and chest tightness and wheeze. Influenza screen is been done on outpatient basis and was negative. Chest x-ray still pending for now. No fever. No chills. Chest wall pain secondary to cough and the patient is slowly improving. Cough has subsided. She is less bronchospastic and wheezy compared to yesterday. Chest x-ray was free of any acute pulmonary infiltrates. 2 history of nephrolithiasis with secondary hydronephrosis on the right, recovered 3 history of CVA with loss and peripheral vision 4 history of DVT on long-term anticoagulation with Xarelto. 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 Continue IV Solu-Medrol. Clinically improving. I'm hoping that we will see further improvement over the next 24-48 hours. We'll continue to follow.
[2019-05-31 16:40] LABS: Appearance,Urine Clear (Clear); Bilirubin,Urine Negative (Negative); Blood,Urine Negative (Negative); Color,Urine Light Yellow; Glucose,Urine (UA) Trace (Negative); Ketones,Urine Negative (Negative); Leukocyte Esterase,Urine Negative (Negative); Nitrite,Urine Negative (Negative); Protein,Urine Negative (Negative); Specific Gravity,Urine 1.008 (1.001-1.035); Urobilinogen,Urine <2.0 mg/dL (<2.0)
[2019-05-31] MEDS: MONTELUKAST 10 MG TAB PO SCH (20:06)
[2019-05-31] MEDS: CYCLOBENZAPRINE 10 MG TAB PO SCH (20:06)
[2019-06-01] MEDS: guaiFENesin-Coden 100-10MG/5ML 10 ML CUP PO PRN ×3 (04:49→23:51)
[2019-06-01] MEDS: MORPHINE SULFATE 2 MG/ML SYRINGE IVP PRN ×2 (05:37→21:22)
[2019-06-01] MEDS: FORMOTEROL FUMARATE 20 MCG/2 ML NEBU INHALATION SCH ×2 (07:41→19:02)
[2019-06-01] MEDS: BUDESONIDE 1 MG/2 ML NEBU INHALATION SCH ×2 (07:41→19:01)
[2019-06-01] MEDS: IPRATROPIUM-ALBUTEROL 3 ML NEB INHALATION SCH ×4 (07:41→19:02)
[2019-06-01] MEDS: DIAZEPAM 5 MG TAB PO SCH ×3 (08:23→21:19)
[2019-06-01] MEDS: RIVAROXABAN 20 MG TAB PO SCH (08:23)
[2019-06-01] MEDS: PANTOPRAZOLE 40 MG TABLET PO SCH (08:23)
[2019-06-01] MEDS: SULFAMETHOX-TMP 800-160MG 1 EACH TAB PO SCH (08:24)
[2019-06-01] MEDS: methylPREDNISolone SOD SUCCI 125 MG/2 ML VIAL IV SCH ×3 (08:24→23:50)
[2019-06-01] MEDS: ESCITALOPRAM 10 MG TAB PO SCH (08:24)
[2019-06-01] MEDS ORDERED: ERGOCALCIFEROL 50,000 UNIT CAP PO SCH (09:00)
[2019-06-01 09:58] LABS: Albumin 3.8 g/dL (3.5-5.0); Calcium 9.5 mg/dL (8.4-10.2); Potassium 4.5 mmol/L (3.5-5.1); Total Bilirubin 0.2 mg/dL (0.2-1.3); Total Protein 6.4 g/dL (6.3-8.2)
[2019-06-01 10:09] LABS: Basophils % (A) 0 %; Eosinophils % (A) 0 %; HCT 38.8 % (34.0-46.0); HGB 12.2 gm/dL (11.4-16.0); Lymphocytes # (A) 1.4 k/uL (1.0-4.8); Lymphocytes % (A) 10 %; MCH 26.8 pg (25.0-35.0); MCHC 31.3 g/dL (31.0-37.0); MCV 85.6 fL (80.0-100.0); Mean Platelet Volume 8.5; Monocytes # (A) 0.5 k/uL (0-1.0); Monocytes % (A) 4 %; Neutrophils # (A) 11.9 k/uL (1.3-7.7); Neutrophils % (A) 86 %; Platelet Count 247 k/uL (150-450); RBC 4.54 m/uL (3.80-5.40); WBC 13.8 k/uL (3.8-10.6)
--- NOTE | 2019-06-01 11:13 | P.PN ---
Subjective Progress Note Date: 06/01/19 This is a 63-year-old female patient who presented as a direct admit from her PCP. Patient presented with complaints of shortness of breath and coughing over the past month with minimum improvement. Patient does have known past medical history of asthma, chest pain, CVA, DVT, GERD, hyperlipidemia, hypertension, osteoarthritis, pneumonia pulmonary embolism and anxiety and depression. At this time patient will be started on IV steroids and DuoNeb breathing treatments. Robitussin with codeine added. Pulmonary service. Chest x-ray will be ordered. Patient has multiple drug ALLERGIES await pulmonary and chest x-ray results for antibiotics. Medicine patient has diminished breath sounds with some expiratory wheezing. Patient reports mild pleuritic discomfort with coughing. Patient denies other chest pain. Patient denies nausea vomiting or diarrhea. Patient denies any urinary burning or frequency. Per patient patient was tested for influenza at PCP was negative. On 05/29/2019 patient is alert and oriented 3. Patient reports some improvement with cough and shortness of breath. Patient was evaluated by pulmonary services she was started on Bactrim and maintained on IV steroids. C hest x-ray was reviewed. Patient still having increased cough. Patient denies chest pain. Patient denies nausea vomiting or diarrhea. Patient denies any urinary burning or frequency On 05/30/2019 patient was seen and examined on the medical floor she is alert and oriented 3 in no apparent distress she is still complaining of severe Cough and shortness of breath with activity she is also complaining of rib pain while coughing otherwise she denies any complaints there is no fever or chills no headache or dizziness no chest pain no nausea or vomiting no abdominal pain no diarrhea no burning with urination no frequency or urgency and no hematuria On 05/31/2019 patient was seen and examined on the medical floor she is alert and oriented in no apparent distress she is still complaining of cough and shortness of breath with any activity otherwise she denies any complaints there is no fever or chills no headache or dizziness no chest pain no nausea or vomiting no abdominal pain no diarrhea and no urinary symptoms On 06/01/2019 patient's alert and oriented 3. Patient is still coughing but does have some improvement with shortness of breath and wheeziness. Patient denies chest pain. Patient denies nausea vomiting or diarrhea. Patient denies any urinary burning or frequency Objective - Vital Signs Vital signs: Vital Signs Temp 96.1 F L 06/01/19 05:00 Pulse 92 06/01/19 11:02 Resp 16 06/01/19 05:00 BP 133/70 06/01/19 05:00 Pulse Ox 93 L 06/01/19 05:00 Intake & Output 05/31/19 06/01/19 06/01/19 18:59 06:59 18:59 Intake Total 450 590 Balance 450 590 Intake: Oral 450 590 Other: Voiding Method Toilet Toilet Toilet # Voids 4 2 - Exam Head normocephalic Neck supple Lungs diminished bilaterally with expiratory wheezing Heart regular rate and rhythm S1-S2, no rub or gallop Abdomen is soft nontender nondistended positive bowel sounds no hepatosplenomegaly Extremities no edema Neuro alert and orientated to 3 - Labs CBC & Chem 7: 06/01/19 09:00 06/01/19 09:00 Labs: Abnormal Lab Results - Last 24 Hours (Table) 05/31/19 06/01/19 06/01/19 Range/Units Unknown 09:00 09:00 WBC 13.8 H (3.8-10.6) k/uL Neutrophils # 11.9 H (1.3-7.7) k/uL Chloride 108 H (98-107) mmol/L Carbon Dioxide 21 L (22-30) mmol/L BUN 21 H (7-17) mg/dL Glucose 211 H (74-99) mg/dL Urine Glucose (UA) Trace H (Negative) Microbiology - Last 24 Hours (Table) 05/31/19 Unknown Urine Culture - Preliminary Urine,Clean Catch Assessment and Plan Assessment: 1. Dyspnea and cough secondary to Acute exacerbation of chronic bronchial asthma with acute bronchitis. Patient will be started Solu-Medrol and DuoNeb breathing treatments pulmonary services will be consulted Nani with codeine negative. Sputum culture ordered. Pulmonary services are following. Patient started on Bactrim. Chest x-ray completed showing no definitive acute radiographic process. Pulmonary services are following patient remains on IV steroids. 2. History of asthma 3. History of CVA 4. History of PE and DVT. Patient maintained on Xarelto 5. History of hyperlipidemia 6. History of essential hypertension 7. History of CVA 8. History of chronic back pain. Patient maintained on [place] 9. History of atrial septal defect and replacement of breath with closure procedure 10. Elevated liver enzymes statin currently on hold. DVT prophylaxis Xarelto. GI prophylaxis Protonix I performed an examination of the patient and discussed their management with the Nurse Practitioner. I have reviewed the Nurse Practitioner's notes and agree with the documented findings and plan of care
[2019-06-01] MEDS: HYDROcodone/APAP 7.5-325MG 1 EACH TAB PO PRN ×2 (15:21→23:51)
--- NOTE | 2019-06-01 15:29 | P.PN ---
Subjective Progress Note Date: 06/01/19 Principal diagnosis: Acute exacerbation of chronic obstructive pulmonary disease The patient is seen today 06/01/2019 in follow-up on the regular medical floor. She is awake and alert in no acute distress. Sitting up in a chair at the bedside. Maintaining good O2 saturations in the 90s on 2 L/m per nasal cannula. She continues with a dry nonproductive cough. Some chest wall discomfort from coughing. Chest x-ray revealed no acute process. Afebrile. Remains on DuoNeb inhalations, IV Solu-Medrol, Singulair, Bactrim. Still somewhat bronchospastic and wheezy. Dyspneic with exertion. White count 13.8. Hemoglobin 12.2. Creatinine 0.84. She is continued on Solu-Medrol, bronchodilats, Singulair, Bactrim. Anticoagulated with Xarelto. Objective - Vital Signs Vital signs: Vital Signs Temp 96.7 F L 06/01/19 11:25 Pulse 82 06/01/19 11:25 Resp 16 06/01/19 11:25 BP 128/64 06/01/19 11:25 Pulse Ox 91 L 06/01/19 11:25 Intake & Output 05/31/19 06/01/19 06/01/19 18:59 06:59 18:59 Intake Total 450 590 Balance 450 590 Intake: Oral 450 590 Other: Voiding Method Toilet Toilet Toilet # Voids 4 2 3 - Exam GENERAL EXAM: Alert, pleasant 63-year-old female patient, on 2 L nasal cannula, comfortable in no apparent distress. HEAD: Normocephalic. EYES: Normal reaction of pupils, equal size. NOSE: Clear with pink turbinates. THROAT: No erythema or exudates. NECK: No masses, no JVD. CHEST: No chest wall deformity. LUNGS: Equal air entry with bilateral end expiratory wheeze. CVS: S1 and S2 normal with no audible murmur, regular rhythm. ABDOMEN: No hepatosplenomegaly, normal bowel sounds, no guarding or rigidity. SPINE: No scoliosis or deformity SKIN: No rashes CENTRAL NERVOUS SYSTEM: No focal deficits, tone is normal in all 4 extremities. EXTREMITIES: There is no peripheral edema. No clubbing, no cyanosis. Pe ripheral pulses are intact. - Labs CBC & Chem 7: 06/01/19 09:00 06/01/19 09:00 Labs: Abnormal Lab Results - Last 24 Hours (Table) 05/31/19 06/01/19 06/01/19 Range/Units Unknown 09:00 09:00 WBC 13.8 H (3.8-10.6) k/uL Neutrophils # 11.9 H (1.3-7.7) k/uL Chloride 108 H (98-107) mmol/L Carbon Dioxide 21 L (22-30) mmol/L BUN 21 H (7-17) mg/dL Glucose 211 H (74-99) mg/dL Urine Glucose (UA) Trace H (Negative) Microbiology - Last 24 Hours (Table) 05/31/19 Unknown Urine Culture - Preliminary Urine,Clean Catch Assessment and Plan Assessment: 1 acute exacerbation of chronic bronchial asthma with acute bronchitis with second and shortness of breath and cough and chest tightness and wheeze. Inf luenza screen is been done on outpatient basis and was negative. Chest x-ray reveals no acute pulmonary process. No fever. No chills. Chest wall pain secondary to cough. 2 history of nephrolithiasis with secondary hydronephrosis on the right, recovered 3 history of CVA with loss and peripheral vision 4 history of DVT on long-term anticoagulation with Xarelto. 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 Drummond. She has been slow to progress. Still somewhat bronchospastic and wheezy. Continues with a loose nonproductive cough. Not quite back to her baseline. May consider bronchoscopy with BAL. We'll continue with current treatment plan. Increase her activity as tolerated. We'll continue to follow. I, the cosigning physician, performed a history & physical examination of the patient. Lungs sounds with bilateral end expiratory wheeze. Maintaining good O2 saturations in the 90s on 2 L/m per nasal cannula. I discussed the assessment and plan of care with my nurse practitioner, Jamee De Souza. I attest to the above note as dictated by her.
[2019-06-01] MEDS: MONTELUKAST 10 MG TAB PO SCH (20:48)
[2019-06-01] MEDS: CYCLOBENZAPRINE 10 MG TAB PO SCH (20:48)
[2019-06-02] MEDS: IPRATROPIUM-ALBUTEROL 3 ML NEB INHALATION SCH ×4 (07:26→20:07)
[2019-06-02] MEDS: FORMOTEROL FUMARATE 20 MCG/2 ML NEBU INHALATION SCH ×2 (07:26→20:07)
[2019-06-02] MEDS: BUDESONIDE 1 MG/2 ML NEBU INHALATION SCH ×2 (07:26→20:07)
[2019-06-02] MEDS: DIAZEPAM 5 MG TAB PO SCH ×3 (07:54→21:17)
[2019-06-02] MEDS: methylPREDNISolone SOD SUCCI 125 MG/2 ML VIAL IV SCH ×3 (07:55→23:57)
[2019-06-02] MEDS: RIVAROXABAN 20 MG TAB PO SCH (07:55)
[2019-06-02] MEDS: ESCITALOPRAM 10 MG TAB PO SCH (07:55)
[2019-06-02] MEDS: SULFAMETHOX-TMP 800-160MG 1 EACH TAB PO SCH (07:55)
[2019-06-02] MEDS: PANTOPRAZOLE 40 MG TABLET PO SCH (07:55)
[2019-06-02 08:27] LABS: Basophils % (A) 0 %; Eosinophils # (A) 0.1 k/uL (0-0.7); Eosinophils % (A) 1 %; HCT 38.6 % (34.0-46.0); HGB 12.2 gm/dL (11.4-16.0); Lymphocytes # (A) 1.9 k/uL (1.0-4.8); Lymphocytes % (A) 14 %; MCH 26.8 pg (25.0-35.0); MCHC 31.7 g/dL (31.0-37.0); MCV 84.5 fL (80.0-100.0); Mean Platelet Volume 8.1; Monocytes # (A) 0.8 k/uL (0-1.0); Monocytes % (A) 6 %; Neutrophils # (A) 10.8 k/uL (1.3-7.7); Neutrophils % (A) 79 %; Platelet Count 266 k/uL (150-450); RBC 4.57 m/uL (3.80-5.40); RDW 13.7 % (11.5-15.5); WBC 13.7 k/uL (3.8-10.6)
[2019-06-02 08:51] LABS: Albumin 3.7 g/dL (3.5-5.0); Calcium 9.4 mg/dL (8.4-10.2); Potassium 4.9 mmol/L (3.5-5.1); Total Bilirubin 0.2 mg/dL (0.2-1.3); Total Protein 6.2 g/dL (6.3-8.2)
[2019-06-02] MEDS: guaiFENesin-Coden 100-10MG/5ML 10 ML CUP PO PRN ×2 (09:57→21:18)
--- NOTE | 2019-06-02 10:49 | P.PN ---
Subjective Progress Note Date: 06/02/19 This is a 63-year-old female patient who presented as a direct admit from her PCP. Patient presented with complaints of shortness of breath and coughing over the past month with minimum improvement. Patient does have known past medical history of asthma, chest pain, CVA, DVT, GERD, hyperlipidemia, hypertension, osteoarthritis, pneumonia pulmonary embolism and anxiety and depression. At this time patient will be started on IV steroids and DuoNeb breathing treatments. Robitussin with codeine added. Pulmonary service. Chest x-ray will be ordered. Patient has multiple drug ALLERGIES await pulmonary and chest x-ray results for antibiotics. Medicine patient has diminished breath sounds with some expiratory wheezing. Patient reports mild pleuritic discomfort with coughing. Patient denies other chest pain. Patient denies nausea vomiting or diarrhea. Patient denies any urinary burning or frequency. Per patient patient was tested for influenza at PCP was negative. On 05/29/2019 patient is alert and oriented 3. Patient reports some improvement with cough and shortness of breath. Patient was evaluated by pulmonary services she was started on Bactrim and maintained on IV steroids. C hest x-ray was reviewed. Patient still having increased cough. Patient denies chest pain. Patient denies nausea vomiting or diarrhea. Patient denies any urinary burning or frequency On 05/30/2019 patient was seen and examined on the medical floor she is alert and oriented 3 in no apparent distress she is still complaining of severe Cough and shortness of breath with activity she is also complaining of rib pain while coughing otherwise she denies any complaints there is no fever or chills no headache or dizziness no chest pain no nausea or vomiting no abdominal pain no diarrhea no burning with urination no frequency or urgency and no hematuria On 05/31/2019 patient was seen and examined on the medical floor she is alert and oriented in no apparent distress she is still complaining of cough and shortness of breath with any activity otherwise she denies any complaints there is no fever or chills no headache or dizziness no chest pain no nausea or vomiting no abdominal pain no diarrhea and no urinary symptoms On 06/01/2019 patient's alert and oriented 3. Patient is still coughing but does have some improvement with shortness of breath and wheeziness. Patient denies chest pain. Patient denies nausea vomiting or diarrhea. Patient denies any urinary burning or frequency On 06/02/2019 patient's alert and oriented 3. Patient still having significant coughing possible plans for bronchoscopy per pulmonary. Patient denies chest pain. Patient denies nausea vomiting or diarrhea. Patient denies any urinary burning or frequency Objective - Vital Signs Vital signs: Vital Signs Temp 96.0 F L 06/02/19 05:00 Pulse 92 06/02/19 07:53 Resp 20 06/02/19 05:00 BP 116/63 06/02/19 05:00 Pulse Ox 93 L 06/02/19 07:26 Intake & Output 06/01/19 06/02/19 06/02/19 18:59 06:59 18:59 Intake Total 840 Balance 840 Intake: Oral 840 Other: Voiding Method Toilet Toilet Toilet # Voids 3 1 - Exam Head normocephalic Neck supple Lungs diminished bilaterally with expiratory wheezing Heart regular rate and rhythm S1-S2, no rub or gallop Abdomen is soft nontender nondistended positive bowel sounds no hepatosplenomegaly Extremities no edema Neuro alert and orientated to 3 - Labs CBC & Chem 7: 06/02/19 07:42 06/02/19 07:42 Labs: Abnormal Lab Results - Last 24 Hours (Table) 06/02/19 06/02/19 Range/Units 07:42 07:42 WBC 13.7 H (3.8-10.6) k/uL Neutrophils # 10.8 H (1.3-7.7) k/uL Chloride 111 H (98-107) mmol/L Carbon Dioxide 19 L (22-30) mmol/L BUN 23 H (7-17) mg/dL Glucose 125 H (74-99) mg/dL ALT 36 H (4-34) U/L Total Protein 6.2 L (6.3-8.2) g/dL Microbiology - Last 24 Hours (Table) 05/31/19 Unknown Urine Culture - Preliminary Urine,Clean Catch Gram Neg Bacilli Assessment and Plan Assessment: 1. Dyspnea and cough secondary to Acute exacerbation of chronic bronchial asthma with acute bronchitis. Patient will be started Solu-Medrol and DuoNeb breathing treatments pulmonary services will be consulted Nani with codeine negative. Sputum culture ordered. Pulmonary services are following. Patient started on Bactrim. Chest x-ray completed showing no definitive acute radiographic process. Pulmonary services are following patient remains on IV steroids. Possible plans for bronchoscopy per pulmonary patient continues to show little improvement. 2. History of asthma 3. History of CVA 4. History of PE and DVT. Patient maintained on Xarelto 5. History of hyperlipidemia 6. History of essential hypertension 7. History of CVA 8. History of chronic back pain. Patient maintained on [place] 9. History of atrial septal defect and replacement of breath with closure procedure 10. Elevated liver enzymes statin currently on hold. DVT prophylaxis Xarelto. GI prophylaxis Protonix I performed an examination of the patient and discussed their management with the Nurse Practitioner. I have reviewed the Nurse Practitioner's notes and agree with the documented findings and plan of care
--- NOTE | 2019-06-02 12:23 | P.PN ---
Subjective Progress Note Date: 06/02/19 Today's evaluation of 06/02/2019 the patient is still struggling with cough and bronchospasm wheezing. No fever. No chills. No significant sputum production. Mobility and ambulation and uses cough and she reports only modest improvement in her overall pulmonary symptoms over the past few days. She remains on bronchodilators per she remains on steroids. She is also on cough medication. No swelling lower extremities. No angina. She has gram-negative bacillus in her urine. She is on Bactrim. Objective - Vital Signs Vital signs: Vital Signs Temp 96.0 F L 06/02/19 05:00 Pulse 92 06/02/19 11:34 Resp 20 06/02/19 05:00 BP 116/63 06/02/19 05:00 Pulse Ox 93 L 06/02/19 07:26 Intake & Output 06/01/19 06/02/19 06/02/19 18:59 06:59 18:59 Intake Total 840 Balance 840 Intake: Oral 840 Other: Voiding Method Toilet Toilet Toilet # Voids 3 1 - Exam The patient appeared well nourished and normally developed. Vital signs as documented. Head exam is unremarkable. No scleral icterus or corneal arcus noted. Neck is without jugular venous distension, thyromegaly, or carotid bruits. Carotid upstrokes are brisk bilaterally. Lungs diminished breath sounds along with scattered expiratory wheezes and prolonged phase bilaterally. She is also having coughing spells patient when she takes deep breaths and she talks. Cardiac exam reveals the PMI to be normally sized and situated. Rhythm is regular. First and second heart sounds normal. No murmurs, rubs or gallops. Abdominal exam reveals normal bowel sounds, no masses, no organomegaly and no aortic enlargement. Extremities are nonedematous and both femoral and pedal pulses are normal.Examination of the skin revealed no evidence of significant rashes, suspicious appearing nevi or other concerning lesions. Neurologically the patient is awake and alert and there is no focal neurological deficits. - Labs CBC & Chem 7: 06/02/19 07:42 06/02/19 07:42 Labs: Abnormal Lab Results - Last 24 Hours (Table) 06/02/19 06/02/19 Range/Units 07:42 07:42 WBC 13.7 H (3.8-10.6) k/uL Neutrophils # 10.8 H (1.3-7.7) k/uL Chloride 111 H (98-107) mmol/L Carbon Dioxide 19 L (22-30) mmol/L BUN 23 H (7-17) mg/dL Glucose 125 H (74-99) mg/dL ALT 36 H (4-34) U/L Total Protein 6.2 L (6.3-8.2) g/dL Microbiology - Last 24 Hours (Table) 05/31/19 Unknown Urine Culture - Preliminary Urine,Clean Catch Gram Neg Bacilli Assessment and Plan Plan: 1 acute exacerbation of chronic bronchial asthma with acute bronchitis with second and shortness of breath and cough and chest tightness and wheeze. Inf luenza screen is been done on outpatient basis and was negative. Chest x-ray still pending for now. No fever. No chills. Chest wall pain secondary to cough and the patient is slowly improving. On today's evaluation she still having persistent cough 2 history of nephrolithiasis with secondary hydronephrosis on the right, recovered 3 history of CVA with loss and peripheral vision 4 history of DVT on long-term anticoagulation with Xarelto. 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 I'm a bit concerned of unable to the bronchoscopy as the patient has significant cough and the bronchoscopy remain irritated even further and I may not be able to get enough samples on examination done while she is coughing vigorously. It final decision will be done tomorrow.
--- NOTE | 2019-06-02 13:32 | XR ---
EXAMINATION TYPE: XR chest 1V DATE OF EXAM: 06/02/2019 COMPARISON: Prior chest x-ray 05/28/2019 HISTORY: Persistent cough TECHNIQUE: Single frontal view of the chest is obtained. FINDINGS: Right hemidiaphragm remains elevated. Patient is rotated. There is no focal air space opac ity, pleural effusion, or pneumothorax seen. The cardiac silhouette size is within normal limits. The osseous structures are intact. IMPRESSION: No acute process.
[2019-06-02] MEDS: MORPHINE SULFATE 2 MG/ML SYRINGE IVP PRN (13:51)
[2019-06-02] MEDS: CYCLOBENZAPRINE 10 MG TAB PO SCH (21:18)
[2019-06-02] MEDS: HYDROcodone/APAP 7.5-325MG 1 EACH TAB PO PRN (21:18)
[2019-06-02] MEDS: MONTELUKAST 10 MG TAB PO SCH (21:18)
[2019-06-03] MEDS: MORPHINE SULFATE 2 MG/ML SYRINGE IVP PRN ×3 (00:01→21:18)
[2019-06-03] MEDS: IPRATROPIUM-ALBUTEROL 3 ML NEB INHALATION SCH ×4 (07:44→19:57)
[2019-06-03] MEDS: FORMOTEROL FUMARATE 20 MCG/2 ML NEBU INHALATION SCH ×2 (07:44→19:57)
[2019-06-03] MEDS: BUDESONIDE 1 MG/2 ML NEBU INHALATION SCH ×2 (07:44→19:57)
[2019-06-03] MEDS: RIVAROXABAN 20 MG TAB PO SCH (08:30)
[2019-06-03] MEDS: SULFAMETHOX-TMP 800-160MG 1 EACH TAB PO SCH (09:15)
[2019-06-03] MEDS: DIAZEPAM 5 MG TAB PO SCH ×3 (09:15→21:18)
[2019-06-03] MEDS: ESCITALOPRAM 10 MG TAB PO SCH (09:15)
[2019-06-03] MEDS: PANTOPRAZOLE 40 MG TABLET PO SCH (09:15)
[2019-06-03] MEDS: methylPREDNISolone SOD SUCCI 125 MG/2 ML VIAL IV SCH ×2 (09:16→16:37)
[2019-06-03 09:50] LABS: Albumin 3.7 g/dL (3.5-5.0); Calcium 9.2 mg/dL (8.4-10.2); Potassium 5.1 mmol/L (3.5-5.1); Total Bilirubin 0.2 mg/dL (0.2-1.3); Total Protein 6.4 g/dL (6.3-8.2)
[2019-06-03 10:02] LABS: HCT 40.5 % (34.0-46.0); HGB 12.9 gm/dL (11.4-16.0); MCH 26.8 pg (25.0-35.0); MCHC 31.8 g/dL (31.0-37.0); MCV 84.3 fL (80.0-100.0); Mean Platelet Volume 8.5; Platelet Count 302 k/uL (150-450); RBC 4.81 m/uL (3.80-5.40); RDW 13.8 % (11.5-15.5)
--- NOTE | 2019-06-03 10:54 | P.PN ---
Subjective Progress Note Date: 06/03/19 This is a 63-year-old female patient who presented as a direct admit from her PCP. Patient presented with complaints of shortness of breath and coughing over the past month with minimum improvement. Patient does have known past medical history of asthma, chest pain, CVA, DVT, GERD, hyperlipidemia, hypertension, osteoarthritis, pneumonia pulmonary embolism and anxiety and depression. At this time patient will be started on IV steroids and DuoNeb breathing treatments. Robitussin with codeine added. Pulmonary service. Chest x-ray will be ordered. Patient has multiple drug ALLERGIES await pulmonary and chest x-ray results for antibiotics. Medicine patient has diminished breath sounds with some expiratory wheezing. Patient reports mild pleuritic discomfort with coughing. Patient denies other chest pain. Patient denies nausea vomiting or diarrhea. Patient denies any urinary burning or frequency. Per patient patient was tested for influenza at PCP was negative. On 05/29/2019 patient is alert and oriented 3. Patient reports some improvement with cough and shortness of breath. Patient was evaluated by pulmonary services she was started on Bactrim and maintained on IV steroids. C hest x-ray was reviewed. Patient still having increased cough. Patient denies chest pain. Patient denies nausea vomiting or diarrhea. Patient denies any urinary burning or frequency On 05/30/2019 patient was seen and examined on the medical floor she is alert and oriented 3 in no apparent distress she is still complaining of severe Cough and shortness of breath with activity she is also complaining of rib pain while coughing otherwise she denies any complaints there is no fever or chills no headache or dizziness no chest pain no nausea or vomiting no abdominal pain no diarrhea no burning with urination no frequency or urgency and no hematuria On 05/31/2019 patient was seen and examined on the medical floor she is alert and oriented in no apparent distress she is still complaining of cough and shortness of breath with any activity otherwise she denies any complaints there is no fever or chills no headache or dizziness no chest pain no nausea or vomiting no abdominal pain no diarrhea and no urinary symptoms On 06/01/2019 patient's alert and oriented 3. Patient is still coughing but does have some improvement with shortness of breath and wheeziness. Patient denies chest pain. Patient denies nausea vomiting or diarrhea. Patient denies any urinary burning or frequency On 06/02/2019 patient's alert and oriented 3. Patient still having significant coughing possible plans for bronchoscopy per pulmonary. Patient denies chest pain. Patient denies nausea vomiting or diarrhea. Patient denies any urinary burning or frequency On 06/03/2019 patient's alert and oriented 3. Plans today for bronchoscopy at 2 PM. Patient does report some improvement with cough and shortness of breath. Patient denies nausea vomiting or diarrhea. Patient denies any urinary burning or frequency. Objective - Vital Signs Vital signs: Vital Signs Temp 98.0 F 06/03/19 05:00 Pulse 94 06/03/19 08:14 Resp 16 06/03/19 05:00 BP 131/77 06/03/19 05:00 Pulse Ox 90 L 06/03/19 07:46 Intake & Output 06/02/19 06/03/19 06/03/19 18:59 06:59 18:59 Intake Total 1180 Balance 1180 Intake: Oral 1180 Other: Voiding Method Toilet Toilet Toilet # Voids 3 2 - Exam Head normocephalic Neck supple Lungs diminished bilaterally with expiratory wheezing Heart regular rate and rhythm S1-S2, no rub or gallop Abdomen is soft nontender nondistended positive bowel sounds no hepatosplenomegaly Extremities no edema Neuro alert and orientated to 3 - Labs CBC & Chem 7: 06/03/19 09:02 06/03/19 09:02 Labs: Abnormal Lab Results - Last 24 Hours (Table) 06/03/19 06/03/19 Range/Units 09:02 09:02 WBC 14.5 H (3.8-10.6) k/uL Chloride 108 H (98-107) mmol/L BUN 27 H (7-17) mg/dL Glucose 130 H (74-99) mg/dL ALT 36 H (4-34) U/L Microbiology - Last 24 Hours (Table) 05/31/19 Unknown Urine Culture - Final Urine,Clean Catch Escherichia coli Assessment and Plan Assessment: 1. Dyspnea and cough secondary to Acute exacerbation of chronic bronchial asthma with acute bronchitis. Patient will be started Solu-Medrol and DuoNeb breathing treatments pulmonary services will be consulted Nani with codeine negative. Sputum culture ordered. Pulmonary services are following. Patient started on Bactrim. Chest x-ray completed showing no definitive acute radiographic process. Pulmonary services are following patient remains on IV steroids. Plans for bronchoscopy today per pulmonary 2. History of asthma 3. History of CVA 4. History of PE and DVT. Patient maintained on Xarelto 5. History of hyperlipidemia 6. History of essential hypertension 7. History of CVA 8. History of chronic back pain. Patient maintained on [place] 9. History of atrial septal defect and replacement of breath with closure procedure 10. Elevated liver enzymes statin currently on hold. 11. Positive urine culture. Urine growing E. coli. DVT prophylaxis Xarelto. GI prophylaxis Protonix I performed an examination of the patient and discussed their management with the Nurse Practitioner. I have reviewed the Nurse Practitioner's notes and agree with the documented findings and plan of care
[2019-06-03 12:25] LABS: Band Neutrophils % 4 %; Metamyelocytes % 1 %; Myelocytes # (M) 0.58 k/uL (0); Myelocytes % 4 %; Neutrophils % (M) 71 %; Nucleated Red Blood Cells 1 /100 WBC (0-0); Total Cells Counted 200
[2019-06-03 12:26] LABS: Lymphocytes # (M) 2.02 k/uL (1.0-4.8); Metamyelocytes # (M) 0.14 k/uL (0); Monocytes # (M) 1.01 k/uL (0-1.0); WBC 14.4 k/uL (3.8-10.6)
[2019-06-03] MEDS ORDERED: PROPOFOL 10 MG/ML 20 ML VIAL IV ONE (14:26)
[2019-06-03] MEDS ORDERED: LIDOCAINE 1% INJ 10MG/ML (20 ML MDV) ONE (14:26)
[2019-06-03] MEDS ORDERED: LACTATED RINGERS 1,000 ML IV ONE (14:29)
[2019-06-03] MEDS ORDERED: LIDOCAINE 2% INJ 20 MG/ML INTRATRACH ONE (14:40)
--- NOTE | 2019-06-03 14:55 | P.PCN ---
Date of Procedure: 06/03/19 Preoperative Diagnosis: Persistent cough, severe persistent bronchial asthma Postoperative Diagnosis: Same Procedure(s) Performed: Flexible bronchoscopy, BAL of the lingula Anesthesia: MAC Surgeon: Clementine Drummond Estimated Blood Loss (ml): 0 Pathology: none sent Condition: stable Disposition: floor Operative Findings: This procedure was done in the endoscopy suite. A consent was obtained. A timeout was done After achieving adequate sedation, the flexible bronchoscope was introduced through the right nostril. Examination of the posterior oropharynx, larynx, epiglottis and vocal cords and arytenoids was done and all of the upper airway structures were within normal limits. Total of 2 mL of 1% lidocaine was applied to the vocal cords. Following that the bronchoscope was advanced into the upper airway. Examination of the tracheal bronchial tree was done. There was some thick yellowish respiratory secretions occupying the left main stem bronchus. Trachea was patent and within normal limits. Scarlet was sharp and within normal. Examination of the right mainstem bronchus showed some limited amount of rest or secretions. No endobronchial tumor or abnormalities noted at the level of the mainstem bronchi. Bronchoscope was then moved to the right upper lobe bronchus, later on to the bronchus intermedius and the right middle lobe bronchus and right lower lobe bronchus and the various segments were inspected. Bronchoscope was moved to the left side and after inspecting left mainstem bronchus and aspirating of the rest or secretions, upper lobe bronchus, lingular segment of the left lower lobe bronchus were all inspected and there were all within normal limits. Some looseness for secretions were again encountered in the left side and therapeutic airway suctioning was done. At the completion of the procedure, the bronchoscope was wedged into the superior segment of the lingula. A BAL was done. 80 mL of fluid was infused. 40 mL was suctioned back. The patient did encounter some limited amount of cough during the procedure. The procedure was completed without any complications. The pulse oximetry above 90%. We'll continue same bronchodilators and the vaginal. We'll continue to follow. The patient will be transferred back to her room.
--- NOTE | 2019-06-03 14:56 | P.PN ---
Subjective Progress Note Date: 06/03/19 On 06/03/2019 patient seen in follow-up on general medical floor, the feeling dyspneic, congested, and unable to bring up any phlegm. Remains pulse ox is 94%, hemodynamically stable, patient is afebrile. Patient is on Bactrim, IV steroids, 60 mg every 8 hours, and breathing treatments, yesterday showed no acute process, still congested and dyspneic, has been slow to improve, patient has been scheduled for bronchoscopy with BAL Objective - Vital Signs Vital signs: Vital Signs Temp 98.3 F 06/03/19 11:34 Pulse 71 06/03/19 11:34 Resp 18 06/03/19 11:34 BP 138/75 06/03/19 11:34 Pulse Ox 94 L 06/03/19 11:34 Intake & Output 06/02/19 06/03/19 06/03/19 18:59 06:59 18:59 Intake Total 1180 Balance 1180 Intake: Oral 1180 Other: Voiding Method Toilet Toilet Toilet # Voids 3 2 - Exam GENERAL EXAM: Alert, very pleasant, 63-year-old white female, on room air frequent congested cough, which is nonproductive comfortable in no apparent distress. HEAD: Normocephalic/atraumatic. EYES: Normal reaction of pupils, equal size. Conjunctiva pink, sclera white. NOSE: Clear with pink turbinates. THROAT: No erythema or exudates. NECK: No masses, no JVD, no thyroid enlargement, no adenopathy. CHEST: No chest wall deformity. Symmetrical expansion. LUNGS: Equal air entry with diffuse wheezes, and rhonchi CVS: Regular rate and rhythm, normal S1 and S2, no gallops, no murmurs, no rubs ABDOMEN: Soft, nontender. No hepatosplenomegaly, normal bowel sounds, no guarding or rigidity. EXTREMITIES: No clubbing, no edema, no cyanosis, 2+ pulses and upper and lower extremities. MUSCULOSKELETAL: Muscle strength and tone normal. SPINE: No scoliosis or deformity SKIN: No rashes CENTRAL NERVOUS SYSTEM: Alert and oriented -3. No focal deficits, tone is normal in all 4 extremities. PSYCHIATRIC: Alert and oriented -3. Appropriate affect. Intact judgment and insight. - Labs CBC & Chem 7: 06/03/19 09:02 06/03/19 09:02 Labs: Abnormal Lab Results - Last 24 Hours (Table) 06/03/19 06/03/19 Range/Units 09:02 09:02 WBC 14.4 H (3.8-10.6) k/uL Neutrophils # (Manual) 10.80 H (1.3-7.7) k/uL Monocytes # (Manual) 1.01 H (0-1.0) k/uL Metamyelocytes # (Man) 0.14 H (0) k/uL Myelocytes # (Manual) 0.58 H (0) k/uL Nucleated RBCs 1 H (0-0) /100 WBC Chloride 108 H (98-107) mmol/L BUN 27 H (7-17) mg/dL Glucose 130 H (74-99) mg/dL ALT 36 H (4-34) U/L Microbiology - Last 24 Hours (Table) 05/31/19 Unknown Urine Culture - Final Urine,Clean Catch Escherichia coli Assessment and Plan Plan: Assessment: 1 acute exacerbation of chronic bronchial asthma with acute bronchitis with second and shortness of breath and cough and chest tightness and wheeze. Influenza screen is been done on outpatient basis and was negative. Chest x-ray showed no acute process. No fever. No chills. Chest wall pain secondary to cough and the patient is slowly improving. On today's evaluation she still having persistent cough 2 history of nephrolithiasis with secondary hydronephrosis on the right, recovered 3 history of CVA with loss and peripheral vision 4 history of DVT on long-term anticoagulation with Xarelto. 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 Patient's a matter coverage may have to be switched to a different antibiotic in view of the acute urinary tract infection, with urine cultures positive for E. coli. I performed a history & physical examination of the patient and discussed their management with my nurse practitioner, Reanna Pederson. I reviewed the nurse practitioner's note and agree with the documented findings and plan of care. Lung sounds are positive for diffuse wheezes throughout the lung iraheta. The findings and the impression was discussed with the patient. I attest to the documentation by the nurse practitioner. Time with Patient: Less than 30
[2019-06-03] MEDS: CYCLOBENZAPRINE 10 MG TAB PO SCH (20:00)
[2019-06-03] MEDS: NITROFURANTOIN MONOHYD/M-CRYST 100 MG CAP PO SCH (20:00)
[2019-06-03] MEDS: MONTELUKAST 10 MG TAB PO SCH (20:00)
[2019-06-04] MEDS: methylPREDNISolone SOD SUCCI 125 MG/2 ML VIAL IV SCH ×4 (00:26→23:20)
[2019-06-04] MEDS: MORPHINE SULFATE 2 MG/ML SYRINGE IVP PRN ×2 (05:11→15:35)
[2019-06-04] MEDS: guaiFENesin-Coden 100-10MG/5ML 10 ML CUP PO PRN ×2 (05:15→19:21)
[2019-06-04] MEDS: BUDESONIDE 1 MG/2 ML NEBU INHALATION SCH ×2 (07:53→19:42)
[2019-06-04] MEDS: FORMOTEROL FUMARATE 20 MCG/2 ML NEBU INHALATION SCH ×2 (07:53→19:42)
[2019-06-04] MEDS: IPRATROPIUM-ALBUTEROL 3 ML NEB INHALATION SCH ×4 (07:54→19:42)
[2019-06-04] MEDS: NITROFURANTOIN MONOHYD/M-CRYST 100 MG CAP PO SCH ×2 (08:20→21:18)
[2019-06-04] MEDS: DIAZEPAM 5 MG TAB PO SCH ×3 (08:20→21:18)
[2019-06-04] MEDS: ESCITALOPRAM 10 MG TAB PO SCH (08:20)
[2019-06-04] MEDS: PANTOPRAZOLE 40 MG TABLET PO SCH (08:20)
[2019-06-04] MEDS: SULFAMETHOX-TMP 800-160MG 1 EACH TAB PO SCH (08:21)
[2019-06-04] MEDS: RIVAROXABAN 20 MG TAB PO SCH (08:21)
[2019-06-04 09:10] LABS: Basophils # (A) 0.1 k/uL (0-0.2); Basophils % (A) 0 %; Eosinophils # (A) 0.2 k/uL (0-0.7); Eosinophils % (A) 1 %; HCT 42.5 % (34.0-46.0); HGB 13.7 gm/dL (11.4-16.0); Lymphocytes # (A) 1.8 k/uL (1.0-4.8); Lymphocytes % (A) 7 %; MCHC 32.2 g/dL (31.0-37.0); MCV 83.9 fL (80.0-100.0); Mean Platelet Volume 8.3; Monocytes % (A) 4 %; Neutrophils # (A) 20.5 k/uL (1.3-7.7); Neutrophils % (A) 87 %; Platelet Count 309 k/uL (150-450); RBC 5.07 m/uL (3.80-5.40); RDW 13.8 % (11.5-15.5); WBC 23.6 k/uL (3.8-10.6)
[2019-06-04 09:20] LABS: Albumin 3.8 g/dL (3.5-5.0); Calcium 9.2 mg/dL (8.4-10.2); Potassium 4.6 mmol/L (3.5-5.1); Total Bilirubin 0.4 mg/dL (0.2-1.3); Total Protein 6.5 g/dL (6.3-8.2)
--- NOTE | 2019-06-04 13:39 | P.PN ---
Subjective Progress Note Date: 06/04/19 This is a 63-year-old female patient who presented as a direct admit from her PCP. Patient presented with complaints of shortness of breath and coughing over the past month with minimum improvement. Patient does have known past medical history of asthma, chest pain, CVA, DVT, GERD, hyperlipidemia, hypertension, osteoarthritis, pneumonia pulmonary embolism and anxiety and depression. At this time patient will be started on IV steroids and DuoNeb breathing treatments. Robitussin with codeine added. Pulmonary service. Chest x-ray will be ordered. Patient has multiple drug ALLERGIES await pulmonary and chest x-ray results for antibiotics. Medicine patient has diminished breath sounds with some expiratory wheezing. Patient reports mild pleuritic discomfort with coughing. Patient denies other chest pain. Patient denies nausea vomiting or diarrhea. Patient denies any urinary burning or frequency. Per patient patient was tested for influenza at PCP was negative. On 05/29/2019 patient is alert and oriented 3. Patient reports some improvement with cough and shortness of breath. Patient was evaluated by pulmonary services she was started on Bactrim and maintained on IV steroids. C hest x-ray was reviewed. Patient still having increased cough. Patient denies chest pain. Patient denies nausea vomiting or diarrhea. Patient denies any urinary burning or frequency On 05/30/2019 patient was seen and examined on the medical floor she is alert and oriented 3 in no apparent distress she is still complaining of severe Cough and shortness of breath with activity she is also complaining of rib pain while coughing otherwise she denies any complaints there is no fever or chills no headache or dizziness no chest pain no nausea or vomiting no abdominal pain no diarrhea no burning with urination no frequency or urgency and no hematuria On 05/31/2019 patient was seen and examined on the medical floor she is alert and oriented in no apparent distress she is still complaining of cough and shortness of breath with any activity otherwise she denies any complaints there is no fever or chills no headache or dizziness no chest pain no nausea or vomiting no abdominal pain no diarrhea and no urinary symptoms On 06/01/2019 patient's alert and oriented 3. Patient is still coughing but does have some improvement with shortness of breath and wheeziness. Patient denies chest pain. Patient denies nausea vomiting or diarrhea. Patient denies any urinary burning or frequency On 06/02/2019 patient's alert and oriented 3. Patient still having significant coughing possible plans for bronchoscopy per pulmonary. Patient denies chest pain. Patient denies nausea vomiting or diarrhea. Patient denies any urinary burning or frequency On 06/03/2019 patient's alert and oriented 3. Plans today for bronchoscopy at 2 PM. Patient does report some improvement with cough and shortness of breath. Patient denies nausea vomiting or diarrhea. Patient denies any urinary burning or frequency. On 06/04/2019. Patient is alert and oriented 3 status post bronchoscopy on 06/03/2019. Discussed with pulmonary team. Patient does feel improved. Patient remains on IV Solu-Medrol. Discharge planning for the next 24-48 hours. Patient denies chest pain. Patient denies nausea vomiting or diarrhea. Patient denies any urinary burning or frequency Objective - Vital Signs Vital signs: Vital Signs Temp 98.2 F 06/04/19 11:55 Pulse 77 06/04/19 12:13 Resp 16 06/04/19 12:13 BP 132/74 06/04/19 11:55 Pulse Ox 91 L 06/04/19 11:55 Intake & Output 06/03/19 06/04/19 06/04/19 18:59 06:59 18:59 Intake Total 100 590 Balance 100 590 Intake: IV 100 Oral 590 Other: Voiding Method Toilet Toilet Toilet # Voids 3 1 - Exam Head normocephalic Neck supple Lungs diminished bilaterally with expiratory wheezing Heart regular rate and rhythm S1-S2, no rub or gallop Abdomen is soft nontender nondistended positive bowel sounds no hepatosplenomegaly Extremities no edema Neuro alert and orientated to 3 - Labs CBC & Chem 7: 06/04/19 08:19 06/04/19 08:19 Labs: Abnormal Lab Results - Last 24 Hours (Table) 06/04/19 06/04/19 Range/Units 08:19 08:19 WBC 23.6 H (3.8-10.6) k/uL Neutrophils # 20.5 H (1.3-7.7) k/uL BUN 26 H (7-17) mg/dL Glucose 125 H (74-99) mg/dL ALT 36 H (4-34) U/L Microbiology - Last 24 Hours (Table) 06/03/19 14:30 Anaerobic Culture - Final Bronchial Washings - Random 06/03/19 14:30 Acid Fast Bacilli Smear - Final Bronchial Washings - Random Acid Fast Bacilli Culture - Preliminary 06/03/19 14:30 Gram Stain - Preliminary Bronchial Washings - Random Bronchial Washings Culture - Preliminary 06/03/19 14:30 Fungal Culture - Preliminary Bronchial Washings - Random Assessment and Plan Assessment: 1. Dyspnea and cough secondary to Acute exacerbation of chronic bronchial asthma with acute bronchitis. Patient will be started Solu-Medrol and DuoNeb breathing treatments pulmonary services will be consulted Nani with codeine negative. Sputum culture ordered. Pulmonary services are following. Patient started on Bactrim. Chest x-ray completed showing no definitive acute radiographic process. Status post bronchoscopy on 06/03/2019. 2. History of asthma 3. History of CVA 4. History of PE and DVT. Patient maintained on Xarelto 5. History of hyperlipidemia 6. History of essential hypertension 7. History of CVA 8. History of chronic back pain. Patient maintained on [place] 9. History of atrial septal defect and replacement of breath with closure procedure 10. Elevated liver enzymes statin currently on hold. 11. Positive urine culture. Urine growing E. coli. Due to patient's multiple ALLERGIES and resistance to Bactrim will start patient on Macrobid DVT prophylaxis Xarelto. GI prophylaxis Protonix Anticipate discharge in the next 24-48 hours I performed an examination of the patient and discussed their management with the Nurse Practitioner. I have reviewed the Nurse Practitioner's notes and agree with the documented findings and plan of care
[2019-06-04 13:54] VITALS: BMI 28.1
--- NOTE | 2019-06-04 15:50 | P.PN ---
Subjective Progress Note Date: 06/04/19 On 06/03/2019 patient seen in follow-up on general medical floor, the feeling dyspneic, congested, and unable to bring up any phlegm. Remains pulse ox is 94%, hemodynamically stable, patient is afebrile. Patient is on Bactrim, IV steroids, 60 mg every 8 hours, and breathing treatments, yesterday showed no acute process, still congested and dyspneic, has been slow to improve, patient has been scheduled for bronchoscopy with BAL On 06/04/2019 patient seen in follow-up. Breathing is improving, still has some mild coughing spells, that are dry, not bringing up any phlegm, patient is status post bronchoscopy with BAL, and lavage cultures are pending, negative thus far, no fever or chills, today's lab work has been reviewed, blood blood cell count is 23.6, hemoglobin 13.7, patient remains on Bactrim, and nitrofurantoin has been added for UTI. Patient remains on IV steroids, and breathing treatments, she is improving, discharge planning is in progress for possible discharge tomorrow Objective - Vital Signs Vital signs: Vital Signs Temp 98.2 F 06/04/19 11:55 Pulse 93 06/04/19 15:42 Resp 16 06/04/19 15:42 BP 132/74 06/04/19 11:55 Pulse Ox 91 L 06/04/19 11:55 Intake & Output 06/03/19 06/04/19 06/04/19 18:59 06:59 18:59 Intake Total 100 590 Balance 100 590 Weight 58.967 kg Intake: IV 100 Oral 590 Other: Voiding Method Toilet Toilet Toilet # Voids 3 1 2 - Exam GENERAL EXAM: Alert, very pleasant, 63-year-old white female, on room air frequent dry cough, which is nonproductive comfortable in no apparent distress. HEAD: Normocephalic/atraumatic. EYES: Normal reaction of pupils, equal size. Conjunctiva pink, sclera white. NOSE: Clear with pink turbinates. THROAT: No erythema or exudates. NECK: No masses, no JVD, no thyroid enlargement, no adenopathy. CHEST: No chest wall deformity. Symmetrical expansion. LUNGS: Equal air entry with minimal basilar crackles CVS: Regular rate and rhythm, normal S1 and S2, no gallops, no murmurs, no rubs ABDOMEN: Soft, nontender. No hepatosplenomegaly, normal bowel sounds, no guarding or rigidity. EXTREMITIES: No clubbing, no edema, no cyanosis, 2+ pulses and upper and lower extremities. MUSCULOSKELETAL: Muscle strength and tone normal. SPINE: No scoliosis or deformity SKIN: No rashes CENTRAL NERVOUS SYSTEM: Alert and oriented -3. No focal deficits, tone is normal in all 4 extremities. PSYCHIATRIC: Alert and oriented -3. Appropriate affect. Intact judgment and insight. - Labs CBC & Chem 7: 06/04/19 08:19 06/04/19 08:19 Labs: Abnormal Lab Results - Last 24 Hours (Table) 06/04/19 06/04/19 Range/Units 08:19 08:19 WBC 23.6 H (3.8-10.6) k/uL Neutrophils # 20.5 H (1.3-7.7) k/uL BUN 26 H (7-17) mg/dL Glucose 125 H (74-99) mg/dL ALT 36 H (4-34) U/L Microbiology - Last 24 Hours (Table) 06/03/19 14:30 Anaerobic Culture - Final Bronchial Washings - Random 06/03/19 14:30 Acid Fast Bacilli Smear - Final Bronchial Washings - Random Acid Fast Bacilli Culture - Preliminary 06/03/19 14:30 Gram Stain - Preliminary Bronchial Washings - Random Bronchial Washings Culture - Preliminary 06/03/19 14:30 Fungal Culture - Preliminary Bronchial Washings - Random Assessment and Plan Plan: Assessment: 1 acute exacerbation of chronic bronchial asthma with acute bronchitis with second and shortness of breath and cough and chest tightness and wheeze. Influenza screen is been done on outpatient basis and was negative. Chest x-ray showed no acute process. No fever. No chills. Chest wall pain secondary to cough and the patient is slowly improving. On today's evaluation she still having persistent cough 2 history of nephrolithiasis with secondary hydronephrosis on the right, recovered 3 history of CVA with loss and peripheral vision 4 history of DVT on long-term anticoagulation with Xarelto. 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 I reviewed the nurse practitioner's note and agree with the documented findings and plan of care. Lung sounds are positive for diffuse wheezes throughout the lung iraheta. The findings and the impression was discussed with the patient. I attest to the documentation by the nurse practitioner. Time with Patient: Less than 30
[2019-06-04] MEDS: MONTELUKAST 10 MG TAB PO SCH (21:18)
[2019-06-04] MEDS: CYCLOBENZAPRINE 10 MG TAB PO SCH (21:18)
[2019-06-05 00:17] VITALS: RESP 18
[2019-06-05] MEDS: guaiFENesin-Coden 100-10MG/5ML 10 ML CUP PO PRN ×2 (01:41→12:47)
[2019-06-05] MEDS: HYDROcodone/APAP 7.5-325MG 1 EACH TAB PO PRN ×2 (01:45→11:41)
[2019-06-05 05:32] VITALS: BP 130/74; TEMP 98.1
[2019-06-05] MEDS: IPRATROPIUM-ALBUTEROL 3 ML NEB INHALATION SCH ×2 (08:54→11:49)
[2019-06-05] MEDS: BUDESONIDE 1 MG/2 ML NEBU INHALATION SCH (08:54)
[2019-06-05] MEDS: FORMOTEROL FUMARATE 20 MCG/2 ML NEBU INHALATION SCH (08:54)
[2019-06-05] MEDS: methylPREDNISolone SOD SUCCI 125 MG/2 ML VIAL IV SCH (09:01)
[2019-06-05] MEDS: NITROFURANTOIN MONOHYD/M-CRYST 100 MG CAP PO SCH (09:02)
[2019-06-05] MEDS: DIAZEPAM 5 MG TAB PO SCH (09:02)
[2019-06-05] MEDS: ESCITALOPRAM 10 MG TAB PO SCH (09:02)
[2019-06-05] MEDS: SULFAMETHOX-TMP 800-160MG 1 EACH TAB PO SCH (09:02)
[2019-06-05] MEDS: RIVAROXABAN 20 MG TAB PO SCH (09:02)
[2019-06-05] MEDS: PANTOPRAZOLE 40 MG TABLET PO SCH (09:03)
[2019-06-05 09:44] LABS: Basophils # (A) 0.1 k/uL (0-0.2); Basophils % (A) 0 %; Eosinophils # (A) 0.1 k/uL (0-0.7); Eosinophils % (A) 1 %; HCT 41.4 % (34.0-46.0); Lymphocytes # (A) 1.6 k/uL (1.0-4.8); Lymphocytes % (A) 7 %; MCH 26.9 pg (25.0-35.0); MCHC 31.3 g/dL (31.0-37.0); MCV 85.8 fL (80.0-100.0); Mean Platelet Volume 8.3; Monocytes % (A) 5 %; Neutrophils # (A) 18.7 k/uL (1.3-7.7); Neutrophils % (A) 87 %; Platelet Count 290 k/uL (150-450); RBC 4.83 m/uL (3.80-5.40); WBC 21.5 k/uL (3.8-10.6)
[2019-06-05 09:56] LABS: Albumin 3.5 g/dL (3.5-5.0); Potassium 4.9 mmol/L (3.5-5.1); Total Bilirubin 0.2 mg/dL (0.2-1.3); Total Protein 6.1 g/dL (6.3-8.2)
[2019-06-05 11:53] VITALS: PULSE 88
--- NOTE | 2019-06-05 13:24 | P.PN ---
Subjective Progress Note Date: 06/05/19 On 06/03/2019 patient seen in follow-up on general medical floor, the feeling dyspneic, congested, and unable to bring up any phlegm. Remains pulse ox is 94%, hemodynamically stable, patient is afebrile. Patient is on Bactrim, IV steroids, 60 mg every 8 hours, and breathing treatments, yesterday showed no acute process, still congested and dyspneic, has been slow to improve, patient has been scheduled for bronchoscopy with BAL On 06/04/2019 patient seen in follow-up. Breathing is improving, still has some mild coughing spells, that are dry, not bringing up any phlegm, patient is status post bronchoscopy with BAL, and lavage cultures are pending, negative thus far, no fever or chills, today's lab work has been reviewed, blood blood cell count is 23.6, hemoglobin 13.7, patient remains on Bactrim, and nitrofurantoin has been added for UTI. Patient remains on IV steroids, and breathing treatments, she is improving, discharge planning is in progress for possible discharge tomorrow On 06/05/2019 patient seen in follow-up on medical surgical floor. Doing better, although she had episode of shortness of breath last night, and coughing, her anterior chest and ribs are sore from coughing, the pain is reproducible, lung sounds do not reveal any significant wheezing, some mild crackles at the bases, no rhonchi, she is on 2 L of oxygen and her pulse ox is 94%, and this is home dose oxygen, afebrile, hemodynamically stable. Lavage cultures showed Dolly albicans, Gram stain shows few polymorphonuclear leukocytes, moderate gram-positive bacilli, final cultures pending. Hemodynamically stable, patient has been ambulating within the room, tolerating activity well Objective - Vital Signs Vital signs: Vital Signs Temp 98.1 F 06/05/19 05:00 Pulse 88 06/05/19 12:05 Resp 18 06/05/19 08:00 BP 130/74 06/05/19 05:00 Pulse Ox 94 L 06/05/19 05:00 Intake & Output 06/04/19 06/05/19 06/05/19 18:59 06:59 18:59 Intake Total 590 240 Balance 590 240 Weight 58.967 kg Intake: Oral 590 240 Other: Voiding Method Toilet Toilet Toilet # Voids 2 1 2 - Exam GENERAL EXAM: Alert, very pleasant, 63-year-old white female, on room air frequent dry cough, which is nonproductive comfortable in no apparent distress. HEAD: Normocephalic/atraumatic. EYES: Normal reaction of pupils, equal size. Conjunctiva pink, sclera white. NOSE: Clear with pink turbinates. THROAT: No erythema or exudates. NECK: No masses, no JVD, no thyroid enlargement, no adenopathy. CHEST: No chest wall deformity. Symmetrical expansion. LUNGS: Equal air entry with minimal basilar crackles CVS: Regular rate and rhythm, normal S1 and S2, no gallops, no murmurs, no rubs ABDOMEN: Soft, nontender. No hepatosplenomegaly, normal bowel sounds, no guarding or rigidity. EXTREMITIES: No clubbing, no edema, no cyanosis, 2+ pulses and upper and lower extremities. MUSCULOSKELETAL: Muscle strength and tone normal. SPINE: No scoliosis or deformity SKIN: No rashes CENTRAL NERVOUS SYSTEM: Alert and oriented -3. No focal deficits, tone is norm al in all 4 extremities. PSYCHIATRIC: Alert and oriented -3. Appropriate affect. Intact judgment and insight. - Labs CBC & Chem 7: 06/05/19 08:51 06/05/19 08:51 Labs: Abnormal Lab Results - Last 24 Hours (Table) 06/05/19 06/05/19 Range/Units 08:51 08:51 WBC 21.5 H (3.8-10.6) k/uL Neutrophils # 18.7 H (1.3-7.7) k/uL Chloride 109 H (98-107) mmol/L BUN 29 H (7-17) mg/dL Glucose 108 H (74-99) mg/dL ALT 35 H (4-34) U/L Total Protein 6.1 L (6.3-8.2) g/dL Microbiology - Last 24 Hours (Table) 06/03/19 14:30 Fungal Culture - Preliminary Bronchial Washings - Random Dolly albicans Assessment and Plan Plan: Assessment: 1 acute exacerbation of chronic bronchial asthma with acute bronchitis with second and shortness of breath and cough and chest tightness and wheeze. Influenza screen is been done on outpatient basis and was negative. Chest x-ray showed no acute process. No fever. No chills. Chest wall pain secondary to cough and the patient is slowly improving. On today's evaluation she still having persistent cough 2 history of nephrolithiasis with secondary hydronephrosis on the right, recovered 3 history of CVA with loss and peripheral vision 4 history of DVT on long-term anticoagulation with Xarelto. 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 From pulmonary perspective patient came to consider for discharge home today with outpatient follow-up in the office with Dr. Drummond in 1 week I performed a history & physical examination of the patient and discussed their management with my nurse practitioner, Reanna Pederson. I reviewed the nurse practitioner's note and agree with the documented findings and plan of care. Lung sounds are positive for diffuse wheezes throughout the lung iraheta. The findings and the impression was discussed with the patient. I attest to the documentation by the nurse practitioner. Time with Patient: Less than 30
--- NOTE | 2019-06-05 14:54 | P.DS ---
Providers Date of admission: 05/28/19 13:52 Expected date of discharge: 06/05/19 Attending physician: Nighat Francois Consults: 05/28/19 14:20 Consult Physician Routine Consulting Provider: Clementine Drummond Consult Reason/Comments: Asthma exacerbation Do you want consulting provider notified?: Yes Primary care physician: Nighat Francois [facility] Course: Discharge diagnosis 1. Dyspnea and cough secondary to Acute exacerbation of chronic bronchial asthma with acute bronchitis. Patient will be started Solu-Medrol and DuoNeb breathing treatments pulmonary services will be consulted Robitussin with codeine negative. Sputum culture ordered. Pulmonary services are following. Patient started on Bactrim. Chest x-ray completed showing no definitive acute radiographic process. Status post bronchoscopy on 06/03/2019. Discussed case with pulmonology team patient has been cleared for discharge. Recommending DC on prednisone taper no need for Bactrim or other antibiotics per pulmonary 2. History of asthma 3. History of CVA 4. History of PE and DVT. Patient maintained on Xarelto 5. History of hyperlipidemia 6. History of essential hypertension 7. History of CVA 8. History of chronic back pain. Patient maintained on Savery 9. History of atrial septal defect and replacement of breath with closure procedure 10. Elevated liver enzymes statin currently on hold. 11. Positive urine culture. Urine growing E. coli. Due to patient's multiple ALLERGIES and resistance to Bactrim will start patient on Macrobid. She'll be DC'd on Macrobid for 7 days Hospital course This is a 63-year-old female patient who presented as a direct admit from her PCP. Patient presented with complaints of shortness of breath and coughing over the past month with minimum improvement. Patient does have known past medical history of asthma, chest pain, CVA, DVT, GERD, hyperlipidemia, hypertension, osteoarthritis, pneumonia pulmonary embolism and anxiety and depression. At this time patient will be started on IV steroids and DuoNeb breathing treatments. Robitussin with codeine added. Pulmonary service. Chest x-ray will be ordered. Patient has multiple drug ALLERGIES await pulmonary and chest x-ray results for antibiotics. Medicine patient has diminished breath sounds with some expiratory wheezing. Patient reports mild pleuritic discomfort with coughing. Patient denies other chest pain. Patient denies nausea vomiting or diarrhea. Patient denies any urinary burning or frequency. Per patient patient was tested for influenza at PCP was negative. On 05/29/2019 patient is alert and oriented 3. Patient reports some improvement with cough and shortness of breath. Patient was evaluated by pulmonary services she was started on Bactrim and maintained on IV steroids. Chest x-ray was reviewed. Patient still having increased cough. Patient denies chest pain. Patient denies nausea vomiting or diarrhea. Patient denies any urinary burning or frequency On 05/30/2019 patient was seen and examined on the medical floor she is alert and oriented 3 in no apparent distress she is still complaining of severe Cough and shortness of breath with activity she is also complaining of rib pain while coughing otherwise she denies any complaints there is no fever or chills no headache or dizziness no chest pain no nausea or vomiting no abdominal pain no diarrhea no burning with urination no frequency or urgency and no hematuria On 05/31/2019 patient was seen and examined on the medical floor she is alert and oriented in no apparent distress she is still complaining of cough and shortness of breath with any activity otherwise she denies any complaints there is no fever or chills no headache or dizziness no chest pain no nausea or vomiting no abdominal pain no diarrhea and no urinary symptoms On 06/01/2019 patient's alert and oriented 3. Patient is still coughing but does have some improvement with shortness of breath and wheeziness. Patient denies chest pain. Patient denies nausea vomiting or diarrhea. Patient denies any urinary burning or frequency On 06/02/2019 patient's alert and oriented 3. Patient still having significant coughing possible plans for bronchoscopy per pulmonary. Patient denies chest pain. Patient denies nausea vomiting or diarrhea. Patient denies any urinary burning or frequency On 06/03/2019 patient's alert and oriented 3. Plans today for bronchoscopy at 2 PM. Patient does report some improvement with cough and shortness of breath. Patient denies nausea vomiting or diarrhea. Patient denies any urinary burning or frequency. On 06/04/2019. Patient is alert and oriented 3 status post bronchoscopy on 06/03/2019. Discussed with pulmonary team. Patient does feel improved. Patient remains on IV Solu-Medrol. Discharge planning for the next 24-48 hours. Patient denies chest pain. Patient denies nausea vomiting or diarrhea. Patient denies any urinary burning or frequency On 06/05/2019 patient's alert and oriented 3. Patient is feeling improved. Patient has been cleared for discharge from pulmonary standpoint. Patient will be DC'd on prednisone taper and Macrobid 3. GI. Patient also be DC'd on cough syrup and Savery per Dr. Francois. At this time patient denies chest pain. Patient denies nausea vomiting or diarrhea. Patient denies any urinary burning or frequency. Patient is back to her baseline on 2 L nasal cannula I performed an examination of the patient and discussed their management with the Nurse Practitioner. I have reviewed the Nurse Practitioner's notes and agree with the documented findings and plan of care Patient Condition at Discharge: Stable Plan - Discharge Summary Discharge Rx Participant: No New Discharge Prescriptions: New Nitrofurantoin Monohyd/M-Cryst [Macrobid] 100 mg PO BID 7 Days #14 cap predniSONE 10 mg PO DIRECTED 12 Days #30 tab Continue Promethaz-Cod 6.25-10 mg/5 ml [Phenergan with Codeine] 10 ml PO Q8H PRN PRN Reason: Cough Rivaroxaban [Xarelto] 20 mg PO DAILY Diazepam [Valium] 10 mg PO TID Ibandronate Sodium [Boniva] 150 mg PO QMONTH Fluticasone/Salmeterol [Advair 500-50 Diskus] 1 puff INHALATION RT-BID Montelukast [Singulair] 10 mg PO HS Escitalopram [Lexapro] 10 mg PO DAILY Pantoprazole Sodium [Protonix] 40 mg PO DAILY Pravastatin Sodium [Pravachol] 40 mg PO HS Ergocalciferol (Vitamin D2) [Drisdol] 50,000 unit PO MO HYDROcodone/APAP 7.5-325MG [[place] 7.5-325] 0.5 - 1 tab PO TID PRN PRN Reason: Pain ALPRAZolam [Xanax] 0.5 mg PO TID PRN PRN Reason: Anxiety Levalbuterol Nebulized [Xopenex Nebulized] 1.25 mg INHALATION RT-QID PRN PRN Reason: Shortness Of Breath Cyclobenzaprine [Flexeril] 10 mg PO HS EPINEPHrine (Auto Inject) [Epipen] 0.3 mg IM ONCE PRN PRN Reason: Anaphylaxis Albuterol Nebulized [Ventolin Nebulized] 2.5 mg INHALATION RT-QID PRN PRN Reason: Shortness Of Breath Zolpidem [Ambien] 10 mg PO HS PRN PRN Reason: Insomnia Ipratropium-Albuterol Nebulize [Duoneb 0.5 mg-3 mg/3 ml Soln] 3 ml INHALATION RT-QID PRN PRN Reason: Shortness Of Breath Discharge Medication List Diazepam [Valium] 10 mg PO TID 05/24/15 [History] Ibandronate Sodium [Boniva] 150 mg PO QMONTH 05/24/15 [History] Promethaz-Cod 6.25-10 mg/5 ml [Phenergan with Codeine] 10 ml PO Q8H PRN 05/24/15 [History] Rivaroxaban [Xarelto] 20 mg PO DAILY 05/24/15 [History] Fluticasone/Salmeterol [Advair 500-50 Diskus] 1 puff INHALATION RT-BID 04/08/16 [History] Escitalopram [Lexapro] 10 mg PO DAILY 05/20/17 [History] Montelukast [Singulair] 10 mg PO HS 05/20/17 [History] Pantoprazole Sodium [Protonix] 40 mg PO DAILY 05/20/17 [History] Pravastatin Sodium [Pravachol] 40 mg PO HS 11/21/17 [History] Ergocalciferol (Vitamin D2) [Drisdol] 50,000 unit PO MO 12/11/17 [History] HYDROcodone/APAP 7.5-325MG [[place] 7.5-325] 0.5 - 1 tab PO TID PRN 02/05/19 [History] ALPRAZolam [Xanax] 0.5 mg PO TID PRN 05/28/19 [History] Albuterol Nebulized [Ventolin Nebulized] 2.5 mg INHALATION RT-QID PRN 05/28/19 [History] Cyclobenzaprine [Flexeril] 10 mg PO HS 05/28/19 [History] EPINEPHrine (Auto Inject) [Epipen] 0.3 mg IM ONCE PRN 05/28/19 [History] Ipratropium-Albuterol Nebulize [Duoneb 0.5 mg-3 mg/3 ml Soln] 3 ml INHALATION RT-QID PRN 05/28/19 [History] Levalbuterol Nebulized [Xopenex Nebulized] 1.25 mg INHALATION RT-QID PRN 05/28/19 [History] Zolpidem [Ambien] 10 mg PO HS PRN 05/28/19 [History] Nitrofurantoin Monohyd/M-Cryst [Macrobid] 100 mg PO BID 7 Days #14 cap 06/05/19 [Rx] predniSONE 10 mg PO DIRECTED 12 Days #30 tab 06/05/19 [Rx] Follow up Appointment(s)/Referral(s): Clementine Drummond MD [STAFF PHYSICIAN] - 1 Week Nighat Francois MD [Primary Care Provider] - 1 Week Activity/Diet/Wound Care/Special Instructions: Activity as tolerated Diet heart healthy Discharge Disposition: HOME SELF-CARE
== END 2019-06-05 15:40 | disposition home or self-care (01) | DRG 202 ==
LOC: 5NMEDONC 13:52
PROVIDERS: ADMIT Internal Medicine; ATTEND Internal Medicine
PROC: 0B9H8ZZ Drainage of Lung Lingula, Via Natural or Artificial Opening Endoscopic (ICD-10-PCS; principal; 2019-06-03 14:05)
PROC: 0BJ08ZZ Inspection of Tracheobronchial Tree, Via Natural or Artificial Opening Endoscopic (ICD-10-PCS; principal; 2019-06-03 14:05)
DX: J45.41 Moderate persistent asthma with (acute) exacerbation (principal); J44.1 Chronic obstructive pulmonary disease with (acute) exacerbation; J44.0 Chronic obstructive pulmonary disease with (acute) lower respiratory infection; Z16.29 Resistance to other single specified antibiotic; Q21.1 Atrial septal defect; N39.0 Urinary tract infection, site not specified; J20.9 Acute bronchitis, unspecified; E78.5 Hyperlipidemia, unspecified; F32.9 Major depressive disorder, single episode, unspecified; F41.9 Anxiety disorder, unspecified; G89.29 Other chronic pain; I10 Essential (primary) hypertension; K44.9 Diaphragmatic hernia without obstruction or gangrene; K57.90 Diverticulosis of intestine, part unspecified, without perforation or abscess without bleeding; M41.9 Scoliosis, unspecified; M81.0 Age-related osteoporosis without current pathological fracture; Z79.01 Long term (current) use of anticoagulants; Z79.52 Long term (current) use of systemic steroids; Z79.899 Other long term (current) drug therapy; Z80.1 Family history of malignant neoplasm of trachea, bronchus and lung; Z80.3 Family history of malignant neoplasm of breast; Z86.711 Personal history of pulmonary embolism; Z86.718 Personal history of other venous thrombosis and embolism; I69.398 Other sequelae of cerebral infarction; H53.8 Other visual disturbances; Z87.442 Personal history of urinary calculi; Z88.1 Allergy status to other antibiotic agents; Z90.710 Acquired absence of both cervix and uterus; Z87.01 Personal history of pneumonia (recurrent); Z87.440 Personal history of urinary (tract) infections; Z86.14 Personal history of Methicillin resistant Staphylococcus aureus infection; Z90.49 Acquired absence of other specified parts of digestive tract; Z80.0 Family history of malignant neoplasm of digestive organs; Z80.8 Family history of malignant neoplasm of other organs or systems; Z98.49 Cataract extraction status, unspecified eye; R94.5 Abnormal results of liver function studies; Z79.891 Long term (current) use of opiate analgesic; B96.20 Unspecified Escherichia coli [E. coli] as the cause of diseases classified elsewhere
CPT/HCPCS: 31624; 31645; 71045; 71046; 80053; 81003; 85025; 87070; 87075; 87077; 87086; 87102; 87116; 87186; 87205; 87206; 87252; 87496; 87498; 87502; 87529; 87541; 87634; 87798; 94640; 94760

== ENCOUNTER 2019-07-07 21:12 | Inpatient (IN) | payer MEDICARE ==
[2019-07-07] MEDS ORDERED: MORPHINE SULFATE 4 MG/ML SYRINGE IV STA (21:48)
--- NOTE | 2019-07-07 22:01 | ED ---
General Adult HPI - General Source: patient, RN notes reviewed, old records reviewed Mode of arrival: ambulatory Limitations: no limitations <Scout Espinosa - Last Filed: 07/08/19 00:23> <Angel Rhodes - Last Filed: 07/08/19 07:05> - General Chief complaint: Fall Stated complaint: Fall Time Seen by Provider: 07/07/19 21:29 - History of Present Illness Initial comments: 63-year-old female patient presents to ED for chief complaint of multiple falls. She reports that that she got out of bed to take her Valium and also balance falling to the side. Patient reports that she landed on her left hip and also hit her head. Patient does take eliquis. Denies loss of consciousness. Chief complaint left hip pain. Patient reports that within the last week she has had 7 falls. Patient denies any other complaints. Systemic: Pt denies fatigue, fever/chills, rash. Pt denies weakness, night sweats, weight loss. Neuro: Pt denies headache, visual disturbances, syncope or pre-syncope. HEENT: Pt denies ocular discharge or irritation, otalgia, rhinorrhea, pharyngitis or notable lymphadenopathy. Cardiopulmonary: Pt denies chest pain, SOB, heart palpitations, dyspnea on exertion. Abdominal/GI: Pt denies abdominal pain, n/v/d. : Pt denies dysuria, burning w/ urination, frequency/urgency. Denies new onset urinary or bowel incontinence. MSK: Pt denies myalgia, loss of strength or function in extremities. Neuro: Pt denies new onset weakness, paresthesias. (Scout Espinosa) - Related Data Home Medications Medication Instructions Recorded Confirmed Diazepam [Valium] 10 mg PO TID 05/24/15 07/07/19 Rivaroxaban [Xarelto] 20 mg PO DAILY 05/24/15 07/07/19 Fluticasone/Salmeterol [Advair 1 puff INHALATION RT-BID 04/08/16 07/07/19 500-50 Diskus] Escitalopram [Lexapro] 10 mg PO DAILY 05/20/17 07/07/19 Montelukast [Singulair] 10 mg PO HS 05/20/17 07/07/19 Pantoprazole Sodium [Protonix] 40 mg PO DAILY 05/20/17 07/07/19 Pravastatin Sodium [Pravachol] 40 mg PO HS 11/21/17 07/07/19 Ergocalciferol (Vitamin D2) 50,000 unit PO MO 12/11/17 07/07/19 [Drisdol] HYDROcodone/APAP 7.5-325MG [[place] 0.5 - 1 tab PO TID PRN 02/05/19 07/07/19 7.5-325] ALPRAZolam [Xanax] 0.5 mg PO TID PRN 05/28/19 07/07/19 Albuterol Nebulized [Ventolin 2.5 mg INHALATION RT-QID PRN 05/28/19 07/07/19 Nebulized] Cyclobenzaprine [Flexeril] 10 mg PO HS 05/28/19 07/07/19 EPINEPHrine (Auto Inject) [Epipen] 0.3 mg IM ONCE PRN 05/28/19 07/07/19 Ipratropium-Albuterol Nebulize 3 ml INHALATION RT-QID PRN 05/28/19 07/07/19 [Duoneb 0.5 mg-3 mg/3 ml Soln] Levalbuterol Nebulized [Xopenex 1.25 mg INHALATION RT-QID PRN 05/28/19 07/07/19 Nebulized] Zolpidem [Ambien] 10 mg PO HS PRN 05/28/19 07/07/19 Allergies Allergy/AdvReac Type Severity Reaction Status Date / Time cephalexin monohydrate Allergy Rash/Hives Verified 07/07/19 22:14 [From Keflex] clarithromycin [From Biaxin] Allergy Rash/Hives Verified 07/07/19 22:14 levofloxacin [From Levaquin] Allergy Rash/Hives Verified 07/07/19 22:14 Quinolones Allergy Rash/Hives Verified 07/07/19 22:14 Review of Systems ROS Other: All systems not noted in ROS Statement are negative. <Scout Espinosa - Last Filed: 07/08/19 00:23> ROS Other: All systems not noted in ROS Statement are negative. <Angel Rhodes - Last Filed: 07/08/19 07:05> ROS Statement: Those systems with pertinent positive or pertinent negative responses have been documented in the HPI. Past Medical History Past Medical History: Asthma, Chest Pain / Angina, CVA/TIA, Deep Vein Thrombosis (DVT), GERD/Reflux, Hyperlipidemia, Hypertension, Osteoarthritis (OA), Pneumonia, Pulmonary Embolus (PE) Additional Past Medical History / Comment(s): CVA LOST LT PERIPHERAL VISION AND WRITING IS A BIT DIFFICULT & FEW TIA'S, TREMORS SINCE.PE/ XUAN DVT (AFTER LAST 2 MAJOR SURG). HX BOWEL OBSTRUCTION. USED TO TAKE MEDS FOR BP , OSTEOPOROSIS. BACK PAIN. ,RADS,CHRONIC BRONCHITIS, SCOLIOSIS, BROKE RT WRIST D/T FALL 2009, SMALL HIATAL HERNIA,DIVERTICULAR DISEASE, UTI,GLAUCOMA History of Any Multi-Drug Resistant Organisms: MRSA, Other MDRO Date of last positivie culture/infection: 07/12/08-MRSA MDRO Source:: URINE-MRSA Past Surgical History: Appendectomy, Back Surgery, Bladder Surgery, Bowel Resection, Breast Surgery, Cholecystectomy, Heart Catheterization, Hernia Repair, Hysterectomy, Orthopedic Surgery, Tubal Ligation Additional Past Surgical History / Comment(s): 12-28-15 [employer] INC HERNIA REPAIR, 2 PREVIOUS HERNIA SX ,2 HOLES IN HEART REPAIRED, ATRIUM, SEPTUM - HAS "UMBRELLA" CLOSURE DEVICE. BREAST REDUCTION. cystoscopy CYSTOCELE, RECTOCELE REPAIR. RT FOOT. EXC CYST LT ARM,LT FOOT REPAIR CYSTOSCOPY,LT BREAST BX-NEG, BUNIONECTOMY,GANGLION CYST REMOVED BRONCOSCOPIES,EGD/COLONOSCOPY,XUAN CATARACTS,hammer toe-pins removed. neuroma-bone removed/pins removed. lt toe , rt wrist nerve sx Past Anesthesia/Blood Transfusion Reactions: No Reported Reaction Past Psychological History: Anxiety, Depression Smoking Status: Never smoker Past Alcohol Use History: None Reported Past Drug Use History: None Reported - Past Family History Father Brother(s) Family Medical History: Cancer Additional Family Medical History / Comment(s): LUNG CANCER Sister(s) Family Medical History: Cancer Additional Family Medical History / Comment(s): # 1 SISTER-BONE CA,SISTER #2 BREAST CA, SISTER #3 LUNG,STOMACH,ESOPHAGUS Mother Family Medical History: Deep Vein Thrombosis (DVT) Additional Family Medical History / Comment(s): diverticulitis Father Family Medical History: Cancer Additional Family Medical History / Comment(s): Father of lung cancer. <Scout Espinosa - Last Filed: 07/08/19 00:23> General Exam Limitations: no limitations <Scout Espinosa - Last Filed: 07/08/19 00:23> - General Exam Comments Initial Comments: Constitutional: NAD, AOX3, Pt has pleasant affect. HEENT: NC/AT, trachea midline, neck supple, no lymphadenopathy. Posterior pharynx non erythematous, without exudates. External ears appear normal, without discharge. Mucous membranes moist. Eyes PERRLA, EOM intact. There is no scleral icterus. No pallor noted. Cardiopulmonary: RRR, no murmurs, rubs or gallops, no JVD noted. Lungs CTAB in anterior and posterior iraheta. No peripheral edema. Abdominal exam: Abdomen soft and non-distended. Abdomen non-tender to palpation in all 4 quadrants. Bowel sounds active in LLQ. No hepatosplenomegaly. No ec chymosis Neuro: CN II-XII intact. NIH 0. No nuchal rigidity. No raccon eyes, no gonsalez sign, no hemotympanum. Mild amount of cervical spinal tenderness. MSK: Left proximal hip mildly tender to palpation. No snuffbox tenderness. Full active ROM. No posterior calf tenderness bilaterally, homans sign negative bilaterally. Posterior tibialis and radial pulse +2 bilaterally. Sensation intact in upper and lower extremities. Full active ROM in upper and lower extremities, 5/5 stregnth. (Scout Espinosa) Course Vital Signs 07/07/19 07/07/19 07/07/19 21:24 21:36 22:23 Temperature 98.4 F Pulse Rate 114 H 107 H 108 H Respiratory 20 20 20 Rate Blood Pressure 105/73 112/85 121/90 O2 Sat by Pulse 95 95 95 Oximetry 07/07/19 07/08/19 23:00 00:36 Temperature Pulse Rate 105 H 93 Respiratory 20 20 Rate Blood Pressure 106/75 106/54 O2 Sat by Pulse 95 97 Oximetry Medical Decision Making - Lab Data Result diagrams: 07/07/19 22:13 07/07/19 22:13 - EKG Data -: EKG Interpreted by Me (and Dr. Reich) <Scout Espinosa - Last Filed: 07/08/19 00:23> - Lab Data Result diagrams: 07/07/19 22:13 07/07/19 22:13 <Angel Rhodes - Last Filed: 07/08/19 07:05> - Medical Decision Making 63-year-old female patient presents to ED for chief complaint of multiple falls. She reports that that she got out of bed to take her Valium and also balance falling to the side. Patient reports that she landed on her left hip and also hit her head. Patient does take eliquis. Denies loss of consciousness. Chief complaint left hip pain. Patient reports that within the last week she has had 7 falls. Patient denies any other complaints. Pt VSS, afebrile. Physicial exam displayed mild left proximal hip tenderness. Neurologic exam is intact. NIH is 0. Laboratory investigations significant for mild UTI. Pt initiated on zosyn, EKG unchanged from prior. Plain films did not display any acute process. Pt will be admitted for ot/pt evaluation and uti. Case discussed with Dr. Reich. (Scout Espinosa) I saw this patient in conjunction with the physician printer's assistant. I performed independent history and physical exam. Agree with case management. (Angel Rhodes) - Lab Data Lab Results 07/07/19 07/07/19 07/07/19 Range/Units 22:13 22:13 22:13 WBC 4.4 (3.8-10.6) k/uL RBC 4.42 (3.80-5.40) m/uL Hgb 12.2 (11.4-16.0) gm/dL Hct 37.6 (34.0-46.0) % MCV 85.1 (80.0-100.0) fL MCH 27.5 (25.0-35.0) pg MCHC 32.3 (31.0-37.0) g/dL RDW 14.9 (11.5-15.5) % Plt Count 270 (150-450) k/uL Neutrophils % 44 % Lymphocytes % 41 % Monocytes % 8 % Eosinophils % 3 % Basophils % 0 % Neutrophils # 2.0 (1.3-7.7) k/uL Lymphocytes # 1.8 (1.0-4.8) k/uL Monocytes # 0.3 (0-1.0) k/uL Eosinophils # 0.1 (0-0.7) k/uL Basophils # 0.0 (0-0.2) k/uL Sodium 139 (137-145) mmol/L Potassium 4.5 (3.5-5.1) mmol/L Chloride 106 (98-107) mmol/L Carbon Dioxide 30 (22-30) mmol/L Anion Gap 3 mmol/L BUN 11 (7-17) mg/dL Creatinine 0.92 (0.52-1.04) mg/dL Est GFR (CKD-EPI)AfAm 77 (>60 ml/min/1.73 sqM) Est GFR (CKD-EPI)NonAf 67 (>60 ml/min/1.73 sqM) Glucose 111 H (74-99) mg/dL Calcium 9.5 (8.4-10.2) mg/dL Phosphorus 3.3 (2.5-4.5) mg/dL Magnesium 2.0 (1.6-2.3) mg/dL Total Bilirubin 0.3 (0.2-1.3) mg/dL AST 54 H (14-36) U/L ALT 45 H (4-34) U/L Alkaline Phosphatase 63 (38-126) U/L Troponin I <0.012 (0.000-0.034) ng/mL Total Protein 6.3 (6.3-8.2) g/dL Albumin 3.6 (3.5-5.0) g/dL Urine Color Urine Appearance (Clear) Urine pH (5.0-8.0) Ur Specific [place] (1.001-1.035) Urine Protein (Negative) Urine Glucose (UA) (Negative) Urine Ketones (Negative) Urine Blood (Negative) Urine Nitrite (Negative) Urine Bilirubin (Negative) Urine Urobilinogen (<2.0) mg/dL Ur Leukocyte Esterase (Negative) Urine RBC (0-5) /hpf Urine WBC (0-5) /hpf Ur Squamous Epith Cells (0-4) /hpf Urine Bacteria (None) /hpf Urine Mucus (None) /hpf 07/07/19 Range/Units 23:11 WBC (3.8-10.6) k/uL RBC (3.80-5.40) m/uL Hgb (11.4-16.0) gm/dL Hct (34.0-46.0) % MCV (80.0-100.0) fL MCH (25.0-35.0) pg MCHC (31.0-37.0) g/dL RDW (11.5-15.5) % Plt Count (150-450) k/uL Neutrophils % % Lymphocytes % % Monocytes % % Eosinophils % % Basophils % % Neutrophils # (1.3-7.7) k/uL Lymphocytes # (1.0-4.8) k/uL Monocytes # (0-1.0) k/uL Eosinophils # (0-0.7) k/uL Basophils # (0-0.2) k/uL Sodium (137-145) mmol/L Potassium (3.5-5.1) mmol/L Chloride (98-107) mmol/L Carbon Dioxide (22-30) mmol/L Anion Gap mmol/L BUN (7-17) mg/dL Creatinine (0.52-1.04) mg/dL Est GFR (CKD-EPI)AfAm (>60 ml/min/1.73 sqM) Est GFR (CKD-EPI)NonAf (>60 ml/min/1.73 sqM) Glucose (74-99) mg/dL Calcium (8.4-10.2) mg/dL Phosphorus (2.5-4.5) mg/dL Magnesium (1.6-2.3) mg/dL Total Bilirubin (0.2-1.3) mg/dL AST (14-36) U/L ALT (4-34) U/L Alkaline Phosphatase (38-126) U/L Troponin I (0.000-0.034) ng/mL Total Protein (6.3-8.2) g/dL Albumin (3.5-5.0) g/dL Urine Color Yellow Urine Appearance Cloudy H (Clear) Urine pH 6.0 (5.0-8.0) Ur Specific [place] 1.018 (1.001-1.035) Urine Protein Trace H (Negative) Urine Glucose (UA) Negative (Negative) Urine Ketones Negative (Negative) Urine Blood Negative (Negative) Urine Nitrite Negative (Negative) Urine Bilirubin Negative (Negative) Urine Urobilinogen 2.0 (<2.0) mg/dL Ur Leukocyte Esterase Large H (Negative) Urine RBC 2 (0-5) /hpf Urine WBC 90 H (0-5) /hpf Ur Squamous Epith Cells 1 (0-4) /hpf Urine Bacteria Few H (None) /hpf Urine Mucus Occasional H (None) /hpf - EKG Data EKG Comments: Ventricular rate 106, NM interval 136, QRS 76, QT/QTC 324/430 Sinus tachycardia, possible inferior infarct age undetermined. T-wave inversions present on prior EKGs. No concern for acute ischemia at this time. (Scout Espinosa) Disposition Is patient prescribed a controlled substance at d/c from ED?: No <Scout Espinosa - Last Filed: 07/08/19 00:23> <Angel Rhodes - Last Filed: 07/08/19 07:05> Clinical Impression: Recurrent falls, UTI (urinary tract infection) Disposition: ADMITTED IP TO THIS HOSP Condition: Stable
--- NOTE | 2019-07-07 22:20 | CT ---
EXAMINATION TYPE: CT brain alliine wo con DATE OF EXAM: 07/07/2019 COMPARISON: CT brain 06/01/2011 HISTORY: Fall, posterior head injury. On blood thinners. CT DLP: 1397.6 mGycm Automated exposure control for dose reduction was used. There is cerebral cortical atrophy. There is no mass effect nor midline shift. There is no sign of in tracranial hemorrhage. The calvarium is intact. Cervical vertebra have normal alignment. There is mild disc space narrowing at C5-6. Facet joints are intact. Skull base is intact. There is no evidence for fracture. IMPRESSION: Mild cerebral atrophy. No acute intracranial abnormality. No change compared to old exam. Minor degenerative changes in the cervical spine. No fracture seen.
[2019-07-07 22:33] LABS: Basophils % (A) 0 %; Eosinophils # (A) 0.1 k/uL (0-0.7); Eosinophils % (A) 3 %; HCT 37.6 % (34.0-46.0); HGB 12.2 gm/dL (11.4-16.0); Lymphocytes # (A) 1.8 k/uL (1.0-4.8); Lymphocytes % (A) 41 %; MCH 27.5 pg (25.0-35.0); MCHC 32.3 g/dL (31.0-37.0); MCV 85.1 fL (80.0-100.0); Mean Platelet Volume 7.4; Monocytes # (A) 0.3 k/uL (0-1.0); Monocytes % (A) 8 %; Neutrophils % (A) 44 %; Platelet Count 270 k/uL (150-450); RBC 4.42 m/uL (3.80-5.40); RDW 14.9 % (11.5-15.5); WBC 4.4 k/uL (3.8-10.6)
[2019-07-07 22:38] LABS: Albumin 3.6 g/dL (3.5-5.0); Calcium 9.5 mg/dL (8.4-10.2); Phosphorus 3.3 mg/dL (2.5-4.5); Potassium 4.5 mmol/L (3.5-5.1); Total Bilirubin 0.3 mg/dL (0.2-1.3); Total Protein 6.3 g/dL (6.3-8.2)
--- NOTE | 2019-07-07 22:47 | XR ---
EXAMINATION TYPE: XR chest 2V DATE OF EXAM: 07/07/2019 COMPARISON: 06/02/2019 HISTORY: Fall. Head injury. TECHNIQUE: FINDINGS: Heart and mediastinum are normal. Lungs are clear. There is no pleural effusion. There is s light elevated right diaphragm. Bony thorax appears intact. IMPRESSION: Mild chronic elevation of the right diaphragm. No change compared to old exam. Normal hea rt.
--- NOTE | 2019-07-07 22:48 | XR ---
EXAMINATION TYPE: XR pelvis AP view DATE OF EXAM: 07/07/2019 COMPARISON: 02/16/2019 HISTORY: Fall. Pain. TECHNIQUE: Single view FINDINGS: Pelvic ring is intact. Proximal femurs and hip joints are intact. There is multilevel poste rior fusion surgery in the lower lumbar spine. Sacroiliac joints appear normal. IMPRESSION: No acute abnormality of the pelvis. No change.
--- NOTE | 2019-07-07 22:49 | XR ---
EXAMINATION TYPE: XR femur LT DATE OF EXAM: 07/07/2019 COMPARISON: NONE HISTORY: Pain TECHNIQUE: 4 views FINDINGS: Knee joint and hip joint appear intact. I see no fracture nor dislocation. Acetabulum is in tact. IMPRESSION: Normal left femur exam.
--- NOTE | 2019-07-07 23:01 | XR ---
EXAMINATION TYPE: XR wrist complete BILATERAL DATE OF EXAM: 07/07/2019 COMPARISON: 06/02/2010 HISTORY: Pain TECHNIQUE: 4 views each wrist FINDINGS: There is narrowing of the right side radiocarpal joint space. Metacarpals appear intact in both wrists. I see no fracture nor dislocation. There are no erosions. There is no subluxation. There is minor deformity of the distal right radius related to old healed fracture. IMPRESSION: There is some posttraumatic osteoarthritis in the right wrist joint. No acute abnormality of the left wrist. No acute fracture seen.
[2019-07-07 23:36] LABS: Appearance,Urine Cloudy (Clear); Bacteria,Urine Few /hpf; Bilirubin,Urine Negative (Negative); Blood,Urine Negative (Negative); Color,Urine Yellow; Glucose,Urine (UA) Negative (Negative); Ketones,Urine Negative (Negative); Leukocyte Esterase,Urine Large (Negative); Mucus,Urine Occasional /hpf; Nitrite,Urine Negative (Negative); Protein,Urine Trace (Negative); RBC,Urine 2 /hpf (0-5); Specific Gravity,Urine 1.018 (1.001-1.035); Squamous Epithelial Cell,Urine 1 /hpf (0-4); WBC,Urine 90 /hpf (0-5)
[2019-07-07] MEDS ORDERED: NALOXONE 0.4 MG/ML 1 ML VIAL IV PRN (23:54)
[2019-07-07] MEDS ORDERED: PIPERACILLIN-TAZOBACTAM 3.375 GM in SODIUM CHLORIDE 0.9% 100 ML IVPB STA (23:54)
[2019-07-07] MEDS ORDERED: ACETAMINOPHEN TAB 325 MG TAB PO PRN (23:54)
[2019-07-08] MEDS: SODIUM CHLORIDE 0.9% 1,000 ML IV SCH ×2 (00:34→14:58)
[2019-07-08] MEDS: PIPERACILLIN-TAZOBACTAM 3.375 GM in SODIUM CHLORIDE 0.9% 100 ML IVPB SCH ×2 (09:32→17:20)
[2019-07-08] MEDS ORDERED: EPINEPHrine 1 MG/ML 1 ML AMP IM PRN (15:24)
[2019-07-08] MEDS ORDERED: ALPRAZolam 0.5 MG TAB PO PRN (15:24)
[2019-07-08] MEDS ORDERED: ZOLPIDEM 10 MG TAB PO PRN (15:24)
[2019-07-08] MEDS ORDERED: HYDROcodone/APAP 7.5-325MG 1 EACH TAB PO PRN (15:24)
--- NOTE | 2019-07-08 15:48 | P.HPIM ---
History of Present Illness H&P Date: 07/08/19 Rhianna Chilel is a 63-year-old female who sustained a fall at home and was complaining of left hip pain and inability to stand or walk, she was brought in to [facility] emergency room, x-ray of the pelvis, femur, and upper extremity did not reveal any evidence of bony fracture, however patient was complaining of severe pain in the left hip area she was unable to stand or walk, she also had evidence of urinary tract infection, she was started on IV antibiotics and was admitted to medical floor for further evaluation and treatment. Computed tomography scan of the left hip without contrast was ordered for further evaluation. Patient has a known history of asthma, and chronic bronchitis, her last admission to the hospital was on 06/05/2019, she also has a known history of CVA and history of DVT and PE currently maintained on Xarelto. Patient also has known history of hypertension, hyperlipidemia, chronic back pain, history of atrial septal defect with closure. Past Medical History Past Medical History: Asthma, Chest Pain / Angina, CVA/TIA, Deep Vein Thrombosis (DVT), GERD/Reflux, Hyperlipidemia, Hypertension, Osteoarthritis (OA), Pneumonia, Pulmonary Embolus (PE) Additional Past Medical History / Comment(s): CVA LOST LT PERIPHERAL VISION AND WRITING IS A BIT DIFFICULT & FEW TIA'S, TREMORS SINCE.PE/ XUAN DVT (AFTER LAST 2 MAJOR SURG). HX BOWEL OBSTRUCTION. USED TO TAKE MEDS FOR BP , OSTEOPOROSIS. BACK PAIN. ,RADS,CHRONIC BRONCHITIS, SCOLIOSIS, BROKE RT WRIST D/T FALL 2009, SMALL HIATAL HERNIA,DIVERTICULAR DISEASE, UTI,GLAUCOMA History of Any Multi-Drug Resistant Organisms: MRSA, Other MDRO Date of last positivie culture/infection: 07/12/08-MRSA MDRO Source:: URINE-MRSA Past Surgical History: Appendectomy, Back Surgery, Bladder Surgery, Bowel Resection, Breast Surgery, Cholecystectomy, Heart Catheterization, Hernia Repair, Hysterectomy, Orthopedic Surgery, Tubal Ligation Additional Past Surgical History / Comment(s): 12-27- LAP INC HERNIA REPAIR, 2 PREVIOUS HERNIA SX ,2 HOLES IN HEART REPAIRED, ATRIUM, SEPTUM - HAS "UMBRELLA" CLOSURE DEVICE. BREAST REDUCTION. cystoscopy CYSTOCELE, RECTOCELE REPAIR. RT FOOT. EXC CYST LT ARM,LT FOOT REPAIR CYSTOSCOPY,LT BREAST BX-NEG, BUNIONECTOMY,GANGLION CYST REMOVED BRONCOSCOPIES,EGD/COLONOSCOPY,XUAN CATARACT S,hammer toe-pins removed. neuroma-bone removed/pins removed. lt toe , rt wrist nerve sx Past Anesthesia/Blood Transfusion Reactions: No Reported Reaction Past Psychological History: Anxiety, Depression Additional Psychological History / Comment(s): Pt lives with her spouse, 2 sons and their girlfriends. 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 Pt has home oxygen/nebulizer. She drives. Smoking Status: Never smoker Past Alcohol Use History: None Reported Past Drug Use History: None Reported - Past Family History Father Brother(s) Family Medical History: Cancer Additional Family Medical History / Comment(s): LUNG CANCER Sister(s) Family Medical History: Cancer Additional Family Medical History / Comment(s): # 1 SISTER-BONE CA,SISTER #2 BREAST CA, SISTER #3 LUNG,STOMACH,ESOPHAGUS Mother Family Medical History: Deep Vein Thrombosis (DVT) Additional Family Medical History / Comment(s): diverticulitis Father Family Medical History: Cancer Additional Family Medical History / Comment(s): Father of lung cancer. Medications and Allergies Home Medications Medication Instructions Recorded Confirmed Type Diazepam [Valium] 10 mg PO TID 05/24/15 07/07/19 History Rivaroxaban [Xarelto] 20 mg PO DAILY 05/24/15 07/07/19 History Fluticasone/Salmeterol [Advair 1 puff INHALATION RT-BID 04/08/16 07/07/19 History 500-50 Diskus] Escitalopram [Lexapro] 10 mg PO DAILY 05/20/17 07/07/19 History Montelukast [Singulair] 10 mg PO HS 05/20/17 07/07/19 History Pantoprazole Sodium [Protonix] 40 mg PO DAILY 05/20/17 07/07/19 History Pravastatin Sodium [Pravachol] 40 mg PO HS 11/21/17 07/07/19 History Ergocalciferol (Vitamin D2) 50,000 unit PO MO 12/11/17 07/07/19 History [Drisdol] HYDROcodone/APAP 7.5-325MG [[place] 0.5 - 1 tab PO TID PRN 02/05/19 07/07/19 History 7.5-325] ALPRAZolam [Xanax] 0.5 mg PO TID PRN 05/28/19 07/07/19 History Albuterol Nebulized [Ventolin 2.5 mg INHALATION RT-QID PRN 05/28/19 07/07/19 History Nebulized] Cyclobenzaprine [Flexeril] 10 mg PO HS 05/28/19 07/07/19 History EPINEPHrine (Auto Inject) [Epipen] 0.3 mg IM ONCE PRN 05/28/19 07/07/19 History Ipratropium-Albuterol Nebulize 3 ml INHALATION RT-QID PRN 05/28/19 07/07/19 History [Duoneb 0.5 mg-3 mg/3 ml Soln] Levalbuterol Nebulized [Xopenex 1.25 mg INHALATION RT-QID PRN 05/28/19 07/07/19 History Nebulized] Zolpidem [Ambien] 10 mg PO HS PRN 05/28/19 07/07/19 History Allergies Allergy/AdvReac Type Severity Reaction Status Date / Time cephalexin monohydrate Allergy Rash/Hives Verified 07/07/19 22:14 [From Keflex] clarithromycin [From Biaxin] Allergy Rash/Hives Verified 07/07/19 22:14 levofloxacin [From Levaquin] Allergy Rash/Hives Verified 07/07/19 22:14 Quinolones Allergy Rash/Hives Verified 07/07/19 22:14 Physical Exam Vitals: Vital Signs Temp Pulse Pulse Resp BP BP Pulse Ox 07/08/19 11:20 96.9 F L 88 18 103/72 97 07/08/19 04:44 98.7 F 80 18 95/62 97 07/08/19 01:02 98.5 F 98 16 97/65 99 07/08/19 00:36 93 20 106/54 97 07/07/19 23:00 105 H 20 106/75 95 07/07/19 22:23 108 H 20 121/90 95 07/07/19 21:36 107 H 20 112/85 95 07/07/19 21:24 98.4 F 114 H 20 105/73 95 Intake and Output 07/08/19 07/08/19 07/08/19 06:59 14:59 22:59 Intake Total 670 100 Balance 670 100 Intake: Intake, IV Titration 550 100 Amount Piperacillin-Tazobactam 3 100 100 .375 gm In Sodium Chloride 0.9% 100 ml @ 25 mls/hr IVPB Q8HR JAGRUTI Rx# :[id number] Sodium Chloride 0.9% 1, 450 000 ml @ 75 mls/hr IV . [id number] JAGRUTI Rx#:[id number] Oral 120 Other: Voiding Method Toilet # Voids 1 Weight 63.049 kg In general patient is alert and oriented 3 in no apparent distress HEENT head normocephalic and atraumatic Neck is supple no JVD no goiter no lymphadenopathy Chest exam reveals a few scattered crackles no wheezing Cardiac exam reveals regular heart sounds S1 and S2 no gallops no murmurs Abdomen is soft nontender no organomegaly with normal bowel sounds Extremity exam reveals no edema no cyanosis or clubbing Neurological examination reveals no gross focal deficit Results CBC & Chem 7: 07/07/19 22:13 07/07/19 22:13 Labs: Abnormal Lab Results - Last 24 Hours (Table) 07/07/19 07/07/19 Range/Units 22:13 23:11 Glucose 111 H (74-99) mg/dL AST 54 H (14-36) U/L ALT 45 H (4-34) U/L Urine Appearance Cloudy H (Clear) Urine Protein Trace H (Negative) Ur Leukocyte Esterase Large H (Negative) Urine WBC 90 H (0-5) /hpf Urine Bacteria Few H (None) /hpf Urine Mucus Occasional H (None) /hpf Microbiology - Last 24 Hours (Table) 07/07/19 23:11 Urine Culture - Preliminary Urine,Voided Thrombosis Risk Factor Assmnt - Choose All That Apply Each Factor Represents 1 point: Abnormal pulmonary function (COPD), Obesity (BMI >25) Each Risk Factor Represents 2 Points: Age 61-74 years Each Risk Factor Represents 3 Points: Family history of DVT/PE, History of DVT/PE Other congenital or acquired thrombophilia - If yes, enter type in comment: No Thrombosis Risk Factor Assessment Total Risk Factor Score: 10 Thrombosis Risk Factor Assessment Level: High Risk Assessment and Plan Plan: #1 fall at home with left hip pain and gait disturbance, will check computed tomography scan of the left hip, Will consult physical therapy #2 urinary tract infection patient was started on IV Zosyn in the emergency ro om, will continue the same awaiting culture results #3 underlying history of asthma stable at this time #4 underlying history of DVT and PE continue on Xarelto #5 slight elevation in liver enzymes will discontinue Pravachol at this time and monitor #6 history of CVA #7 underlying history of hypertension #8 insomnia patient is maintained on zolpidem, she is also maintained on Valium since her stroke, she was counseled about decreasing gradually these medications. At this time computed tomography scan of the left hip was ordered Physical therapy worked consult Discontinued Pravachol and Tylenol recheck liver enzymes in a.m. Will follow closely
--- NOTE | 2019-07-08 16:28 | CT ---
EXAMINATION TYPE: CT hip LT wo con DATE OF EXAM: 07/08/2019 COMPARISON: Radiograph 07/07/2019 HISTORY: 63-year-old female left hip pain post fall TECHNIQUE: Contiguous axial scanning of the left hip without IV contrast. Coronal and sagittal recons tructions performed. CT DLP: 337.9 mGycm Automated exposure control for dose reduction was used. FINDINGS: L4-S1 posterior and interbody fusion changes on the scout leaser image. Mild degenerative change at the left SI joint. Sigmoid diverticulosis. Staple line at the rectosigmoid junction from prior bowel resectio n and reanastomosis. Mild marginal spurring at the left hip. No acute fracture, subluxation, or dislocation is seen. No si gnificant joint effusion identified. There is some mild soft tissue stranding within the subcutaneous adipose overlying the lateral aspect of the left hip. IMPRESSION: NO LEFT HIP FRACTURE IDENTIFIED. THERE MAY BE SOME MILD LATERAL SIDED BRUISING OF THE SUBCUTANEOUS TI SSUES.
[2019-07-08] MEDS: DIAZEPAM 5 MG TAB PO SCH ×2 (17:20→21:02)
[2019-07-08] MEDS: SYMBICORT 160-4.5 MCG INHALER INHALATION SCH (19:06)
[2019-07-08] MEDS ORDERED: CYCLOBENZAPRINE 10 MG TAB PO SCH (21:00)
[2019-07-08] MEDS ORDERED: PRAVASTATIN SODIUM 40 MG TAB PO SCH (21:00)
[2019-07-08] MEDS: MONTELUKAST 10 MG TAB PO SCH (21:02)
[2019-07-09] MEDS: PIPERACILLIN-TAZOBACTAM 3.375 GM in SODIUM CHLORIDE 0.9% 100 ML IVPB SCH ×4 (00:16→23:59)
[2019-07-09] MEDS: SODIUM CHLORIDE 0.9% 1,000 ML IV SCH ×3 (00:16→23:58)
[2019-07-09 07:15] LABS: Basophils % (A) 0 %; Eosinophils # (A) 0.2 k/uL (0-0.7); Eosinophils % (A) 3 %; HCT 34.3 % (34.0-46.0); HGB 10.4 gm/dL (11.4-16.0); Lymphocytes # (A) 1.6 k/uL (1.0-4.8); Lymphocytes % (A) 31 %; MCH 26.5 pg (25.0-35.0); MCHC 30.5 g/dL (31.0-37.0); MCV 86.9 fL (80.0-100.0); Mean Platelet Volume 7.6; Monocytes # (A) 0.4 k/uL (0-1.0); Monocytes % (A) 7 %; Neutrophils # (A) 2.8 k/uL (1.3-7.7); Neutrophils % (A) 56 %; Platelet Count 225 k/uL (150-450); RBC 3.94 m/uL (3.80-5.40); RDW 14.9 % (11.5-15.5); WBC 5.1 k/uL (3.8-10.6)
[2019-07-09] MEDS: SYMBICORT 160-4.5 MCG INHALER INHALATION SCH ×2 (07:16→19:21)
[2019-07-09 07:32] LABS: Albumin 3.1 g/dL (3.5-5.0); Calcium 8.4 mg/dL (8.4-10.2); Potassium 4.3 mmol/L (3.5-5.1); Total Bilirubin 0.3 mg/dL (0.2-1.3); Total Protein 5.6 g/dL (6.3-8.2)
[2019-07-09] MEDS: RIVAROXABAN 20 MG TAB PO SCH (09:38)
[2019-07-09] MEDS: PANTOPRAZOLE 40 MG TABLET PO SCH (09:38)
[2019-07-09] MEDS: DIAZEPAM 5 MG TAB PO SCH ×3 (09:38→20:39)
[2019-07-09] MEDS: ESCITALOPRAM 10 MG TAB PO SCH (09:38)
--- NOTE | 2019-07-09 18:03 | P.PN ---
Subjective Progress Note Date: 07/09/19 Rhianna Chilel is a 63-year-old female who sustained a fall at home and was complaining of left hip pain and inability to stand or walk, she was brought in to [facility] emergency room, x-ray of the pelvis, femur, and upper extremity did not reveal any evidence of bony fracture, however patient was complaining of severe pain in the left hip area she was unable to stand or walk, she also had evidence of urinary tract infection, she was started on IV antibiotics and was admitted to medical floor for further evaluation and treatment. Computed tomography scan of the left hip without contrast was ordered for further evaluation. Patient has a known history of asthma, and chronic bronchitis, her last admission to the hospital was on 06/05/2019, she also has a known history of CVA and history of DVT and PE currently maintained on Xarelto. Patient also has known history of hypertension, hyperlipidemia, chronic back pain, history of atrial septal defect with closure. On 07/09/2019 patient was seen and examined on the medical floor she is alert and oriented in no distress there is no fever or chills no dizziness no chest pain or shortness of breath no cough no nausea or vomiting no abdominal pain no diarrhea and no urinary symptoms. Urine culture still pending Objective - Vital Signs Vital signs: Vital Signs Temp 98.1 F 07/09/19 12:00 Pulse 102 H 07/09/19 12:00 Resp 17 07/09/19 12:00 BP 108/62 07/09/19 12:00 Pulse Ox 94 L 07/09/19 12:00 Intake & Output 07/08/19 07/09/19 07/09/19 18:59 06:59 18:59 Intake Total 100 1415 Balance 100 1415 Intake: Intake, IV Titration 100 825 Amount Piperacillin-Tazobactam 3 100 100 .375 gm In Sodium Chloride 0.9% 100 ml @ 25 mls/hr IVPB Q8HR JAGRUTI Rx# :[id number] Sodium Chloride 0.9% 1, 725 000 ml @ 75 mls/hr IV . [id number] JAGRUTI Rx#:[id number] Oral 590 Other: Voiding Method Toilet Toilet Toilet # Voids 1 1 # Bowel Movements 1 - Exam In general patient is alert and oriented 3 in no apparent distress HEENT head normocephalic and atraumatic Neck is supple no JVD no goiter no lymphadenopathy Chest exam reveals a few scattered crackles no wheezing Cardiac exam reveals regular heart sounds S1 and S2 no gallops no murmurs Abdomen is soft nontender no organomegaly with normal bowel sounds Extremity exam reveals no edema no cyanosis or clubbing Neurological examination reveals no gross focal deficit - Labs CBC & Chem 7: 07/09/19 06:39 07/09/19 06:39 Labs: Abnormal Lab Results - Last 24 Hours (Table) 07/09/19 07/09/19 Range/Units 06:39 06:39 Hgb 10.4 L (11.4-16.0) gm/dL MCHC 30.5 L (31.0-37.0) g/dL Chloride 115 H (98-107) mmol/L Glucose 104 H (74-99) mg/dL AST 40 H (14-36) U/L Total Protein 5.6 L (6.3-8.2) g/dL Albumin 3.1 L (3.5-5.0) g/dL Microbiology - Last 24 Hours (Table) 07/07/19 23:11 Urine Culture - Preliminary Urine,Voided Gram Neg Bacilli Assessment and Plan Plan: #1 fall at home with left hip pain and gait disturbance, will check computed tomography scan of the left hip, Will consult physical therapy #2 urinary tract infection patient was started on IV Zosyn in the emergency room, will continue the same awaiting culture results #3 underlying history of asthma stable at this time #4 underlying history of DVT and PE continue on Xarelto #5 slight elevation in liver enzymes will discontinue Pravachol at this time and monitor #6 history of CVA #7 underlying history of hypertension #8 insomnia patient is maintained on zolpidem, she is also maintained on Valium since her stroke, she was counseled about decreasing gradually these medications. At this time computed tomography scan of the left hip was ordered Physical therapy worked consult Discontinued Pravachol and Tylenol recheck liver enzymes in a.m. Will follow closely
[2019-07-09] MEDS: MONTELUKAST 10 MG TAB PO SCH (20:39)
[2019-07-10] MEDS: SYMBICORT 160-4.5 MCG INHALER INHALATION SCH (07:05)
[2019-07-10 08:22] LABS: Basophils % (A) 0 %; Eosinophils # (A) 0.2 k/uL (0-0.7); Eosinophils % (A) 3 %; HCT 34.5 % (34.0-46.0); HGB 10.8 gm/dL (11.4-16.0); Lymphocytes # (A) 1.8 k/uL (1.0-4.8); Lymphocytes % (A) 27 %; MCH 27.1 pg (25.0-35.0); MCHC 31.3 g/dL (31.0-37.0); MCV 86.6 fL (80.0-100.0); Mean Platelet Volume 7.9; Monocytes # (A) 0.4 k/uL (0-1.0); Monocytes % (A) 6 %; Neutrophils % (A) 62 %; Platelet Count 267 k/uL (150-450); RBC 3.98 m/uL (3.80-5.40); RDW 15.2 % (11.5-15.5); WBC 6.4 k/uL (3.8-10.6)
[2019-07-10 08:30] LABS: ALT 28 U/L (4-34); AST 35 U/L (14-36); African American GFR (CKD) >90 (>60 ml/min/1.73 sqM); Albumin 3.5 g/dL (3.5-5.0); Alkaline Phosphatase 48 U/L (38-126); Anion Gap 7 mmol/L; Blood Urea Nitrogen 5 mg/dL (7-17); Calcium 8.9 mg/dL (8.4-10.2); Carbon Dioxide 20 mmol/L (22-30); Chloride 117 mmol/L (98-107); Glucose 96 mg/dL (74-99); Non-African American GFR(CKD) 81 (>60 ml/min/1.73 sqM); Potassium 3.9 mmol/L (3.5-5.1); Sodium 144 mmol/L (137-145); Total Bilirubin 0.3 mg/dL (0.2-1.3)
[2019-07-10] MEDS: ESCITALOPRAM 10 MG TAB PO SCH (08:45)
[2019-07-10] MEDS: DIAZEPAM 5 MG TAB PO SCH (08:45)
[2019-07-10] MEDS: RIVAROXABAN 20 MG TAB PO SCH (08:45)
[2019-07-10] MEDS: PANTOPRAZOLE 40 MG TABLET PO SCH (08:45)
[2019-07-10] MEDS: PIPERACILLIN-TAZOBACTAM 3.375 GM in SODIUM CHLORIDE 0.9% 100 ML IVPB SCH (08:46)
[2019-07-10 12:10] VITALS: BP 120/77; PULSE 66; RESP 18; TEMP 98.2
[2019-07-10] MEDS ORDERED: CIPROFLOXACIN HCL 250 MG TAB PO SCH (12:15)
[2019-07-10] MEDS ORDERED: NITROFURANTOIN MONOHYD/M-CRYST 100 MG CAP PO SCH (12:15)
[2019-07-11] MEDS ORDERED: ESCITALOPRAM 10 MG TAB PO SCH (09:00)
== END 2019-07-10 14:18 | disposition home health service (06) | DRG 690 ==
LOC: EC 21:12 → 5NMEDONC 07-08 00:08 → OBSVTOIN 07-10 07:54
PROVIDERS: ADMIT Internal Medicine; ATTEND Internal Medicine
DX: N39.0 Urinary tract infection, site not specified (principal); R29.6 Repeated falls; E78.5 Hyperlipidemia, unspecified; F32.9 Major depressive disorder, single episode, unspecified; F41.9 Anxiety disorder, unspecified; G47.00 Insomnia, unspecified; I10 Essential (primary) hypertension; J42 Unspecified chronic bronchitis; J45.909 Unspecified asthma, uncomplicated; M41.9 Scoliosis, unspecified; M81.0 Age-related osteoporosis without current pathological fracture; G89.29 Other chronic pain; K21.9 Gastro-esophageal reflux disease without esophagitis; K44.9 Diaphragmatic hernia without obstruction or gangrene; K57.90 Diverticulosis of intestine, part unspecified, without perforation or abscess without bleeding; M19.90 Unspecified osteoarthritis, unspecified site; M54.9 Dorsalgia, unspecified; M25.552 Pain in left hip; R26.9 Unspecified abnormalities of gait and mobility; E11.39 Type 2 diabetes mellitus with other diabetic ophthalmic complication; H42 Glaucoma in diseases classified elsewhere; R94.5 Abnormal results of liver function studies; I69.398 Other sequelae of cerebral infarction; H53.8 Other visual disturbances; Z79.01 Long term (current) use of anticoagulants; Z79.899 Other long term (current) drug therapy; Z88.1 Allergy status to other antibiotic agents; Z90.710 Acquired absence of both cervix and uterus; Z86.718 Personal history of other venous thrombosis and embolism; Z86.711 Personal history of pulmonary embolism; Z98.51 Tubal ligation status; Z98.42 Cataract extraction status, left eye; Z98.41 Cataract extraction status, right eye; Z96.1 Presence of intraocular lens; Z87.440 Personal history of urinary (tract) infections; Z86.14 Personal history of Methicillin resistant Staphylococcus aureus infection; Z87.01 Personal history of pneumonia (recurrent); Z80.1 Family history of malignant neoplasm of trachea, bronchus and lung; Z80.3 Family history of malignant neoplasm of breast; Z80.8 Family history of malignant neoplasm of other organs or systems; Z83.79 Family history of other diseases of the digestive system; Z82.49 Family history of ischemic heart disease and other diseases of the circulatory system; W19.XXXA Unspecified fall, initial encounter; Y92.009 Unspecified place in unspecified non-institutional (private) residence as the place of occurrence of the external cause
CPT/HCPCS: 36415; 70450; 71046; 72125; 72170; 80053; 81001; 83735; 84100; 84484; 85025; 87077; 87086; 87186; 93005; 94640; 96374; 99285

== ENCOUNTER → 2020-10-19 | Outpatient (CLI) | payer MEDICARE ==
--- NOTE | 2020-10-20 08:41 | BD ---
EXAMINATION TYPE: Axial Bone Density DATE OF EXAM: 10/19/2020 COMPARISON: 10/17/2015 CLINICAL HISTORY: Height: 57.5 IN Weight: 128 LBS FRAX RISK QUESTIONS: History of Fracture in Adulthood: RT WRIST AGE 60 Secondary Osteoporosis: 3. Menopause before 45: TOTAL HYTST AGE 30 RISK FACTORS HISTORY OF: History of Wrist Fracture: RIGHT WRIST AGE 60 Surgery to Spine: L SPINE AGE 55 Family History of Osteoporosis: YES MOTHER AND SISTER Active: YES Postmenopausal woman: TOTAL HYST AGE 30 MEDICATIONS: Osteoporosis Medications: YES Which medication: Boniva How Lon+ YEARS Additional Medications: BONIVA, SINGULAIR, PROTONIX, BLOOD THINNER, HAIR NAILS AND SKIN, LEXAPRO, AN XIETY MED EXAM MEASUREMENTS: Bone mineral densitometry was performed using the dough System. PT HAD L SPINE SURGERY AGE 55 Bone mineral density about the R hip (g/cm2): 0.625 Bone mineral density about the L hip (g/cm2): 0.645 T Score values are as follows: -----R Neck: -3.0 -----L Neck: -2.8 -----R Total: -1.7 -----L Total: -1.6 Bone mineral density has: Increased 4.6% since study of: 10/17/2015 Bone mineral density about the L Wrist (g/cm2): 0.396 T Score values are as follows: -----Dist. R+U: -4.7 -----Prox. R+U: -4.0 -----Radius total: -4.6 Bone mineral density BASELINE IMPRESSION: Osteoporosis (T Score less than -2.5). There is increased fracture risk and therapy is usually indicated based on age. Re-Screen 1-2 years. NOTE: T-SCORE=SD OF THE YOUNG ADULT MEAN.
--- NOTE | 2020-10-21 09:46 | MM ---
Reason for exam: screening (asymptomatic). Last mammogram was performed 5 years ago. History: Patient is postmenopausal. Family history of breast cancer in maternal aunt at age 50, breast cancer in paternal aunt at age 50, and breast cancer in sister at age 63. Reductions of both breasts. Benign excisional biopsy of both breasts. Physical Findings: A clinical breast exam by your physician is recommended on an annual basis and results should be correlated with mammographic findings. MG 3D Screening Mammo W/Cad Bilateral CC and MLO view(s) were taken. Prior study comparison: October 17, 2015, bilateral MG 3d screening mammo w/cad. December 10, 2011, mammogram, performed at [facility]. Finding: There are typically benign vascular, round, diffuse/scattered calcifications. No significant changes in finding since October 17, 2015 and December 10, 2011. ASSESSMENT: Benign, BI-RAD 2 RECOMMENDATION: Routine screening mammogram of both breasts in 1 year.
== END | disposition home or self-care (01) ==
LOC: RADMAMWWP 10:04
PROVIDERS: ATTEND Internal Medicine
DX: Z12.31 Encounter for screening mammogram for malignant neoplasm of breast (principal); M81.0 Age-related osteoporosis without current pathological fracture; Z78.0 Asymptomatic menopausal state; Z80.3 Family history of malignant neoplasm of breast
CPT/HCPCS: 77063; 77067; 77080

== ENCOUNTER → 2020-11-18 | Outpatient (CLI) | payer MEDICARE ==
--- NOTE | 2020-11-20 20:16 | CT ---
EXAMINATION TYPE: CT chest w con DATE OF EXAM: 11/18/2020 COMPARISON: 05/27/2015 HISTORY: 65-year-old female R22.32, swelling, lump and mass of left upper arm TECHNIQUE: Contiguous axial scanning of the chest after the administration of 80 mL of Isovue 300. C oronal/sagittal reconstructions performed. CT DLP: 337.8mGycm. Automatic exposure control utilized for a dose reduction. FINDINGS: Heart normal size without pericardial effusion. Aorta normal caliber with conventional arch vessel branching anatomy. New mildly enlarged 1.1 cm right paratracheal lymph node on axial image 23. No other thoracic lymphad enopathy by CT size criteria. Diffuse bronchial wall thickening and interstitial density. Strandy atelectasis left base probably de pendent atelectasis and additional groundglass changes at the right base, likely atelectasis. No samir k consolidation or pleural effusion. Continued asymmetric elevation right hemidiaphragm. Small hiatal hernia. Low-attenuation of the liver may represent fatty infiltration. Cholecystectomy clips. Bilateral javan al cysts measuring up to 2.5 cm. Bones: Accentuated operative midthoracic kyphosis. IMPRESSION: 1. Continued asymmetric elevation right hemidiaphragm. Considering the possibility of hemidiaphragmat ic paralysis. Fluoroscopic sniff test can be performed to further evaluate if indicated. 2. Peribronchial cuffing and increased interstitial density. Correlate for bronchitis or chronic asth ma. Groundglass changes particularly in the right lower lobe likely relate to atelectasis. Correlate to exclude any infectious signs/symptoms. 3. New mildly enlarged 1.1 cm right paratracheal lymph node is probably reactive/post inflammatory. 3 -6 month follow-up CT to ensure stability/resolution. 4. Small hiatal hernia and hepatic steatosis. 5. If there is a focal palpable area along the patient's left arm, targeted ultrasound can be conside red.
== END | disposition home or self-care (01) ==
LOC: RADCTMAIN 13:55
PROVIDERS: ATTEND Internal Medicine
DX: J98.6 Disorders of diaphragm (principal); J98.09 Other diseases of bronchus, not elsewhere classified; R59.0 Localized enlarged lymph nodes
CPT/HCPCS: 82565; 84520; 71260; 36415; Q9967

== ENCOUNTER 2020-12-19 17:28 | Observation (INO) | payer MEDICARE ==
[2020-12-19 19:56] LABS: Basophils % (A) 0 %; Eosinophils # (A) 0.2 k/uL (0-0.7); Eosinophils % (A) 2 %; HCT 47.6 % (34.0-46.0); HGB 14.9 gm/dL (11.4-16.0); Lymphocytes # (A) 3.6 k/uL (1.0-4.8); Lymphocytes % (A) 30 %; MCH 26.9 pg (25.0-35.0); MCHC 31.2 g/dL (31.0-37.0); MCV 86.1 fL (80.0-100.0); Mean Platelet Volume 7.5; Monocytes # (A) 0.7 k/uL (0-1.0); Monocytes % (A) 6 %; Neutrophils # (A) 7.3 k/uL (1.3-7.7); Neutrophils % (A) 61 %; Platelet Count 320 k/uL (150-450); RBC 5.54 m/uL (3.80-5.40); RDW 14.1 % (11.5-15.5)
[2020-12-19 20:07] LABS: Albumin 4.6 g/dL (3.5-5.0); Calcium 10.1 mg/dL (8.4-10.2); Potassium 5.1 mmol/L (3.5-5.1); Total Bilirubin 0.4 mg/dL (0.2-1.3); Total Protein 7.3 g/dL (6.3-8.2)
[2020-12-19] MEDS ORDERED: SODIUM CHLORIDE 0.9% 1,000 ML IV STA (20:19)
[2020-12-19] MEDS ORDERED: PANTOPRAZOLE 40 MG/10 ML VIAL IVP STA (20:19)
--- NOTE | 2020-12-19 21:44 | CT ---
EXAMINATION TYPE: CT abdomen pelvis w con DATE OF EXAM: 12/19/2020 COMPARISON: 01/09/2019 HISTORY: Rectal bleeding, bright red blood. CT DLP: 947.1 mGycm Automated exposure control for dose reduction was used. CONTRAST: Performed with IV Contrast, patient injected with 80 mL of Isovue 300. Lung bases show subsegmental atelectasis. Heart size is normal. There is no pericardial effusion. The re is no pleural effusion. There are clips from cholecystectomy. Liver shows no focal defect. The spl een appears intact. There is no evidence of pancreatic mass. Stomach appears intact. There is no adrenal mass. Kidneys show satisfactory contrast opacification. There is no hydronephrosi s. Delayed images show normal renal excretion. There are multiple renal cortical cysts that measure u p to 3 cm. There is no hydronephrosis. Ureters are not dilated. There is no retroperitoneal adenopath y. Bladder distends smoothly. There is no inguinal hernia. There is no free fluid in the pelvis. There is no mesenteric edema. There is no ascites or free air. There is no bowel obstruction. There i s right lateral abdominal wall hernia containing omental fat. There are sigmoid diverticula without s ign of diverticulitis. There is surgical clips at the rectosigmoid junction. The lumbar vertebra have normal alignment. There is metal artifact from posterior fusion surgery from L4 to S1. There is no compression fracture. Bony pelvis appears intact. The hip joints are intact. IMPRESSION: No acute abnormality of the abdomen pelvis. There is clearing of the calculus at the right renal pelv is compared to old exam. There are renal cortical cyst without change. There is 3 x 2 cm right latera l abdominal wall hernia containing omental fat without change. There is diverticulosis without change compared to old exam.
--- NOTE | 2020-12-19 22:01 | ED ---
GI Bleed HPI - General Chief complaint: GI Bleed Stated complaint: rectal bleeding Time Seen by Provider: 12/19/20 20:08 Source: patient, RN notes reviewed Mode of arrival: ambulatory Limitations: no limitations - History of Present Illness Initial comments: Patient is a 65-year-old female that presents to emergency department complaining of bright red blood per rectum times one incident today. She notes she does have a history of internal and external hemorrhoids and diverticulosis/diverticulitis. She notes she does have some minimal lower abdominal discomfort. She was otherwise in good spirits in no apparent distress or pain while sitting in bed during the exam and interview. She denied any chest pain shortness of breath headache nausea vomiting diarrhea constipation fever fatigue chills. - Related Data Home Medications Medication Instructions Recorded Confirmed Rivaroxaban [Xarelto] 20 mg PO DAILY 05/24/15 12/19/20 Escitalopram [Lexapro] 10 mg PO DAILY 05/20/17 12/19/20 Montelukast [Singulair] 10 mg PO DAILY 05/20/17 12/19/20 Pantoprazole Sodium [Protonix] 40 mg PO DAILY 05/20/17 12/19/20 HYDROcodone/APAP 7.5-325MG [[place] 0.5 - 1 tab PO TID PRN 02/05/19 12/19/20 7.5-325] EPINEPHrine (Auto Inject) [Epipen] 0.3 mg IM ONCE PRN 05/28/19 12/19/20 Albuterol Inhaler [Ventolin Hfa 2 puff INHALATION RT-QID PRN 12/19/20 12/19/20 Inhaler] Alendronate Sodium [Fosamax] 70 mg PO MO 12/19/20 12/19/20 Codeine Phosphate/Guaifenesin 5 ml PO Q6H PRN 12/19/20 12/19/20 [Guaifen-Codeine 100-10 mg/5 ml] Pravastatin Sodium [Pravachol] 40 mg PO DAILY 12/19/20 12/19/20 Sulfamethox-Tmp 800-160Mg [Bactrim 1 tab PO BID 12/19/20 12/19/20 DS 800-160 mg] diazePAM [Valium] 5 mg PO TID PRN 12/19/20 12/19/20 Allergies Allergy/AdvReac Type Severity Reaction Status Date / Time cephalexin monohydrate Allergy Rash/Hives Verified 12/19/20 21:17 [From Keflex] clarithromycin [From Biaxin] Allergy Rash/Hives Verified 12/19/20 21:17 levofloxacin [From Levaquin] Allergy Rash/Hives Verified 12/19/20 21:17 Quinolones Allergy Rash/Hives Verified 12/19/20 21:17 Review of Systems ROS Statement: Those systems with pertinent positive or pertinent negative responses have been documented in the HPI. ROS Other: All systems not noted in ROS Statement are negative. Past Medical History Past Medical History: Asthma, Chest Pain / Angina, CVA/TIA, Deep Vein Thrombosis (DVT), GERD/Reflux, Hyperlipidemia, Hypertension, Osteoarthritis (OA), Pneumonia, Pulmonary Embolus (PE) Additional Past Medical History / Comment(s): CVA LOST LT PERIPHERAL VISION AND WRITING IS A BIT DIFFICULT & FEW TIA'S, TREMORS SINCE.PE/ XUAN DVT (AFTER LAST 2 MAJOR SURG). HX BOWEL OBSTRUCTION. USED TO TAKE MEDS FOR BP , OSTEOPOROSIS. BACK PAIN. ,RADS,CHRONIC BRONCHITIS, SCOLIOSIS, BROKE RT WRIST D/T FALL 2009, SMALL HIATAL HERNIA,DIVERTICULAR DISEASE, UTI,GLAUCOMA History of Any Multi-Drug Resistant Organisms: MRSA, Other MDRO Date of last positivie culture/infection: 07/12/08-MRSA MDRO Source:: URINE-MRSA Past Surgical History: Appendectomy, Back Surgery, Bladder Surgery, Bowel Resection, Breast Surgery, Cholecystectomy, Heart Catheterization, Hernia Repair, Hysterectomy, Orthopedic Surgery, Tubal Ligation Additional Past Surgical History / Comment(s): 10-- LAP INC HERNIA REPAIR, 2 PREVIOUS HERNIA SX ,2 HOLES IN HEART REPAIRED, ATRIUM, SEPTUM - HAS "UMBRELLA" CLOSURE DEVICE. BREAST REDUCTION. cystoscopy CYSTOCELE, RECTOCELE REPAIR. RT FOOT. EXC CYST LT ARM,LT FOOT REPAIR CYSTOSCOPY,LT BREAST BX-NEG, BUNIONECTOMY,GANGLION CYST REMOVED BRONCOSCOPIES,EGD/COLONOSCOPY,XUAN CA TARACTS,hammer toe-pins removed. neuroma-bone removed/pins removed. lt toe , rt wrist nerve sx Past Anesthesia/Blood Transfusion Reactions: No Reported Reaction Past Psychological History: Anxiety, Depression Smoking Status: Former smoker Past Alcohol Use History: None Reported Past Drug Use History: None Reported - Past Family History Father Brother(s) Family Medical History: Cancer Additional Family Medical History / Comment(s): LUNG CANCER Sister(s) Family Medical History: Cancer Additional Family Medical History / Comment(s): # 1 SISTER-BONE CA,SISTER #2 BREAST CA, SISTER #3 LUNG,STOMACH,ESOPHAGUS Mother Family Medical History: Deep Vein Thrombosis (DVT) Additional Family Medical History / Comment(s): diverticulitis Father Family Medical History: Cancer Additional Family Medical History / Comment(s): Father of lung cancer. General Exam Limitations: no limitations General appearance: alert, in no apparent distress Head exam: Present: atraumatic, normocephalic, normal inspection Eye exam: Present: normal appearance, PERRL, EOMI. Absent: scleral icterus, conjunctival injection, periorbital swelling ENT exam: Present: normal exam, mucous membranes moist Neck exam: Present: normal inspection Respiratory exam: Present: normal lung sounds bilaterally. Absent: respiratory distress, wheezes, rales, rhonchi, stridor Cardiovascular Exam: Present: regular rate, normal rhythm, normal heart sounds. Absent: systolic murmur, diastolic murmur, rubs, gallop, clicks GI/Abdominal exam: Present: soft, tenderness (Bilateral lower abdomen), normal bowel sounds. Absent: distended, guarding, rebound, rigid Rectal exam: Present: normal inspection, normal rectal tone, heme (+) stool, hemorrhoids (Internal) Extremities exam: Present: normal inspection, full ROM, normal capillary refill. Absent: tenderness, pedal edema, joint swelling, calf tenderness Neurological exam: Present: alert, oriented X3 Psychiatric exam: Present: normal affect, normal mood Skin exam: Present: warm, dry, intact, normal color. Absent: rash Course Vital Signs 12/19/20 12/19/20 18:42 20:44 Temperature 98.4 F Pulse Rate 88 82 Respiratory 16 18 Rate Blood Pressure 135/91 135/81 O2 Sat by Pulse 94 L 93 L Oximetry Medical Decision Making - Medical Decision Making 65-year-old female complaining of bright red blood per rectum times one, history of hemorrhoids and diverticulosis/diverticulitis. Labs, CT of the abdomen and pelvis, 1 L normal saline, Labs: White blood cells 12.0 positive occult blood, rest of labs unremarkable. No acute abnormality of the abdomen pelvis. There is clearing of the calculus at the right renal pelvis compared to old exam. There are renal cortical cyst without change. There is a 3 x 2 cm right lateral abdominal wall hernia containing omental fat without change. There is diverticulosis without change compared to old exam. Case discussed with Dr. Koo, patient will be admitted inpatient. Dr. Francois and Dr. Carmichael were consulted. Dr. Francois will accept the admit with surgery on consult. - Lab Data Result diagrams: 12/19/20 19:39 12/19/20 19:39 Lab Results 12/19/20 12/19/20 12/19/20 Range/Units 19:39 19:39 19:39 WBC 12.0 H (3.8-10.6) k/uL RBC 5.54 H (3.80-5.40) m/uL Hgb 14.9 (11.4-16.0) gm/dL Hct 47.6 H (34.0-46.0) % MCV 86.1 (80.0-100.0) fL MCH 26.9 (25.0-35.0) pg MCHC 31.2 (31.0-37.0) g/dL RDW 14.1 (11.5-15.5) % Plt Count 320 (150-450) k/uL MPV 7.5 Neutrophils % 61 % Lymphocytes % 30 % Monocytes % 6 % Eosinophils % 2 % Basophils % 0 % Neutrophils # 7.3 (1.3-7.7) k/uL Lymphocytes # 3.6 (1.0-4.8) k/uL Monocytes # 0.7 (0-1.0) k/uL Eosinophils # 0.2 (0-0.7) k/uL Basophils # 0.0 (0-0.2) k/uL APTT 27.2 (22.0-30.0) sec Sodium 142 (137-145) mmol/L Potassium 5.1 (3.5-5.1) mmol/L Chloride 109 H (98-107) mmol/L Carbon Dioxide 22 (22-30) mmol/L Anion Gap 11 mmol/L BUN 18 H (7-17) mg/dL Creatinine 1.04 (0.52-1.04) mg/dL Est GFR (CKD-EPI)AfAm 65 (>60 ml/min/1.73 sqM) Est GFR (CKD-EPI)NonAf 57 (>60 ml/min/1.73 sqM) Glucose 97 (74-99) mg/dL Calcium 10.1 (8.4-10.2) mg/dL Total Bilirubin 0.4 (0.2-1.3) mg/dL AST 120 H (14-36) U/L ALT 88 H (4-34) U/L Alkaline Phosphatase 81 (38-126) U/L Troponin I (0.000-0.034) ng/mL Total Protein 7.3 (6.3-8.2) g/dL Albumin 4.6 (3.5-5.0) g/dL Stool Occult Blood (Negative) 12/19/20 12/19/20 Range/Units 19:39 20:27 WBC (3.8-10.6) k/uL RBC (3.80-5.40) m/uL Hgb (11.4-16.0) gm/dL Hct (34.0-46.0) % MCV (80.0-100.0) fL MCH (25.0-35.0) pg MCHC (31.0-37.0) g/dL RDW (11.5-15.5) % Plt Count (150-450) k/uL MPV Neutrophils % % Lymphocytes % % Monocytes % % Eosinophils % % Basophils % % Neutrophils # (1.3-7.7) k/uL Lymphocytes # (1.0-4.8) k/uL Monocytes # (0-1.0) k/uL Eosinophils # (0-0.7) k/uL Basophils # (0-0.2) k/uL APTT (22.0-30.0) sec Sodium (137-145) mmol/L Potassium (3.5-5.1) mmol/L Chloride (98-107) mmol/L Carbon Dioxide (22-30) mmol/L Anion Gap mmol/L BUN (7-17) mg/dL Creatinine (0.52-1.04) mg/dL Est GFR (CKD-EPI)AfAm (>60 ml/min/1.73 sqM) Est GFR (CKD-EPI)NonAf (>60 ml/min/1.73 sqM) Glucose (74-99) mg/dL Calcium (8.4-10.2) mg/dL Total Bilirubin (0.2-1.3) mg/dL AST (14-36) U/L ALT (4-34) U/L Alkaline Phosphatase (38-126) U/L Troponin I <0.012 (0.000-0.034) ng/mL Total Protein (6.3-8.2) g/dL Albumin (3.5-5.0) g/dL Stool Occult Blood Positive H (Negative) - Radiology Data Radiology results: report reviewed, image reviewed No acute abnormality of the abdomen pelvis. There is clearing of the calculus at the right renal pelvis compared to old exam. There are renal cortical cyst without change. There is a 3 x 2 cm right lateral abdominal wall hernia containing omental fat without change. There is diverticulosis without change compared to old exam. Disposition Clinical Impression: Abdominal pain, GI bleed Disposition: ADMITTED IP TO THIS [facility] Condition: Stable Is patient prescribed a controlled substance at d/c from ED?: No Referrals: Nighat Francois MD [Primary Care Provider] - 1-2 days Time of Disposition: 22:14
[2020-12-19] MEDS ORDERED: NALOXONE 0.4 MG/ML 1 ML VIAL IV PRN (22:07)
[2020-12-19] MEDS ORDERED: MORPHINE SULFATE 4 MG/ML SYRINGE IVP STA (22:13)
[2020-12-20] MEDS: SODIUM CHLORIDE 0.9% 1,000 ML IV SCH ×4 (02:22→23:21)
[2020-12-20] MEDS: MORPHINE SULFATE 4 MG/ML SYRINGE IV PRN ×3 (02:22→10:42)
[2020-12-20] MEDS: PANTOPRAZOLE 40 MG/10 ML VIAL IV SCH (08:07)
[2020-12-20 09:52] LABS: Basophils % (A) 0 %; Eosinophils # (A) 0.2 k/uL (0-0.7); Eosinophils % (A) 2 %; HCT 43.1 % (34.0-46.0); HGB 13.7 gm/dL (11.4-16.0); Lymphocytes # (A) 2.7 k/uL (1.0-4.8); Lymphocytes % (A) 28 %; MCH 27.3 pg (25.0-35.0); MCHC 31.8 g/dL (31.0-37.0); MCV 85.9 fL (80.0-100.0); Mean Platelet Volume 7.7; Monocytes # (A) 0.5 k/uL (0-1.0); Monocytes % (A) 5 %; Neutrophils # (A) 6.2 k/uL (1.3-7.7); Neutrophils % (A) 63 %; Platelet Count 291 k/uL (150-450); RBC 5.02 m/uL (3.80-5.40); RDW 14.2 % (11.5-15.5); WBC 9.7 k/uL (3.8-10.6)
[2020-12-20] MEDS ORDERED: ALBUTEROL NEBULIZED 2.5 MG/3 ML INHALATION PRN (10:43)
[2020-12-20] MEDS ORDERED: diazePAM 5 MG TAB PO PRN (10:43)
[2020-12-20] MEDS ORDERED: guaiFENesin-Coden 100-10MG/5ML 10 ML CUP PO PRN (10:43)
[2020-12-20] MEDS ORDERED: HYDROcodone/APAP 7.5-325MG 1 EACH TAB PO PRN (10:43)
[2020-12-20] MEDS ORDERED: RIVAROXABAN 20 MG TAB PO SCH (10:45)
[2020-12-20] MEDS ORDERED: PANTOPRAZOLE 40 MG TABLET PO SCH (10:45)
[2020-12-20] MEDS ORDERED: PEG 3350-NA SULF,BICARB,CL/KCL 4,000 ML BOTTLE PO ONE (12:00)
[2020-12-20 12:53] LABS: Appearance,Urine Turbid (Clear); Bacteria,Urine Rare /hpf; Bilirubin,Urine Negative (Negative); Blood,Urine Negative (Negative); Color,Urine Yellow; Glucose,Urine (UA) Negative (Negative); Ketones,Urine Negative (Negative); Leukocyte Esterase,Urine Large (Negative); Mucus,Urine Occasional /hpf; Nitrite,Urine Positive (Negative); PH, Urine 5.5 (5.0-8.0); Protein,Urine Negative (Negative); RBC,Urine 2 /hpf (0-5); Specific Gravity,Urine 1.038 (1.001-1.035); Squamous Epithelial Cell,Urine 1 /hpf (0-4); Urobilinogen,Urine <2.0 mg/dL (<2.0); WBC,Urine 16 /hpf (0-5)
--- NOTE | 2020-12-20 13:30 | P.GSCN ---
History of Present Illness Consult date: 12/20/20 History of present illness: CHIEF COMPLAINT: GI bleed HISTORY OF PRESENT ILLNESS: This is a 65-year-old female with a history of diverticulitis and hemorrhoids. She's also on Xarelto for history of PE. She presents to the hospital with complaints of bright red blood per rectum. She reports that it started 2 days ago. She does complain of some lower abdominal pain with bloating. She denies any nausea or vomiting. She denies any fever chills or sweats. Hemoglobin stable at 14.9. Patient seen and examined with Dr. mayer PAST MEDICAL HISTORY: Asthma, TIA, CVA, DVT and PE, bowel obstruction, small hiatal hernia, diverticular disease, glaucoma hypertension, pneumonia, chronic back pain, chronic bronchitis PAST SURGICAL HISTORY: Appendectomy, Back Surgery, Bladder Surgery, Bowel Resection, Breast Surgery, Cholecystectomy, Heart Catheterization, Hernia Repair, Hysterectomy, Orthopedic Surgery, Tubal Ligation 12-28-15 LAP INC HERNIA REPAIR, 2 PREVIOUS HERNIA SX 2004/2009,2 HOLES IN HEART REPAIRED, ATRIUM, SEPTUM - HAS "UMBRELLA" CLOSURE DEVICE. BREAST REDUCTION. cystoscopy CYSTOCELE, RECTOCELE REPAIR. RT FOOT. EXC CYST LT ARM,LT FOOT REPAIR CYSTOSCOPY,LT BREAST BX-NEG MEDICATIONS: See list below ALLERGIES: See list below SOCIAL HISTORY: No illicit drug use. REVIEW OF SYSTEMS: CONSTITUTIONAL: Denies fever or chills. HEENT: Denies blurred vision, vision changes, or eye pain. Denies hemoptysis CARDIOVASCULAR: Denies chest pain or pressure. RESPIRATORY: No shortness of breath. GASTROINTESTINAL: See HPI for pertinent findings HEMATOLOGIC: Denies bleeding disorders. GENITOURINARY: Denies any blood in urine or increased urinary frequency. SKIN: Denies pruitis. Denies rash. PHYSICAL EXAM: VITAL SIGNS: Reviewed GENERAL: Well-developed in no acute distress. HEENT: No sclera icterus. Extraocular movements grossly intact. Moist buccal mucosa. Head is atraumatic, normocephalic. No nasal drainage. ABDOMEN: Soft. Nondistended. Mild tenderness to palpation lower abdomen NEUROLOGIC: Alert and oriented. Cranial nerves II through XII grossly intact. LABORATORY DATA: WBC 12 down to 9.7 hemoglobin 14.9 down to 13.7 platelets 291 Sodium 142 potassium 5.1 creatinine 1.04 AST 120 ALT 88 total bilirubin 0.4 Troponin negative Urinalysis positive for infection Fecal occult blood positive COVID-19 not detected IMAGING: Computed tomography scan abdomen and pelvis showing no acute abnormality of the abdomen and pelvis. There is clearing of the calculus at the right renal pelvis compared to old exam. There are renal cortical cyst without change. There is a 3 x 2 cm right lateral abdominal wall hernia containing omental fat without change. There is diverticulosis without change compared to old exam. ASSESSMENT: 1. Acute GI bleed with bright red blood per rectum 2. History of hemorrhoids and diverticulosis 3. 3 x 2 cm right lateral abdominal wall hernia containing omental fat unchanged noted on computed tomography scan PLAN: -Patient scheduled for EGD and colonoscopy with Dr. Mayer tomorrow, 2020 -Patient can have clear liquids today and then nothing by mouth after midnight -Start GoLYTELY prep -Hold Xarelto -Continue to monitor for any signs or symptoms of bleeding -Continue antiemetics as needed for nausea and vomiting Thank you for this consultation Physician Plaster Pattern Caster note has been reviewed by physician. Signing provider agrees with the documented findings, assessment, and plan of care. Past Medical History Past Medical History: Asthma, Chest Pain / Angina, CVA/TIA, Deep Vein Thrombosis (DVT), GERD/Reflux, Hyperlipidemia, Hypertension, Osteoarthritis (OA), Pneumonia, Pulmonary Embolus (PE) Additional Past Medical History / Comment(s): CVA LOST LT PERIPHERAL VISION AND WRITING IS A BIT DIFFICULT & FEW TIA'S, TREMORS SINCE.PE/ XUAN DVT (AFTER LAST 2 MAJOR SURG). HX BOWEL OBSTRUCTION. USED TO TAKE MEDS FOR BP , OSTEOPOROSIS. BACK PAIN. ,RADS,CHRONIC BRONCHITIS, SCOLIOSIS, BROKE RT WRIST D/T FALL 2009, SMALL HIATAL HERNIA,DIVERTICULAR DISEASE, UTI,GLAUCOMA History of Any Multi-Drug Resistant Organisms: MRSA, Other MDRO Year Discovered:: 07/12/08-MRSA MDRO Source:: URINE-MRSA Past Surgical History: Appendectomy, Back Surgery, Bladder Surgery, Bowel Resection, Breast Surgery, Cholecystectomy, Heart Catheterization, Hernia Repair, Hysterectomy, Orthopedic Surgery, Tubal Ligation Additional Past Surgical History / Comment(s): 12-28-15 LAP INC HERNIA REPAIR, 2 PREVIOUS HERNIA SX ,2 HOLES IN HEART REPAIRED, ATRIUM, SEPTUM - HAS "UMBRELLA" CLOSURE DEVICE. BREAST REDUCTION. cystoscopy CYSTOCELE, RECTOCELE REPAIR. RT FOOT. EXC CYST LT ARM,LT FOOT REPAIR CYSTOSCOPY,LT BREAST BX-NEG, BUNIONECTOMY,GANGLION CYST REMOVED BRONCOSCOPIES,EGD/COLONOSCOPY,XUAN CATAR ACTS,hammer toe-pins removed. neuroma-bone removed/pins removed. lt toe , rt wrist nerve sx Past Anesthesia/Blood Transfusion Reactions: No Reported Reaction Past Psychological History: Anxiety, Depression Additional Psychological History / Comment(s): Pt lives with her spouse, 2 sons and their girlfriends. 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 Pt has home oxygen/nebulizer. She drives. Smoking Status: Never smoker Past Alcohol Use History: None Reported Past Drug Use History: None Reported - Past Family History Father Brother(s) Family Medical History: Cancer Additional Family Medical History / Comment(s): LUNG CANCER Sister(s) Family Medical History: Cancer Additional Family Medical History / Comment(s): # 1 SISTER-BONE CA,SISTER #2 BREAST CA, SISTER #3 LUNG,STOMACH,ESOPHAGUS Mother Family Medical History: Deep Vein Thrombosis (DVT) Additional Family Medical History / Comment(s): diverticulitis Father Family Medical History: Cancer Additional Family Medical History / Comment(s): Father of lung cancer. Medications and Allergies Home Medications Medication Instructions Recorded Confirmed Type Rivaroxaban [Xarelto] 20 mg PO DAILY 05/24/15 12/19/20 History Escitalopram [Lexapro] 10 mg PO DAILY 05/20/17 12/19/20 History Montelukast [Singulair] 10 mg PO DAILY 05/20/17 12/19/20 History Pantoprazole Sodium [Protonix] 40 mg PO DAILY 05/20/17 12/19/20 History HYDROcodone/APAP 7.5-325MG [[place] 0.5 - 1 tab PO TID PRN 02/05/19 12/19/20 History 7.5-325] EPINEPHrine (Auto Inject) [Epipen] 0.3 mg IM ONCE PRN 05/28/19 12/19/20 History Albuterol Inhaler [Ventolin Hfa 2 puff INHALATION RT-QID PRN 12/19/20 12/19/20 History Inhaler] Alendronate Sodium [Fosamax] 70 mg PO MO 12/19/20 12/19/20 History Codeine Phosphate/Guaifenesin 5 ml PO Q6H PRN 12/19/20 12/19/20 History [Guaifen-Codeine 100-10 mg/5 ml] Pravastatin Sodium [Pravachol] 40 mg PO DAILY 12/19/20 12/19/20 History Sulfamethox-Tmp 800-160Mg [Bactrim 1 tab PO BID 12/19/20 12/19/20 History DS 800-160 mg] diazePAM [Valium] 5 mg PO TID PRN 12/19/20 12/19/20 History Allergies Allergy/AdvReac Type Severity Reaction Status Date / Time cephalexin monohydrate Allergy Rash/Hives Verified 12/19/20 21:17 [From Keflex] clarithromycin [From Biaxin] Allergy Rash/Hives Verified 12/19/20 21:17 levofloxacin [From Levaquin] Allergy Rash/Hives Verified 12/19/20 21:17 Quinolones Allergy Rash/Hives Verified 12/19/20 21:17 Surgical - Exam Vital Signs Temp Pulse Resp BP Pulse Ox 98.4 F 88 16 135/91 94 L 12/19/20 18:42 12/19/20 18:42 12/19/20 18:42 12/19/20 18:42 12/19/20 18:42 Results - Labs 12/20/20 09:01 12/19/20 19:39 Abnormal Lab Results - Last 24 Hours (Table) 12/19/20 12/19/20 12/19/20 Range/Units 19:39 19:39 20:27 WBC 12.0 H (3.8-10.6) k/uL RBC 5.54 H (3.80-5.40) m/uL Hct 47.6 H (34.0-46.0) % Chloride 109 H (98-107) mmol/L BUN 18 H (7-17) mg/dL AST 120 H (14-36) U/L ALT 88 H (4-34) U/L Urine Appearance (Clear) Ur Specific [place] (1.001-1.035) Urine Nitrite (Negative) Ur Leukocyte Esterase (Negative) Urine WBC (0-5) /hpf Urine Bacteria (None) /hpf Urine Mucus (None) /hpf Stool Occult Blood Positive H (Negative) 12/20/20 Range/Units 12:06 WBC (3.8-10.6) k/uL RBC (3.80-5.40) m/uL Hct (34.0-46.0) % Chloride (98-107) mmol/L BUN (7-17) mg/dL AST (14-36) U/L ALT (4-34) U/L Urine Appearance Turbid H (Clear) Ur Specific [place] 1.038 H (1.001-1.035) Urine Nitrite Positive H (Negative) Ur Leukocyte Esterase Large H (Negative) Urine WBC 16 H (0-5) /hpf Urine Bacteria Rare H (None) /hpf Urine Mucus Occasional H (None) /hpf Stool Occult Blood (Negative) Diabetes panel 12/19/20 Range/Units 19:39 Sodium 142 (137-145) mmol/L Potassium 5.1 (3.5-5.1) mmol/L Chloride 109 H (98-107) mmol/L Carbon Dioxide 22 (22-30) mmol/L BUN 18 H (7-17) mg/dL Creatinine 1.04 (0.52-1.04) mg/dL Glucose 97 (74-99) mg/dL Calcium 10.1 (8.4-10.2) mg/dL AST 120 H (14-36) U/L ALT 88 H (4-34) U/L Alkaline Phosphatase 81 (38-126) U/L Total Protein 7.3 (6.3-8.2) g/dL Albumin 4.6 (3.5-5.0) g/dL Calcium panel 12/19/20 Range/Units 19:39 Calcium 10.1 (8.4-10.2) mg/dL Albumin 4.6 (3.5-5.0) g/dL Pituitary panel 12/19/20 Range/Units 19:39 Sodium 142 (137-145) mmol/L Potassium 5.1 (3.5-5.1) mmol/L Chloride 109 H (98-107) mmol/L Carbon Dioxide 22 (22-30) mmol/L BUN 18 H (7-17) mg/dL Creatinine 1.04 (0.52-1.04) mg/dL Glucose 97 (74-99) mg/dL Calcium 10.1 (8.4-10.2) mg/dL Adrenal panel 12/19/20 Range/Units 19:39 Sodium 142 (137-145) mmol/L Potassium 5.1 (3.5-5.1) mmol/L Chloride 109 H (98-107) mmol/L Carbon Dioxide 22 (22-30) mmol/L BUN 18 H (7-17) mg/dL Creatinine 1.04 (0.52-1.04) mg/dL Glucose 97 (74-99) mg/dL Calcium 10.1 (8.4-10.2) mg/dL Total Bilirubin 0.4 (0.2-1.3) mg/dL AST 120 H (14-36) U/L ALT 88 H (4-34) U/L Alkaline Phosphatase 81 (38-126) U/L Total Protein 7.3 (6.3-8.2) g/dL Albumin 4.6 (3.5-5.0) g/dL
[2020-12-20] MEDS: ESCITALOPRAM 10 MG TAB PO SCH (15:10)
[2020-12-20] MEDS: MONTELUKAST 10 MG TAB PO SCH (15:10)
[2020-12-20] MEDS: PRAVASTATIN SODIUM 40 MG TAB PO SCH (15:10)
[2020-12-20] MEDS: ONDANSETRON 4 MG/2 ML VIAL IVP PRN ×2 (15:10→21:07)
--- NOTE | 2020-12-20 17:46 | P.HPIM ---
History of Present Illness H&P Date: 12/20/20 Rhianna Chilel, is a 65-year-old female who presented to [facility] emergency room with a chief complaint of rectal bleeding, patient describes large amount of dark red blood with blood clots She was evaluated in the emergency room vital examination on presentation revealed a temperature of 98.4 pulse 88 respirations 16 blood pressure 135/91 pulse ox 94% on room air Laboratory data revealed a white blood count of 12.0 hemoglobin 14.9 platelet count 320 sodium 142 potassium 5.1 chloride 109 CO2 22 BUN 18 creatinine 1.04 patient had elevated liver enzymes with AST at 120 and ALT at 88 urine analysis was positive for urinary tract infection coronavirus PCR was negative Testing in the emergency room revealed computed tomography scan of the abdomen and pelvis revealed evidence of diverticulosis without evidence of diverticulitis Patient was admitted to medical floor for further evaluation and treatment, surgical consultation was requested for endoscopic evaluation. Past Medical History Past Medical History: Asthma, Chest Pain / Angina, CVA/TIA, Deep Vein Thrombosis (DVT), GERD/Reflux, Hyperlipidemia, Hypertension, Osteoarthritis (OA), Pneumonia, Pulmonary Embolus (PE) Additional Past Medical History / Comment(s): CVA LOST LT PERIPHERAL VISION AND WRITING IS A BIT DIFFICULT & FEW TIA'S, TREMORS SINCE.PE/ XUAN DVT (AFTER LAST 2 MAJOR SURG). HX BOWEL OBSTRUCTION. USED TO TAKE MEDS FOR BP , OSTEOPOROSIS. BACK PAIN. ,RADS,CHRONIC BRONCHITIS, SCOLIOSIS, BROKE RT WRIST D/T FALL 2009, SMALL HIATAL HERNIA,DIVERTICULAR DISEASE, UTI,GLAUCOMA History of Any Multi-Drug Resistant Organisms: MRSA, Other MDRO Date of last positivie culture/infection: 07/12/08-MRSA MDRO Source:: URINE-MRSA Past Surgical History: Appendectomy, Back Surgery, Bladder Surgery, Bowel Resection, Breast Surgery, Cholecystectomy, Heart Catheterization, Hernia Repair, Hysterectomy, Orthopedic Surgery, Tubal Ligation Additional Past Surgical History / Comment(s): 12-28-15 [employer] HERNIA REPAIR, 2 PREVIOUS HERNIA SX ,2 HOLES IN HEART REPAIRED, ATRIUM, SEPTUM - HAS "UMBRELLA" CLOSURE DEVICE. BREAST REDUCTION. cystoscopy CYSTOCELE, RECTOCELE REPAIR. RT FOOT. EXC CYST LT ARM,LT FOOT REPAIR CYSTOSCOPY,LT BREAST BX-NEG, BUNIONECTOMY,GANGLION CYST REMOVED BRONCOSCOPIES,EGD/COLONOSCOPY,XUAN CATARA CTS,hammer toe-pins removed. neuroma-bone removed/pins removed. lt toe , rt wrist nerve sx Past Anesthesia/Blood Transfusion Reactions: No Reported Reaction Past Psychological History: Anxiety, Depression Smoking Status: Former smoker Past Alcohol Use History: None Reported Past Drug Use History: None Reported - Past Family History Father Brother(s) Family Medical History: Cancer Additional Family Medical History / Comment(s): LUNG CANCER Sister(s) Family Medical History: Cancer Additional Family Medical History / Comment(s): # 1 SISTER-BONE CA,SISTER #2 BREAST CA, SISTER #3 LUNG,STOMACH,ESOPHAGUS Mother Family Medical History: Deep Vein Thrombosis (DVT) Additional Family Medical History / Comment(s): diverticulitis Father Family Medical History: Cancer Additional Family Medical History / Comment(s): Father of lung cancer. Medications and Allergies Home Medications Medication Instructions Recorded Confirmed Type Rivaroxaban [Xarelto] 20 mg PO DAILY 05/24/15 12/19/20 History Escitalopram [Lexapro] 10 mg PO DAILY 05/20/17 12/19/20 History Montelukast [Singulair] 10 mg PO DAILY 05/20/17 12/19/20 History Pantoprazole Sodium [Protonix] 40 mg PO DAILY 05/20/17 12/19/20 History HYDROcodone/APAP 7.5-325MG [[place] 0.5 - 1 tab PO TID PRN 02/05/19 12/19/20 History 7.5-325] EPINEPHrine (Auto Inject) [Epipen] 0.3 mg IM ONCE PRN 05/28/19 12/19/20 History Albuterol Inhaler [Ventolin Hfa 2 puff INHALATION RT-QID PRN 12/19/20 12/19/20 History Inhaler] Alendronate Sodium [Fosamax] 70 mg PO MO 12/19/20 12/19/20 History Codeine Phosphate/Guaifenesin 5 ml PO Q6H PRN 12/19/20 12/19/20 History [Guaifen-Codeine 100-10 mg/5 ml] Pravastatin Sodium [Pravachol] 40 mg PO DAILY 12/19/20 12/19/20 History Sulfamethox-Tmp 800-160Mg [Bactrim 1 tab PO BID 12/19/20 12/19/20 History DS 800-160 mg] diazePAM [Valium] 5 mg PO TID PRN 12/19/20 12/19/20 History Allergies Allergy/AdvReac Type Severity Reaction Status Date / Time cephalexin monohydrate Allergy Rash/Hives Verified 12/19/20 21:17 [From Keflex] clarithromycin [From Biaxin] Allergy Rash/Hives Verified 12/19/20 21:17 levofloxacin [From Levaquin] Allergy Rash/Hives Verified 12/19/20 21:17 Quinolones Allergy Rash/Hives Verified 12/19/20 21:17 Physical Exam Vitals: Vital Signs Temp Pulse Resp BP Pulse Ox 12/20/20 07:00 73 16 120/78 95 12/19/20 22:37 68 18 121/79 94 L 12/19/20 20:44 82 18 135/81 93 L 12/19/20 18:42 98.4 F 88 16 135/91 94 L Intake and Output 12/19/20 12/20/20 12/20/20 22:59 06:59 14:59 Other: Weight 58.513 kg In general patient is alert and oriented x 3 in no distress HEENT head normocephalic and atraumatic Neck is supple no JVD no goiter no lymphadenopathy no carotid bruit Chest examination is clear to auscultation no crackles no wheezing Cardiac exam reveals regular heart sounds S1 and S2 no gallops no murmurs Abdomen is soft nontender no organomegaly with normal bowel sounds Extremity exam reveals no edema no cyanosis or clubbing Neurological examination reveals no gross focal deficits Results CBC & Chem 7: 12/20/20 09:01 12/19/20 19:39 Labs: Abnormal Lab Results - Last 24 Hours (Table) 12/19/20 12/19/20 12/19/20 Range/Units 19:39 19:39 20:27 WBC 12.0 H (3.8-10.6) k/uL RBC 5.54 H (3.80-5.40) m/uL Hct 47.6 H (34.0-46.0) % Chloride 109 H (98-107) mmol/L BUN 18 H (7-17) mg/dL AST 120 H (14-36) U/L ALT 88 H (4-34) U/L Stool Occult Blood Positive H (Negative) Assessment and Plan Plan: Rectal bleeding, patient is admitted to medical floor will monitor CBC closely, surgical consultation was requested for EGD and colonoscopy Previous history of pulmonary embolism, maintained on Xarelto, will hold at this time Underlying history of hyperlipidemia maintained on Pravachol Underlying history of asthma Underlying history of gastroesophageal reflux disease Underlying history of osteoporosis maintained on Fosamax Underlying history of depression with anxiety disorder, patient lost her recently At this time patient is admitted to medical floor, will monitor CBC, hold Xarelto Surgical consultation following for EGD and colonoscopy Will follow in a.m.
[2020-12-21 05:46] LABS: Basophils % (A) 0 %; Eosinophils # (A) 0.4 k/uL (0-0.7); Eosinophils % (A) 5 %; HCT 38.5 % (34.0-46.0); HGB 13.1 gm/dL (11.4-16.0); Lymphocytes # (A) 2.4 k/uL (1.0-4.8); Lymphocytes % (A) 29 %; MCH 28.3 pg (25.0-35.0); MCHC 34.1 g/dL (31.0-37.0); MCV 83.1 fL (80.0-100.0); Mean Platelet Volume 7.6; Monocytes # (A) 0.4 k/uL (0-1.0); Monocytes % (A) 4 %; Neutrophils # (A) 4.9 k/uL (1.3-7.7); Neutrophils % (A) 60 %; Platelet Count 273 k/uL (150-450); RBC 4.63 m/uL (3.80-5.40); RDW 14.3 % (11.5-15.5); WBC 8.2 k/uL (3.8-10.6)
[2020-12-21] MEDS: SODIUM CHLORIDE 0.9% 1,000 ML IV SCH ×3 (06:00→16:44)
[2020-12-21 06:02] LABS: African American GFR (CKD) >90 (>60 ml/min/1.73 sqM); Anion Gap 5 mmol/L; Blood Urea Nitrogen 8 mg/dL (7-17); Calcium 8.3 mg/dL (8.4-10.2); Carbon Dioxide 24 mmol/L (22-30); Chloride 109 mmol/L (98-107); Glucose 84 mg/dL (74-99); Non-African American GFR(CKD) >90 (>60 ml/min/1.73 sqM); Potassium 4.2 mmol/L (3.5-5.1); Sodium 138 mmol/L (137-145)
[2020-12-21] MEDS: PANTOPRAZOLE 40 MG/10 ML VIAL IV SCH (09:20)
[2020-12-21] MEDS: PRAVASTATIN SODIUM 40 MG TAB PO SCH (09:20)
[2020-12-21] MEDS: ESCITALOPRAM 10 MG TAB PO SCH (09:20)
[2020-12-21] MEDS: MONTELUKAST 10 MG TAB PO SCH (09:20)
[2020-12-21] MEDS ORDERED: IV FLUID CONTINUATION 400 ML IV ONE (15:12)
[2020-12-21] MEDS ORDERED: PROPOFOL 10 MG/ML 20 ML VIAL IV ONE (15:13)
[2020-12-21] MEDS ORDERED: LIDOCAINE 1% INJ 10MG/ML (20 ML MDV) ONE (15:13)
--- NOTE | 2020-12-21 15:37 | P.OP ---
Date of Procedure: 12/21/20 Preoperative Diagnosis: GI bleed Postoperative Diagnosis: Antral gastritis Diverticulosis Procedure(s) Performed: EGD Colonoscopy Anesthesia: MAC Surgeon: Vincenzo Carmichael Pathology: other (Antrum) Condition: stable Disposition: PACU Description of Procedure: Patient's placed on the endoscopy table in the lateral position. She received IV sedation. The gastroscope placed oropharynx passed in the esophagus into the stomach. Scope was then placed through the pylorus. The first and second portion of the duodenum appeared normal. Scope was then brought back the antrum this. Mildly inflamed. A biopsies performed. Scope was retroflexed the meters stomach appeared normal. There is known to blood in the upper GI tract. The GE junction was at 40 cm the distal esophagus. Normal. The proximal esophagus. Scope was withdrawn for patient. Next digital rectal exam is performed which revealed no abnormalities. Flexible colonoscope was then placed patient anus passed rotator entire colon. Ileocecal valve incisions. The cecum, transverse and descending colon appeared normal. In the sigmoid colon was extensive diverticular changes. Scope was then brought back the rectum this appeared normal scope was withdrawn for patient. There is no is any lower GI bleed however due to the extensive diverticular changes and presumed the patient had a diverticular bleed.
--- NOTE | 2020-12-21 17:28 | P.PN ---
Subjective Progress Note Date: 12/21/20 Rhianna Chilel, is a 65-year-old female who presented to [facility] emergency room with a chief complaint of rectal bleeding, patient describes large amount of dark red blood with blood clots She was evaluated in the emergency room vital examination on presentation revealed a temperature of 98.4 pulse 88 respirations 16 blood pressure 135/91 pulse ox 94% on room air Laboratory data revealed a white blood count of 12.0 hemoglobin 14.9 platelet count 320 sodium 142 potassium 5.1 chloride 109 CO2 22 BUN 18 creatinine 1.04 patient had elevated liver enzymes with AST at 120 and ALT at 88 urine analysis was positive for urinary tract infection coronavirus PCR was negative Testing in the emergency room revealed computed tomography scan of the abdomen and pelvis revealed evidence of diverticulosis without evidence of diverticulitis Patient was admitted to medical floor for further evaluation and treatment, surgical consultation was requested for endoscopic evaluation. On 12/21/2020 patient was seen and examined on the medical floor, she is alert and oriented 3 in no distress there is no fever or chills no headache or dizziness no chest pain no shortness of breath no cough no nausea or vomiting no abdominal pain no diarrhea and no urinary symptoms, patient is scheduled for EGD and colonoscopy today Will follow closely Objective - Vital Signs Vital signs: Vital Signs Temp 98.7 F 12/21/20 07:00 Pulse 66 12/21/20 07:00 Resp 17 12/21/20 07:00 BP 129/74 12/21/20 07:00 Pulse Ox 96 12/21/20 07:00 Intake & Output 12/20/20 12/21/20 12/21/20 18:59 06:59 18:59 Weight 58.513 kg Other: Voiding Method Bedside Commode Bedside Commode # Voids 1 3 # Bowel Movements 2 - Exam In general patient is alert and oriented x 3 in no distress HEENT head normocephalic and atraumatic Neck is supple no JVD no goiter no lymphadenopathy no carotid bruit Chest examination is clear to auscultation no crackles no wheezing Cardiac exam reveals regular heart sounds S1 and S2 no gallops no murmurs Abdomen is soft nontender no organomegaly with normal bowel sounds Extremity exam reveals no edema no cyanosis or clubbing Neurological examination reveals no gross focal deficits - Labs CBC & Chem 7: 12/21/20 05:08 12/21/20 05:08 Labs: Abnormal Lab Results - Last 24 Hours (Table) 12/20/20 12/21/20 Range/Units 12:06 05:08 Chloride 109 H (98-107) mmol/L Calcium 8.3 L (8.4-10.2) mg/dL Urine Appearance Turbid H (Clear) Ur Specific [place] 1.038 H (1.001-1.035) Urine Nitrite Positive H (Negative) Ur Leukocyte Esterase Large H (Negative) Urine WBC 16 H (0-5) /hpf Urine Bacteria Rare H (None) /hpf Urine Mucus Occasional H (None) /hpf Assessment and Plan Plan: Rectal bleeding, patient is admitted to medical floor will monitor CBC closely, surgical consultation was requested for EGD and colonoscopy Previous history of pulmonary embolism, maintained on Xarelto, will hold at this time Underlying history of hyperlipidemia maintained on Pravachol Underlying history of asthma Underlying history of gastroesophageal reflux disease Underlying history of osteoporosis maintained on Fosamax Underlying history of depression with anxiety disorder, patient lost her recently At this time patient is admitted to medical floor, will monitor CBC, hold Xarelto Surgical consultation following for EGD and colonoscopy Will follow in a.m.
[2020-12-21] MEDS: MORPHINE SULFATE 4 MG/ML SYRINGE IV PRN (20:42)
[2020-12-22] MEDS: SODIUM CHLORIDE 0.9% 1,000 ML IV SCH (05:16)
[2020-12-22 06:35] LABS: ALT 68 U/L (4-34); AST 57 U/L (14-36); African American GFR (CKD) >90 (>60 ml/min/1.73 sqM); Albumin 3.1 g/dL (3.5-5.0); Albumin/Globulin Ratio 1.3; Alkaline Phosphatase 74 U/L (38-126); Anion Gap 4 mmol/L; Blood Urea Nitrogen 5 mg/dL (7-17); Calcium 7.8 mg/dL (8.4-10.2); Carbon Dioxide 22 mmol/L (22-30); Chloride 113 mmol/L (98-107); Globulin 2.3 g/dL; Glucose 131 mg/dL (74-99); Non-African American GFR(CKD) >90 (>60 ml/min/1.73 sqM); Potassium 4.8 mmol/L (3.5-5.1); Sodium 139 mmol/L (137-145); Total Bilirubin 0.4 mg/dL (0.2-1.3); Total Protein 5.4 g/dL (6.3-8.2)
[2020-12-22 07:53] VITALS: BP 122/71; PULSE 80; RESP 18; TEMP 98.2
[2020-12-22] MEDS: ESCITALOPRAM 10 MG TAB PO SCH (08:49)
[2020-12-22] MEDS: MONTELUKAST 10 MG TAB PO SCH (08:49)
[2020-12-22] MEDS: PANTOPRAZOLE 40 MG/10 ML VIAL IV SCH (08:49)
[2020-12-22] MEDS: PRAVASTATIN SODIUM 40 MG TAB PO SCH (08:49)
[2020-12-22 09:18] LABS: Basophils # (A) 0.02 X 10*3/uL (0.00-0.10); Basophils % (A) 0.3 %; Eosinophils # (A) 0.45 X 10*3/uL (0.04-0.35); Eosinophils % (A) 5.7 %; HCT 40.3 % (37.2-46.3); HGB 12.3 g/dL (12.0-15.0); Lymphocytes # (A) 2.37 X 10*3/uL (0.90-5.00); MCH 26.4 pg (27.0-32.0); MCHC 30.5 g/dL (32.0-37.0); MCV 86.5 fL (80.0-97.0); Mean Platelet Volume 10.7 fL (9.5-12.2); Monocytes % (A) 8.9 %; Neutrophils # (A) 4.33 X 10*3/uL (1.80-7.70); Neutrophils % (A) 54.8 %; Platelet Count 259 X 10*3/uL (140-440); RBC 4.66 X 10*6/uL (4.10-5.20); RDW 15.3 % (11.5-14.5); WBC 7.89 X 10*3/uL (4.50-10.00)
--- NOTE | 2020-12-22 14:09 | P.PN ---
Subjective Progress Note Date: 12/22/20 CHIEF COMPLAINT: GI bleed HISTORY OF PRESENT ILLNESS: Surgical service is following regards to patient's GI bleed. She is status post colonoscopy which showed diverticulosis. She is no longer have any active bleeding. Her hemoglobin is stable at 12.3. She denies any abdominal pain. She's afebrile. She's tolerating diet. PHYSICAL EXAM: VITAL SIGNS: Reviewed. GENERAL: Well-developed in no acute distress. HEENT: No sclera icterus. Extraocular movements grossly intact. Moist buccal mucosa. Head is atraumatic, normocephalic. ABDOMEN: Soft. Nondistended. Nontender. NEUROLOGIC: Alert and oriented. Cranial nerves II through XII grossly intact. ASSESSMENT: 1. Acute GI bleed likely secondary to diverticular bleed. Colonoscopy shows evidence of diverticulosis PLAN: -Patient can be discharged from surgical standpoint -Patient Xarelto can be resumed Physician Flap Lining Binder note has been reviewed by physician. Signing provider agrees with the documented findings, assessment, and plan of care. Objective - Vital Signs Vital signs: Vital Signs Temp 98.2 F 12/22/20 07:00 Pulse 80 12/22/20 07:00 Resp 18 12/22/20 08:00 BP 122/71 12/22/20 07:00 Pulse Ox 93 L 12/22/20 07:00 Intake & Output 12/21/20 12/22/20 12/22/20 18:59 06:59 18:59 Intake Total 1376 1000 200 Output Total 1000 Balance 376 1000 200 Intake: IV 1140 Sodium Chloride 0.9% 1, 1040 000 ml @ 130 mls/hr IV . [id number] [facility] Rx#:[id number] Oral 236 1000 200 Output: Urine 1000 Other: Voiding Method Bedside Commode Bedside Commode Bedside Commode # Bowel Movements 1 - Labs CBC & Chem 7: 12/22/20 04:53 12/22/20 04:53 Labs: Abnormal Lab Results - Last 24 Hours (Table) 12/22/20 12/22/20 Range/Units 04:53 04:53 MCH 26.4 L (27.0-32.0) pg MCHC 30.5 L (32.0-37.0) g/dL RDW 15.3 H (11.5-14.5) % Eosinophils # 0.45 H (0.04-0.35) X 10*3/uL Chloride 113 H (98-107) mmol/L BUN 5 L (7-17) mg/dL Glucose 131 H (74-99) mg/dL Calcium 7.8 L (8.4-10.2) mg/dL AST 57 H (14-36) U/L ALT 68 H (4-34) U/L Total Protein 5.4 L (6.3-8.2) g/dL Albumin 3.1 L (3.5-5.0) g/dL
--- NOTE | 2020-12-25 09:24 | P.DS ---
Providers Date of admission: 12/19/20 22:03 Expected date of discharge: 12/22/20 Attending physician: Nighat Francois Consults: 12/19/20 22:07 Consult Physician Stat Consulting Provider: Vincenzo Carmichael Consult Reason/Comments: GI bleed Do you want consulting provider notified?: Already Contacted Primary care physician: Nighat Francois [facility] Hospital Course: Discharge diagnosis Rectal bleeding, patient is admitted to medical floor will monitor CBC closely, surgical consultation was requested for EGD and colonoscopy Previous history of pulmonary embolism, maintained on Xarelto, will hold at this time Underlying history of hyperlipidemia maintained on Pravachol Underlying history of asthma Underlying history of gastroesophageal reflux disease Underlying history of osteoporosis maintained on Fosamax Underlying history of depression with anxiety disorder, patient lost her recently Hospital course Rhianna Chilel, is a 65-year-old female who presented to [facility] emergency room with a chief complaint of rectal bleeding, patient describes large amount of dark red blood with blood clots She was evaluated in the emergency room vital examination on presentation revealed a temperature of 98.4 pulse 88 respirations 16 blood pressure 135/91 pulse ox 94% on room air Laboratory data revealed a white blood count of 12.0 hemoglobin 14.9 platelet count 320 sodium 142 potassium 5.1 chloride 109 CO2 22 BUN 18 creatinine 1.04 patient had elevated liver enzymes with AST at 120 and ALT at 88 urine analysis was positive for urinary tract infection coronavirus PCR was negative Testing in the emergency room revealed computed tomography scan of the abdomen and pelvis revealed evidence of diverticulosis without evidence of diverticulitis Patient was admitted to medical floor for further evaluation and treatment, surgical consultation was requested for endoscopic evaluation. On 12/21/2020 patient was seen and examined on the medical floor, she is alert and oriented 3 in no distress there is no fever or chills no headache or dizziness no chest pain no shortness of breath no cough no nausea or vomiting no abdominal pain no diarrhea and no urinary symptoms, patient is scheduled for EGD and colonoscopy today Will follow closely 12/22/2020 status post colonoscopy which showed diverticulosis with no active bleeding patient has been cleared for discharge from surgical standpoint to resume on anticoagulation. Patient Condition at Discharge: Stable Plan - Discharge Summary Discharge Rx Participant: No New Discharge Prescriptions: Continue Rivaroxaban [Xarelto] 20 mg PO DAILY Montelukast [Singulair] 10 mg PO DAILY Escitalopram [Lexapro] 10 mg PO DAILY Pantoprazole Sodium [Protonix] 40 mg PO DAILY HYDROcodone/APAP 7.5-325MG [[place] 7.5-325] 0.5 - 1 tab PO TID PRN PRN Reason: Pain EPINEPHrine (Auto Inject) [Epipen] 0.3 mg IM ONCE PRN PRN Reason: Anaphylaxis Pravastatin Sodium [Pravachol] 40 mg PO DAILY Codeine Phosphate/Guaifenesin [Guaifen-Codeine 100-10 mg/5 ml] 5 ml PO Q6H PRN PRN Reason: Cough Alendronate Sodium [Fosamax] 70 mg PO MO diazePAM [Valium] 5 mg PO TID PRN PRN Reason: Anxiety Albuterol Inhaler [Ventolin Hfa Inhaler] 2 puff INHALATION RT-QID PRN PRN Reason: Shortness Of Breath Sulfamethox-Tmp 800-160Mg [Bactrim DS 800-160 mg] 1 tab PO BID Discharge Medication List Rivaroxaban [Xarelto] 20 mg PO DAILY 05/24/15 [History] Escitalopram [Lexapro] 10 mg PO DAILY 05/20/17 [History] Montelukast [Singulair] 10 mg PO DAILY 05/20/17 [History] Pantoprazole Sodium [Protonix] 40 mg PO DAILY 05/20/17 [History] HYDROcodone/APAP 7.5-325MG [[place] 7.5-325] 0.5 - 1 tab PO TID PRN 02/05/19 [History] EPINEPHrine (Auto Inject) [Epipen] 0.3 mg IM ONCE PRN 05/28/19 [History] Albuterol Inhaler [Ventolin Hfa Inhaler] 2 puff INHALATION RT-QID PRN 12/19/20 [History] Alendronate Sodium [Fosamax] 70 mg PO MO 12/19/20 [History] Codeine Phosphate/Guaifenesin [Guaifen-Codeine 100-10 mg/5 ml] 5 ml PO Q6H PRN 12/19/20 [History] Pravastatin Sodium [Pravachol] 40 mg PO DAILY 12/19/20 [History] Sulfamethox-Tmp 800-160Mg [Bactrim DS 800-160 mg] 1 tab PO BID 12/19/20 [History] diazePAM [Valium] 5 mg PO TID PRN 12/19/20 [History] Follow up Appointment(s)/Referral(s): Nighat Francois MD [Primary Care Provider] - 1-2 days (Message left at office to call with appointment time) Vincenzo Carmichael MD [STAFF PHYSICIAN] - 1 Week Patient Instructions/Handouts: Gastritis (DC), Diverticulosis (DC) Discharge Disposition: HOME SELF-CARE
[2020-12-26] MEDS ORDERED: NON FORMULARY DRUG (Alendronate Sodium [Fosamax] 70 MG Tablet) PO SCH (10:43)
== END 2020-12-22 14:36 | disposition home or self-care (01) ==
LOC: EC 17:28 → 6NMEDSUR 22:03
PROVIDERS: ADMIT Internal Medicine; ATTEND Internal Medicine
DX: K62.5 Hemorrhage of anus and rectum (principal); K57.30 Diverticulosis of large intestine without perforation or abscess without bleeding; K29.51 Unspecified chronic gastritis with bleeding; E78.5 Hyperlipidemia, unspecified; J45.909 Unspecified asthma, uncomplicated; K21.9 Gastro-esophageal reflux disease without esophagitis; F41.9 Anxiety disorder, unspecified; F32.9 Major depressive disorder, single episode, unspecified; N39.0 Urinary tract infection, site not specified; R74.8 Abnormal levels of other serum enzymes; I10 Essential (primary) hypertension; M19.90 Unspecified osteoarthritis, unspecified site; K64.4 Residual hemorrhoidal skin tags; K64.8 Other hemorrhoids; K43.9 Ventral hernia without obstruction or gangrene; M81.0 Age-related osteoporosis without current pathological fracture; I69.398 Other sequelae of cerebral infarction; H53.8 Other visual disturbances; R25.1 Tremor, unspecified; J42 Unspecified chronic bronchitis; G89.29 Other chronic pain; M54.9 Dorsalgia, unspecified; Z20.822 Contact with and (suspected) exposure to COVID-19; Z63.4 Disappearance and death of family member; Z98.890 Other specified postprocedural states; Z86.711 Personal history of pulmonary embolism; Z86.718 Personal history of other venous thrombosis and embolism; Z87.01 Personal history of pneumonia (recurrent); Z86.14 Personal history of Methicillin resistant Staphylococcus aureus infection; Z87.891 Personal history of nicotine dependence; Z87.440 Personal history of urinary (tract) infections; Z90.49 Acquired absence of other specified parts of digestive tract; Z90.710 Acquired absence of both cervix and uterus; Z16.24 Resistance to multiple antibiotics; Z79.01 Long term (current) use of anticoagulants; Z79.899 Other long term (current) drug therapy; Z79.83 Long term (current) use of bisphosphonates; Z88.1 Allergy status to other antibiotic agents; Z80.1 Family history of malignant neoplasm of trachea, bronchus and lung; Z80.3 Family history of malignant neoplasm of breast; Z80.8 Family history of malignant neoplasm of other organs or systems; Z80.0 Family history of malignant neoplasm of digestive organs; Z82.49 Family history of ischemic heart disease and other diseases of the circulatory system; Z83.79 Family history of other diseases of the digestive system
CPT/HCPCS: 96376; 96374; 96375; 99285; 36415; 86900; 86901; 88305; 80053 ×2; 80048; 84484; 85025 ×4; 85730; 86850; 82272; 81001; 87635; 74177; 45380; 43239; G0378 ×4; J2270 ×3; J2405; J2001; J2704; C9113 ×3; Q9967; 93005

== ENCOUNTER → 2021-08-17 | Outpatient (CLI) | payer MEDICARE ==
--- NOTE | 2021-08-18 13:14 | CT ---
EXAMINATION TYPE: CT chest w con DATE OF EXAM: 08/18/2021 COMPARISON: 11/18/2020 HISTORY: Enlarged lymph nodes Automated exposure control for dose reduction was used. TECHNIQUE: Multiple axial images were obtained through the thorax following uneventful administration of nonioni c IV contrast material. FINDINGS: The lungs are clear of consolidative or interstitial density. There are no suspicious pulmonary nodul es or masses. There is no pleural effusion, pleural thickening or pneumothorax. Great vessels the chest are normal and there is no mediastinal hilar or axillary adenopathy. The prev iously described 1.1 cm right paratracheal node now measures less than 1 cm and is within normal limi ts by CT criteria. Limited scanning the upper abdomen reveals surgical absence of the gallbladder and multiple simple co rtical cysts of the kidneys. The visualized osseous structures are intact. Incidental note is made of approximately 1.1 cm nodule in the right lobe of the thyroid which was see n previously and is stable. IMPRESSION: 1. No axillary, mediastinal or hilar adenopathy. 2. No acute cardiopulmonary disease. 3. Stable 1 cm right thyroid nodule.
== END | disposition home or self-care (01) ==
LOC: RADCTMAIN 15:20
PROVIDERS: ATTEND Internal Medicine
DX: R59.9 Enlarged lymph nodes, unspecified (principal)
CPT/HCPCS: 71260; 82565; 84520

== ENCOUNTER → 2021-09-18 | Outpatient (CLI) | payer MEDICARE ==
--- NOTE | 2021-09-18 15:12 | US ---
EXAMINATION TYPE: US thyroid st tissue head/neck DATE OF EXAM: 09/18/2021 COMPARISON: CT 2021 CLINICAL HISTORY: E04.1 THYROID NODULE. Thyroid nodule. GLAND SIZE: Right Lobe: 4.6 x 1.6 x 1.6 cm Overall Parenchyma: Slightly heterogeneous Left Lobe: 4.0 x 1.2 x 1.1 cm Overall Parenchyma: homogeneous Isthmus Thickness: 0.30 cm NODULES RIGHT: # of nodules measured on right: 3 1. 1.3 x 1.1 x 1.1 cm, mid mid, mixed cystic and solid, isoechoic nodule, which is as wide as it is tall, with ill-defined margins, with large echogenic focus.. TR 3 Prior size: CT only 2. 0.7 X 0.7 x 0.6 cm, lower lateral, solid or almost completely solid, hypoechoic nodule, which is wider than tall, with smooth margins, without echogenic foci. Prior size: CT only 3. 0.8 X 0.6 x 0.6 cm, lower lateral, solid or almost completely solid, isoechoic-hypoechoic nodule , which is as wide as it is tall, with ill-defined margins, without echogenic foci. Prior size: CT only LEFT: # of nodules measured on left: 0 ISTHMUS: # of nodules measured in the isthmus: 0 Bilateral neck scanned, no evidence of lymphadenopathy. IMPRESSION: 1. Mildly suspicious nodule. Consider follow-up in one year. 2017 ACR TI-RADS LEVEL: TR-RADS 3 - Mildly Suspicious: Follow if > 1.5 cm, FNA if > 2.5 cm *Highest TI-RADS level nodule reported
== END | disposition home or self-care (01) ==
LOC: RADUSWWP 13:29
PROVIDERS: ATTEND Internal Medicine
DX: E04.1 Nontoxic single thyroid nodule (principal)
CPT/HCPCS: 76536

== ENCOUNTER → 2021-09-18 | Outpatient (CLI) | payer MEDICARE ==
--- NOTE | 2021-09-18 14:28 | XR ---
EXAMINATION TYPE: XR Hip Complete LT DATE OF EXAM: 09/18/2021 COMPARISON: NONE HISTORY: Pain TECHNIQUE: 2 views submitted FINDINGS: There is no evidence of erosive change or acute fracture. Postsurgical changes lower lumbar spine. Ca lcifications in the pelvis likely vascular. A moderate concentric narrowing of the joint space with m ild diffuse osteopenia. Metallic density overlying the lower left pelvis could be related to prior vasquez rgery correlate clinically. IMPRESSION: 1. Mild arthropathy.
== END | disposition home or self-care (01) ==
LOC: RADXRMAIN 14:00
PROVIDERS: ATTEND Internal Medicine
DX: M25.552 Pain in left hip (principal); M16.12 Unilateral primary osteoarthritis, left hip
CPT/HCPCS: 73502

== ENCOUNTER → 2022-06-25 | Outpatient (CLI) | payer MEDICARE ==
--- NOTE | 2022-06-26 08:34 | MM ---
Reason for Exam: Screening (asymptomatic). Last mammogram was performed 1 year(s) and 9 month(s) ago. Patient History: Menarche at age 9. First Full-Term at age 16. Left ovary removed at age 25. Right ovary removed at age 25. Hysterectomy at age 25. Postmenopausal. Bilateral Reduction. Bilateral Benign Excisional Biopsy. Paternal aunt had breast cancer, age 50. Maternal aunt had breast cancer, age 50. Sister had breast cancer, age 63. Risk Values: [place] 5 year model risk: 4.0%. NCI Lifetime model risk: 14.0%. Prior Study Comparison: 12/10/2011 Screening Mammogram, [facility]. 10/17/2015 Bilateral Screening Mammogram, [facility]. 10/19/2020 Bilateral Screening Mammogram, [facility]. Tissue Density: There are scattered fibroglandular densities. Findings: Analyzed By CAD. Benign-appearing calcifications within both breasts. No new suspicious mass or architectural distortion within the right breast. Focal asymmetry demonstrated within the upper outer right breast at middle to posterior depth. Overall Assessment: Incomplete: need additional imaging evaluation, BI-RAD 0 Management: Diagnostic Mammogram of the left breast. A clinical breast exam by your physician is recommended on an annual basis and results should be correlated with mammographic findings. [facility] will attempt to contact patient to return for supplemental views and ultrasound if indicated. Electronically signed and approved by: Qamar Lua D.O.
== END | disposition home or self-care (01) ==
LOC: RADMAMWWP 12:49
PROVIDERS: ATTEND Internal Medicine
DX: Z12.31 Encounter for screening mammogram for malignant neoplasm of breast (principal); Z78.0 Asymptomatic menopausal state; Z80.3 Family history of malignant neoplasm of breast
CPT/HCPCS: 77063; 77067

== ENCOUNTER → 2022-07-03 | Outpatient (CLI) | payer MEDICARE ==
--- NOTE | 2022-07-03 10:53 | MM ---
Reason for Exam: Additional evaluation requested from abnormal screening. Last screening mammogram was performed less than 1 month ago. Patient History: Menarche at age 9. First Full-Term at age 16. Left ovary removed at age 25. Right ovary removed at age 25. Hysterectomy at age 25. Postmenopausal. Bilateral Reduction. Bilateral Benign Excisional Biopsy. Paternal aunt had breast cancer, age 50. Maternal aunt had breast cancer, age 50. Sister had breast cancer, age 63. Risk Values: Isabela 5 year model risk: 4.0%. NCI Lifetime model risk: 14.0%. Prior Study Comparison: 10/17/2015 Bilateral Screening Mammogram, [facility]. 10/19/2020 Bilateral Screening Mammogram, [facility]. 06/25/2022 Bilateral MG 3D screening mammo w/cad, [facility]. Tissue Density: Left: There are scattered fibroglandular densities. Findings: Analyzed By CAD. Persistent asymmetry left breast upper outer quadrant 10.0 cm from the nipple measuring 8 mm on CC view and approximately 10 cm from nipple on ML view. Persistent focal asymmetry left breast upper outer quadrant 10.0 cm from the nipple measuring 8 mm on CC view and approximately 10 cm from nipple on ML view. Overall Assessment: Incomplete: need additional imaging evaluation, BI-RAD 0 Management: Diagnostic Breast Ultrasound of the left breast. A clinical breast exam by your physician is recommended on an annual basis and results should be correlated with mammographic findings. This exam should not preclude additional follow-up of suspicious palpable abnormalities. Results were given to the patient verbally at the time of exam. Electronically signed and approved by: Austin Sultana DO
--- NOTE | 2022-07-03 11:43 | USB ---
Reason for Exam: Additional evaluation requested from abnormal screening. Patient History: Menarche at age 9. First Full-Term at age 16. Left ovary removed at age 25. Right ovary removed at age 25. Hysterectomy at age 25. Postmenopausal. Bilateral Reduction. Bilateral Benign Excisional Biopsy. Paternal aunt had breast cancer, age 50. Maternal aunt had breast cancer, age 50. Sister had breast cancer, age 63. Risk Values: Isabela 5 year model risk: 4.0%. NCI Lifetime model risk: 14.0%. Technique: Method: Targeted. Prior Study Comparison: 10/17/2015 Bilateral Screening Mammogram, [facility]. 10/19/2020 Bilateral Screening Mammogram, [facility]. 06/25/2022 Bilateral MG 3D screening mammo w/cad, [facility]. Findings: The upper outer quadrant of the left breast, the axilla of the left breast and the retroareolar of the left breast were scanned. Imaged: Ultrasound imaging of: All 4 quadrants, the retroareolar region and axilla. Clustered cysts is seen at 2:00 10 cm from the nipple measuring 7 x 2 x 5 mm. When looking back at the prior mammography dating back multiple years this appears to be stable. No evidence for mass. Overall Assessment: Benign, BI-RAD 2 Management: Screening Mammogram of both breasts in 1 year. A clinical breast exam by your physician is recommended on an annual basis and results should be correlated with mammographic findings. This exam should not preclude additional follow-up of suspicious palpable abnormalities. Results were given to the patient verbally at the time of exam. Electronically signed and approved by: Austin Sultana DO
== END | disposition home or self-care (01) ==
LOC: RADMAMWWP 10:19
PROVIDERS: ATTEND Internal Medicine
DX: R92.8 Other abnormal and inconclusive findings on diagnostic imaging of breast (principal); Z78.0 Asymptomatic menopausal state; Z80.3 Family history of malignant neoplasm of breast
CPT/HCPCS: 77065; 76642; G0279; 77061

== ENCOUNTER → 2023-09-11 | Outpatient (CLI) | payer MEDICARE ==
--- NOTE | 2023-09-11 15:37 | XR ---
EXAMINATION TYPE: XR pelvis AP view, XR Hip Complete LT DATE OF EXAM: 09/11/2023 2:05 PM CLINICAL INDICATION:Female, 67 years old with history of PAIN; COMPARISON: None TECHNIQUE: The pelvis was examined in a single projection. FINDINGS: There is no evidence of fracture or dislocation. There is no soft tissue abnormality. No a bnormal calcifications are present. The spine appears intact. The hips appear intact. Osteophyte form ation of the superior acetabulum bilaterally with mild joint space narrowing. Fixation hardware in the spine with osseous fusion bilaterally. Hardware appears intact. Few scattere d pelvic fluid was. Surgical suture projects over the sacrum. IMPRESSION: 1. No acute osseous pathology. 2. Mild degeneration changes of the hip.
--- NOTE | 2023-09-11 15:40 | XR ---
EXAMINATION TYPE: XR ribs bilateral DATE OF EXAM: 09/11/2023 2:06 PM CLINICAL INDICATION:Female, 67 years old with history of PAIN; COMPARISON: 06/02/2022 TECHNIQUE: XR ribs bilateral; Frontal and oblique views of the ribs with frontal chest radiograph. FINDINGS: Slightly limited exam due to patient's body habitus. The ribs have a normal appearance. No evidence of fracture. Overall, the lungs are clear. The cardiac silhouette is within normal limits. The remaining osseous structures are intact. Left atrial appendage occlusion device is present. Mul tilevel degeneration changes throughout the spine. IMPRESSION: No evidence for displaced fracture. If there remains concern consider CT imaging.
--- NOTE | 2023-09-16 08:49 | MM ---
Reason for Exam: Screening (asymptomatic). Last mammogram was performed 1 year(s) and 2 month(s) ago. Patient History: Menarche at age 9. First Full-Term at age 16. Left ovary removed at age 25. Right ovary removed at age 25. Hysterectomy at age 25. Postmenopausal. Bilateral Reduction. Bilateral Benign Excisional Biopsy. Paternal aunt had breast cancer, age 50. Maternal aunt had breast cancer, age 50. Sister had breast cancer, age 63. Risk Values: Isabela 5 year model risk: 4.1%. NCI Lifetime model risk: 13.5%. Prior Study Comparison: 10/19/2020 Bilateral Screening Mammogram, [facility]. 06/25/2022 Bilateral MG 3D screening mammo w/cad, [facility]. 07/03/2022 Left MG 3D work up w/cad , [facility]. Tissue Density: There are scattered areas of fibroglandular density. Findings: Analyzed By CAD. Right breast: There is no suspicious group of microcalcifications or new suspicious mass. Left breast: There is no suspicious group of microcalcifications or new suspicious mass. Right breast: There is no suspicious group of microcalcifications or new suspicious mass. Benign-appearing calcifications right breast. Left breast: There is no suspicious group of microcalcifications or new suspicious mass. Benign-appearing calcifications left breast. Overall Assessment: Benign, BI-RAD 2 Management: Screening Mammogram of both breasts in [address] [facility] will attempt to contact patient to return for supplemental views and ultrasound if indicated. Patient should continue monthly self-breast exams. A clinical breast exam by your physician is recommended on an annual basis. This exam should not preclude additional follow-up of suspicious palpable abnormalities. Note on Isabela scores and lifetime risk: 1. A Isabela score greater than 3% is considered moderate risk. If this is the case, consider specialist referral to assess eligibility for a risk reducing agent. 2. If overall lifetime risk for the development of breast cancer is 20% or higher, the patient may qualify for future screening with alternating mammogram and breast MRI. Electronically signed and approved by: Austin Sultana DO
== END | disposition home or self-care (01) ==
LOC: RADMAMWWP 13:27
PROVIDERS: ATTEND Internal Medicine
DX: Z12.31 Encounter for screening mammogram for malignant neoplasm of breast (principal); M16.12 Unilateral primary osteoarthritis, left hip; R07.81 Pleurodynia; Z78.0 Asymptomatic menopausal state; Z80.3 Family history of malignant neoplasm of breast
CPT/HCPCS: 71110; 72170; 73502; 77063; 77067

== ENCOUNTER → 2024-05-27 | Outpatient (CLI) | payer MEDICARE ==
[2024-05-27 18:20] LABS: Basophils # (A) 0.03 X 10*3/uL (0.00-0.10); Basophils % (A) 0.5 %; Eosinophils # (A) 0.71 X 10*3/uL (0.04-0.35); Eosinophils % (A) 11.7 %; HCT 41.6 % (37.2-46.3); HGB 13.1 g/dL (12.0-15.0); Lymphocytes # (A) 2.13 X 10*3/uL (0.90-5.00); MCH 27.3 pg (27.0-32.0); MCHC 31.5 g/dL (32.0-37.0); MCV 86.8 FL (80.0-97.0); Mean Platelet Volume 11.5 FL (9.5-12.2); Monocytes # (A) 0.38 X 10*3/uL (0.20-1.00); Monocytes % (A) 6.2 %; NRBC Per 100 WBC 0 X 10*3/uL (0.00-0.01); Neutrophils # (A) 2.82 X 10*3/uL (1.80-7.70); Neutrophils % (A) 46.3 %; Platelet Count 250 X 10*3/uL (140-440); RBC 4.79 X 10*6/uL (4.10-5.20); RDW 14.3 % (11.5-14.5); WBC 6.09 X 10*3/uL (4.50-10.00)
== END | disposition home or self-care (01) ==
LOC: LABPAT 13:46
PROVIDERS: ATTEND Surgery
DX: Z01.812 Encounter for preprocedural laboratory examination (principal); K43.2 Incisional hernia without obstruction or gangrene
CPT/HCPCS: 85025; 86850; 86900; 86901

== ENCOUNTER 2024-06-03 07:17 | Inpatient (IN) | payer MEDICARE ==
[2024-06-01 09:36] VITALS: BMI 19.7
[2024-06-03] MEDS: IV FLUID CONTINUATION 1,000 ML IV ONE (07:55)
[2024-06-03] MEDS: ONDANSETRON 4 MG/2 ML VIAL IVP ONE (08:29)
[2024-06-03] MEDS: DEXAMETHASONE SOD PHOSPHATE 4 MG/ML 1 ML VIAL IV ONE (08:29)
[2024-06-03] MEDS: MIDAZOLAM 2 MG/2 ML VIAL IVP ONE (08:50)
[2024-06-03] MEDS ORDERED: ROCURONIUM 10 MG/ML (5 ML VIAL) IV ONE (08:58)
[2024-06-03] MEDS ORDERED: SUCCINYLCHOLINE CHLORIDE 200 MG/10 ML VIAL IV ONE (08:58)
[2024-06-03] MEDS ORDERED: LIDOCAINE 1% INJ 10MG/ML (20 ML MDV) ONE (08:58)
[2024-06-03] MEDS ORDERED: KETAMINE HCL IN 0.9 % NACL 50 MG/5 ML SYRINGE ONE (08:58)
[2024-06-03] MEDS ORDERED: SODIUM CHLORIDE 0.9% (PF) 10 ML VIAL ONE (08:58)
[2024-06-03] MEDS ORDERED: fentaNYL (PF) 50 MCG/ML 2 ML AMP ONE (08:58)
[2024-06-03] MEDS ORDERED: PROPOFOL 10 MG/ML 20 ML VIAL IV ONE (08:58)
[2024-06-03] MEDS ORDERED: GLYCOPYRROLATE 0.2 MG/ML 2 ML VIAL ONE (08:58)
[2024-06-03] MEDS ORDERED: NEOSTIGMINE 1 MG/ML 10 ML VIAL ONE (08:58)
[2024-06-03] MEDS ORDERED: DEXAMETHASONE SOD PHOSPHATE 4 MG/ML 1 ML VIAL ONE (08:58)
[2024-06-03] MEDS ORDERED: ROPIVACAINE 5 MG/ML 30 ML VIAL ONE (08:58)
[2024-06-03] MEDS ORDERED: KETOROLAC 15 MG/ML 1 ML VIAL ONE (08:58)
[2024-06-03] MEDS: LIDOCAINE 2%-EPI 1:100,000 20 ML VIAL SQ ONE ×2 (09:22)
[2024-06-03] MEDS ORDERED: ONDANSETRON 4 MG/2 ML VIAL IVP PRN (10:48)
[2024-06-03] MEDS ORDERED: NALOXONE 0.4 MG/ML 1 ML VIAL IV PRN (10:48)
--- NOTE | 2024-06-03 10:48 | P.OP ---
Date of Procedure: 06/03/24 Preoperative Diagnosis: Ventral hernia Postoperative Diagnosis: Recurrent incisional hernia Extensive adhesions Intraperitoneal mesh Procedure(s) Performed: Diagnostic laparoscopy Lysis of extensive adhesions Removal of intraperitoneal mesh Repair of recurrent incisional hernia Partial omentectomy Transversus abdominis plane block Anesthesia: HENRIETTA Surgeon: Vincenzo Carmichael Estimated Blood Loss (ml): 50 Pathology: other (Omentum,Intraperitoneal mesh) Condition: stable Disposition: PACU Description of Procedure: The patient was placed on the operative table in the supine position. She received general anesthesia. Her abdomen was prepped and draped in sterile fashion. Patient had previous midline scar. Patient appeared to have a hernia on the right side of her incision. At this point a 5 mm optical trocar was placed in the left upper quadrant just below the costal margin. The abs insufflated. After adequate deflation the laparoscope placed back into the Emet cavity. There were extensive adhesions noted. Another 5 mm trocars placed in the left lateral position. Due to the extensive adhesions lysis of adhesions were performed using the LigaSure device. After approximately 15 minutes of lysing adhesions the lesions were quite extensive. This point decided to convert to an open procedure. The trocars withdrawn. The skin was incised in the midline. Subcutaneous issues were divided. There was mesh encountered. The mesh was divided midline. And then there was extensive lysis of adhesions performed. Approximately 1 hour of operative time use Elase adhesions. The small bowel was adherent to the mesh. There was a portion of the mesh which was intraperitoneal. This was lysed and then dissected free and sent to pathology. There was a portion omentum which was transected and sent to pathology. Patient had evidence of a recurrent incisional hernia in the right side of her midline scar. Once the adhesions were lysed. There was no evidence of any bowel injury. A four-quadrant transversus abdominis plane block was performed 1% local Xylocaine. The hernia was repaired using #1 STRATAFIX suture. Once the fascia was closed. The wound was p inspected for hemostasis. s. There is no bleeding seen. The skin was closed saritha. Patient was sent to recovery room in stable condition
[2024-06-03] MEDS: HYDROmorphone 0.5 MG/0.5 ML SYRINGE IVP PRN ×2 (10:50→16:56)
--- NOTE | 2024-06-03 11:11 | P.ANPRN ---
Procedure Note - Anesthesia - Nerve Block Performed Bilateral Erector Spinae Single Time Out Performed: Yes Date of Procedure: 06/03/24 Procedure Start Time: 08:49 Procedure Stop Time: :55 Location of Patient: PreOp Indication: Acute Post-Operative Pain, Requested by Surgeon Sedation Type: Sedate with meaningful contact maintained Preparation: Sterile Prep Position: Prone Needle Types: Pajunk Needle Gauge: 21 Ultrasound used to visualize needle placement: Yes Ultrasound used to observe medication spread: Yes Blood Aspirated: No Pain Paresthesia on Injection Noted: No Resistance on Injection: Normal Image Stored and Saved: Yes Events: Uneventful and Well Tolerated (Ropivacaine 0.5% 15 cc plus dexamethasone 4 mg plus normal saline 10 cc given bilaterally at L1)
[2024-06-03] MEDS: LACTATED RINGERS 1,000 ML IV SCH (12:58)
[2024-06-03] MEDS: KETOROLAC 15 MG/ML 1 ML VIAL IVP SCH (13:52)
--- NOTE | 2024-06-03 13:57 | P.CONS ---
History of Present Illness - Reason for Consult Consult date: 06/03/24 Medical management - History of Present Illness Rhianna Chilel is a 68-year-old female patient who presented for an elective repair of an anterior abdominal hernia with Dr. mayer. Patient has a past medical history of asthma, COPD, depression, diverticulitis, essential hypertension, GERD, TIA, hyperlipidemia, PE and osteoporosis. On 06/03/2024 patient underwent laparoscopic lysis of adhesions removal of intraperitoneal mesh and repair of recurrent incisional hernia. At this time patient is currently resting comfortably in bed patient is sleepy but does wake up and follow commands. Patient complaining of some abdominal discomfort. Patient denies chest pain or shortness of breath. Patient denies nausea vomiting or diarrhea. Patient denies any urinary burning or frequency Review of Systems Please refer to HPI otherwise unremarkable Past Medical History Past Medical History: Asthma, Chest Pain / Angina, CVA/TIA, Deep Vein Thrombosis (DVT), GERD/Reflux, Hyperlipidemia, Hypertension, Osteoarthritis (OA), Pneumonia, Pulmonary Embolus (PE) Additional Past Medical History / Comment(s): Ventral and hiatal hernia, CVA- L PERIPHERAL VISION IMPAIRMENT, FEW TIA'S, TREMORS, HX BOWEL OBSTRUCTION. USED TO TAKE MEDS FOR BP , OSTEOPOROSIS. BACK PAIN. RADS-CHRONIC BRONCHITIS, has portable oxygen-currently not using. 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 BREAST REDUCTION, cystoscopy, CYSTOCELE, RECTOCELE REPAIR, EXC CYST L ARM, L FOOT BUNIONECTOMY AND HAMMER TOE REPAIR-PIN REMOVAL, l BREAST BX-NEG,GANGLION CYST REMOVED, BRONCOSCOPIES, EGD/COLONOSCOPY, kidney stone removal, neuroma-bone removed/pins removed, R wrist nerve sx, B/L eye -tear duct/lens surgery. Past Anesthesia/Blood Transfusion Reactions: No Reported Reaction Additional Past Anesthesia/Blood Transfusion Reaction / Comm: no hx of blood transfusion. Smoking Status: Never smoker - Past Family History Father Brother(s) Family Medical History: Cancer Additional Family Medical History / Comment(s): thyroid CA Sister(s) Family Medical History: Cancer Additional Family Medical History / Comment(s): 3 sisters with CA- Multiple Myeloma, Breast CA, stomach CA, cancer in the back. Mother Family Medical History: Dementia, Deep Vein Thrombosis (DVT) Additional Family Medical History / Comment(s): diverticulitis Father Family Medical History: Cancer Additional Family Medical History / Comment(s): Father of lung cancer. Medications and Allergies Home Medications Medication Instructions Recorded Confirmed Type Rivaroxaban [Xarelto] 20 mg PO DAILY 05/24/15 06/03/24 History Escitalopram [Lexapro] 20 mg PO DAILY 05/20/17 06/03/24 History Montelukast [Singulair] 10 mg PO HS 05/20/17 06/03/24 History Pantoprazole Sodium [Protonix] 40 mg PO DAILY 05/20/17 06/03/24 History HYDROcodone/APAP 7.5-325MG [[place] 1 tab PO TID PRN 02/05/19 06/03/24 History 7.5-325] Pravastatin Sodium [Pravachol] 40 mg PO HS 12/19/20 06/03/24 History diazePAM [Valium] 5 mg PO TID PRN 12/19/20 06/03/24 History Nitrofurantoin Monohyd/M-Cryst 100 mg PO BID cap 06/04/22 06/03/24 Rx [Macrobid] Multivitamins, Thera [Multivitamin 1 dose PO DAILY 06/01/24 06/03/24 History (formulary)] Vitamin C/Biotin [Hair, Skin and 1 tab PO DAILY 06/01/24 06/03/24 History Nails Chew] Allergies Allergy/AdvReac Type Severity Reaction Status Date / Time cephalexin monohydrate Allergy Rash/Hives Verified 06/03/24 08:00 [From Keflex] clarithromycin [From Biaxin] Allergy Rash/Hives Verified 06/03/24 08:00 levofloxacin [From Levaquin] Allergy Rash/Hives Verified 06/03/24 08:00 Quinolones Allergy Rash/Hives Verified 06/03/24 08:00 Physical Exam Vitals: Vital Signs Temp Pulse Pulse Pulse Resp BP BP 06/03/24 13:13 69 18 93/50 06/03/24 12:58 71 108/65 06/03/24 12:42 98.2 F 79 18 110/62 06/03/24 12:00 74 18 117/61 06/03/24 11:45 78 17 113/58 06/03/24 11:30 81 18 110/59 06/03/24 11:15 99.0 F 77 17 105/62 06/03/24 11:00 81 16 118/65 06/03/24 10:45 83 17 158/92 06/03/24 10:36 99 16 154/78 06/03/24 08:58 89 16 152/69 06/03/24 07:55 99.9 F H 98 16 160/100 Pulse Ox 06/03/24 13:13 98 06/03/24 12:58 97 06/03/24 12:42 96 06/03/24 12:00 98 06/03/24 11:45 97 06/03/24 11:30 98 06/03/24 11:15 96 06/03/24 11:00 97 06/03/24 10:45 98 06/03/24 10:36 99 06/03/24 08:58 98 06/03/24 07:55 92 L Intake and Output 06/02/24 06/03/24 06/03/24 22:59 06:59 14:59 Intake Total 750 Output Total 25 Balance 725 Intake: IV 750 Output: Estimated Blood Loss 25 Other: Weight 40.4 kg Head normocephalic Neck supple Lungs clear to auscultation bilaterally no wheezing or crackles Heart regular rate and rhythm S1-S2, no rub or gallop Abdomen dressing clean dry and intact. Extremities no edema Neuro alert and orientated to 3 Assessment and Plan Assessment: 1. Status post ventral hernia repair with lysis of adhesions and removal of intraperitoneal mesh and repair of recurrent incisional hernia. 2. History of pulmonary embolism patient is maintained on Xarelto which is currently on hold will defer to surgical services for initiation of anticoagulation 3. History of hyperlipidemia maintained on statin 4. History of asthma 5. History of GERD 6. History of depression 7. History of TIA Thank you for this consultation we will continue to follow patient closely thro ughout stay Repeat labs ordered in a.m. Time with Patient: Greater than 30 (Greater than 60% of the total time spent in counseling and coordination of care)
[2024-06-03] MEDS: D5-0.45% NACL WITH KCL 20MEQ/L 1,000 ML IV SCH (14:03)
[2024-06-03] MEDS ORDERED: HYDROcodone/APAP 7.5-325MG 1 EACH TAB PO PRN (14:47)
[2024-06-03] MEDS: MONTELUKAST 10 MG TAB PO SCH (20:00)
[2024-06-03] MEDS: DOCUSATE 100 MG CAP PO SCH (20:00)
[2024-06-03] MEDS: ESCITALOPRAM 20 MG TAB PO SCH (20:00)
[2024-06-03] MEDS: PRAVASTATIN SODIUM 40 MG TAB PO SCH (20:00)
[2024-06-04] MEDS: HYDROmorphone 1 MG/ML 1 ML SYRINGE IVP PRN (08:39)
[2024-06-04] MEDS: PANTOPRAZOLE 40 MG TABLET PO SCH (08:42)
[2024-06-04] MEDS: MULTIVITAMINS, THERA 1 EACH TAB PO SCH (08:42)
[2024-06-04] MEDS: ENOXAPARIN 40 MG/0.4 ML SYRINGE SQ SCH (08:43)
[2024-06-04 08:44] LABS: ALT 30 U/L (8-44); AST 22 U/L (13-35); Albumin 3.3 g/dL (3.8-4.9); Albumin/Globulin Ratio 1.43 Ratio (1.60-3.17); Alkaline Phosphatase 72 U/L (41-126); BUN/Creat Ratio 19.29 Ratio (12.00-20.00); Blood Urea Nitrogen 13.5 mg/dL (9.0-27.0); Calcium 8.5 mg/dL (8.7-10.3); Chloride 111 mmol/L (96-109); Globulin 2.3 g/dL (1.6-3.3); Glucose 151 mg/dL (70-110); Potassium 5.6 mmol/L (3.5-5.5); Sodium 143 mmol/L (135-145); Total Bilirubin 0.2 mg/dL (0.3-1.2); Total Protein 5.6 g/dL (6.2-8.2)
[2024-06-04] MEDS: diazePAM 5 MG TAB PO PRN (08:55)
[2024-06-04] MEDS ORDERED: NON FORMULARY DRUG (Vitamin C/Biotin [Hair, Skin And Nails Chew] 1 EACH Tab.Chew) PO SCH (09:00)
[2024-06-04 09:08] LABS: Basophils # (A) 0.03 X 10*3/uL (0.00-0.10); Basophils % (A) 0.2 %; Eosinophils # (A) 0 X 10*3/uL (0.04-0.35); Eosinophils % (A) 0 %; HCT 34.9 % (37.2-46.3); HGB 10.9 g/dL (12.0-15.0); Lymphocytes # (A) 1.35 X 10*3/uL (0.90-5.00); Lymphocytes % (A) 8.5 %; MCH 27.6 pg (27.0-32.0); MCHC 31.2 g/dL (32.0-37.0); MCV 88.4 FL (80.0-97.0); Mean Platelet Volume 11.5 FL (9.5-12.2); Monocytes # (A) 1.22 X 10*3/uL (0.20-1.00); Monocytes % (A) 7.7 %; NRBC Per 100 WBC 0 X 10*3/uL (0.00-0.01); Neutrophils # (A) 13.14 X 10*3/uL (1.80-7.70); Platelet Count 257 X 10*3/uL (140-440); RBC 3.95 X 10*6/uL (4.10-5.20); RDW 14.5 % (11.5-14.5); WBC 15.83 X 10*3/uL (4.50-10.00)
--- NOTE | 2024-06-04 09:16 | P.PN ---
Subjective Progress Note Date: 06/04/24 Rhianna Chilel is a 68-year-old female patient who presented for an elective repair of an anterior abdominal hernia with Dr. mayer. Patient has a past medical history of asthma, COPD, depression, diverticulitis, essential hypertension, GERD, TIA, hyperlipidemia, PE and osteoporosis. On 06/03/2024 patient underwent laparoscopic lysis of adhesions removal of intraperitoneal mesh and repair of recurrent incisional hernia. At this time patient is currently resting comfortably in bed patient is sleepy but does wake up and follow commands. Patient complaining of some abdominal discomfort. Patient denies chest pain or shortness of breath. Patient denies nausea vomiting or diarrhea. Patient denies any urinary burning or frequency On 06/04/2024 patient is alert and oriented x 3. Patient reports some abdominal discomfort and poor appetite but denies any chest pain or shortness of breath. Patient denies any urinary burning or frequency but does report she was getting treated for UTI prior to admission will order UA current vital signs temp 98.1, heart rate 77, respiratory rate 16, blood pressure 124/75 with a pulse ox of 96% on 3 L Objective - Vital Signs Vital signs: Vital Signs Temp 98.1 F 06/04/24 07:21 Pulse 77 06/04/24 07:21 Resp 16 06/04/24 07:21 BP 124/75 06/04/24 07:21 Pulse Ox 96 06/04/24 07:21 FiO2 Intake & Output 06/03/24 06/04/24 06/04/24 18:59 06:59 18:59 Intake Total 1830 Output Total 25 Balance 1805 Weight 40.4 kg Intake: IV 750 Oral 1080 Output: Estimated Blood Loss 25 Other: Voiding Method Toilet Bedpan # Voids 2 2 - Exam Head normocephalic Neck supple Lungs clear to auscultation bilaterally no wheezing or crackles Heart regular rate and rhythm S1-S2, no rub or gallop Abdomen dressing clean dry and intact. Extremities no edema Neuro alert and orientated to 3 - Labs CBC & Chem 7: 06/04/24 03:57 06/04/24 03:57 Labs: Abnormal Lab Results - Last 24 Hours (Table) 06/04/24 06/04/24 Range/Units 03:57 03:57 WBC 15.83 H (4.50-10.00) X 10*3/uL RBC 3.95 L (4.10-5.20) X 10*6/uL Hgb 10.9 L (12.0-15.0) g/dL Hct 34.9 L (37.2-46.3) % MCHC 31.2 L (32.0-37.0) g/dL Immature Gran # 0.09 H (0.00-0.04) X 10*3/uL Neutrophils # 13.14 H (1.80-7.70) X 10*3/uL Monocytes # 1.22 H (0.20-1.00) X 10*3/uL Eosinophils # 0 L (0.04-0.35) X 10*3/uL Potassium 5.6 H (3.5-5.5) mmol/L Chloride 111 H (96-109) mmol/L Glucose 151 H (70-110) mg/dL Calcium 8.5 L (8.7-10.3) mg/dL Total Bilirubin 0.2 L (0.3-1.2) mg/dL Total Protein 5.6 L (6.2-8.2) g/dL Albumin 3.3 L (3.8-4.9) g/dL Albumin/Globulin Ratio 1.43 L (1.60-3.17) Ratio Assessment and Plan Assessment: 1. Status post ventral hernia repair with lysis of adhesions and removal of intraperitoneal mesh and repair of recurrent incisional hernia. 2. History of pulmonary embolism patient is maintained on Xarelto which is currently on hold will defer to surgical services for initiation of anticoagulation 3. History of hyperlipidemia maintained on statin 4. History of asthma 5. History of GERD 6. History of depression 7. History of TIA Thank you for this consultation we will continue to follow patient closely throughout stay Repeat labs ordered in a.m.
[2024-06-04 11:13] LABS: Appearance,Urine Clear (Clear); Bilirubin,Urine Negative (Negative); Blood,Urine Negative (Negative); Color,Urine Light Yellow; Glucose,Urine (UA) Negative (Negative); Ketones,Urine Negative (Negative); Leukocyte Esterase,Urine Negative (Negative); Nitrite,Urine Negative (Negative); PH, Urine 5.5 (5.0-8.0); Protein,Urine Negative (Negative); Specific Gravity,Urine 1.007 (1.001-1.035); Urobilinogen,Urine <2.0 mg/dL (<2.0)
[2024-06-04] MEDS: SODIUM CHLORIDE 0.9% 1,000 ML IV SCH (11:23)
[2024-06-04] MEDS: FUROSEMIDE 10 MG/ML 2 ML VIAL IV ONE (11:24)
--- NOTE | 2024-06-04 13:04 | XR ---
EXAMINATION TYPE: XR chest 2V DATE OF EXAM: 06/04/2024 CLINICAL INDICATION: Female, 68 years old with history of cough, TECHNIQUE: Frontal and lateral views of the chest are obtained. COMPARISON: Bilateral rib x-rays September 11, 2023 FINDINGS: There is no focal air space opacity, pleural effusion, or pneumothorax seen. The cardiac silhouette size is within normal limits. The osseous structures are intact. Suspicion for new free air under the right hemidiaphragm. Redemonstration of cholecystectomy clips and partial visualization of surgical change to the lumbar spine. IMPRESSION: Probable new free air. Critical results communicated to patient's nurse by x-ray technologist at time of dictation [facility], , 06/04/2024 1:02 PM
--- NOTE | 2024-06-04 13:42 | P.PN ---
Subjective Progress Note Date: 06/04/24 SURGICAL PROGRESS NOTE CHIEF COMPLAINT: Recurrent incisional hernia HISTORY OF PRESENT ILLNESS: Patient is postop day #1 status post diagnostic laparoscopy, lysis of adhesions, removal of intraperitoneal mesh, repair of recurrent incisional hernia, partial omentectomy patient does report abdominal pain. Denies any nausea or vomiting. She is having flatus. Patient seen in the morning and had not been out of bed yet. She does complain of a cough with greenish sputum. Afebrile. WBC 15.83 Hgb 10.9 platelets 257 potassium 5.6 UA negative. PHYSICAL EXAM: VITAL SIGNS: Reviewed. GENERAL: Well-developed in no acute distress. ABDOMEN: Soft. Nondistended. Prevena wound VAC intact NEUROLOGIC: Alert and oriented. Cranial nerves II through XII grossly intact. ASSESSMENT: 1. Recurrent incisional hernia and extensive adhesions PLAN: -Chest x-ray ordered for evaluation of patient's cough. Also incentive spirometer and updrafts ordered -Encourage patient to increase activity level. To sit at bedside chair for meals. -Hep-Lock IV fluids -Medicine service correcting hyperkalemia -Discontinue Toradol due to the hyperkalemia -Encourage patient to start taking the oral pain medication -Anticipate discharge tomorrow -Follow-up on labs in a.m. -DVT prophylaxis Lovenox Physician Case Packer note has been reviewed by physician. Signing provider agrees with the documented findings, assessment, and plan of care. Objective - Vital Signs Vital signs: Vital Signs Temp 98.5 F 06/04/24 12:11 Pulse 68 06/04/24 12:11 Resp 16 06/04/24 12:11 BP 146/73 06/04/24 12:11 Pulse Ox 95 06/04/24 12:11 FiO2 Intake & Output 06/03/24 06/04/24 06/04/24 18:59 06:59 18:59 Intake Total 1830 240 Output Total 25 Balance 1805 240 Weight 40.4 kg Intake: IV 750 Oral 1080 240 Output: Estimated Blood Loss 25 Other: Voiding Method Toilet Toilet Bedpan Bedpan # Voids 2 2 - Labs CBC & Chem 7: 06/04/24 03:57 06/04/24 03:57 Labs: Abnormal Lab Results - Last 24 Hours (Table) 06/04/24 06/04/24 Range/Units 03:57 03:57 WBC 15.83 H (4.50-10.00) X 10*3/uL RBC 3.95 L (4.10-5.20) X 10*6/uL Hgb 10.9 L (12.0-15.0) g/dL Hct 34.9 L (37.2-46.3) % MCHC 31.2 L (32.0-37.0) g/dL Immature Gran # 0.09 H (0.00-0.04) X 10*3/uL Neutrophils # 13.14 H (1.80-7.70) X 10*3/uL Monocytes # 1.22 H (0.20-1.00) X 10*3/uL Eosinophils # 0 L (0.04-0.35) X 10*3/uL Potassium 5.6 H (3.5-5.5) mmol/L Chloride 111 H (96-109) mmol/L Glucose 151 H (70-110) mg/dL Calcium 8.5 L (8.7-10.3) mg/dL Total Bilirubin 0.2 L (0.3-1.2) mg/dL Total Protein 5.6 L (6.2-8.2) g/dL Albumin 3.3 L (3.8-4.9) g/dL Albumin/Globulin Ratio 1.43 L (1.60-3.17) Ratio
[2024-06-04] MEDS: IPRATROPIUM-ALBUTEROL 3 ML NEB INHALATION SCH (13:49)
[2024-06-04] MEDS: HYDROcodone/APAP 5-325MG 1 EACH TAB PO PRN (14:59)
[2024-06-05 08:17] LABS: ALT 25 U/L (8-44); AST 24 U/L (13-35); Albumin 3.1 g/dL (3.8-4.9); Albumin/Globulin Ratio 1.41 Ratio (1.60-3.17); Alkaline Phosphatase 63 U/L (41-126); BUN/Creat Ratio 18.86 Ratio (12.00-20.00); Blood Urea Nitrogen 13.2 mg/dL (9.0-27.0); Calcium 8.2 mg/dL (8.7-10.3); Carbon Dioxide 24.7 mmol/L (21.6-31.8); Chloride 112 mmol/L (96-109); Globulin 2.2 g/dL (1.6-3.3); Glucose 84 mg/dL (70-110); Potassium 4.6 mmol/L (3.5-5.5); Sodium 144 mmol/L (135-145); Total Bilirubin <0.2 mg/dL (0.3-1.2); Total Protein 5.3 g/dL (6.2-8.2)
[2024-06-05 08:39] LABS: Basophils # (A) 0.04 X 10*3/uL (0.00-0.10); Basophils % (A) 0.4 %; Eosinophils % (A) 2.1 %; HCT 32.9 % (37.2-46.3); HGB 10.2 g/dL (12.0-15.0); Lymphocytes # (A) 3.37 X 10*3/uL (0.90-5.00); Lymphocytes % (A) 34.8 %; MCH 27.3 pg (27.0-32.0); Mean Platelet Volume 11.3 FL (9.5-12.2); Monocytes # (A) 0.62 X 10*3/uL (0.20-1.00); Monocytes % (A) 6.4 %; NRBC Per 100 WBC 0 X 10*3/uL (0.00-0.01); Neutrophils # (A) 5.39 X 10*3/uL (1.80-7.70); Neutrophils % (A) 55.7 %; Platelet Count 228 X 10*3/uL (140-440); RBC 3.74 X 10*6/uL (4.10-5.20); RDW 14.7 % (11.5-14.5); WBC 9.68 X 10*3/uL (4.50-10.00)
[2024-06-05 09:05] VITALS: RESP 17; TEMP 97.8
--- NOTE | 2024-06-05 10:22 | P.PN ---
Subjective Progress Note Date: 06/05/24 Rhianna Chilel is a 68-year-old female patient who presented for an elective repair of an anterior abdominal hernia with Dr. mayer. Patient has a past medical history of asthma, COPD, depression, diverticulitis, essential hypertension, GERD, TIA, hyperlipidemia, PE and osteoporosis. On 06/03/2024 patient underwent laparoscopic lysis of adhesions removal of intraperitoneal mesh and repair of recurrent incisional hernia. At this time patient is currently resting comfortably in bed patient is sleepy but does wake up and follow commands. Patient complaining of some abdominal discomfort. Patient denies chest pain or shortness of breath. Patient denies nausea vomiting or diarrhea. Patient denies any urinary burning or frequency On 06/04/2024 patient is alert and oriented x 3. Patient reports some abdominal discomfort and poor appetite but denies any chest pain or shortness of breath. Patient denies any urinary burning or frequency but does report she was getting treated for UTI prior to admission will order UA current vital signs temp 98.1, heart rate 77, respiratory rate 16, blood pressure 124/75 with a pulse ox of 96% on 3 L On 06/05/2024 patient is alert and oriented x 3. Patient reports improvement with abdominal pain patient reports she did have bowel movement. Anticipate discharge home today per surgical services. Per surgical services okay to resume anticoagulation. UA negative for signs of infection. Potassium improved to 4.3. Patient denies chest pain or shortness of breath. Patient denies nausea vomiting or diarrhea. Patient denies any urinary burning or frequency. Objective - Vital Signs Vital signs: Vital Signs Temp 97.8 F 06/05/24 07:41 Pulse 72 06/05/24 07:59 Resp 17 06/05/24 07:41 BP 171/85 06/05/24 07:41 Pulse Ox 94 L 06/05/24 07:41 FiO2 Intake & Output 06/04/24 06/05/24 06/05/24 18:59 06:59 18:59 Intake Total 1796 Balance 1797 Intake: Oral 7 Other: Voiding Method Toilet Toilet Bedpan Bedpan # Voids 5 1 # Bowel Movements 1 - Exam Head normocephalic Neck supple Lungs clear to auscultation bilaterally no wheezing or crackles Heart regular rate and rhythm S1-S2, no rub or gallop Abdomen dressing clean dry and intact. Extremities no edema Neuro alert and orientated to 3 - Labs CBC & Chem 7: 06/05/24 04:13 06/05/24 04:13 Labs: Abnormal Lab Results - Last 24 Hours (Table) 06/05/24 06/05/24 Range/Units 04:13 04:13 RBC 3.74 L (4.10-5.20) X 10*6/uL Hgb 10.2 L (12.0-15.0) g/dL Hct 32.9 L (37.2-46.3) % MCHC 31.0 L (32.0-37.0) g/dL RDW 14.7 H (11.5-14.5) % Immature Gran # 0.06 H (0.00-0.04) X 10*3/uL Chloride 112 H (96-109) mmol/L Calcium 8.2 L (8.7-10.3) mg/dL Total Bilirubin <0.2 L (0.3-1.2) mg/dL Total Protein 5.3 L (6.2-8.2) g/dL Albumin 3.1 L (3.8-4.9) g/dL Albumin/Globulin Ratio 1.41 L (1.60-3.17) Ratio Assessment and Plan Assessment: 1. Status post ventral hernia repair with lysis of adhesions and removal of intraperitoneal mesh and repair of recurrent incisional hernia. 2. History of pulmonary embolism patient is maintained on Xarelto which is currently on hold will defer to surgical services for initiation of anticoagulation. Per surgical services patient may resume anticoagulation on 06/05/2024 3. History of hyperlipidemia maintained on statin 4. History of asthma 5. History of GERD 6. History of depression 7. History of TIA 8. Hyperkalemia. Resolved Thank you for this consultation we will continue to follow patient closely t hroughout stay Repeat labs ordered in a.m.
[2024-06-05 13:40] VITALS: BP 181/75; PULSE 82
--- NOTE | 2024-06-05 13:45 | P.DS ---
Providers Date of admission: 06/03/24 07:18 Expected date of discharge: 06/05/24 Attending physician: Vincenzo Carmichael Consults: 06/03/24 10:48 Consult Physician Routine Consulting Provider: Nighat Francois Consult Reason/Comments: Medical management Do you want consulting provider notified?: Yes Primary care physician: Nighat Francois Hospital Course: Discharge diagnosis 1. Recurrent incisional hernia and extensive adhesions Hospital course This is a 68-year-old female with a recurrent incisional hernia. She is status post diagnostic laparoscopy, lysis of adhesions, removal of intraperitoneal mesh, repair of recurrent incisional hernia, partial omentectomy. Her pain is controlled. She is tolerating diet. She has been up and ambulating. She is afebrile. She will be discharged home with antibiotics for her cough. No pneumonia on chest x-ray. Patient stable for discharge. Please refer to chart for any further details. Physician Radiographer Technologist note has been reviewed by physician. Signing provider agrees with the documented findings, assessment, and plan of care. Patient Condition at Discharge: Stable Plan - Discharge Summary Discharge Rx Participant: No New Discharge Prescriptions: New Amoxic-Pot Clav 875-125Mg [Augmentin 875-125] 1 tab PO Q12HR 7 Days #14 tab Ibuprofen [Motrin] 600 mg PO Q8HR PRN #30 tab PRN Reason: Pain Acetaminophen Tab [Tylenol Tab] 650 mg PO Q4H PRN #30 tablet PRN Reason: Pain Continue Rivaroxaban [Xarelto] 20 mg PO DAILY Montelukast [Singulair] 10 mg PO HS Escitalopram [Lexapro] 20 mg PO DAILY Pantoprazole Sodium [Protonix] 40 mg PO DAILY HYDROcodone/APAP 7.5-325MG [[place] 7.5-325] 1 tab PO TID PRN PRN Reason: Pain Pravastatin Sodium [Pravachol] 40 mg PO HS Vitamin C/Biotin [Hair, Skin and Nails Chew] 1 tab PO DAILY Multivitamins, Thera [Multivitamin (formulary)] 1 dose PO DAILY diazePAM [Valium] 5 mg PO TID PRN PRN Reason: Anxiety Discontinued Nitrofurantoin Monohyd/M-Cryst [Macrobid] 100 mg PO BID cap Discharge Medication List Rivaroxaban [Xarelto] 20 mg PO DAILY 05/24/15 [History] Escitalopram [Lexapro] 20 mg PO DAILY 05/20/17 [History] Montelukast [Singulair] 10 mg PO HS 05/20/17 [History] Pantoprazole Sodium [Protonix] 40 mg PO DAILY 05/20/17 [History] HYDROcodone/APAP 7.5-325MG [[place] 7.5-325] 1 tab PO TID PRN 02/05/19 [History] Pravastatin Sodium [Pravachol] 40 mg PO HS 12/19/20 [History] diazePAM [Valium] 5 mg PO TID PRN 12/19/20 [History] Multivitamins, Thera [Multivitamin (formulary)] 1 dose PO DAILY 06/01/24 [History] Vitamin C/Biotin [Hair, Skin and Nails Chew] 1 tab PO DAILY 06/01/24 [History] Acetaminophen Tab [Tylenol Tab] 650 mg PO Q4H PRN #30 tablet 06/05/24 [Rx] Amoxic-Pot Clav 875-125Mg [Augmentin 875-125] 1 tab PO Q12HR 7 Days #14 tab 06/05/24 [Rx] Ibuprofen [Motrin] 600 mg PO Q8HR PRN #30 tab 06/05/24 [Rx] Follow up Appointment(s)/Referral(s): [facility] [NON-STAFF] - As Needed ( [facility] will call to schedule your first visit) Vincenzo Carmichael MD [STAFF PHYSICIAN] - 06/09/24 2:00 pm Patient Instructions/Handouts: Acetaminophen (By mouth), Ibuprofen (By mouth), Amoxicillin/Clavulanate Potassium (By mouth), Hiatal Hernia (DC) Activity/Diet/Wound Care/Special Instructions: No driving while taking [place] No lifting over 10 pounds You may shower. No soaking or tub baths for 2 weeks Very light activity until you are reevaluated at your follow up appointment with your surgeon Remove Prevena wound vac dressing 06/10/2024 Discharge Disposition: HOME SELF-CARE
== END 2024-06-05 14:20 | disposition home or self-care (01) | DRG 337 ==
LOC: OR 07:17 → 5NMEDONC 07:18
PROVIDERS: ADMIT Surgery; ATTEND Surgery
PROC: 0DBU0ZZ Excision of Omentum, Open Approach (ICD-10-PCS; principal; 2024-06-03 09:00)
PROC: 0WQF0ZZ Repair Abdominal Wall, Open Approach (ICD-10-PCS; principal; 2024-06-03 09:00)
PROC: 0WJF4ZZ Inspection of Abdominal Wall, Percutaneous Endoscopic Approach (ICD-10-PCS; principal; 2024-06-03 09:00)
PROC: 3E0T3BZ Introduction of Anesthetic Agent into Peripheral Nerves and Plexi, Percutaneous Approach (ICD-10-PCS; principal; 2024-06-03 09:00)
PROC: 0WPF0JZ Removal of Synthetic Substitute from Abdominal Wall, Open Approach (ICD-10-PCS; principal; 2024-06-03 09:00)
PROC: 0DN80ZZ Release Small Intestine, Open Approach (ICD-10-PCS; principal; 2024-06-03 09:00)
PROC: 0DNW0ZZ Release Peritoneum, Open Approach (ICD-10-PCS; principal; 2024-06-03 09:00)
DX: K43.2 Incisional hernia without obstruction or gangrene (principal); E78.5 Hyperlipidemia, unspecified; J44.89 Other specified chronic obstructive pulmonary disease; F32.A Depression, unspecified; I10 Essential (primary) hypertension; E87.5 Hyperkalemia; K57.90 Diverticulosis of intestine, part unspecified, without perforation or abscess without bleeding; K21.9 Gastro-esophageal reflux disease without esophagitis; M81.0 Age-related osteoporosis without current pathological fracture; M54.9 Dorsalgia, unspecified; M41.9 Scoliosis, unspecified; K66.0 Peritoneal adhesions (postprocedural) (postinfection); Z86.73 Personal history of transient ischemic attack (TIA), and cerebral infarction without residual deficits; Z86.711 Personal history of pulmonary embolism; Z79.899 Other long term (current) drug therapy; Z79.01 Long term (current) use of anticoagulants; Z86.718 Personal history of other venous thrombosis and embolism; Z87.01 Personal history of pneumonia (recurrent); Z87.440 Personal history of urinary (tract) infections; Z86.14 Personal history of Methicillin resistant Staphylococcus aureus infection; Z88.1 Allergy status to other antibiotic agents; Z88.8 Allergy status to other drugs, medicaments and biological substances
CPT/HCPCS: 64999; 71046; 80053; 81003; 84132; 85025; 88305; 94640